=== PATIENT | male | born 1940 | race Caucasian/White ===

== ENCOUNTER 2016-12-11 10:45 | Outpatient (CLI) | payer MEDICARE, MEDICAID | END 2016-12-11 10:46 | disposition home or self-care (01) | DX: E11.9 Type 2 diabetes mellitus without complications (principal); E03.9 Hypothyroidism, unspecified ==

== ENCOUNTER 2017-03-19 08:07 | Outpatient (CLI) | payer MEDICARE, MEDICAID | END 2017-03-19 08:08 | disposition home or self-care (01) | DX: R94.5 Abnormal results of liver function studies (principal); E78.5 Hyperlipidemia, unspecified; N18.3 Chronic kidney disease, stage 3 (moderate); E03.9 Hypothyroidism, unspecified; E11.9 Type 2 diabetes mellitus without complications ==

== ENCOUNTER 2017-09-14 13:56 | Outpatient (CLI) | payer MEDICARE, MEDICAID ==
[2017-09-14 14:57] LABS: ALBUMIN/GLOBULIN RATIO 1.8 (1.0-2.2); BUN - BLOOD UREA NITROGEN 26 mg/dL (6-20); CARBON DIOXIDE - CO2 22 mmol/L (21-32); CHLORIDE 103 mmol/L (101-111); CHOL/HDL RATIO 4.4 (<5.0); CHOLESTEROL 122 mg/dL; CREATININE 1.4 mg/dL (0.6-1.2); GFR - MDRD 49 (>89); GLUCOSE 144 mg/dL (70-100); HDL CHOLESTEROL 28 mg/dL; LDL/HDL RATIO 2.1 (<3.6); POTASSIUM 4.1 mmol/L (3.5-5.0); SODIUM 135 mmol/L (135-145); TOTAL PROTEIN 6.8 g/dL (6.7-8.2); TRIGLYCERIDES 177 mg/dL; VLDL CHOLESTEROL 35 mg/dL
[2017-09-14 15:00] LABS: HEMOGLOBIN A1C 0.49 g/dL
[2017-09-14 15:08] LABS: THYROID STIMULATING HORMONE 0.84 uIU/mL (0.34-5.60)
== END 2017-09-14 13:57 | disposition home or self-care (01) ==
LOC: LAB 13:56
PROVIDERS: ATTEND Physician Assistant Medical
DX: R94.5 Abnormal results of liver function studies (principal); E11.39 Type 2 diabetes mellitus with other diabetic ophthalmic complication; E78.5 Hyperlipidemia, unspecified; N18.3 Chronic kidney disease, stage 3 (moderate); E03.9 Hypothyroidism, unspecified
CPT/HCPCS: 36415; 80053; 80061; 83036; 84439; 84443

== ENCOUNTER 2018-03-08 08:23 | Outpatient (CLI) | payer MEDICARE, MEDICAID ==
[2018-03-08 13:08] LABS: ALBUMIN 4.5 g/dL (3.2-5.5); ALBUMIN/GLOBULIN RATIO 1.6 (1.0-2.2); BILIRUBIN,TOTAL 1.6 mg/dL (0.2-1.0); CALCIUM 9.1 mg/dL (8.5-10.3); CREATININE 1.6 mg/dL (0.6-1.2); TOTAL PROTEIN 7.3 g/dL (6.7-8.2)
== END 2018-03-08 08:24 | disposition home or self-care (01) ==
LOC: LAB.WCP 08:23
PROVIDERS: ATTEND Family Medicine
DX: E11.22 Type 2 diabetes mellitus with diabetic chronic kidney disease (principal); N18.3 Chronic kidney disease, stage 3 (moderate); D46.9 Myelodysplastic syndrome, unspecified
CPT/HCPCS: 36415; 80053

== ENCOUNTER 2019-10-19 10:47 | Emergency (ER) | payer MEDICARE, MEDICAID ==
[2019-10-19 10:54] VITALS: BP 196/71
--- NOTE | 2019-10-19 12:31 | ED Physician Documentation ---
PD HPI HEENT - Stated complaint Stated Complaint: OBJECT STUCK IN THROAT - Chief complaint Chief Complaint: Heent - History obtained from History obtained from: Patient - History of Present Illness Timing - onset: Last night (finishing eating meal last night that had some pork in it. No fish. Noted feeling of something sharp to side of throat as he swallowed. No choking nor coughing. No vomiting. Continued with sore feeling left side of upper esophagus at level of cricoid cartilage into today. No sharp pain per se. Drank fluids, had some cream of wheat for breakfast this morning, without problems swallowing, just discomfort. He is concerned about residual FB.) Timing - duration: Days (1) Timing - details: Abrupt onset, Still present Location: Throat (left side) Worsens: Swalllowing Associated symptoms: No: Congestion, Unable to swallow, Swollen nodes, Facial swelling Similar symptoms before: Has not had sx before Recently seen: Not recently seen Review of Systems Constitutional: denies: Fever, Chills Nose: denies: Rhinorrhea / runny nose, Congestion, Sinus pressure / pain Throat: denies: Oral lesions / sores Cardiac: denies: Chest pain / pressure, Palpitations Respiratory: denies: Dyspnea, Cough GI: denies: Nausea, Vomiting PD PAST MEDICAL HISTORY - Past Medical History Cardiovascular: None Respiratory: None Neuro: None Endocrine/Autoimmune: Type 2 diabetes HEENT: None - Present Medications Home Medications: Ambulatory Orders Medication Instructions Recorded Confirmed Acetaminophen 1,000 mg PO QPM 08/13/15 09/05/19 Aspirin [Aspir 81] 81 mg PO DAILY 08/13/15 09/05/19 Levothyroxine [Synthroid] 150 mcg PO DAILY 08/13/15 09/05/19 Losartan Potassium 25 mg PO DAILY 08/13/15 09/05/19 Multivitamin [Multivitamins] 1 cap PO DAILY 08/13/15 09/05/19 Simvastatin 5 mg PO DAILY 08/13/15 09/05/19 Triamterene/Hydrochlorothiazid 1 cap PO DAILY 08/13/15 09/05/19 [Triamterene-Hctz 37.5-25 mg Cp] metFORMIN [Glucophage] 500 mg PO BID 08/13/15 09/05/19 Insulin Lispro [Humalog Kwikpen 15 units SQ BIDWM 07/20/17 09/05/19 U-100] Insulin NPH Human Isophane 20 - 25 units SQ BID 07/20/17 09/05/19 [Humulin N Kwikpen] Fluticasone [Flonase] 1 spray ART DAILY 03/07/19 09/05/19 Tamsulosin [Flomax] 0.2 mg PO DAILY 03/07/19 09/05/19 - Allergies Allergies/Adverse Reactions: Allergies Allergy/AdvReac Type Severity Reaction Status Date / Time No Known Drug Allergies Allergy Verified 10/19/19 10:54 PD ED PE NORMAL - Vitals Vital signs reviewed: Yes - General General: Alert and oriented X 3, No acute distress, Well developed/nourished - HEENT HEENT: Moist mucous membranes, Pharynx benign - Neck Neck: Supple, no meningeal sign, No adenopathy, Thyroid normal - Cardiac Cardiac: RRR, No murmur - Respiratory Respiratory: Clear bilaterally - Derm Derm: Normal color, Warm and dry, No rash Results - Vitals Vitals: Vital Signs - 24 hr 10/19/19 10:53 Temperature 36.5 C Heart Rate 88 Respiratory 18 Rate Blood Pressure 196/71 H O2 Saturation 99 Oxygen O2 Source Room air - Rads (name of study) soft tissue neck CT Radiology: Prelim report reviewed (no FB nor acute process seen. osteophytes seen C4-T1, which could create a globus sensation. ), See rad report PD MEDICAL DECISION MAKING - ED course Complexity details: reviewed results (no FB; osteophytes of neck but given the abrupt onset of the discomfort with eating, presume these are unrelated. ), considered differential (CT did not show any obvious bones or FB in the field of exam. I presume he has abrasion with the discomfort. To give another 1-2 days and see if improved. If not, then would need to consider fiberoptic eval. ), d/w patient Departure - Departure Disposition: 01 Home, Self Care Clinical Impression: Esophageal abrasion Qualifiers: Encounter type: initial encounter Qualified Code(s): S27.818A - Other injury of esophagus (thoracic part), initial encounter Condition: Stable Record reviewed to determine appropriate education?: Yes Follow-Up: Juan Sarmiento MD [Primary Care Provider] - [facility] [Provider Group] Comments: Your CT scan did not show any obvious foreign bodies. At this point I would presume an abrasion to the area and see if this gets better within a day or 2. If it persists beyond that then return to the ER or follow-up with ear nose and throat regarding potential scope evaluation to look at the area. Discharge Date/Time: 10/19/19 14:22
[2019-10-19] MEDS ORDERED: LIDOCAINE VISCOUS 2% 15 ML UDC MM STA (13:12)
--- NOTE | 2019-10-19 14:08 | CT Report ---
Reason: feeling of bone stuck neck area after eating Procedure Date: 10/19/2019 Accession Number: [id number] / [id number] Procedure: CT - SOFT TISSUE NECK WO CPT Code: Final Report FULL RESULT: EXAM: CT SOFT TISSUE NECK WITHOUT CONTRAST. EXAM DATE: 10/19/2019 01:37 PM. HISTORY: 79-year-old male. Feeling of bone stuck neck area after eating. COMPARISONS: None. TECHNIQUE: Routine soft tissue neck CT protocol without contrast. Reconstructions: Coronal and sagittal. IV contrast: None. In accordance with CT protocol optimization, one or more of the following dose reduction techniques were utilized for this exam: automated exposure control, adjustment of mA and/or KV based on patient size, or use of iterative reconstructive technique. FINDINGS: Visualized Intracranial Contents: Unremarkable. Orbits: Symmetric and unremarkable. Sinuses: Mild mucosal thickening bilateral maxillary sinuses. Remaining Visualized paranasal sinuses and mastoid air cells are clear. Oral cavity: The visualized oral cavity is unremarkable. The floor of the mouth is symmetric. Pharynx: Pharyngeal mucosa is unremarkable. The infratemporal fossa, parapharyngeal spaces, and retropharyngeal space are unremarkable. The base of the tongue is symmetric and unremarkable. The airway is patent. Larynx: Larynx and supraglottic airway are patent without mass lesion. Vocal cords are symmetric. The visualized trachea is unremarkable. Parotid and Submandibular Glands: Symmetric and unremarkable. Lymph Nodes: No enlarged lymph nodes are identified in the cervical, supraclavicular, and visualized superior mediastinal regions. Soft tissues: Soft tissues are unremarkable. No mass lesion. Vascular Structures: Unremarkable. Thyroid Gland: Normal. Lung: The visualized lung apices are clear. Bones: Bulky anterior osteophytosis extending from C4 to T1 level. No evidence of acute fracture or malalignment. There are moderate to severe multilevel degenerative changes. Other: None. IMPRESSION: 1. No definite radiopaque foreign body identified. 2. Bulky anterior osteophytosis extending from C4 to T1 level. This may create a globus sensation. RADIA
== END 2019-10-19 14:22 | disposition home or self-care (01) ==
LOC: ED 10:47
DX: S27.818A Other injury of esophagus (thoracic part), initial encounter (principal); X58.XXXA Exposure to other specified factors, initial encounter; Y93.89 Activity, other specified; M25.78 Osteophyte, vertebrae; E11.9 Type 2 diabetes mellitus without complications; Z79.4 Long term (current) use of insulin
CPT/HCPCS: 70490; 99282; 99284

== ENCOUNTER 2021-01-24 10:54 | Inpatient (IN) | payer MEDICARE, MEDICAID ==
[2021-01-24] MEDS ORDERED: SODIUM CHLORIDE 0.9% 1,000 ML IV STA (11:53)
--- NOTE | 2021-01-24 11:57 | ED Physician Documentation ---
History of Present Illness - Stated complaint Stated Complaint: BODY PX/WEAKNESS - Chief complaint Chief Complaint: General - Additonal information Additional information: 80-year-old male presents the emergency department with chief complaint of significant fatigue chills myalgias. He states "I feel like a man." He reports to me that the symptoms began almost 48 hours ago. He does endorse some sniffles and nasal congestion. This morning he began having some watery stools. However he also reports that he is having to go to the bathroom almost every hour and simply dribbling urine. There is a small amount of dysuria associated. Pt denies cough, CP, SOA. No n/v. 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 Review of Systems Constitutional: reports: Chills, Myalgias, Fatigue. denies: Fever Eyes: reports: Reviewed and negative Ears: reports: Reviewed and negative Throat: reports: Reviewed and negative Cardiac: denies: Chest pain / pressure, Palpitations, Pedal edema, Calf pain GI: reports: Diarrhea. denies: Abdominal Pain, Nausea, Vomiting : reports: Dysuria, Frequency Skin: denies: Rash, Lesions Musculoskeletal: denies: Neck pain, Back pain Neurologic: reports: Reviewed and negative Psychiatric: reports: Reviewed and negative PD PAST MEDICAL HISTORY - Past Medical History Past Medical History: Yes Cardiovascular: None Respiratory: None Neuro: None Endocrine/Autoimmune: Type 2 diabetes HEENT: None - Present Medications Home Medications: Ambulatory Orders Medication Instructions Recorded Confirmed Acetaminophen 1,000 mg PO QPM 08/13/15 01/24/21 Aspirin [Aspir 81] 81 mg PO DAILY 08/13/15 01/24/21 Losartan Potassium 25 mg PO DAILY 08/13/15 01/24/21 Multivitamin [Multivitamins] 1 cap PO DAILY 08/13/15 01/24/21 Simvastatin 5 mg PO DAILY 08/13/15 01/24/21 Triamterene/Hydrochlorothiazid 1 cap PO DAILY 08/13/15 01/24/21 [Triamterene-Hctz 37.5-25 mg Cp] metFORMIN [Glucophage] 500 mg PO BID 08/13/15 01/24/21 Insulin Lispro [Humalog Kwikpen 15 units SQ BIDWM 07/20/17 01/24/21 U-100] Insulin NPH Human Isophane 20 - 25 units SQ BID 07/20/17 01/24/21 [Humulin N Kwikpen] Fluticasone [Flonase] 1 spray ART DAILY 03/07/19 01/24/21 Tamsulosin [Flomax] 0.2 mg PO DAILY 03/07/19 01/24/21 Levothyroxine Sodium [Synthroid] 175 mcg PO DAILY 01/24/21 01/24/21 - Allergies Allergies/Adverse Reactions: Allergies Allergy/AdvReac Type Severity Reaction Status Date / Time No Known Drug Allergies Allergy Verified 01/24/21 11:07 - Social History Does the pt smoke?: No Smoking Status: Never smoker Does the pt have substance abuse?: No - Immunizations Immunizations are current?: Yes - POLST Patient has POLST: No PD ED PE EXPANDED - General General: Alert, No acute distress, Well developed/nourished - Neck Neck: Supple w/out meningeal sx. No: Adenopathy - Cardiac Cardiac: Regular Rate, Regular Rhythm, Radial strong equal, Pedal strong equal, Cap refill < 2 sec. No: Murmur Present - Respiratory Respiratory: Clear to ausultation hunter. No: Distress, Labored - Abdomen Abdomen: Normal Bowel sounds. No: Tender to palpation - Derm Derm: Normal color. No: Rash, Petecchiae, Purpura - Extremities Extremities: Normal. No: Deformity, Tenderness - Neuro Neuro: Alert and Oriented X 3, CNII-XII intact, Normal speech - GCS Eye Opening: Spontaneous Motor: Obeys Commands Verbal: Oriented Total: 15 Results - Vitals Vitals: Vital Signs - 24 hr 01/24/21 01/24/21 01/24/21 11:02 12:30 12:51 Temperature 36.9 C Heart Rate 105 H 90 Heart Rate [ 100 Sitting] Heart Rate [ 106 H Standing] Heart Rate [ 94 Supine] Respiratory 16 18 Rate Blood Pressure 128/57 L 149/67 H Blood Pressure 169/74 H [Sitting] Blood Pressure 133/80 H [Standing] Blood Pressure 149/67 H [Supine] O2 Saturation 97 100 01/24/21 13:02 Temperature 38.1 C H Heart Rate 98 Heart Rate [ Sitting] Heart Rate [ Standing] Heart Rate [ Supine] Respiratory 18 Rate Blood Pressure 142/58 H Blood Pressure [Sitting] Blood Pressure [Standing] Blood Pressure [Supine] O2 Saturation 100 Oxygen O2 Source Room air - EKG (time done) 1227 Rate: Rate (enter#) (93) Rhythm: NSR Hyrum: Normal Intervals: Normal OH. No: Prolonged QT QRS: Poor R wave progression Ischemia: Normal ST segments Compare to prior EKG: Old EKG unavailable Computer interpretation: Agree with computer - Labs Labs: Laboratory Tests 01/24/21 01/24/21 01/24/21 11:47 11:47 11:47 WBC 32.2 H RBC 2.47 L Hgb 8.8 L Hct 26.9 L MCV 108.9 H MCH 35.6 H MCHC 32.7 RDW 24.8 H Plt Count 356 MPV 10.2 Neut # (Auto) Not Reportable Lymph # (Auto) Not Reportable Upson # (Auto) Not Reportable Eos # (Auto) Not Reportable Baso # (Auto) Not Reportable Absolute Nucleated RBC Not Reportable Total Counted 100 Band Neuts % (Manual) 0 Abnorm Lymph % (Manual) 0 Nucleated RBC % Not Reportable Neutrophils # (Manual) 29.6 H Lymphocytes # (Manual) 1.0 L Monocytes # (Manual) 1.6 H Eosinophils # (Manual) 0.0 Basophils # (Manual) 0.0 Differential Comment MANUAL DIFFERENTIAL Platelet Estimate NORMAL (130-450,000) Platelet Morphology NORMAL APPEARANCE RBC Morph Micro Appear 3+ ANISOCYTOSIS Sodium 135 Potassium 4.2 Chloride 99 L Carbon Dioxide 21 Anion Gap 15.0 H BUN 37 H Creatinine 2.1 H Estimated GFR (MDRD) 31 L Glucose 320 H POC Whole Bld Glucose Lactic Acid Calcium 9.7 Total Bilirubin 2.8 H AST 19 ALT 22 Alkaline Phosphatase 51 Troponin I High Sens 29.0 H* Total Protein 7.3 Albumin 4.2 Globulin 3.1 Albumin/Globulin Ratio 1.4 Lipase 21 L Urine Color Urine Clarity Urine pH Ur Specific Tate Urine Protein Urine Glucose (UA) Urine Ketones Urine Occult Blood Urine Nitrite Urine Bilirubin Urine Urobilinogen Ur Leukocyte Esterase Urine RBC Urine WBC Ur Squamous Epith Cells Urine Bacteria Ur Microscopic Review Urine Culture Comments Nasal Adenovirus (PCR) Nasal B. parapertussis DNA (PCR) Nasal Coronavir 229E PCR Nasal Coronavir HKU1 PCR Nasal Coronavir NL63 PCR Nasal Coronavir OC43 PCR Nasal Enterovir/Rhinovir PCR Nasal Influenza B PCR Nasal Influenza A PCR Nasal Parainfluen 1 PCR Nasal Parainfluen 2 PCR Nasal Parainfluen 3 PCR Nasal Parainfluen 4 PCR Nasal RSV (PCR) Nasal B.pertussis DNA PCR Nasal C.pneumoniae (PCR) Art Human Metapneumo PCR Nasal M.pneumoniae (PCR) Nasal SARS-CoV-2 (PCR) 01/24/21 01/24/21 01/24/21 11:53 12:15 12:30 WBC RBC Hgb Hct MCV MCH MCHC RDW Plt Count MPV Neut # (Auto) Lymph # (Auto) Upson # (Auto) Eos # (Auto) Baso # (Auto) Absolute Nucleated RBC Total Counted Band Neuts % (Manual) Abnorm Lymph % (Manual) Nucleated RBC % Neutrophils # (Manual) Lymphocytes # (Manual) Monocytes # (Manual) Eosinophils # (Manual) Basophils # (Manual) Differential Comment Platelet Estimate Platelet Morphology RBC Morph Micro Appear Sodium Potassium Chloride Carbon Dioxide Anion Gap BUN Creatinine Estimated GFR (MDRD) Glucose POC Whole Bld Glucose 315 H Lactic Acid Calcium Total Bilirubin AST ALT Alkaline Phosphatase Troponin I High Sens Total Protein Albumin Globulin Albumin/Globulin Ratio Lipase Urine Color YELLOW Urine Clarity CLEAR Urine pH 6.0 Ur Specific Tate 1.025 Urine Protein 100 H Urine Glucose (UA) 100 H Urine Ketones NEGATIVE Urine Occult Blood TRACE-INTA Urine Nitrite POSITIVE H Urine Bilirubin NEGATIVE Urine Urobilinogen 0.2 (NORMAL) Ur Leukocyte Esterase TRACE H Urine RBC 6-10 H Urine WBC >25 H Ur Squamous Epith Cells FEW Squamous Urine Bacteria Moderate H Ur Microscopic Review INDICATED Urine Culture Comments INDICATED Nasal Adenovirus (PCR) NOT DETECTED Nasal B. parapertussis DNA (PCR) NOT DETECTED Nasal Coronavir 229E PCR NOT DETECTED Nasal Coronavir HKU1 PCR NOT DETECTED Nasal Coronavir NL63 PCR NOT DETECTED Nasal Coronavir OC43 PCR NOT DETECTED Nasal Enterovir/Rhinovir PCR NOT DETECTED Nasal Influenza B PCR NOT DETECTED Nasal Influenza A PCR NOT DETECTED Nasal Parainfluen 1 PCR NOT DETECTED Nasal Parainfluen 2 PCR NOT DETECTED Nasal Parainfluen 3 PCR NOT DETECTED Nasal Parainfluen 4 PCR NOT DETECTED Nasal RSV (PCR) NOT DETECTED Nasal B.pertussis DNA PCR NOT DETECTED Nasal C.pneumoniae (PCR) NOT DETECTED Art Human Metapneumo PCR NOT DETECTED Nasal M.pneumoniae (PCR) NOT DETECTED Nasal SARS-CoV-2 (PCR) NOT DETECTED 01/24/21 12:58 WBC RBC Hgb Hct MCV MCH MCHC RDW Plt Count MPV Neut # (Auto) Lymph # (Auto) Upson # (Auto) Eos # (Auto) Baso # (Auto) Absolute Nucleated RBC Total Counted Band Neuts % (Manual) Abnorm Lymph % (Manual) Nucleated RBC % Neutrophils # (Manual) Lymphocytes # (Manual) Monocytes # (Manual) Eosinophils # (Manual) Basophils # (Manual) Differential Comment Platelet Estimate Platelet Morphology RBC Morph Micro Appear Sodium Potassium Chloride Carbon Dioxide Anion Gap BUN Creatinine Estimated GFR (MDRD) Glucose POC Whole Bld Glucose Lactic Acid 3.5 H* Calcium Total Bilirubin AST ALT Alkaline Phosphatase Troponin I High Sens Total Protein Albumin Globulin Albumin/Globulin Ratio Lipase Urine Color Urine Clarity Urine pH Ur Specific Tate Urine Protein Urine Glucose (UA) Urine Ketones Urine Occult Blood Urine Nitrite Urine Bilirubin Urine Urobilinogen Ur Leukocyte Esterase Urine RBC Urine WBC Ur Squamous Epith Cells Urine Bacteria Ur Microscopic Review Urine Culture Comments Nasal Adenovirus (PCR) Nasal B. parapertussis DNA (PCR) Nasal Coronavir 229E PCR Nasal Coronavir HKU1 PCR Nasal Coronavir NL63 PCR Nasal Coronavir OC43 PCR Nasal Enterovir/Rhinovir PCR Nasal Influenza B PCR Nasal Influenza A PCR Nasal Parainfluen 1 PCR Nasal Parainfluen 2 PCR Nasal Parainfluen 3 PCR Nasal Parainfluen 4 PCR Nasal RSV (PCR) Nasal B.pertussis DNA PCR Nasal C.pneumoniae (PCR) Rat Human Metapneumo PCR Nasal M.pneumoniae (PCR) Nasal SARS-CoV-2 (PCR) - Rads (name of study) CXR Radiology: Final report received (Medial right infrahilar opacities compatible with atelectasis or consolidation.) CT abd Radiology: Final report received (Source of sepsis syndrome is not identified. No urinary tract abnormality is seen. No evidence of diverticulitis or appendicitis no inflammatory changes identified.) PD MEDICAL DECISION MAKING - ED course Complexity details: reviewed results, re-evaluated patient, considered differential, d/w patient ED course: 80-year-old male presents the emergency department with 2 days of significant fatigue body aches dysuria. On presentation he is normotensive and without fever or tachycardia. Screening labs reveal significant leukocytosis of 32,000. Urine is consistent with infection. Sepsis was identified at 1245. Initial lactate 3.5. 1 L of IV fluids was ordered on presentation but fluid resuscitation was deferred given normotension and lack of tachycardia. He does have mild worsening renal insufficiency with a creatinine of 2.1. Patient was given 1 g of ceftriaxone after 2 blood cultures were obtained. 1440: I have spoken with Dr. Brunson admitting hospitalist who agrees to bring patient in for further evaluation and treatment of his sepsis likely secondary to genitourinary infection. I have orderred a repeat lactic acid for 1430. - Sepsis Event Current Stage of Sepsis: Sepsis Possible source of Sepsis: Genitourinary Mental/Cognitive Status: Alert/Oriented X3 Capillary refill: Less than 2 seconds Peripheral Pulse Strength: 2+ Slightly Diminished Peripheral Pulse Location: Pedal Bedside ultrasound performed: No Sepsis Comment: sepsis identified at 1245 with noted urine infection and leukocytosis. Pending blood cultures and lactic acid. No hypotension, deferred fluid bolus. Departure - Departure Disposition: [facility] DC/Xfer Clinical Impression: Sepsis Qualifiers: Sepsis type: sepsis due to unspecified organism Sepsis acute organ dysfunction status: with acute organ dysfunction Severe sepsis acute organ dysfunction type: acute renal failure Acute renal failure type: unspecified Severe sepsis shock status: without septic shock Qualified Code(s): A41.9 - Sepsis, unspecified organism Urinary tract infection Qualifiers: Urinary tract infection type: acute cystitis Hematuria presence: without hematuria Qualified Code(s): N30.00 - Acute cystitis without hematuria Discharge Date/Time: 01/24/21 14:19
[2021-01-24 11:58] LABS: BASOPHILS % (AUTO) 0.5 %; EOSINOPHILS % (AUTO) 0.1 %; HCT - HEMATOCRIT 26.9 % (42.0-52.0); HGB - HEMOGLOBIN 8.8 g/dL (14.0-18.0); LYMPHOCYTES % (AUTO) 5.6 %; MEAN CORPUSCULAR HEMOGLOBIN 35.6 pg (27.0-31.0); MEAN CORPUSCULAR HGB CONC 32.7 g/dL (32.0-36.0); MEAN CORPUSCULAR VOLUME 108.9 fL (80.0-94.0); MEAN PLATELET VOLUME 10.2 fL (7.4-11.4); MONOCYTES % (AUTO) 8.5 %; PLT - PLATELET COUNT 356 10^3/uL (130-450); RED BLOOD COUNT 2.47 10^6/uL (4.70-6.10); RED CELL DISTRIBUTION WIDTH 24.8 % (12.0-15.0); WHITE BLOOD COUNT 32.2 x10^3/uL (4.8-10.8)
[2021-01-24 12:08] LABS: ABNORMAL LYMPHS % (MANUAL) 0 %; BAND NEUTROPHILS % (MANUAL) 0 %
[2021-01-24 12:09] LABS: ALBUMIN 4.2 g/dL (3.2-5.5); ALBUMIN/GLOBULIN RATIO 1.4 (1.0-2.2); BILIRUBIN,TOTAL 2.8 mg/dL (0.2-1.0); CALCIUM 9.7 mg/dL (8.5-10.3); CREATININE 2.1 mg/dL (0.6-1.2); POTASSIUM 4.2 mmol/L (3.5-5.0); TOTAL PROTEIN 7.3 g/dL (6.7-8.2)
[2021-01-24 12:27] LABS: BILIRUBIN,URINE NEGATIVE (NEGATIVE); CLARITY,URINE CLEAR (CLEAR); GLUCOSE, URINE (UA) 100 mg/dL (NEGATIVE); KETONES,URINE (UA) NEGATIVE (NEGATIVE); LEUKOCYTE ESTERASE, URINE TRACE (NEGATIVE); NITRITE,URINE POSITIVE (NEGATIVE); OCCULT BLOOD,URINE TRACE-INTA (NEGATIVE); PROTEIN,URINE 100 mg/dL (NEGATIVE); UROBILINOGEN,URINE 0.2 (NORMAL) E.U./dL (NORMAL)
--- NOTE | 2021-01-24 12:29 | XRAY Report ---
PROCEDURE: Chest 1 View X-Ray INDICATIONS: chest pain TECHNIQUE: One view of the chest was acquired. COMPARISON: None. FINDINGS: Surgical changes and devices: None. Lungs and pleura: There are medial opacities in the right lung base suggestive of atelectasis or con solidation. No pleural effusions or pneumothorax. Mediastinum: Mediastinal contours appear normal. Heart size is normal. Bones and chest wall: No suspicious bony lesions. Overlying soft tissues appear unremarkable. IMPRESSION: 1. Medial right infrahilar opacities compatible with atelectasis or consolidation. Reviewed by: Chato Crisostomo MD on 01/24/2021 11:28 AM [facility] Approved by: Chato Crisostomo MD on 01/24/2021 11:28 AM [facility] Station ID: [id number]
[2021-01-24 12:32] LABS: LYMPHOCYTES % (MANUAL) 3 %; MONOCYTES # (MANUAL) 1.6 10^3/uL (0.0-1.0); NEUTROPHILS # (MANUAL) 29.6 10^3/uL (1.5-6.6)
[2021-01-24 12:33] LABS: DIFFERENTIAL COMMENT MANUAL DIFFERENTIAL; PLATELET ESTIMATE, MANUAL NORMAL (130-450,000) (NORMAL); PLATELET MORPHOLOGY NORMAL APPEARANCE (NORMAL)
[2021-01-24 12:41] LABS: BACTERIA,URINE Moderate /HPF (None Seen); SQUAMOUS EPITHELIAL CELL,UR FEW Squamous (<= Few); WBC,URINE >25 /HPF (0-3)
[2021-01-24] MEDS ORDERED: cefTRIAXone 1 GM VIAL IVP STA (12:42)
--- NOTE | 2021-01-24 13:35 | CT Report ---
PROCEDURE: Abdomen/Pelvis WO INDICATIONS: sepsis, UTI TECHNIQUE: Noncontrast 5 mm thick sections acquired from the diaphragms to the symphysis. 5 mm coronal and sagi ttal reformats were then performed. For radiation dose reduction, the following was used: automated exposure control, adjustment of mA and/or kV according to patient size. COMPARISON: None. FINDINGS: Image quality: Reduced by absence of both oral and intravenous contrast. ABDOMEN: Lung bases: Lung bases are clear. Heart size is normal. Solid organs: Liver and spleen are normal in size. Gallbladder appears free of inflammation or calc ified gallstone. Pancreas is normal in contours. No adrenal nodules. Kidneys are normal in size, w ithout hydronephrosis or nephrolithiasis. Peritoneum and bowel: Unenhanced bowel loops demonstrate normal wall thickness and caliber. No free fluid or air. Nodes and vessels: No retroperitoneal or mesenteric adenopathy by size criteria. Aorta and inferior vena cava are normal in caliber. Miscellaneous: No ventral hernias. PELVIS: Genitourinary: Bladder wall thickness is normal. Miscellaneous: No inguinal hernias or adenopathy. No evidence of appendicitis or diverticulitis. Bones: No suspicious bony lesions. No vertebral body compression fractures. IMPRESSION: Source of sepsis syndrome is not identified. No urinary tract abnormality is seen. No evidence of div erticulitis or appendicitis, and no inflammatory change is identified. Reviewed by: Ky Rivera MD on 01/24/2021 1:34 PM PST Approved by: Ky Rivera MD on 01/24/2021 1:34 PM PST Station ID: [id number]
[2021-01-24 13:36] LABS: B. PARAPERTUSSIS- RESP PCR PAN NOT DETECTED; B. PERTUSSIS- RESP PCR PANEL NOT DETECTED; C. PNEUMONIAE- RESP PCR PANEL NOT DETECTED; CORONAVIRUS 229E-RESP PCR NOT DETECTED; CORONAVIRUS HKU1-RESP PCR NOT DETECTED; CORONAVIRUS NL63-RESP PCR NOT DETECTED; CORONAVIRUS OC43-RESP PCR NOT DETECTED; HUMAN METAPNEUMOVIRUS NOT DETECTED; INFLUENZA A- RESP PCR PANEL NOT DETECTED; INFLUENZA B - RESP PCR PANEL NOT DETECTED; M. PNEUMONIAE- RESP PCR PANEL NOT DETECTED; PARAINFLUENZA VIRUS 1 NOT DETECTED; PARAINFLUENZA VIRUS 2 NOT DETECTED; PARAINFLUENZA VIRUS 3 NOT DETECTED; PARAINFLUENZA VIRUS 4 NOT DETECTED; RHINOVIRUS/ENTEROVIRUS NOT DETECTED; RSV- RESP PCR PANEL NOT DETECTED; SARS-CoV-2 -RESP PCR PANEL NOT DETECTED
[2021-01-24] MEDS ORDERED: LACTATED RINGERS 2,449.41 ML IV STA (13:40)
[2021-01-24] MEDS ORDERED: ONDANSETRON ODT 4 MG TABLET TL PRN (13:44)
[2021-01-24] MEDS ORDERED: ONDANSETRON 4 MG/2 ML VIAL IVP PRN (13:44)
[2021-01-24] MEDS ORDERED: cefTRIAXone 1 GM in SODIUM CHLORIDE 0.9% MINIBAG 100 ML IV STA (15:04)
[2021-01-24] MEDS ORDERED: LIDOCAINE 2% URO-JET 5 ML SYRINGE UR ONE (15:53)
[2021-01-24] MEDS: ACETAMINOPHEN 325 MG TABLET PO PRN (16:11)
--- NOTE | 2021-01-24 16:19 | HISTORY & PHYSICAL EXAMINATION ---
Chief Complaint - Chief Complaint Chief Complaint: sepsis, UTI History of Present Illness - Admitted From Admitted From:: ED - History Obtained From Records Reviewed: [facility] History obtained from: Patient, Chart Exam Limitations: Pt hard of hearing - History of Present Illness HPI Comment/Other: 80 year old with medical hx including myelodysplastic syndrome, stage III chronic kidney disease and past UTI admitted with sepsis and UTI. Presented to the ED complaining of significant fatigue, chills, and myalgias. Reports he was in his normal state of health Thursday when he was given his Aranesp injection. He went home and had dinner and later that night started feeling fatigued and chilled. Denies fevers, SOB, cough. Reports chronic sinus congestion. Since Thursday night he has had increasing frequency and urgency to urinate with difficulty doing so as well as dysuria. Reports he has been attempting to urinate "every 5 minutes today and I can't go", minimal urine seen in urinal at bedside. Also reports hx BPH for which he was taking medication whose name he could not remember but believes he ran out of 4 years ago. Diarrhea reported to ED provider, though he tells me this afternoon this occurs once every month or so and spontaneously resolves. Denies back pain and did not have CVA tenderness on exam. Does have a prior history of previous UTIs in 2013 and 2014 for which the urine grew Enterobacter and Klebsiella. Labs in the ED significant for WBC 32, creatinine 2.1, BUN 37, anion gap 15 and lactic acid 3.5. Lactic acid later increased to 4 and troponin was 18. Glucose 260s-310s, last A1C 6.9% 10/2020. He has been hypertensive and febrile this afternoon and overall feeling unwell. Hand tremors noted. He was admitted for IV abx and treatment of sepsis and UTI. Also found to have an acute on chronic kidney disease with creatinine elevated to 2.1. Baseline creatinine appears to range 1.3-1.6 since 2017. History - Past Medical History Cardiovascular: reports: None, Hypertension Respiratory: reports: None Neuro: reports: Seizure disorder (appears with stress per patient) Endocrine/Autoimmune: reports: Type 2 diabetes, HyPOthyroidism GI: reports: Other (dysphagia Sep 2019) : reports: Benign prostate hypertrophy (reports he stopped taking meds for this 4 years ago; with urinary obstruction), Renal insuffiency (stage 3 CKD) HEENT: reports: Chronic sinusitis, Other (allergic rhinitis with nasal congestion; cataract) Psych: reports: None Musculoskeletal: reports: Osteoarthritis (knees), Chronic back pain (with sacroiliitis) Derm: reports: Eczema MRSA Hx?: No Other Past Medical History: fatty liver with elevated liver enzymes; m yelodysplastic syndrome with chronic anemia; hyperlipidemia - Family & Social History Family History Comment/Other: Has not had contact with family in many years, believes his parents were healthy but are . Unsure if his sister and brother are living. Son of epilepsy at age 21. Living arrangement: At home Living Situation: Alone Social History Notes: Lives alone. for many years, only son at age 21. Quit smoking at age 25 when son was born. Drinks one mixed alcoholic drink on Saturdays and Sundays, mixed with coffee. Denies illicit drug use. - Substance History Use: Uses substance without health or social issues: NONE Abuse: Recurrent use of substance despite neg consequences: NONE Dependence: Experiences withdrawal or developed tolerances: NONE - POLST Patient has POLST: No Meds/Allgy - Home Medications Home Medications: Ambulatory Orders Medication Instructions Recorded Confirmed Acetaminophen 1,000 mg PO QPM 08/13/15 01/24/21 Aspirin [Aspir 81] 81 mg PO DAILY 08/13/15 01/24/21 Losartan Potassium 25 mg PO DAILY 08/13/15 01/24/21 Multivitamin [Multivitamins] 1 cap PO DAILY 08/13/15 01/24/21 Simvastatin 5 mg PO DAILY 08/13/15 01/24/21 Triamterene/Hydrochlorothiazid 1 cap PO DAILY 08/13/15 01/24/21 [Triamterene-Hctz 37.5-25 mg Cp] metFORMIN [Glucophage] 500 mg PO BID 08/13/15 01/24/21 Insulin Lispro [Humalog Kwikpen 15 units SQ BIDWM 07/20/17 01/24/21 U-100] Insulin NPH Human Isophane 20 - 25 units SQ BID 07/20/17 01/24/21 [Humulin N Kwikpen] Fluticasone [Flonase] 1 spray ART DAILY 03/07/19 01/24/21 Tamsulosin [Flomax] 0.2 mg PO DAILY 03/07/19 01/24/21 Levothyroxine Sodium [Synthroid] 175 mcg PO DAILY 01/24/21 01/24/21 - Allergies Allergies/Adverse Reactions: Allergies Allergy/AdvReac Type Severity Reaction Status Date / Time No Known Drug Allergies Allergy Verified 01/24/21 11:07 Review of Systems - Constitutional Constitutional: reports: Fatigue, Chills, Weakness. denies: Fever - Eyes Eyes: reports: Other (last vision test done 5 years ago per his report). denies: Pain, Blurred vision, Spots in vision - Ears, Nose & Throat Ears, Nose & Throat: reports: Hearing loss, Hearing aids, Nasal congestion (chronic). denies: Sore throat - Cardiovascular Cariovascular: denies: Palpitations, Chest pain, Edema, Lightheadedness, Syncope, Exertional dyspnea - Respiratory Respiratory: denies: Cough, SOB at rest, SOB with exertion - Gastrointestinal Gastrointestinal: reports: Diarrhea. denies: Abdominal pain, Abdominal distention, Nausea, Vomiting - Genitourinary Genitourinary: reports: Dysuria, Frequency, Urgency, Nocturia - Musculoskeletal Musculoskeletal: reports: Other (hand tremors, worse with stress). denies: Back pain, Muscle aches, Muscle weakness - Integumentary Integumentary: denies: Rash - Neurological Neurological: denies: General weakness, Headache, Dizziness, Numbness, Seizures (none recent, occurs with stress) - Psychiatric Psychiatric: denies: Depression, Anxiety - Endocrine Endocrine: denies: Polyuria, Polydypsia, Polyphagia - Hematologic/Lymphatic Hematologic/Lymphatic: reports: Anemia (due to MDS) - All Other Systems All Other Systems: reports: Reviewed and negative Prior Level of Functionality: Independent at home with ADLs and iADLs. Performs all housework and drives to appointments, etc. Exam - Vital Signs Reviewed Vital Signs: Yes Vital Signs: Vital Signs x48h Temp Pulse Pulse Pulse Pulse Pulse Resp 01/24/21 16:00 39.7 C H 96 24 01/24/21 15:30 37.3 C 96 24 01/24/21 15:00 37.2 C 97 20 01/24/21 14:30 37.2 C 93 20 01/24/21 14:26 37.8 C 90 20 01/24/21 13:02 38.1 C H 98 18 01/24/21 12:51 100 106 H 94 01/24/21 12:30 90 18 01/24/21 11:02 36.9 C 105 H 16 BP BP BP BP BP Pulse Ox 01/24/21 16:00 181/52 H 95 01/24/21 15:30 177/58 H 97 01/24/21 15:00 179/58 H 98 01/24/21 14:30 173/52 H 100 01/24/21 14:26 153/71 H 99 01/24/21 13:02 142/58 H 100 01/24/21 12:51 169/74 H 133/80 H 149/67 H 01/24/21 12:30 149/67 H 100 01/24/21 11:02 128/57 L 97 - Physical Exam General Appearance: positive: Alert, Mild distress Eyes Bilateral: positive: Normal inspection, PERRL ENT: positive: ENT inspection nml, No signs of dehydration Neck: positive: Nml inspection, Thyroid nml Respiratory: positive: Chest non-tender, No respiratory distress, Breath sounds nml Cardiovascular: positive: Regular rate & rhythm, No murmur, No gallop Peripheral Pulses: positive: 2+ Abdomen: positive: Non-tender, No organomegaly, Nml bowel sounds, No distention Back: positive: Nml inspection. negative: CVA tenderness (R), CVA tenderness (L) Skin: positive: Pallor Extremities: positive: Non-tender, Full ROM, Nml appearance Neurologic/Psychiatric: positive: Oriented x3 Comments/Other: gabriella clear urine draining from heredia catheter Sepsis Event Note (H) - Evaluation Current Stage of Sepsis: Sepsis Possible source of Sepsis: positive: Genitourinary Sepsis Associated Organ Dysfunction: acute on chronic kidney injury - Sepsis Criteria Sepsis Criteria: Recorded Temperature greater than 38.3C or Less than 36C, Recorded Heart Rate greater than 90 bpm, WBC count greater than 12,000 or less than 4000, Metabolic: lactate > 2 mmol/L Conclusion/Plan - Problem List (1) Sepsis Conclusion/Plan: Pt admitted with WBC 32.2. WBC last drawn 01/21 and was 9. Troponin 29 and lactate has been 3.5-->4-->2.7. Glucose trending 260s-310s though with recent A1c<7 this is likely indicative of infection rather than poor blood sugar control. His anion gap was 15. Tmax was 39.7, has come to 39.1 with tylenol. A one time dose of Ibuprofen was also ordered. Heart rate has been regular and in the 90s. He has been hypertensive 170s-180s systolic. His respiratory rate is in the 20s, max 24, with saturation ranging 100-94%, trending down. He was admitted with sepsis and started on 2g Ceftriaxone per sepsis protocol. 1. IV Abx 2. Repeat lactate and troponin 3. VS Q4 4. Tylenol Q6H PRN fever 5. Ibuprofen x1 6. IVF Qualifiers: Sepsis type: sepsis due to unspecified organism Sepsis acute organ dysfunction status: with acute organ dysfunction Severe sepsis acute organ dysfunction type: acute renal failure Acute renal failure type: unspecified Severe sepsis shock status: without septic shock Qualified Code(s): A41.9 - Sepsis, unspecified organism; R65.20 - Severe sepsis without septic shock; N17.9 - Acute kidney failure, unspecified (2) Urinary tract infection Conclusion/Plan: Reports 3 days of dysuria, frequency, difficulty urinating. Tmax 39.7, hypertensive. WBC 32, increased from [address] scan normal, no bladder obstruction noted. Heredia placed, draining clear yellow/gabriella urine initially, now with blood tinged output. Urine sample sent for culture, currently on Ceftriaxone. 1. IV abx 2. Urine cx 3. IVF Qualifiers: Urinary tract infection type: acute cystitis Hematuria presence: without hematuria Qualified Code(s): N30.00 - Acute cystitis without hematuria (3) Diabetes mellitus type 2, controlled, with complications Conclusion/Plan: A1C in October 2020 6.9%. Takes metformin and insulin at home, appears to be well controlled. BGs have been elevated today, likely related to infection. Metformin will be held for now given high lactate and LIS, insulin restarted. Has not had a Podiatry or Opthalmology appointment in 5 years, reports this is due to "the state not paying for it". Denies blurry vision but does have a prior diagnosis of cataracts. Also has stage III kidney disease. No foot wounds noted on exam, I was not able to test for neuropathy as he had difficulty hearing me through this. 1. SSI 2. Hold Metformin for now 3. Follow up Opthalmology after discharge Qualifiers: Diabetes mellitus correction insulin use: with correction use Qualified Code(s): E11.8 - Type 2 diabetes mellitus with unspecified complications; Z79.4 - MCFP (current) use of insulin (4) Hypertension Conclusion/Plan: Takes Losartan at home, did not take medications this morning. SBPs 170-180s this afternoon. 1. Resume home Losartan. Qualifiers: Hypertension type: essential hypertension Qualified Code(s): I10 - Essential (primary) hypertension (5) Acute kidney injury superimposed on chronic kidney disease Conclusion/Plan: Baseline creatinine appears to range 1.3-1.6 looking back at records through 2017. Admitted with creatinine 2.1 and BUN 37. Known to have chronic kidney disease stage III. Given IVF (LR) and will recheck creatinine in the morning. Urine is clear yellow/gabriella. 1. IVF 2. Monitor I/O (heredia in place) 3. Daily CMP (6) Chronic kidney disease, stage 3 Conclusion/Plan: Baseline creatinine appears to range 1.3-1.6 looking back at records through 2016. Admitted with creatinine 2.1 and BUN 37. Known to have chronic kidney disease stage III. Given IVF (LR) and will recheck creatinine in the morning. Urine is clear yellow/gabriella. 1. Daily CMP 2. Monitor I/O Qualifiers: Chronic kidney disease stage 3 subtype: unspecified whether 3a or 3b Qualified Code(s): N18.30 - Chronic kidney disease, stage 3 unspecified (7) Benign prostate hyperplasia Conclusion/Plan: Reports he was diagnosed in 2014 and "ran out of meds 4 years ago", however Flomax is on his outpatient medication list. Reports difficulty urinating, incomplete emptying, dysuria, frequency and urgency. Attempted 4 times to urinate in the first 5 min of my interview with him without success, so a heredia catheter was placed. CT scan done, does not mention the prostate but does mention that all other organs are normal. Denied abdominal pain, did not have CVA tenderness on exam. Blood tinged urine in heredia 1 hour after placement, initially was gabriella/yellow and clear. 1. Rectal/Prostate exam 2. Heredia catheter 3. Resume Flomax Qualifiers: Lower urinary tract symptom presence: symptoms present Lower urinary tract symptom detail: urinary frequency Qualified Code(s): N40.1 - Benign prostatic hyperplasia with lower urinary tract symptoms; R35.0 - Frequency of micturition (8) Chronic sinusitis Conclusion/Plan: Has a history of chronic sinusitis, reporting some nasal congestion today. No drainage seen on exam, nares appear normal and pink on external exam. Uses Flonase at home. 1. 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 Last dose received 01/21. Hgb 8.8 today. 1. Monitor CBC (10) Myelodysplastic syndrome Conclusion/Plan: Diagnosed by 2014, followed by Ramona Ibrahim and Josh Lou outpatient. Follows up every 2-3 months, with monthly CBC (WBC normal at 9 on 01/21, no evidence of disease progression). Has been receiving treatment for his chronic anemia related to MDS. (11) Hyperlipidemia Conclusion/Plan: Prior diagnosis of HLD. Takes a statin and aspirin at home, will resume when appropriate. Qualifiers: Hyperlipidemia type: unspecified Qualified Code(s): E78.5 - Hyperlipidemia, unspecified (12) Seizure disorder Conclusion/Plan: Reports a history of epilepsy, last seizure unknown. Reports he only has sei zures "when I'm stressed". Does not take medications for this and has not seen a Neurologist recently. 1. Seizure precautions. (13) Hypothyroidism Conclusion/Plan: Prior diagnosis. Takes Levothyroxine at home. Will resume. 1. Levothyroxine daily. Qualifiers: Hypothyroidism type: unspecified Qualified Code(s): E03.9 - Hypothyroidism, unspecified - Lab Results Lab results reviewed: Yes Fish Bones: 01/24/21 11:47 01/24/21 11:47 - Diagnostic Imaging Results Diagnostic Imaging Results: positive: Prelim report reviewed Core Measures - Anticipated LOS I expect patient to be DC'd or transferred within 96 hours.: Yes - DVT/VTE - Prophylaxis VTE/DVT Device ordered at admit?: Yes
[2021-01-24] MEDS ORDERED: IBUPROFEN 800 MG TABLET PO ONE (17:20)
[2021-01-24 17:22] LABS: LACTIC ACID, VENOUS 2.7 mmol/L (0.5-2.2)
[2021-01-24] MEDS: LACTATED RINGERS 1,000 ML IV SCH ×2 (17:27→22:01)
[2021-01-24] MEDS: SODIUM CHLORIDE FLUSH 0.9% 10 ML SYRINGE IVP SCH ×2 (17:46→23:57)
[2021-01-24] MEDS ORDERED: LACTATED RINGERS 1,000 ML IV ONE (19:11)
[2021-01-24 20:53] LABS: LACTIC ACID, VENOUS 2.5 mmol/L (0.5-2.2)
[2021-01-24] MEDS: INSULIN NPH HUMAN 300 UNIT/3 ML VIAL SUBQ SCH (22:24)
[2021-01-24] MEDS: INSULIN ASPART 300 UNIT/3 ML PEN SUBQ SCH (22:25)
[2021-01-25 00:51] LABS: PSA FREE 4.29 ng/mL (0.16-2.81)
[2021-01-25 00:52] LABS: PSA TOTAL 11.88 ng/mL (0.000-2.000)
[2021-01-25] MEDS: ACETAMINOPHEN 325 MG TABLET PO PRN ×3 (04:27→16:41)
[2021-01-25] MEDS: LACTATED RINGERS 1,000 ML IV SCH ×3 (04:39→21:12)
[2021-01-25 04:49] LABS: BASOPHILS % (AUTO) 0.4 %; EOSINOPHILS % (AUTO) 0.5 %; MEAN CORPUSCULAR HEMOGLOBIN 35.2 pg (27.0-31.0); MEAN CORPUSCULAR HGB CONC 31.8 g/dL (32.0-36.0); MEAN CORPUSCULAR VOLUME 110.6 fL (80.0-94.0); MEAN PLATELET VOLUME 10.4 fL (7.4-11.4); NEUTROPHILS % (AUTO) 82.9 %; PLT - PLATELET COUNT 271 10^3/uL (130-450); RED BLOOD COUNT 1.99 10^6/uL (4.70-6.10); RED CELL DISTRIBUTION WIDTH 25.4 % (12.0-15.0); WHITE BLOOD COUNT 26.5 x10^3/uL (4.8-10.8)
[2021-01-25 05:13] LABS: ABNORMAL LYMPHS % (MANUAL) 0 %
[2021-01-25 05:15] LABS: BAND NEUTROPHILS % (MANUAL) 4 %; LYMPHOCYTES # (MANUAL) 1.3 10^3/uL (1.5-3.5); LYMPHOCYTES % (MANUAL) 5 %; MONOCYTES # (MANUAL) 2.4 10^3/uL (0.0-1.0); NEUTROPHILS # (MANUAL) 22.8 10^3/uL (1.5-6.6)
[2021-01-25 05:17] LABS: DIFFERENTIAL COMMENT MANUAL DIFFERENTIAL; PLATELET ESTIMATE, MANUAL NORMAL (130-450,000) (NORMAL); PLATELET MORPHOLOGY NORMAL APPEARANCE (NORMAL); WBC MORPHOLOGY (MULTIPLE) NORMAL APPEARANCE (NORMAL)
[2021-01-25] MEDS: LEVOTHYROXINE 75 MCG TABLET PO SCH (06:33)
[2021-01-25] MEDS: LEVOTHYROXINE 100 MCG TABLET PO SCH (06:33)
[2021-01-25] MEDS ORDERED: ATORVASTATIN 40 MG TABLET PO ONE (07:28)
[2021-01-25] MEDS: METOPROLOL SUCCINATE 25 MG TABLET PO SCH (08:11)
[2021-01-25] MEDS: ASPIRIN 325 MG TABLET PO SCH (08:11)
[2021-01-25] MEDS: TAMSULOSIN 0.4 MG CAPSULE PO SCH (08:11)
[2021-01-25] MEDS: LOSARTAN 50 MG TABLET PO SCH (08:12)
[2021-01-25 08:13] LABS: CALCIUM 8.8 mg/dL (8.5-10.3); CREATININE 1.6 mg/dL (0.6-1.2); POTASSIUM 4.1 mmol/L (3.5-5.0)
[2021-01-25] MEDS: SODIUM CHLORIDE FLUSH 0.9% 10 ML SYRINGE IVP SCH ×3 (08:13→23:59)
--- NOTE | 2021-01-25 08:15 | PROVIDER PROGRESS NOTE ---
Subjective - Prog Note Date Prog Note Date: 01/25/21 - Subjective Pt reports feeling: Improved Subjective: Hypotensive overnight. WBC improving to 26, lactate trending down to 1.7. Troponins have increased to 141.5, denies chest pain or SOB. Pt feels he slept okay overnight. Complaining of a dull abdominal pain, no tenderness with palpation. Rated 5/10, constant though some relief with pain medication. He is not sure if anything makes it worse but denies it is radiating anywhere. [place] draining clear yellow urine. Objective - Vital Signs/Intake & Output Reviewed Vital Signs: Yes Vital Signs: Vital Signs x48h Temp Pulse Resp BP Pulse Ox 01/25/21 07:30 36.7 C 77 20 122/48 L 95 01/25/21 07:00 36.9 C 77 16 131/50 H 93 01/25/21 06:30 36.9 C 81 18 126/48 L 96 01/25/21 06:00 36.9 C 80 18 119/48 L 95 01/25/21 05:30 36.6 C 80 22 120/47 L 94 01/25/21 05:00 36.6 C 79 18 120/50 L 95 01/25/21 04:30 36.6 C 80 18 125/59 L 98 01/25/21 04:00 84 18 112/47 L 99 01/25/21 03:30 37.3 C 81 20 115/47 L 95 01/25/21 03:00 36.8 C 80 18 101/54 L 97 01/25/21 02:30 37.5 C 76 18 107/47 L 99 01/25/21 02:00 37.2 C 74 18 106/45 L 96 01/25/21 01:30 36.8 C 69 18 95/48 L 98 01/25/21 01:00 37 C 67 16 93/38 L 96 01/25/21 00:30 69 18 97/43 L 98 Intake & Output: Intake & Output 01/22/21 01/23/21 01/24/21 01/25/21 23:59 23:59 23:59 23:59 Intake Total 5768.687 859.723 Output Total 825 425 Balance 4943.687 434.723 - Objective General Appearance: positive: No acute distress, Alert Eyes Bilateral: positive: Normal inspection, PERRL ENT: positive: ENT inspection nml, No signs of dehydration Neck: positive: Nml inspection Respiratory: positive: Chest non-tender, No respiratory distress, Breath sounds nml Cardiovascular: positive: Regular rate & rhythm, No murmur, No gallop Abdomen: positive: No organomegaly, Nml bowel sounds, Tenderness (non-tender to palpation but reporting dull pain, 5/10, across the abdomen. Pain medications help to make it better, not sure what makes it worse. Non-radiating, constant.) Back: positive: Nml inspection Skin: positive: Diaphoresis, Pallor Extremities: positive: Non-tender, Full ROM, Nml appearance Neurologic/Psychiatric: positive: Oriented x3 Comments/Other: heredia with clear yellow urine - Lab Results Fish Bones: 01/25/21 04:38 01/25/21 07:40 Other Labs: Lab Results x24hrs 01/25/21 01/25/21 01/25/21 Range/Units 07:46 04:38 04:38 WBC 26.5 H (4.8-10.8) x10^3/uL RBC 1.99 L (4.70-6.10) 10^6/uL Hgb 7.0 L* (14.0-18.0) g/dL Hct 22.0 L (42.0-52.0) % MCV 110.6 H (80.0-94.0) fL MCH 35.2 H (27.0-31.0) pg MCHC 31.8 L (32.0-36.0) g/dL RDW 25.4 H (12.0-15.0) % Plt Count 271 (130-450) 10^3/uL MPV 10.4 (7.4-11.4) fL Neut # (Auto) Not Reportable Lymph # (Auto) Not Reportable [place] # (Auto) Not Reportable Eos # (Auto) Not Reportable Baso # (Auto) Not Reportable Absolute Nucleated RBC Not Reportable Total Counted 100 Band Neuts % (Manual) 4 (0 - 10) % Abnorm Lymph % (Manual) 0 % Nucleated RBC % Not Reportable Neutrophils # (Manual) 22.8 H (1.5-6.6) 10^3/uL Lymphocytes # (Manual) 1.3 L (1.5-3.5) 10^3/uL Monocytes # (Manual) 2.4 H (0.0-1.0) 10^3/uL Eosinophils # (Manual) 0.0 (0-0.7) 10^3/uL Basophils # (Manual) 0.0 (0-0.1) 10^3/uL Differential Comment MANUAL DIFFERENTIAL WBC Morphology NORMAL APPEARANCE (NORMAL) Platelet Estimate NORMAL (130-450,000) (NORMAL) Platelet Morphology NORMAL APPEARANCE (NORMAL) RBC Morph Micro Appear 1+ HYPOCHROMASIA (NORMAL) Sodium (135-145) mmol/L Potassium (3.5-5.0) mmol/L Chloride (101-111) mmol/L Carbon Dioxide (21-32) mmol/L Anion Gap (6-13) BUN (6-20) mg/dL Creatinine (0.6-1.2) mg/dL Estimated GFR (MDRD) (>89) Glucose (70-100) mg/dL POC Whole Bld Glucose 204 H (70 - 100) mg/dL Lactic Acid 1.6 (0.5-2.2) mmol/L Calcium (8.5-10.3) mg/dL Total Bilirubin (0.2-1.0) mg/dL AST (10-42) IU/L ALT (10-60) IU/L Alkaline Phosphatase (42-121) IU/L Troponin I High Sens (2.3-19.7) ng/L Total Protein (6.7-8.2) g/dL Albumin (3.2-5.5) g/dL Globulin (2.1-4.2) g/dL Albumin/Globulin Ratio (1.0-2.2) Lipase (22-51) U/L Prostate Specific Ag (0.000-2.000) ng/mL Free PSA (0.16-2.81) ng/mL % Free PSA Calc (25-100) % Urine Color Urine Clarity (CLEAR) Urine pH (5.0-7.5) PH Ur Specific [place] (1.002-1.030) Urine Protein (NEGATIVE) mg/dL Urine Glucose (UA) (NEGATIVE) mg/dL Urine Ketones (NEGATIVE) mg/dL Urine Occult Blood (NEGATIVE) Urine Nitrite (NEGATIVE) Urine Bilirubin (NEGATIVE) Urine Urobilinogen (NORMAL) E.U./dL Ur Leukocyte Esterase (NEGATIVE) Urine RBC (0-5) /HPF Urine WBC (0-3) /HPF Ur Squamous Epith Cells (<= Few) Urine Bacteria (None Seen) /HPF Ur Microscopic Review Urine Culture Comments Nasal Adenovirus (PCR) Nasal B. parapertussis DNA (PCR) Nasal Coronavir 229E PCR Nasal Coronavir HKU1 PCR Nasal Coronavir NL63 PCR Nasal Coronavir OC43 PCR Nasal Enterovir/Rhinovir PCR Nasal Influenza B PCR Nasal Influenza A PCR Nasal Parainfluen 1 PCR Nasal Parainfluen 2 PCR Nasal Parainfluen 3 PCR Nasal Parainfluen 4 PCR Nasal RSV (PCR) Nasal B.pertussis DNA PCR Nasal C.pneumoniae (PCR) Joey Human Metapneumo PCR Nasal M.pneumoniae (PCR) Nasal SARS-CoV-2 (PCR) 01/24/21 01/24/21 01/24/21 Range/Units 23:10 23:01 20:39 WBC (4.8-10.8) x10^3/uL RBC (4.70-6.10) 10^6/uL Hgb (14.0-18.0) g/dL Hct (42.0-52.0) % MCV (80.0-94.0) fL MCH (27.0-31.0) pg MCHC (32.0-36.0) g/dL RDW (12.0-15.0) % Plt Count (130-450) 10^3/uL MPV (7.4-11.4) fL Neut # (Auto) Lymph # (Auto) [place] # (Auto) Eos # (Auto) Baso # (Auto) Absolute Nucleated RBC Total Counted Band Neuts % (Manual) (0 - 10) % Abnorm Lymph % (Manual) % Nucleated RBC % Neutrophils # (Manual) (1.5-6.6) 10^3/uL Lymphocytes # (Manual) (1.5-3.5) 10^3/uL Monocytes # (Manual) (0.0-1.0) 10^3/uL Eosinophils # (Manual) (0-0.7) 10^3/uL Basophils # (Manual) (0-0.1) 10^3/uL Differential Comment WBC Morphology (NORMAL) Platelet Estimate (NORMAL) Platelet Morphology (NORMAL) RBC Morph Micro Appear (NORMAL) Sodium (135-145) mmol/L Potassium (3.5-5.0) mmol/L Chloride (101-111) mmol/L Carbon Dioxide (21-32) mmol/L Anion Gap (6-13) BUN (6-20) mg/dL Creatinine (0.6-1.2) mg/dL Estimated GFR (MDRD) (>89) Glucose (70-100) mg/dL POC Whole Bld Glucose 232 H (70 - 100) mg/dL Lactic Acid 1.8 (0.5-2.2) mmol/L Calcium (8.5-10.3) mg/dL Total Bilirubin (0.2-1.0) mg/dL AST (10-42) IU/L ALT (10-60) IU/L Alkaline Phosphatase (42-121) IU/L Troponin I High Sens 141.5 H* (2.3-19.7) ng/L Total Protein (6.7-8.2) g/dL Albumin (3.2-5.5) g/dL Globulin (2.1-4.2) g/dL Albumin/Globulin Ratio (1.0-2.2) Lipase (22-51) U/L Prostate Specific Ag (0.000-2.000) ng/mL Free PSA (0.16-2.81) ng/mL % Free PSA Calc (25-100) % Urine Color Urine Clarity (CLEAR) Urine pH (5.0-7.5) PH Ur Specific [place] (1.002-1.030) Urine Protein (NEGATIVE) mg/dL Urine Glucose (UA) (NEGATIVE) mg/dL Urine Ketones (NEGATIVE) mg/dL Urine Occult Blood (NEGATIVE) Urine Nitrite (NEGATIVE) Urine Bilirubin (NEGATIVE) Urine Urobilinogen (NORMAL) E.U./dL Ur Leukocyte Esterase (NEGATIVE) Urine RBC (0-5) /HPF Urine WBC (0-3) /HPF Ur Squamous Epith Cells (<= Few) Urine Bacteria (None Seen) /HPF Ur Microscopic Review Urine Culture Comments Nasal Adenovirus (PCR) Nasal B. parapertussis DNA (PCR) Nasal Coronavir 229E PCR Nasal Coronavir HKU1 PCR Nasal Coronavir NL63 PCR Nasal Coronavir OC43 PCR Nasal Enterovir/Rhinovir PCR Nasal Influenza B PCR Nasal Influenza A PCR Nasal Parainfluen 1 PCR Nasal Parainfluen 2 PCR Nasal Parainfluen 3 PCR Nasal Parainfluen 4 PCR Nasal RSV (PCR) Nasal B.pertussis DNA PCR Nasal C.pneumoniae (PCR) Joey Human Metapneumo PCR Nasal M.pneumoniae (PCR) Nasal SARS-CoV-2 (PCR) 01/24/21 01/24/21 01/24/21 Range/Units 20:21 17:02 17:02 WBC (4.8-10.8) x10^3/uL RBC (4.70-6.10) 10^6/uL Hgb (14.0-18.0) g/dL Hct (42.0-52.0) % MCV (80.0-94.0) fL MCH (27.0-31.0) pg MCHC (32.0-36.0) g/dL RDW (12.0-15.0) % Plt Count (130-450) 10^3/uL MPV (7.4-11.4) fL Neut # (Auto) Lymph # (Auto) [place] # (Auto) Eos # (Auto) Baso # (Auto) Absolute Nucleated RBC Total Counted Band Neuts % (Manual) (0 - 10) % Abnorm Lymph % (Manual) % Nucleated RBC % Neutrophils # (Manual) (1.5-6.6) 10^3/uL Lymphocytes # (Manual) (1.5-3.5) 10^3/uL Monocytes # (Manual) (0.0-1.0) 10^3/uL Eosinophils # (Manual) (0-0.7) 10^3/uL Basophils # (Manual) (0-0.1) 10^3/uL Differential Comment WBC Morphology (NORMAL) Platelet Estimate (NORMAL) Platelet Morphology (NORMAL) RBC Morph Micro Appear (NORMAL) Sodium (135-145) mmol/L Potassium (3.5-5.0) mmol/L Chloride (101-111) mmol/L Carbon Dioxide (21-32) mmol/L Anion Gap (6-13) BUN (6-20) mg/dL Creatinine (0.6-1.2) mg/dL Estimated GFR (MDRD) (>89) Glucose (70-100) mg/dL POC Whole Bld Glucose (70 - 100) mg/dL Lactic Acid 2.5 H 2.7 H (0.5-2.2) mmol/L Calcium (8.5-10.3) mg/dL Total Bilirubin (0.2-1.0) mg/dL AST (10-42) IU/L ALT (10-60) IU/L Alkaline Phosphatase (42-121) IU/L Troponin I High Sens 74.1 H* (2.3-19.7) ng/L Total Protein (6.7-8.2) g/dL Albumin (3.2-5.5) g/dL Globulin (2.1-4.2) g/dL Albumin/Globulin Ratio (1.0-2.2) Lipase (22-51) U/L Prostate Specific Ag (0.000-2.000) ng/mL Free PSA (0.16-2.81) ng/mL % Free PSA Calc (25-100) % Urine Color Urine Clarity (CLEAR) Urine pH (5.0-7.5) PH Ur Specific [place] (1.002-1.030) Urine Protein (NEGATIVE) mg/dL Urine Glucose (UA) (NEGATIVE) mg/dL Urine Ketones (NEGATIVE) mg/dL Urine Occult Blood (NEGATIVE) Urine Nitrite (NEGATIVE) Urine Bilirubin (NEGATIVE) Urine Urobilinogen (NORMAL) E.U./dL Ur Leukocyte Esterase (NEGATIVE) Urine RBC (0-5) /HPF Urine WBC (0-3) /HPF Ur Squamous Epith Cells (<= Few) Urine Bacteria (None Seen) /HPF Ur Microscopic Review Urine Culture Comments Nasal Adenovirus (PCR) Nasal B. parapertussis DNA (PCR) Nasal Coronavir 229E PCR Nasal Coronavir HKU1 PCR Nasal Coronavir NL63 PCR Nasal Coronavir OC43 PCR Nasal Enterovir/Rhinovir PCR Nasal Influenza B PCR Nasal Influenza A PCR Nasal Parainfluen 1 PCR Nasal Parainfluen 2 PCR Nasal Parainfluen 3 PCR Nasal Parainfluen 4 PCR Nasal RSV (PCR) Nasal B.pertussis DNA PCR Nasal C.pneumoniae (PCR) Joey Human Metapneumo PCR Nasal M.pneumoniae (PCR) Nasal SARS-CoV-2 (PCR) 01/24/21 01/24/21 01/24/21 Range/Units 16:31 15:09 14:33 WBC (4.8-10.8) x10^3/uL RBC (4.70-6.10) 10^6/uL Hgb (14.0-18.0) g/dL Hct (42.0-52.0) % MCV (80.0-94.0) fL MCH (27.0-31.0) pg MCHC (32.0-36.0) g/dL RDW (12.0-15.0) % Plt Count (130-450) 10^3/uL MPV (7.4-11.4) fL Neut # (Auto) Lymph # (Auto) [place] # (Auto) Eos # (Auto) Baso # (Auto) Absolute Nucleated RBC Total Counted Band Neuts % (Manual) (0 - 10) % Abnorm Lymph % (Manual) % Nucleated RBC % Neutrophils # (Manual) (1.5-6.6) 10^3/uL Lymphocytes # (Manual) (1.5-3.5) 10^3/uL Monocytes # (Manual) (0.0-1.0) 10^3/uL Eosinophils # (Manual) (0-0.7) 10^3/uL Basophils # (Manual) (0-0.1) 10^3/uL Differential Comment WBC Morphology (NORMAL) Platelet Estimate (NORMAL) Platelet Morphology (NORMAL) RBC Morph Micro Appear (NORMAL) Sodium (135-145) mmol/L Potassium (3.5-5.0) mmol/L Chloride (101-111) mmol/L Carbon Dioxide (21-32) mmol/L Anion Gap (6-13) BUN (6-20) mg/dL Creatinine (0.6-1.2) mg/dL Estimated GFR (MDRD) (>89) Glucose (70-100) mg/dL POC Whole Bld Glucose 267 H 266 H (70 - 100) mg/dL Lactic Acid 4.0 H* (0.5-2.2) mmol/L Calcium (8.5-10.3) mg/dL Total Bilirubin (0.2-1.0) mg/dL AST (10-42) IU/L ALT (10-60) IU/L Alkaline Phosphatase (42-121) IU/L Troponin I High Sens (2.3-19.7) ng/L Total Protein (6.7-8.2) g/dL Albumin (3.2-5.5) g/dL Globulin (2.1-4.2) g/dL Albumin/Globulin Ratio (1.0-2.2) Lipase (22-51) U/L Prostate Specific Ag (0.000-2.000) ng/mL Free PSA (0.16-2.81) ng/mL % Free PSA Calc (25-100) % Urine Color Urine Clarity (CLEAR) Urine pH (5.0-7.5) PH Ur Specific [place] (1.002-1.030) Urine Protein (NEGATIVE) mg/dL Urine Glucose (UA) (NEGATIVE) mg/dL Urine Ketones (NEGATIVE) mg/dL Urine Occult Blood (NEGATIVE) Urine Nitrite (NEGATIVE) Urine Bilirubin (NEGATIVE) Urine Urobilinogen (NORMAL) E.U./dL Ur Leukocyte Esterase (NEGATIVE) Urine RBC (0-5) /HPF Urine WBC (0-3) /HPF Ur Squamous Epith Cells (<= Few) Urine Bacteria (None Seen) /HPF Ur Microscopic Review Urine Culture Comments Nasal Adenovirus (PCR) Nasal B. parapertussis DNA (PCR) Nasal Coronavir 229E PCR Nasal Coronavir HKU1 PCR Nasal Coronavir NL63 PCR Nasal Coronavir OC43 PCR Nasal Enterovir/Rhinovir PCR Nasal Influenza B PCR Nasal Influenza A PCR Nasal Parainfluen 1 PCR Nasal Parainfluen 2 PCR Nasal Parainfluen 3 PCR Nasal Parainfluen 4 PCR Nasal RSV (PCR) Nasal B.pertussis DNA PCR Nasal C.pneumoniae (PCR) Joey Human Metapneumo PCR Nasal M.pneumoniae (PCR) Nasal SARS-CoV-2 (PCR) 01/24/21 01/24/21 01/24/21 Range/Units 12:58 12:30 12:15 WBC (4.8-10.8) x10^3/uL RBC (4.70-6.10) 10^6/uL Hgb (14.0-18.0) g/dL Hct (42.0-52.0) % MCV (80.0-94.0) fL MCH (27.0-31.0) pg MCHC (32.0-36.0) g/dL RDW (12.0-15.0) % Plt Count (130-450) 10^3/uL MPV (7.4-11.4) fL Neut # (Auto) Lymph # (Auto) [place] # (Auto) Eos # (Auto) Baso # (Auto) Absolute Nucleated RBC Total Counted Band Neuts % (Manual) (0 - 10) % Abnorm Lymph % (Manual) % Nucleated RBC % Neutrophils # (Manual) (1.5-6.6) 10^3/uL Lymphocytes # (Manual) (1.5-3.5) 10^3/uL Monocytes # (Manual) (0.0-1.0) 10^3/uL Eosinophils # (Manual) (0-0.7) 10^3/uL Basophils # (Manual) (0-0.1) 10^3/uL Differential Comment WBC Morphology (NORMAL) Platelet Estimate (NORMAL) Platelet Morphology (NORMAL) RBC Morph Micro Appear (NORMAL) Sodium (135-145) mmol/L Potassium (3.5-5.0) mmol/L Chloride (101-111) mmol/L Carbon Dioxide (21-32) mmol/L Anion Gap (6-13) BUN (6-20) mg/dL Creatinine (0.6-1.2) mg/dL Estimated GFR (MDRD) (>89) Glucose (70-100) mg/dL POC Whole Bld Glucose (70 - 100) mg/dL Lactic Acid 3.5 H* (0.5-2.2) mmol/L Calcium (8.5-10.3) mg/dL Total Bilirubin (0.2-1.0) mg/dL AST (10-42) IU/L ALT (10-60) IU/L Alkaline Phosphatase (42-121) IU/L Troponin I High Sens (2.3-19.7) ng/L Total Protein (6.7-8.2) g/dL Albumin (3.2-5.5) g/dL Globulin (2.1-4.2) g/dL Albumin/Globulin Ratio (1.0-2.2) Lipase (22-51) U/L Prostate Specific Ag (0.000-2.000) ng/mL Free PSA (0.16-2.81) ng/mL % Free PSA Calc (25-100) % Urine Color YELLOW Urine Clarity CLEAR (CLEAR) Urine pH 6.0 (5.0-7.5) PH Ur Specific [place] 1.025 (1.002-1.030) Urine Protein 100 H (NEGATIVE) mg/dL Urine Glucose (UA) 100 H (NEGATIVE) mg/dL Urine Ketones NEGATIVE (NEGATIVE) mg/dL Urine Occult Blood TRACE-INTA (NEGATIVE) Urine Nitrite POSITIVE H (NEGATIVE) Urine Bilirubin NEGATIVE (NEGATIVE) Urine Urobilinogen 0.2 (NORMAL) (NORMAL) E.U./dL Ur Leukocyte Esterase TRACE H (NEGATIVE) Urine RBC 6-10 H (0-5) /HPF Urine WBC >25 H (0-3) /HPF Ur Squamous Epith Cells FEW Squamous (<= Few) Urine Bacteria Moderate H (None Seen) /HPF Ur Microscopic Review INDICATED Urine Culture Comments INDICATED Nasal Adenovirus (PCR) NOT DETECTED Nasal B. parapertussis DNA (PCR) NOT DETECTED Nasal Coronavir 229E PCR NOT DETECTED Nasal Coronavir HKU1 PCR NOT DETECTED Nasal Coronavir NL63 PCR NOT DETECTED Nasal Coronavir OC43 PCR NOT DETECTED Nasal Enterovir/Rhinovir PCR NOT DETECTED Nasal Influenza B PCR NOT DETECTED Nasal Influenza A PCR NOT DETECTED Nasal Parainfluen 1 PCR NOT DETECTED Nasal Parainfluen 2 PCR NOT DETECTED Nasal Parainfluen 3 PCR NOT DETECTED Nasal Parainfluen 4 PCR NOT DETECTED Nasal RSV (PCR) NOT DETECTED Nasal B.pertussis DNA PCR NOT DETECTED Nasal C.pneumoniae (PCR) NOT DETECTED Joey Human Metapneumo PCR NOT DETECTED Nasal M.pneumoniae (PCR) NOT DETECTED Nasal SARS-CoV-2 (PCR) NOT DETECTED 01/24/21 01/24/21 01/24/21 Range/Units 11:53 11:47 11:47 WBC (4.8-10.8) x10^3/uL RBC (4.70-6.10) 10^6/uL Hgb (14.0-18.0) g/dL Hct (42.0-52.0) % MCV (80.0-94.0) fL MCH (27.0-31.0) pg MCHC (32.0-36.0) g/dL RDW (12.0-15.0) % Plt Count (130-450) 10^3/uL MPV (7.4-11.4) fL Neut # (Auto) Lymph # (Auto) [place] # (Auto) Eos # (Auto) Baso # (Auto) Absolute Nucleated RBC Total Counted Band Neuts % (Manual) (0 - 10) % Abnorm Lymph % (Manual) % Nucleated RBC % Neutrophils # (Manual) (1.5-6.6) 10^3/uL Lymphocytes # (Manual) (1.5-3.5) 10^3/uL Monocytes # (Manual) (0.0-1.0) 10^3/uL Eosinophils # (Manual) (0-0.7) 10^3/uL Basophils # (Manual) (0-0.1) 10^3/uL Differential Comment WBC Morphology (NORMAL) Platelet Estimate (NORMAL) Platelet Morphology (NORMAL) RBC Morph Micro Appear (NORMAL) Sodium (135-145) mmol/L Potassium (3.5-5.0) mmol/L Chloride (101-111) mmol/L Carbon Dioxide (21-32) mmol/L Anion Gap (6-13) BUN (6-20) mg/dL Creatinine (0.6-1.2) mg/dL Estimated GFR (MDRD) (>89) Glucose (70-100) mg/dL POC Whole Bld Glucose 315 H (70 - 100) mg/dL Lactic Acid (0.5-2.2) mmol/L Calcium (8.5-10.3) mg/dL Total Bilirubin (0.2-1.0) mg/dL AST (10-42) IU/L ALT (10-60) IU/L Alkaline Phosphatase (42-121) IU/L Troponin I High Sens 29.0 H* (2.3-19.7) ng/L Total Protein (6.7-8.2) g/dL Albumin (3.2-5.5) g/dL Globulin (2.1-4.2) g/dL Albumin/Globulin Ratio (1.0-2.2) Lipase (22-51) U/L Prostate Specific Ag 11.880 H (0.000-2.000) ng/mL Free PSA 4.290 H (0.16-2.81) ng/mL % Free PSA Calc 36 (25-100) % Urine Color Urine Clarity (CLEAR) Urine pH (5.0-7.5) PH Ur Specific [place] (1.002-1.030) Urine Protein (NEGATIVE) mg/dL Urine Glucose (UA) (NEGATIVE) mg/dL Urine Ketones (NEGATIVE) mg/dL Urine Occult Blood (NEGATIVE) Urine Nitrite (NEGATIVE) Urine Bilirubin (NEGATIVE) Urine Urobilinogen (NORMAL) E.U./dL Ur Leukocyte Esterase (NEGATIVE) Urine RBC (0-5) /HPF Urine WBC (0-3) /HPF Ur Squamous Epith Cells (<= Few) Urine Bacteria (None Seen) /HPF Ur Microscopic Review Urine Culture Comments Nasal Adenovirus (PCR) Nasal B. parapertussis DNA (PCR) Nasal Coronavir 229E PCR Nasal Coronavir HKU1 PCR Nasal Coronavir NL63 PCR Nasal Coronavir OC43 PCR Nasal Enterovir/Rhinovir PCR Nasal Influenza B PCR Nasal Influenza A PCR Nasal Parainfluen 1 PCR Nasal Parainfluen 2 PCR Nasal Parainfluen 3 PCR Nasal Parainfluen 4 PCR Nasal RSV (PCR) Nasal B.pertussis DNA PCR Nasal C.pneumoniae (PCR) Joey Human Metapneumo PCR Nasal M.pneumoniae (PCR) Nasal SARS-CoV-2 (PCR) 01/24/21 01/24/21 Range/Units 11:47 11:47 WBC 32.2 H (4.8-10.8) x10^3/uL RBC 2.47 L (4.70-6.10) 10^6/uL Hgb 8.8 L (14.0-18.0) g/dL Hct 26.9 L (42.0-52.0) % MCV 108.9 H (80.0-94.0) fL MCH 35.6 H (27.0-31.0) pg MCHC 32.7 (32.0-36.0) g/dL RDW 24.8 H (12.0-15.0) % Plt Count 356 (130-450) 10^3/uL MPV 10.2 (7.4-11.4) fL Neut # (Auto) Not Reportable Lymph # (Auto) Not Reportable [place] # (Auto) Not Reportable Eos # (Auto) Not Reportable Baso # (Auto) Not Reportable Absolute Nucleated RBC Not Reportable Total Counted 100 Band Neuts % (Manual) 0 (0 - 10) % Abnorm Lymph % (Manual) 0 % Nucleated RBC % Not Reportable Neutrophils # (Manual) 29.6 H (1.5-6.6) 10^3/uL Lymphocytes # (Manual) 1.0 L (1.5-3.5) 10^3/uL Monocytes # (Manual) 1.6 H (0.0-1.0) 10^3/uL Eosinophils # (Manual) 0.0 (0-0.7) 10^3/uL Basophils # (Manual) 0.0 (0-0.1) 10^3/uL Differential Comment MANUAL DIFFERENTIAL WBC Morphology (NORMAL) Platelet Estimate NORMAL (130-450,000) (NORMAL) Platelet Morphology NORMAL APPEARANCE (NORMAL) RBC Morph Micro Appear 3+ ANISOCYTOSIS (NORMAL) Sodium 135 (135-145) mmol/L Potassium 4.2 (3.5-5.0) mmol/L Chloride 99 L (101-111) mmol/L Carbon Dioxide 21 (21-32) mmol/L Anion Gap 15.0 H (6-13) BUN 37 H (6-20) mg/dL Creatinine 2.1 H (0.6-1.2) mg/dL Estimated GFR (MDRD) 31 L (>89) Glucose 320 H (70-100) mg/dL POC Whole Bld Glucose (70 - 100) mg/dL Lactic Acid (0.5-2.2) mmol/L Calcium 9.7 (8.5-10.3) mg/dL Total Bilirubin 2.8 H (0.2-1.0) mg/dL AST 19 (10-42) IU/L ALT 22 (10-60) IU/L Alkaline Phosphatase 51 (42-121) IU/L Troponin I High Sens (2.3-19.7) ng/L Total Protein 7.3 (6.7-8.2) g/dL Albumin 4.2 (3.2-5.5) g/dL Globulin 3.1 (2.1-4.2) g/dL Albumin/Globulin Ratio 1.4 (1.0-2.2) Lipase 21 L (22-51) U/L Prostate Specific Ag (0.000-2.000) ng/mL Free PSA (0.16-2.81) ng/mL % Free PSA Calc (25-100) % Urine Color Urine Clarity (CLEAR) Urine pH (5.0-7.5) PH Ur Specific [place] (1.002-1.030) Urine Protein (NEGATIVE) mg/dL Urine Glucose (UA) (NEGATIVE) mg/dL Urine Ketones (NEGATIVE) mg/dL Urine Occult Blood (NEGATIVE) Urine Nitrite (NEGATIVE) Urine Bilirubin (NEGATIVE) Urine Urobilinogen (NORMAL) E.U./dL Ur Leukocyte Esterase (NEGATIVE) Urine RBC (0-5) /HPF Urine WBC (0-3) /HPF Ur Squamous Epith Cells (<= Few) Urine Bacteria (None Seen) /HPF Ur Microscopic Review Urine Culture Comments Nasal Adenovirus (PCR) Nasal B. parapertussis DNA (PCR) Nasal Coronavir 229E PCR Nasal Coronavir HKU1 PCR Nasal Coronavir NL63 PCR Nasal Coronavir OC43 PCR Nasal Enterovir/Rhinovir PCR Nasal Influenza B PCR Nasal Influenza A PCR Nasal Parainfluen 1 PCR Nasal Parainfluen 2 PCR Nasal Parainfluen 3 PCR Nasal Parainfluen 4 PCR Nasal RSV (PCR) Nasal B.pertussis DNA PCR Nasal C.pneumoniae (PCR) Joey Human Metapneumo PCR Nasal M.pneumoniae (PCR) Nasal SARS-CoV-2 (PCR) - Diagnostic Imaging Diagnostic Imaging Results: positive: Final report reviewed ABX Reporting Has patient been on IV antibiotics over the past 48 hours?: Yes Sepsis Event Note (H) - Evaluation Current Stage of Sepsis: Resolved (Tachycardic, tachypnic, hypertensive last evening, all have resolved this morning.) Possible source of Sepsis: positive: Genitourinary - Sepsis Criteria Sepsis Criteria: Recorded Temperature greater than 38.3C or Less than 36C, Recorded Heart Rate greater than 90 bpm, Recorded Respiratory Rate greater than 20, WBC count greater than 12,000 or less than 4000, SBP less than 90 mmHg, Metabolic: lactate > 2 mmol/L Assessment/Plan - Problem List (1) Urinary tract infection Impression: Improved. WBC trending down, 26.5 from 32. Urine cx with Pseudomonas, IV antibiotics transitioned to cipro. Denies dysuria today, has had relief with insertion of the heredia catheter. Urine now clear and yellow. Denies pain. 1. IV abx 2. IVF Qualifiers: Urinary tract infection type: acute cystitis Hematuria presence: without hematuria Qualified Code(s): N30.00 - Acute cystitis without hematuria (2) Sepsis Impression: Resolved. Pt admitted with WBC 32.2, trending down to 26.5. Lactate has resolved, now 1.6. He was hypertensive initially and then hypotensive last night, also had a short period of tachycardia and tachypnea. Tmax last night of 39.7, has remained afebrile since. He is normotensive with normal HR this morning, afebrile. Remains on room air. He does have elevated troponins that continued to elevate overnight, likely related to sepsis rather than NSTEMI but will perform EKG and ECHO today to assess. 1. IV Abx 2. troponin 3. VS Q4 4. Tylenol Q6H PRN fever 5. IVF 6. EKG 7. ECHO Qualifiers: Sepsis type: sepsis due to unspecified organism Sepsis acute organ dysfunction status: with acute organ dysfunction Severe sepsis acute organ dysfunction type: acute renal failure Acute renal failure type: unspecified Severe sepsis shock status: without septic shock Qualified Code(s): A41.9 - Sepsis, unspecified organism; R65.20 - Severe sepsis without septic shock; N17.9 - Acute kidney failure, unspecified (3) Elevated troponin level Impression: Troponins have been steadily increasing since admission, 29-->74.1-->141.5-- >115.1. Denies chest pain or shortness of breath. Does have some abdominal pain. Today his BP is normal, HR is normal, though last evening he had hypotension and tachycardia. Troponin elevation likely related to his sepsis picture, however will obtain an EKG and ECHO today. 1. Trend troponin Q8H x3 2. EKG 3. Echocardiogram (4) Diabetes mellitus type 2, controlled, with complications Impression: A1C in October 2020 6.9%. Takes metformin and insulin at home, appears to be well controlled. BGs remain elevated 230-310s, likely related to infection. Metformin will be held for now given high lactate and LIS, insulin restarted. Has not had a Podiatry or Opthalmology appointment in 5 years, reports this is due to "the state not paying for it". Denies blurry vision but does have a prior diagnosis of cataracts. Also has stage III kidney disease. No foot wounds noted on exam, I was not able to test for neuropathy as he had difficulty hearing me through this. 1. SSI 2. Hold Metformin for now 3. 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 Baseline creatinine appears to range 1.3-1.6 looking back at records through 2017. Admitted with creatinine 2.1, decreased to 1.6 today. Known to have chronic kidney disease stage III. Urine is clear yellow, appropriate o utput. 1. IVF 2. Monitor I/O (heredia in place) 3. Daily CMP (6) Chronic kidney disease, stage 3 Impression: Baseline creatinine appears to range 1.3-1.6 looking back at records through 2017. Admitted with creatinine 2.1 and BUN 37. Known to have chronic kidney disease stage III. Urine is clear yellow. 1. Daily CMP 2. Monitor I/O Qualifiers: Chronic kidney disease stage 3 subtype: unspecified whether 3a or 3b Qualified Code(s): N18.30 - Chronic kidney disease, stage 3 unspecified (7) Benign prostate hyperplasia Impression: Improved. Reports he was diagnosed in 2014 and "ran out of meds 4 years ago", however Flomax is on his outpatient medication list. Reports difficulty urinating, incomplete emptying, dysuria, frequency and urgency prior to admis maria teresa. Heredia catheter was inserted and he reports only intermittent dysuria, remaining symptoms have resolved. CT scan done on admission, does not mention the prostate but does mention that all other organs are normal. Did not have CVA tenderness, however this morning he is complaining of generalized constant dull abdominal pain. Has had appropriate urine output. 1. Rectal/Prostate exam 2. Heredia catheter 3. Continue Flomax Qualifiers: Lower urinary tract symptom presence: symptoms present Lower urinary tract symptom detail: urinary frequency Qualified Code(s): N40.1 - Benign prostatic hyperplasia with lower urinary tract symptoms; R35.0 - Frequency of micturition (8) Chronic sinusitis Impression: Stable. Has a history of chronic sinusitis, reporting some nasal congestion today. No drainage seen on exam, nares appear normal and pink on external exam. Uses Flonase at home. 1. 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 Last dose received 01/21. Hgb down to 7 today, will plan to transfuse 1 unit leukocyte reduced PRBCs today. 1. Transfuse 1 unit leukocyte reduced PRBCs 2. Monitor CBC (10) Myelodysplastic syndrome Impression: Stable. Diagnosed by bx 2014, followed by Ramona Ibrahim and Josh alarcon tpatient. Follows up every 2-3 months, with monthly CBC (WBC normal at 9 on 01/21, no evidence of disease progression). Has been receiving treatment for his chronic anemia related to MDS. (11) Hypertension Impression: Resolved. Takes Losartan at home, SBPs 170-180s yesterday afternoon. Losartan was resumed. He did have an episode of hypotension last evening, likely related to sepsis and resolved with a fluid bolus. Systolics have been 120s-130s this m jose, diastolics 40s-50s. 1. Continue home Losartan. Qualifiers: Hypertension type: essential hypertension Qualified Code(s): I10 - Essential (primary) hypertension (12) Hyperlipidemia Impression: Stable. Prior diagnosis of HLD. Takes a statin and aspirin at home, will resume when appropriate. Qualifiers: Hyperlipidemia type: unspecified Qualified Code(s): E78.5 - Hyperlipidemia, unspecified (13) Seizure disorder Impression: Stable. Reports a history of epilepsy, last seizure unknown. Reports he only has seizures "when I'm stressed". Does not take medications for this and has not seen a Neurologist recently. No seizures this admission. 1. Seizure precautions. (14) Hypothyroidism Impression: Stable. Prior diagnosis. Takes Levothyroxine at home. Will resume. 1. Continue Levothyroxine daily. Qualifiers: Hypothyroidism type: unspecified Qualified Code(s): E03.9 - Hypothyroidism, unspecified
[2021-01-25] MEDS: INSULIN ASPART 300 UNIT/3 ML PEN SUBQ SCH ×4 (08:19→21:01)
[2021-01-25] MEDS: ENOXAPARIN 80 MG/0.8 ML SYRINGE SUBQ SCH ×2 (08:20→20:56)
[2021-01-25] MEDS: INSULIN NPH HUMAN 300 UNIT/3 ML VIAL SUBQ SCH ×2 (08:20→21:03)
[2021-01-25] MEDS ORDERED: cefTRIAXone 2 GM in SODIUM CHLORIDE 0.9% MINIBAG 100 ML IV SCH (09:00)
[2021-01-25 10:52] LABS: ESTIMATED AVERAGE GLUCOSE 123 mg/dL (70-100); HEMOGLOBIN A1c% 5.9 % (4.27-6.07)
[2021-01-25] MEDS: CIPROFLOXACIN 400 MG/200 ML 400 MG/200 ML BAG IV SCH ×2 (12:34→23:59)
[2021-01-25] MEDS: oxyCODONE 5 MG TABLET PO PRN (18:55)
[2021-01-25] MEDS: FLUTICASONE NASAL SPRAY NAS SCH (20:55)
[2021-01-25] MEDS: traZODone 50 MG TABLET PO SCH (21:43)
[2021-01-26 05:27] LABS: BASOPHILS # (AUTO) 0.1 10^3/uL (0.0-0.1); BASOPHILS % (AUTO) 0.5 %; EOSINOPHILS # (AUTO) 0.1 10^3/uL (0.0-0.7); EOSINOPHILS % (AUTO) 0.3 %; HCT - HEMATOCRIT 25.5 % (42.0-52.0); HGB - HEMOGLOBIN 8.2 g/dL (14.0-18.0); LYMPHOCYTES % (AUTO) 8.7 %; MEAN CORPUSCULAR HEMOGLOBIN 34.5 pg (27.0-31.0); MEAN CORPUSCULAR HGB CONC 32.2 g/dL (32.0-36.0); MEAN CORPUSCULAR VOLUME 107.1 fL (80.0-94.0); MEAN PLATELET VOLUME 10.9 fL (7.4-11.4); MONOCYTES # (AUTO) 1.9 10^3/uL (0.0-1.0); MONOCYTES % (AUTO) 8.1 %; NEUTROPHILS # (AUTO) 18.9 10^3/uL (1.5-6.6); NEUTROPHILS % (AUTO) 80.8 %; PLT - PLATELET COUNT 308 10^3/uL (130-450); RED BLOOD COUNT 2.38 10^6/uL (4.70-6.10); RED CELL DISTRIBUTION WIDTH 25.2 % (12.0-15.0); WHITE BLOOD COUNT 23.4 x10^3/uL (4.8-10.8)
[2021-01-26 05:33] LABS: CALCIUM 8.4 mg/dL (8.5-10.3); CREATININE 1.5 mg/dL (0.6-1.2); POTASSIUM 3.9 mmol/L (3.5-5.0)
[2021-01-26 05:51] LABS: PLATELET ESTIMATE, MANUAL NORMAL (130-450,000) (NORMAL); PLATELET MORPHOLOGY NORMAL APPEARANCE (NORMAL); WBC MORPHOLOGY (MULTIPLE) NORMAL APPEARANCE (NORMAL)
[2021-01-26] MEDS: LEVOTHYROXINE 100 MCG TABLET PO SCH (06:38)
[2021-01-26] MEDS: LEVOTHYROXINE 75 MCG TABLET PO SCH (06:38)
[2021-01-26] MEDS ORDERED: INSULIN ASPART 300 UNIT/3 ML PEN SUBQ SCH (08:00)
--- NOTE | 2021-01-26 08:21 | PROVIDER PROGRESS NOTE ---
Subjective - Prog Note Date Prog Note Date: 01/26/21 - Subjective Pt reports feeling: Improved Subjective: Pt reports that he slept well overnight and is feeling "much better than yesterday". Denies pain,n/v. Heredia draining appropriately, denies bladder spasms or pain. Feels weak but would like to go home soon to help his friend with grocery shopping and errands. Objective - Vital Signs/Intake & Output Reviewed Vital Signs: Yes Vital Signs: Vital Signs x48h Temp Pulse Resp BP BP Pulse Ox 01/26/21 07:28 36.7 C 100 20 158/60 H 97 01/26/21 05:26 36.7 C 102 H 18 166/66 H 94 Intake & Output: Intake & Output 01/23/21 01/24/21 01/25/21 01/26/21 23:59 23:59 23:59 23:59 Intake Total 5768.687 5145.146 400 Output Total 825 2475 825 Balance 4943.687 2670.146 -425 - Objective General Appearance: positive: No acute distress, Alert Eyes Bilateral: positive: Normal inspection, PERRL ENT: positive: ENT inspection nml, No signs of dehydration Neck: positive: Nml inspection Respiratory: positive: Chest non-tender, No respiratory distress, Breath sounds nml Cardiovascular: positive: Regular rate & rhythm, No murmur, Tachycardia Peripheral Pulses: 2+ Radial (R), 2+ Radial (L), 2+ Popliteal (R), 2+ Popliteal (L) Abdomen: positive: Non-tender, No organomegaly, Nml bowel sounds, No distention Back: positive: Nml inspection Skin: positive: Pallor Extremities: positive: Non-tender, Full ROM, Nml appearance Neurologic/Psychiatric: positive: Oriented x3 - Lab Results Fish Bones: 01/26/21 04:57 01/26/21 04:57 Other Labs: Lab Results x24hrs 01/26/21 01/26/21 01/26/21 Range/Units 08:08 04:57 04:57 WBC 23.4 H (4.8-10.8) x10^3/uL RBC 2.38 L (4.70-6.10) 10^6/uL Hgb 8.2 L (14.0-18.0) g/dL Hct 25.5 L (42.0-52.0) % MCV 107.1 H (80.0-94.0) fL MCH 34.5 H (27.0-31.0) pg MCHC 32.2 (32.0-36.0) g/dL RDW 25.2 H (12.0-15.0) % Plt Count 308 (130-450) 10^3/uL MPV 10.9 (7.4-11.4) fL Neut # (Auto) 18.9 H (1.5-6.6) 10^3/uL Lymph # (Auto) 2.0 (1.5-3.5) 10^3/uL [place]ding # (Auto) 1.9 H (0.0-1.0) 10^3/uL Eos # (Auto) 0.1 (0.0-0.7) 10^3/uL Baso # (Auto) 0.1 (0.0-0.1) 10^3/uL Absolute Nucleated RBC 0.00 x10^3/uL Nucleated RBC % 0.0 /100WBC WBC Morphology NORMAL APPEARANCE (NORMAL) Platelet Estimate NORMAL (130-450,000) (NORMAL) Platelet Morphology NORMAL APPEARANCE (NORMAL) RBC Morph Micro Appear 2+ ANISOCYTOSIS (NORMAL) Sodium 137 (135-145) mmol/L Potassium 3.9 (3.5-5.0) mmol/L Chloride 103 (101-111) mmol/L Carbon Dioxide 22 (21-32) mmol/L Anion Gap 12.0 (6-13) BUN 22 H (6-20) mg/dL Creatinine 1.5 H (0.6-1.2) mg/dL Estimated GFR (MDRD) 45 L (>89) Glucose 315 H (70-100) mg/dL POC Whole Bld Glucose 330 H (70 - 100) mg/dL Estimat Average Glucose (70-100) mg/dL Hemoglobin A1c % (4.27-6.07) % Calcium 8.4 L (8.5-10.3) mg/dL Troponin I High Sens (2.3-19.7) ng/L Blood Type Blood Type Recheck Antibody Screen Crossmatch IS Only 01/25/21 01/25/21 01/25/21 Range/Units 20:31 16:36 11:14 WBC (4.8-10.8) x10^3/uL RBC (4.70-6.10) 10^6/uL Hgb (14.0-18.0) g/dL Hct (42.0-52.0) % MCV (80.0-94.0) fL MCH (27.0-31.0) pg MCHC (32.0-36.0) g/dL RDW (12.0-15.0) % Plt Count (130-450) 10^3/uL MPV (7.4-11.4) fL Neut # (Auto) (1.5-6.6) 10^3/uL Lymph # (Auto) (1.5-3.5) 10^3/uL [place] # (Auto) (0.0-1.0) 10^3/uL Eos # (Auto) (0.0-0.7) 10^3/uL Baso # (Auto) (0.0-0.1) 10^3/uL Absolute Nucleated RBC x10^3/uL Nucleated RBC % /100WBC WBC Morphology (NORMAL) Platelet Estimate (NORMAL) Platelet Morphology (NORMAL) RBC Morph Micro Appear (NORMAL) Sodium (135-145) mmol/L Potassium (3.5-5.0) mmol/L Chloride (101-111) mmol/L Carbon Dioxide (21-32) mmol/L Anion Gap (6-13) BUN (6-20) mg/dL Creatinine (0.6-1.2) mg/dL Estimated GFR (MDRD) (>89) Glucose (70-100) mg/dL POC Whole Bld Glucose 286 H 270 H 280 H (70 - 100) mg/dL Estimat Average Glucose (70-100) mg/dL Hemoglobin A1c % (4.27-6.07) % Calcium (8.5-10.3) mg/dL Troponin I High Sens (2.3-19.7) ng/L Blood Type Blood Type Recheck Antibody Screen Crossmatch IS Only 01/25/21 01/25/21 01/25/21 Range/Units 07:40 07:40 04:38 WBC (4.8-10.8) x10^3/uL RBC (4.70-6.10) 10^6/uL Hgb (14.0-18.0) g/dL Hct (42.0-52.0) % MCV (80.0-94.0) fL MCH (27.0-31.0) pg MCHC (32.0-36.0) g/dL RDW (12.0-15.0) % Plt Count (130-450) 10^3/uL MPV (7.4-11.4) fL Neut # (Auto) (1.5-6.6) 10^3/uL Lymph # (Auto) (1.5-3.5) 10^3/uL [place] # (Auto) (0.0-1.0) 10^3/uL Eos # (Auto) (0.0-0.7) 10^3/uL Baso # (Auto) (0.0-0.1) 10^3/uL Absolute Nucleated RBC x10^3/uL Nucleated RBC % /100WBC WBC Morphology (NORMAL) Platelet Estimate (NORMAL) Platelet Morphology (NORMAL) RBC Morph Micro Appear (NORMAL) Sodium (135-145) mmol/L Potassium (3.5-5.0) mmol/L Chloride (101-111) mmol/L Carbon Dioxide (21-32) mmol/L Anion Gap (6-13) BUN (6-20) mg/dL Creatinine (0.6-1.2) mg/dL Estimated GFR (MDRD) (>89) Glucose (70-100) mg/dL POC Whole Bld Glucose (70 - 100) mg/dL Estimat Average Glucose 123 H (70-100) mg/dL Hemoglobin A1c % 5.9 (4.27-6.07) % Calcium (8.5-10.3) mg/dL Troponin I High Sens 115.1 H* (2.3-19.7) ng/L Blood Type A POSITIVE Blood Type Recheck Antibody Screen NEGATIVE Crossmatch IS Only See Detail 01/25/21 Range/Units 03:05 WBC (4.8-10.8) x10^3/uL RBC (4.70-6.10) 10^6/uL Hgb (14.0-18.0) g/dL Hct (42.0-52.0) % MCV (80.0-94.0) fL MCH (27.0-31.0) pg MCHC (32.0-36.0) g/dL RDW (12.0-15.0) % Plt Count (130-450) 10^3/uL MPV (7.4-11.4) fL Neut # (Auto) (1.5-6.6) 10^3/uL Lymph # (Auto) (1.5-3.5) 10^3/uL [place] # (Auto) (0.0-1.0) 10^3/uL Eos # (Auto) (0.0-0.7) 10^3/uL Baso # (Auto) (0.0-0.1) 10^3/uL Absolute Nucleated RBC x10^3/uL Nucleated RBC % /100WBC WBC Morphology (NORMAL) Platelet Estimate (NORMAL) Platelet Morphology (NORMAL) RBC Morph Micro Appear (NORMAL) Sodium (135-145) mmol/L Potassium (3.5-5.0) mmol/L Chloride (101-111) mmol/L Carbon Dioxide (21-32) mmol/L Anion Gap (6-13) BUN (6-20) mg/dL Creatinine (0.6-1.2) mg/dL Estimated GFR (MDRD) (>89) Glucose (70-100) mg/dL POC Whole Bld Glucose (70 - 100) mg/dL Estimat Average Glucose (70-100) mg/dL Hemoglobin A1c % (4.27-6.07) % Calcium (8.5-10.3) mg/dL Troponin I High Sens (2.3-19.7) ng/L Blood Type Blood Type Recheck A POSITIVE Antibody Screen Crossmatch IS Only ABX Reporting Has patient been on IV antibiotics over the past 48 hours?: Yes Sepsis Event Note (H) - Evaluation Current Stage of Sepsis: Resolved (Tachycardic, tachypnic, hypertensive last evening, all have resolved this morning.) Possible source of Sepsis: positive: Genitourinary - Sepsis Criteria Sepsis Criteria: Recorded Temperature greater than 38.3C or Less than 36C, Recorded Heart Rate greater than 90 bpm, Recorded Respiratory Rate greater than 20, WBC count greater than 12,000 or less than 4000, SBP less than 90 mmHg, Metabolic: lactate > 2 mmol/L Assessment/Plan - Problem List (1) Urinary tract infection Impression: Improved. WBC trending down, 32-->26.5-->23.4. Urine and blood cxs with Pseudomonas, IV antibiotics transitioned to cipro. Afebrile and tachycardic, hypertensive. Tolerating it well, no n/v. Denies dysuria today, has had relief with insertion of the heredia catheter. Urine clear and yellow. Denies pain. 1. IV abx 2. IVF Qualifiers: Urinary tract infection type: acute cystitis Hematuria presence: without hematuria Qualified Code(s): N30.00 - Acute cystitis without hematuria (2) Bacteremia due to Pseudomonas Impression: 11/24 blood cultures on 01/24 are showing pseudomonas. The antibiotics were transitioned yesterday to ensure coverage of pseudomonas and he is feeling improved today. His WBC is 23.4, down from 32.2 on admission. He continues to have tachycardia and hypertension but has been afebrile. 1. Daily blood cultures until negative 2. Continue IV abx (3) Diabetes mellitus type 2, controlled, with complications Impression: A1C in October 2020 6.9%. Takes metformin and insulin at home, appears to be well controlled. BGs remain elevated 230-310s, likely related to infection. Metformin will be held for now given high lactate and LIS, insulin restarted. Has not had a Podiatry or Opthalmology appointment in 5 years, reports this is due to "the state not paying for it". Denies blurry vision but does have a prior diagnosis of cataracts. Also has stage III kidney disease. No foot wounds noted on exam. 1. SSI 2. Hold Metformin for now 3. 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 Baseline creatinine appears to range 1.3-1.6 looking back at records through 2017. Admitted with creatinine 2.1, 1.5 today. Known to have chronic kidney disease stage III. Urine is clear yellow, appropriate output. 1. IVF 2. Monitor I/O (heredia in place) 3. Daily CMP (5) Chronic kidney disease, stage 3 Impression: Stable. Baseline creatinine appears to range 1.3-1.6 looking back at records through 2017. Admitted with creatinine 2.1 and BUN 37. Known to have chronic kidney disease stage III. Urine is clear yellow. 1. Daily CMP 2. Monitor I/O Qualifiers: Chronic kidney disease stage 3 subtype: unspecified whether 3a or 3b Qualified Code(s): N18.30 - Chronic kidney disease, stage 3 unspecified (6) Elevated troponin level Impression: Impression: Stable. Troponins have started to decrease, 29-->74.1-->141.5-->115.1. Denies chest pain or shortness of breath. Remains hypertensive and tachycardic. Echo done yesterday, no abnormalities. (7) Hypertension Impression: Had episodes of hypotension overnight HD 1, has trended back to hypertension with SBPs 150s-170s. Takes Losartan at home, resumed on HD 1. Also started on Metoprolol. 1. Continue home Losartan. 2. Continue metoprolol. Qualifiers: Hypertension type: essential hypertension Qualified Code(s): I10 - Essential (primary) hypertension (8) Benign prostate hyperplasia Impression: Improved. No bladder or kidney obstruction seen on CT during admission, prostate not mentioned. Heredia catheter placed on admission and Flomax restarted. Heredia draining clear yellow urine. 1. Heredia catheter 2. 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 Last dose received 01/21. Transfused 1unit leukocyte reduced pRBCs yesterday for hgb 7. Hgb 8.2 today. 1. Monitor CBC 2. 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 Diagnosed by bx 2014, followed by Ramona Ibrahim and Josh Lou outpatient. Follows up every 2-3 months, with monthly CBC (WBC normal at 9 on 01/21, no evidence of disease progression). Has been receiving treatment for his chronic anemia related to MDS. (11) Hyperlipidemia Impression: Stable. Prior diagnosis of HLD. Takes a statin and aspirin at home, aspirin has been resumed. Will resume statin when appropriate. 1. Continue aspirin Qualifiers: Hyperlipidemia type: unspecified Qualified Code(s): E78.5 - Hyperlipidemia, unspecified (12) Hypothyroidism Impression: Stable. Prior diagnosis. Takes Levothyroxine at home. 1. Continue Levothyroxine daily. Qualifiers: Hypothyroidism type: unspecified Qualified Code(s): E03.9 - Hypothyroidism, unspecified (13) Seizure disorder Impression: Stable. Reports a history of epilepsy, last seizure unknown. Reports he only has seizures "when I'm stressed". Does not take medications for this and has not seen a Neurologist recently. No seizures this admission. 1. Seizure precautions. (14) Chronic sinusitis Impression: Stable. Has a history of chronic sinusitis, reporting some nasal congestion today. No drainage seen on exam, nares appear normal and pink on external exam. Uses Flonase at home, restarted yesterday. 1. Continue Flonase. Qualifiers: Sinusitis location: unspecified location Qualified Code(s): J32.9 - Chronic sinusitis, unspecified (15) Sepsis Impression: Resolved. Pt admitted with WBC 32.2, trending down to 23.4. Lactate has resolved, now 1.6. Blood and urine cxs growing Pseudomonas, abx have been tailored to the bacteria. Qualifiers: Sepsis type: sepsis due to unspecified organism Sepsis acute organ dysfunction status: with acute organ dysfunction Severe sepsis acute organ dysfunction type: acute renal failure Acute renal failure type: unspecified Severe sepsis shock status: without septic shock Qualified Code(s): A41.9 - Sepsis, unspecified organism; R65.20 - Severe sepsis without septic shock; N17.9 - Acute kidney failure, unspecified
[2021-01-26] MEDS: ASPIRIN 325 MG TABLET PO SCH (08:24)
[2021-01-26] MEDS: TAMSULOSIN 0.4 MG CAPSULE PO SCH (08:24)
[2021-01-26] MEDS: METOPROLOL SUCCINATE 25 MG TABLET PO SCH (08:24)
[2021-01-26] MEDS: ENOXAPARIN 80 MG/0.8 ML SYRINGE SUBQ SCH ×2 (08:25→20:35)
[2021-01-26] MEDS: FLUTICASONE NASAL SPRAY NAS SCH (08:25)
[2021-01-26] MEDS: LOSARTAN 50 MG TABLET PO SCH (08:25)
[2021-01-26] MEDS: SODIUM CHLORIDE FLUSH 0.9% 10 ML SYRINGE IVP SCH ×3 (08:25→23:49)
[2021-01-26] MEDS ORDERED: INSULIN NPH HUMAN 300 UNIT/3 ML VIAL SUBQ SCH (09:00)
[2021-01-26] MEDS: CIPROFLOXACIN 400 MG/200 ML 400 MG/200 ML BAG IV SCH ×2 (11:47→23:49)
[2021-01-26] MEDS: INSULIN ASPART 300 UNIT/3 ML PEN SUBQ SCH ×3 (11:47→20:35)
[2021-01-26] MEDS: SODIUM CHLORIDE FLUSH 0.9% 10 ML SYRINGE IVP PRN (11:53)
[2021-01-26] MEDS ORDERED: SODIUM CHLORIDE 0.9% 500 ML IV ONE (13:48)
[2021-01-26] MEDS: traZODone 50 MG TABLET PO SCH (20:36)
[2021-01-26] MEDS: INSULIN NPH HUMAN 300 UNIT/3 ML VIAL SUBQ SCH (20:36)
[2021-01-27 05:12] LABS: BASOPHILS # (AUTO) 0.2 10^3/uL (0.0-0.1); BASOPHILS % (AUTO) 0.7 %; EOSINOPHILS # (AUTO) 0.5 10^3/uL (0.0-0.7); EOSINOPHILS % (AUTO) 2.2 %; HCT - HEMATOCRIT 26.1 % (42.0-52.0); HGB - HEMOGLOBIN 8.4 g/dL (14.0-18.0); LYMPHOCYTES # (AUTO) 2.9 10^3/uL (1.5-3.5); LYMPHOCYTES % (AUTO) 12.4 %; MEAN CORPUSCULAR HEMOGLOBIN 34.6 pg (27.0-31.0); MEAN CORPUSCULAR HGB CONC 32.2 g/dL (32.0-36.0); MEAN CORPUSCULAR VOLUME 107.4 fL (80.0-94.0); MEAN PLATELET VOLUME 10.6 fL (7.4-11.4); MONOCYTES # (AUTO) 1.8 10^3/uL (0.0-1.0); MONOCYTES % (AUTO) 7.7 %; NEUTROPHILS # (AUTO) 17.5 10^3/uL (1.5-6.6); NEUTROPHILS % (AUTO) 74.1 %; NRBC ABSOLUTE COUNT (AUTO) 0.06 x10^3/uL; NUCLEATED RED BLOOD CELLS AUTO 0.3 /100WBC; PLT - PLATELET COUNT 398 10^3/uL (130-450); RED BLOOD COUNT 2.43 10^6/uL (4.70-6.10); RED CELL DISTRIBUTION WIDTH 24.3 % (12.0-15.0); WHITE BLOOD COUNT 23.7 x10^3/uL (4.8-10.8)
[2021-01-27 05:21] LABS: CREATININE 1.5 mg/dL (0.6-1.2); POTASSIUM 3.6 mmol/L (3.5-5.0)
[2021-01-27 05:40] LABS: PLATELET ESTIMATE, MANUAL NORMAL (130-450,000) (NORMAL); PLATELET MORPHOLOGY NORMAL APPEARANCE (NORMAL); WBC MORPHOLOGY (MULTIPLE) NORMAL APPEARANCE (NORMAL)
[2021-01-27] MEDS: LEVOTHYROXINE 100 MCG TABLET PO SCH (05:56)
[2021-01-27] MEDS: LEVOTHYROXINE 75 MCG TABLET PO SCH (05:56)
[2021-01-27] MEDS: polyethylene glycoL 3350 17 GM PACKET PO SCH (07:18)
[2021-01-27] MEDS: METOPROLOL SUCCINATE 25 MG TABLET PO SCH (07:39)
[2021-01-27] MEDS: LOSARTAN 50 MG TABLET PO SCH (07:40)
[2021-01-27] MEDS: TAMSULOSIN 0.4 MG CAPSULE PO SCH (07:40)
[2021-01-27] MEDS: ENOXAPARIN 80 MG/0.8 ML SYRINGE SUBQ SCH (07:40)
[2021-01-27] MEDS: ASPIRIN 325 MG TABLET PO SCH (07:40)
[2021-01-27] MEDS: FLUTICASONE NASAL SPRAY NAS SCH (07:41)
[2021-01-27] MEDS: INSULIN NPH HUMAN 300 UNIT/3 ML VIAL SUBQ SCH ×2 (07:42→21:16)
[2021-01-27] MEDS: SODIUM CHLORIDE FLUSH 0.9% 10 ML SYRINGE IVP SCH ×2 (07:46→17:02)
[2021-01-27] MEDS: INSULIN ASPART 300 UNIT/3 ML PEN SUBQ SCH ×4 (07:46→21:15)
--- NOTE | 2021-01-27 11:24 | PROVIDER PROGRESS NOTE ---
Subjective - Prog Note Date Prog Note Date: 01/27/21 - Subjective Pt reports feeling: No change Subjective: Feels weak today, concerned he's not getting stronger. Denies fevers, chills, n/v. Denies pain. New hematuria noticeable in his heredia drain bag. Objective - Vital Signs/Intake & Output Reviewed Vital Signs: Yes Vital Signs: Vital Signs x48h Temp Pulse Pulse Resp BP Pulse Ox 01/27/21 07:29 36.7 C 96 18 157/67 H 93 01/27/21 04:18 37 C 99 19 92 Intake & Output: Intake & Output 01/24/21 01/25/21 01/26/21 01/27/21 23:59 23:59 23:59 23:59 Intake Total 5768.687 5145.146 2740 1120 Output Total 825 2475 3225 575 Balance 4943.687 2670.146 -485 545 - Objective General Appearance: positive: No acute distress, Alert Eyes Bilateral: positive: Normal inspection, PERRL ENT: positive: ENT inspection nml, No signs of dehydration Neck: positive: Nml inspection Respiratory: positive: Chest non-tender, No respiratory distress, Breath sounds nml Cardiovascular: positive: Regular rate & rhythm, No murmur, Tachycardia Peripheral Pulses: 2+ Radial (R), 2+ Radial (L) Abdomen: positive: Non-tender, No organomegaly, Nml bowel sounds, No distention Skin: positive: Pallor Extremities: positive: Non-tender, Full ROM, Nml appearance, No pedal edema Neurologic/Psychiatric: positive: Oriented x3 - Lab Results Fish Bones: 01/27/21 04:52 01/27/21 04:52 Other Labs: Lab Results x24hrs 01/27/21 01/27/21 01/27/21 Range/Units 11:09 07:21 04:52 WBC (4.8-10.8) x10^3/uL RBC (4.70-6.10) 10^6/uL Hgb (14.0-18.0) g/dL Hct (42.0-52.0) % MCV (80.0-94.0) fL MCH (27.0-31.0) pg MCHC (32.0-36.0) g/dL RDW (12.0-15.0) % Plt Count (130-450) 10^3/uL MPV (7.4-11.4) fL Neut # (Auto) (1.5-6.6) 10^3/uL Lymph # (Auto) (1.5-3.5) 10^3/uL Green # (Auto) (0.0-1.0) 10^3/uL Eos # (Auto) (0.0-0.7) 10^3/uL Baso # (Auto) (0.0-0.1) 10^3/uL Absolute Nucleated RBC x10^3/uL Nucleated RBC % /100WBC WBC Morphology (NORMAL) Platelet Estimate (NORMAL) Platelet Morphology (NORMAL) RBC Morph Micro Appear (NORMAL) Sodium 142 (135-145) mmol/L Potassium 3.6 (3.5-5.0) mmol/L Chloride 109 (101-111) mmol/L Carbon Dioxide 21 (21-32) mmol/L Anion Gap 12.0 (6-13) BUN 19 (6-20) mg/dL Creatinine 1.5 H (0.6-1.2) mg/dL Estimated GFR (MDRD) 45 L (>89) Glucose 242 H (70-100) mg/dL POC Whole Bld Glucose 390 H 241 H (70 - 100) mg/dL Calcium 9.0 (8.5-10.3) mg/dL 01/27/21 01/26/21 01/26/21 Range/Units 04:52 22:22 20:30 WBC 23.7 H (4.8-10.8) x10^3/uL RBC 2.43 L (4.70-6.10) 10^6/uL Hgb 8.4 L (14.0-18.0) g/dL Hct 26.1 L (42.0-52.0) % MCV 107.4 H (80.0-94.0) fL MCH 34.6 H (27.0-31.0) pg MCHC 32.2 (32.0-36.0) g/dL RDW 24.3 H (12.0-15.0) % Plt Count 398 (130-450) 10^3/uL MPV 10.6 (7.4-11.4) fL Neut # (Auto) 17.5 H (1.5-6.6) 10^3/uL Lymph # (Auto) 2.9 (1.5-3.5) 10^3/uL Green # (Auto) 1.8 H (0.0-1.0) 10^3/uL Eos # (Auto) 0.5 (0.0-0.7) 10^3/uL Baso # (Auto) 0.2 H (0.0-0.1) 10^3/uL Absolute Nucleated RBC 0.06 x10^3/uL Nucleated RBC % 0.3 /100WBC WBC Morphology NORMAL APPEARANCE (NORMAL) Platelet Estimate NORMAL (130-450,000) (NORMAL) Platelet Morphology NORMAL APPEARANCE (NORMAL) RBC Morph Micro Appear 2+ ANISOCYTOSIS (NORMAL) Sodium (135-145) mmol/L Potassium (3.5-5.0) mmol/L Chloride (101-111) mmol/L Carbon Dioxide (21-32) mmol/L Anion Gap (6-13) BUN (6-20) mg/dL Creatinine (0.6-1.2) mg/dL Estimated GFR (MDRD) (>89) Glucose (70-100) mg/dL POC Whole Bld Glucose 330 H 400 H (70 - 100) mg/dL Calcium (8.5-10.3) mg/dL 01/26/21 Range/Units 16:35 WBC (4.8-10.8) x10^3/uL RBC (4.70-6.10) 10^6/uL Hgb (14.0-18.0) g/dL Hct (42.0-52.0) % MCV (80.0-94.0) fL MCH (27.0-31.0) pg MCHC (32.0-36.0) g/dL RDW (12.0-15.0) % Plt Count (130-450) 10^3/uL MPV (7.4-11.4) fL Neut # (Auto) (1.5-6.6) 10^3/uL Lymph # (Auto) (1.5-3.5) 10^3/uL Green # (Auto) (0.0-1.0) 10^3/uL Eos # (Auto) (0.0-0.7) 10^3/uL Baso # (Auto) (0.0-0.1) 10^3/uL Absolute Nucleated RBC x10^3/uL Nucleated RBC % /100WBC WBC Morphology (NORMAL) Platelet Estimate (NORMAL) Platelet Morphology (NORMAL) RBC Morph Micro Appear (NORMAL) Sodium (135-145) mmol/L Potassium (3.5-5.0) mmol/L Chloride (101-111) mmol/L Carbon Dioxide (21-32) mmol/L Anion Gap (6-13) BUN (6-20) mg/dL Creatinine (0.6-1.2) mg/dL Estimated GFR (MDRD) (>89) Glucose (70-100) mg/dL POC Whole Bld Glucose 299 H (70 - 100) mg/dL Calcium (8.5-10.3) mg/dL ABX Reporting Has patient been on IV antibiotics over the past 48 hours?: Yes Sepsis Event Note (H) - Evaluation Current Stage of Sepsis: Resolved (Tachycardic, tachypnic, hypertensive last evening, all have resolved this morning.) Possible source of Sepsis: positive: Genitourinary - Sepsis Criteria Sepsis Criteria: Recorded Temperature greater than 38.3C or Less than 36C, Recorded Heart Rate greater than 90 bpm, Recorded Respiratory Rate greater than 20, WBC count greater than 12,000 or less than 4000, SBP less than 90 mmHg, Metabolic: lactate > 2 mmol/L Assessment/Plan - Problem List (1) Urinary tract infection Impression: Stable. WBC initially trending down, 32-->26.5-->23.4, 23.7 today. Urine and blood cxs with Pseudomonas, IV antibiotics transitioned to cipro. Afebrile and tachycardic, hypertensive. Tolerating it well, no n/v. Denies dysuria today, has had relief with insertion of the heredia catheter. Urine clear and with new hematuria. Denies pain. 1. IV abx 2. IVF Qualifiers: Urinary tract infection type: acute cystitis Hematuria presence: without hematuria Qualified Code(s): N30.00 - Acute cystitis without hematuria (2) Bacteremia due to Pseudomonas Impression: 11/24 blood cultures on 01/24 are showing pseudomonas. The antibiotics were transitioned to ensure coverage of pseudomonas. His WBC is 23.7, down from 32.2 on admission but slightly up from 23.4 yesterday. He continues to have tachycardia and hypertension but has been afebrile. 1. Daily blood cultures until negative 2. Continue IV abx (3) Diabetes mellitus type 2, controlled, with complications Impression: A1C in October 2020 6.9%. Takes metformin and insulin at home. Transitioned to high dose insulin sliding scale yesterday and Lantus was increased, however he continues to have elevated BGs to 390 at lunch. He is on NPH at home. A one time dose of 15units Novalog was given. Metformin will be held for now given high lactate and LIS on admission insulin. Has not had a Podiatry or Opthalmology appointment in 5 years, reports this is due to "the state not paying for it". Denies blurry vision but does have a prior diagnosis of cataracts. Also has stage III kidney disease. No foot wounds noted on exam. 1. SSI 2. Hold Metformin for now 3. Follow up Opthalmology after discharge Qualifiers: Diabetes mellitus shelter insulin use: with remote computer terminal operator use Qualified Code(s): E11.8 - Type 2 diabetes mellitus with unspecified complications; Z79.4 - penitentiary (current) use of insulin (4) Acute kidney injury superimposed on chronic kidney disease Impression: Improved. Baseline creatinine appears to range 1.3-1.6 looking back at records through 2017. Admitted with creatinine 2.1, 1.5 today. Known to have chronic kidney disease stage III. Urine is clear with hematuria, no clots; appropriate output. 1. IVF 2. Monitor I/O (heredia in place) 3. Daily CMP (5) Chronic kidney disease, stage 3 Impression: Stable. Baseline creatinine appears to range 1.3-1.6 looking back at records through 2017. Admitted with creatinine 2.1 and BUN 37. Known to have chronic kidney disease stage III. Urine is clear with hematuria today, no clots. 1. Daily CMP 2. Monitor I/O Qualifiers: Chronic kidney disease stage 3 subtype: unspecified whether 3a or 3b Qualified Code(s): N18.30 - Chronic kidney disease, stage 3 unspecified (6) Elevated troponin level Impression: Stable. Troponins have started to decrease, 29-->74.1-->141.5-->115.1. Denies chest pain or shortness of breath. Remains hypertensive and tachycardic. Echo done 01/25, no abnormalities. (7) Hypertension Impression: Had episodes of hypotension overnight HD 1, has trended back to hypertension with SBPs 150s-170s. Takes Losartan at home, resumed on HD 1. Also started on Metoprolol. 1. Continue home Losartan. 2. Continue metoprolol. Qualifiers: Hypertension type: essential hypertension Qualified Code(s): I10 - Essential (primary) hypertension (8) Benign prostate hyperplasia Impression: Stable. No bladder or kidney obstruction seen on CT during admission, prostate not mentioned. Heredia catheter placed on admission and Flomax restarted. Heredia draining clear urine with hematuria, no clots. Denies abdominal pain. 1. Heredia catheter 2. Continue Flomax 3. 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 Last dose received 01/21. Transfused 1unit leukocyte reduced pRBCs 01/25 for hgb 7. Hgb 8.4 today. 1. Monitor CBC 2. 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 Diagnosed by bx 2014, followed by Ramona Ibrahim and Josh Lou outpat ient. Follows up every 2-3 months, with monthly CBC (WBC normal at 9 on 01/21, no evidence of disease progression). Has been receiving treatment for his chronic anemia related to MDS. (11) Hyperlipidemia Impression: Stable. Prior diagnosis of HLD. Takes a statin and aspirin at home, aspirin has been resumed. Will resume statin when appropriate. Qualifiers: Hyperlipidemia type: unspecified Qualified Code(s): E78.5 - Hyperlipidemia, unspecified (12) Hypothyroidism Impression: Stable. Prior diagnosis. Takes Levothyroxine at home. 1. Continue Levothyroxine daily. Qualifiers: Hypothyroidism type: unspecified Qualified Code(s): E03.9 - Hypothyroidism, unspecified (13) Seizure disorder Impression: Stable. Reports a history of epilepsy, last seizure unknown. Reports he only has seizures "when I'm stressed". Does not take medications for this and has not seen a Neurologist recently. No seizures this admission. 1. Seizure precautions. (14) Chronic sinusitis Impression: Stable. Has a history of chronic sinusitis, reporting some nasal congestion today. No drainage seen on exam, nares appear normal and pink on external exam. Uses Flonase at home, restarted yesterday. 1. Continue Flonase. Qualifiers: Sinusitis location: unspecified location Qualified Code(s): J32.9 - Chronic sinusitis, unspecified (15) Sepsis Impression: Resolved. Pt admitted with WBC 32.2, trending down to 23.4 and now 23.7. Lactate has resolved, now 1.6. Blood and urine cxs growing Pseudomonas, abx have been tailored to the bacteria. Qualifiers: Sepsis type: sepsis due to unspecified organism Sepsis acute organ dysfunction status: with acute organ dysfunction Severe sepsis acute organ dysfunction type: acute renal failure Acute renal failure type: unspecified Severe sepsis shock status: without septic shock Qualified Code(s): A41.9 - Sepsis, unspecified organism; R65.20 - Severe sepsis without septic shock; N17.9 - Acute kidney failure, unspecified
[2021-01-27] MEDS ORDERED: INSULIN ASPART 300 UNIT/3 ML PEN SUBQ ONE ×2 (12:08→17:08)
[2021-01-27] MEDS: CIPROFLOXACIN 400 MG/200 ML 400 MG/200 ML BAG IV SCH (12:16)
[2021-01-27] MEDS: SODIUM CHLORIDE FLUSH 0.9% 10 ML SYRINGE IVP PRN (12:18)
[2021-01-27] MEDS: guaiFENesin/DEXTROMETHORPHAN 10 ML UDC PO PRN ×2 (14:52→21:13)
[2021-01-27] MEDS: traZODone 50 MG TABLET PO SCH (21:13)
[2021-01-28] MEDS: CIPROFLOXACIN 400 MG/200 ML 400 MG/200 ML BAG IV SCH (01:06)
[2021-01-28] MEDS: SODIUM CHLORIDE FLUSH 0.9% 10 ML SYRINGE IVP SCH ×2 (01:17→08:02)
[2021-01-28] MEDS: SODIUM CHLORIDE FLUSH 0.9% 10 ML SYRINGE IVP PRN (01:17)
[2021-01-28] MEDS: ACETAMINOPHEN 325 MG TABLET PO PRN ×2 (01:23→05:45)
[2021-01-28] MEDS: oxyCODONE 5 MG TABLET PO PRN ×2 (01:31→05:44)
[2021-01-28 05:25] LABS: CREATININE 1.4 mg/dL (0.6-1.2); POTASSIUM 3.7 mmol/L (3.5-5.0)
[2021-01-28] MEDS: LEVOTHYROXINE 100 MCG TABLET PO SCH (06:40)
[2021-01-28] MEDS: LEVOTHYROXINE 75 MCG TABLET PO SCH (06:40)
[2021-01-28] MEDS: INSULIN ASPART 300 UNIT/3 ML PEN SUBQ SCH (08:00)
[2021-01-28] MEDS: INSULIN NPH HUMAN 300 UNIT/3 ML VIAL SUBQ SCH (08:00)
[2021-01-28] MEDS: METOPROLOL SUCCINATE 25 MG TABLET PO SCH (08:01)
[2021-01-28] MEDS: FLUTICASONE NASAL SPRAY NAS SCH (08:01)
[2021-01-28] MEDS: LOSARTAN 50 MG TABLET PO SCH (08:01)
[2021-01-28] MEDS: polyethylene glycoL 3350 17 GM PACKET PO SCH (08:02)
[2021-01-28] MEDS: ASPIRIN 325 MG TABLET PO SCH (08:02)
[2021-01-28] MEDS: TAMSULOSIN 0.4 MG CAPSULE PO SCH (08:02)
[2021-01-28 08:06] LABS: BASOPHILS % (AUTO) 0.9 %; EOSINOPHILS % (AUTO) 3.7 %; HCT - HEMATOCRIT 23.9 % (42.0-52.0); HGB - HEMOGLOBIN 7.8 g/dL (14.0-18.0); LYMPHOCYTES % (AUTO) 13.5 %; MEAN CORPUSCULAR HEMOGLOBIN 35.3 pg (27.0-31.0); MEAN CORPUSCULAR HGB CONC 32.6 g/dL (32.0-36.0); MEAN CORPUSCULAR VOLUME 108.1 fL (80.0-94.0); MEAN PLATELET VOLUME 10.7 fL (7.4-11.4); MONOCYTES % (AUTO) 8.8 %; NEUTROPHILS % (AUTO) 67.2 %; PLT - PLATELET COUNT 368 10^3/uL (130-450); RED BLOOD COUNT 2.21 10^6/uL (4.70-6.10); RED CELL DISTRIBUTION WIDTH 23.9 % (12.0-15.0); WHITE BLOOD COUNT 16.9 x10^3/uL (4.8-10.8)
[2021-01-28 08:08] LABS: ABNORMAL LYMPHS % (MANUAL) 0 %
[2021-01-28 08:28] LABS: BAND NEUTROPHILS % (MANUAL) 6 %; EOSINOPHILS # (MANUAL) 0.8 10^3/uL (0-0.7); LYMPHOCYTES % (MANUAL) 12 %; METAMYELOCYTES % (MANUAL) 1 %; MONOCYTES # (MANUAL) 2.4 10^3/uL (0.0-1.0); MYELOCYTES % (MANUAL) 3 %
[2021-01-28 08:29] LABS: DIFFERENTIAL COMMENT MANUAL DIFFERENTIAL; PLATELET ESTIMATE, MANUAL NORMAL (130-450,000) (NORMAL); PLATELET MORPHOLOGY NORMAL APPEARANCE (NORMAL); WBC MORPHOLOGY (MULTIPLE) 1+ TOXIC GRANULATION (NORMAL)
[2021-01-28 08:58] VITALS: BP 157/71
--- NOTE | 2021-01-28 09:10 | Discharge Plan ---
Discharge Plan Problem Reviewed?: Yes Disposition: Home, Self Care Condition: Good Prescriptions: Ciprofloxacin [Cipro] 500 mg PO Q12H #56 tablet Diet: Regular Activity Restrictions: Activity as Tolerated Shower Restrictions: No Driving Restrictions: No Instruction Topics: Transfusion Blood When Need Health Concerns: You came to the hospital because you were so weak with fever, constant urgency to go pee, and it hurts to pee. You were shaky, tremulous, and so weak you were almost falling down. After evaluating you with blood test, and culturing your blood in an incubator, as well as doing a CAT scan of your organs, we found you to have a severe urinary tract infection. The bacteria that was growing in your urine and in your bloodstream was Pseudomonas. It is a very harmful bacteria and causes severe shock if not treated early so you did the right thing by coming in. We gave you antibiotics to kill the bacteria. However, in a gentleman, your treatment is complicated by the fact that you have a prostate. Sometimes the bacteria likes to hide in the prostate much longer than we would like. So that means you need to take antibiotics longer than the usual treatment for urinary tract infection. A woman, who does not have a prostate, would be done with treatment in 7 days. You will need treatment for 14 days minimum and sometimes up to 21 days. While you are here, your white cell count was very elevated. It is a reflection of how severe your infection was in your body. You usually have a white cell count of 9000. When you came to the hospital you were 32,000. Today, at discharge you are close to 17,000. So you are much better but not completely out of the nana. Plan of Treatment: 1. Make sure you finish your antibiotic therapy. I am prescribing ciprofloxacin 250 mg tablet. You will take 2 tablets, twice a day until they are completed and the bottle is empty. 2. While you were here you had inability to urinate because your bladder was blocked by your prostate. We had to put in a Shepard catheter. Please see your primary care provider and have the Shepard catheter removed in the next 10 to 14 days. You may need to be referred to a urologist if you continue to have prostate problems. 3. Your diabetes became very uncontrolled because of the illness. Your sugars were in the 300-400 range. Please make sure that you have a glucose that is below 150 on a regular basis. That will help you treat your infection. High glucose will make bacteria grow better. See 1 a glucose on the low side to help the antibiotic kill the bacteria. Care Goals: To have the Shepard catheter removed. To control your glucose. And to complete therapy for the severe urinary tract infection that caused severe infection called sepsis. Assessment: Patient understands care goals and will follow through. No Smoking: If you smoke, Please STOP! Call for help. Follow-up with: Francisco Bernard MD [Primary Care Provider] -
--- NOTE | 2021-01-28 09:56 | DISCHARGE SUMMARY ---
Discharge Summary Admit Date: 01/24/21 Discharge Date: 01/28/21 Discharging Provider: Elba Brunson Primary Care Provider: Juan Sarmiento Code Status: Attempt Resuscitation Condition at Discharge: Good Discharge Disposition: 01 Home, Self Care - DIAGNOSES Discharge Diagnoses with Status of Each Condition: (1) Urinary tract infection Impression: Improving. WBC initially trending down, 32> 26.5> 23.4> 23.7> 16.9. Urine and blood cxs with Pseudomonas, IV antibiotics transitioned to cipro. Afebrile and tachycardic, hypertensive. Tolerating it well, no n/v. Denies dysuria, has had relief with insertion of the heredia catheter. Urine clear and with periodic hematuria. Denies pain. He will discharge home with the heredia catheter and fo llow up with Urology. 1. Transition to oral Cipro, total 2 week dose Qualifiers: Urinary tract infection type: acute cystitis Hematuria presence: without hematuria Qualified Code(s): N30.00 - Acute cystitis without hematuria (2) Bacteremia due to Pseudomonas Impression: Improved. 11/24 blood cultures on 01/24 grew pseudomonas. The antibiotics were transitioned to ensure coverage of pseudomonas. 01/26 blood cxs negative. His WBC has trended down appropriately and his tachycardia has resolved. He remains afebrile. 1. Continue Cipro, total 2 week dose (3) Diabetes mellitus type 2, controlled, with complications Impression: Stable. A1C in October 2020 6.9%. Takes metformin and insulin at home. Metformin was held through admission due to lactic acidosis and he required transition to high dose insulin sliding scale due to hyperglycemia. He also required multiple extra doses of insulin. He is on NPH at home. Blood sugars this morning improved to [id number]. Has not had a Podiatry or Opthalmology appointment in 5 years, reports this is due to "the state not paying for it". Denies blurry vision but does have a prior diagnosis of cataracts. Also has stage III kidney disease. No foot wounds noted on exam. 1.Resume home diabetic medications 2. Follow up PCP 3. 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 Baseline creatinine appears to range 1.3-1.6 looking back at records through 2017. Admitted with creatinine 2.1, 1.4 today. Known to have chronic kidney disease stage III. Urine is clear with occasional hematuria, no clots; appropriate output. He will be discharging with a heredia catheter given difficulty urinating and UTI, follow up with Urology. (5) Chronic kidney disease, stage 3 Impression: Stable. Baseline creatinine appears to range 1.3-1.6 looking back at records through 2017. Admitted with creatinine 2.1 and BUN 37. Known to have chronic kidney disease stage III. Urine is clear with occasional hematuria, no clots. He will be discharging with a heredia catheter, follow up with urology. Qualifiers: Chronic kidney disease stage 3 subtype: unspecified whether 3a or 3b Qualified Code(s): N18.30 - Chronic kidney disease, stage 3 unspecified (6) Elevated troponin level Impression: Stable. Troponins initially trended up on admission but as his infection im proved they trended down, 29-->74.1-->141.5-->115.1. Denies chest pain or shortness of breath. Remains hypertensive but no longer tachycardic. Echo done 01/25, no abnormalities. (7) Hypertension Impression: Stable. Had episodes of hypotension overnight HD 1, has trended back to hypertension with SBPs 140s-160s. Takes Losartan at home, resumed on HD 1. Also started on Metoprolol. 1. Continue home Losartan. 2. Continue metoprolol. 3. Follow up PCP Qualifiers: Hypertension type: essential hypertension Qualified Code(s): I10 - Essential (primary) hypertension (8) Benign prostate hyperplasia Impression: Stable. No bladder or kidney obstruction seen on CT during admission, prostate not mentioned. Heredia catheter placed on admission and Flomax restarted. Heredia draining clear urine with occasional hematuria, no clots. Denies abdominal pain. He will go home with the heredia catheter, follow up with Urology. 1. Heredia catheter 2. Continue Flomax 3. Heredia teaching from nursing 4. 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 Last dose received 01/21. Transfused 1unit leukocyte reduced pRBCs 01/25 for hgb 7. Hgb 7.8 today. 1. Follow up PCP and Oncologist (10) Myelodysplastic syndrome Impression: Stable. Diagnosed by 2014, followed by Ramona Ibrahim and Josh Lou outpatient. Follows up every 2-3 months, with monthly CBC (WBC normal at 9 on 01/21, no evidence of disease progression). Has been receiving treatment for his chronic anemia related to MDS. (11) Hyperlipidemia Impression: Stable. Prior diagnosis of HLD. Takes a statin and aspirin at home. Qualifiers: Hyperlipidemia type: unspecified Qualified Code(s): E78.5 - Hyperlipidemia, unspecified (12) Hypothyroidism Impression: Stable. Prior diagnosis. Takes Levothyroxine at home. 1. Continue Levothyroxine daily. Qualifiers: Hypothyroidism type: unspecified Qualified Code(s): E03.9 - Hypothyroidism, unspecified (13) Seizure disorder Impression: Stable. Reports a history of epilepsy, last seizure unknown. Reports he only has seizures "when I'm stressed". Does not take medications for this and has not seen a Neurologist recently. No seizures this admission. (14) Chronic sinusitis Impression: Stable. Has a history of chronic sinusitis, reporting some nasal congestion today. No drainage seen on exam, nares appear normal and pink on external exam. Uses Flonase at home. Qualifiers: Sinusitis location: unspecified location Qualified Code(s): J32.9 - Chronic sinusitis, unspecified (15) Sepsis Impression: Resolved. Pt admitted with WBC 32.2, trending down to 16.9 today. Lactate has resolved, now 1.6. Blood and urine cxs growing Pseudomonas, abx have been tailored to the bacteria. Qualifiers: Sepsis type: sepsis due to unspecified organism Sepsis acute organ dysfunction status: with acute organ dysfunction Severe sepsis acute organ dysfunction type: acute renal failure Acute renal failure type: unspecified Severe sepsis shock status: without septic shock Qualified Code(s): A41.9 - Sepsis, unspecified organism; R65.20 - Severe sepsis without septic shock; N17.9 - Acute kidney failure, unspecified - HPI History of Present Illness: 80 year old with medical hx including myelodysplastic syndrome, stage III chronic kidney disease and past UTI admitted with sepsis and UTI. Presented to the ED complaining of significant fatigue, chills, and myalgias. Reports he was in his normal state of health Thursday when he was given his Aranesp injection. He went home and had dinner and later that night started feeling fatigued and chilled. Denies fevers, SOB, cough. Reports chronic sinus congestion. Since Thursday night he has had increasing frequency and urgency to urinate with difficulty doing so as well as dysuria. Reports he has been attempting to urinate "every 5 minutes today and I can't go", minimal urine seen in urinal at bedside. Also reports hx BPH for which he was taking medication whose name he could not remember but believes he ran out of 4 years ago. Diarrhea reported to ED provider, though he tells me this afternoon this occurs once every month or so and spontaneously resolves. Denies back pain and did not have CVA tenderness on exam. Does have a prior history of previous UTIs in 2013 and 2014 for which the urine grew Enterobacter and Klebsiella. Labs in the ED significant for WBC 32, creatinine 2.1, BUN 37, anion gap 15 and lactic acid 3.5. Lactic acid later increased to 4 and troponin was 18. Glucose 260s-310s, last A1C 6.9% 10/2020. He has been hypertensive and febrile this afternoon and overall feeling unwell. Hand tremors noted. He was admitted for IV abx and treatment of sepsis and UTI. Also found to have an acute on chronic kidney disease with creatinine elevated to 2.1. Baseline creatinine appears to range 1.3-1.6 since 2017. - CONSULTS | PROCEDURES Consultations: Social work - HOSPITAL COURSE Hospital Course: Pt admitted on feeling very ill with fatigue, chills and myalgias. He was found to have an elevated WBC at 32, creatinine 2.1, anion gap 15 and lactic acid 3.5. He had significant dysuria and difficulty urinating. A heredia catheter was placed and has remained in place through admission, revealing periods of clear yellow urine and periods of clear hematuria. No clots. Urine and blood cxs obtained grew Pseudomonas and antibiotics were tailored appropriately. Repeat blood cx were negative. His WBC has slowly decreased and is 16.9 on day of discharge. He will be discharged with a total 2 week course of Cipro for complicated UTI. He has not had fevers or chills recently and denies pain. Pt has been hypertensive despite resuming home BP meds. He has also had hyperglycemia to the mid- 300s difficult to control with high dose sliding scale. His metformin has been held due to his admission lactic acidosis and will be resumed for home use. He will be discharged to home with a heredia catheter with instructions from nursing on how to care for it. Flomax was initiated on , and while it is on his home medication list it is unclear if he was taking at home as prescribed. He should follow up with his PCP and Urology for removal. - ALLERGIES Allergies/Adverse Reactions: Allergies Allergy/AdvReac Type Severity Reaction Status Date / Time No Known Drug Allergies Allergy Verified 01/24/21 11:07 - MEDICATIONS Home Medications: Ambulatory Orders Medication Instructions Recorded Confirmed Acetaminophen 1,000 mg PO QPM 08/13/15 01/24/21 Aspirin [Aspir 81] 81 mg PO DAILY 08/13/15 01/24/21 Losartan Potassium 25 mg PO DAILY 08/13/15 01/24/21 Multivitamin [Multivitamins] 1 cap PO DAILY 08/13/15 01/24/21 Simvastatin 5 mg PO DAILY 08/13/15 01/24/21 Triamterene/Hydrochlorothiazid 1 cap PO DAILY 08/13/15 01/24/21 [Triamterene-Hctz 37.5-25 mg Cp] metFORMIN [Glucophage] 500 mg PO BID 08/13/15 01/24/21 Insulin Lispro [Humalog Kwikpen 15 units SQ BIDWM 07/20/17 01/24/21 U-100] Insulin NPH Human Isophane 20 - 25 units SQ BID 07/20/17 01/24/21 [Humulin N Kwikpen] Fluticasone [Flonase] 1 spray ART DAILY 03/07/19 01/24/21 Tamsulosin [Flomax] 0.2 mg PO DAILY 03/07/19 01/24/21 Levothyroxine Sodium [Synthroid] 175 mcg PO DAILY 01/24/21 01/24/21 Ciprofloxacin [Cipro] 500 mg PO Q12H #56 tablet 01/28/21 - PHYSICAL EXAM AT DISCHARGE General Appearance: positive: No acute distress, Alert Eyes Bilateral: positive: Normal inspection, PERRL ENT: positive: ENT inspection nml, No signs of dehydration Neck: positive: Nml inspection Respiratory: positive: Chest non-tender, No respiratory distress, Breath sounds nml Cardiovascular: positive: Regular rate & rhythm, No murmur, No gallop Peripheral Pulses: positive: 2+ Abdomen: positive: Non-tender, No organomegaly, Nml bowel sounds, No distention Back: positive: Nml inspection Skin: positive: Pallor Extremities: positive: Non-tender, Full ROM, Nml appearance Neurologic/Psychiatric: positive: Oriented x3 - LABS Result Diagrams: 01/28/21 04:50 01/28/21 04:50 - DIAGNOSTIC IMAGING Diagnostic Imaging Results: Final report reviewed Diagnostic Imaging Results Comments: CXR Impression: 1.Medial right infrahilar opacities compatible with atelectasis or consolidation. CT Abd/pelvis Impression: Source of sepsis syndrome is not identified. No urinary tract abnormality is seen. No evidence of diverticulitis or appendicitis, and no inflammatory change is identified. Echocardiogram final report pending, PCP to review - SEPSIS Current Stage of Sepsis: Resolved (Tachycardic, tachypnic, hypertensive last evening, all have resolved this morning.) Possible source of Sepsis: Genitourinary Sepsis Criteria: Recorded Temperature greater than 38.3C or Less than 36C, Recorded Heart Rate greater than 90 bpm, Recorded Respiratory Rate greater than 20, WBC count greater than 12,000 or less than 4000, SBP less than 90 mmHg, Metabolic: lactate > 2 mmol/L - FOLLOW UP Follow Up: PCP, Oncologist and Urologist - TIME SPENT Time Spent in Discharge (Minutes): 35
== END 2021-01-28 11:45 | disposition home or self-care (01) | DRG 872 ==
LOC: ED 10:54 → MS2 13:44
PROVIDERS: ADMIT Specialist; ATTEND Specialist
DX: A41.9 Sepsis, unspecified organism (principal); A41.52 Sepsis due to Pseudomonas; N30.00 Acute cystitis without hematuria; N17.9 Acute kidney failure, unspecified; D46.9 Myelodysplastic syndrome, unspecified; N18.30 Chronic kidney disease, stage 3 unspecified; Z20.822 Contact with and (suspected) exposure to COVID-19; R65.20 Severe sepsis without septic shock; I12.9 Hypertensive chronic kidney disease with stage 1 through stage 4 chronic kidney disease, or unspecified chronic kidney disease; E11.22 Type 2 diabetes mellitus with diabetic chronic kidney disease; E11.65 Type 2 diabetes mellitus with hyperglycemia; D63.0 Anemia in neoplastic disease; N40.1 Benign prostatic hyperplasia with lower urinary tract symptoms; R33.9 Retention of urine, unspecified; R35.0 Frequency of micturition; E78.5 Hyperlipidemia, unspecified; E03.9 Hypothyroidism, unspecified; J32.9 Chronic sinusitis, unspecified; G89.29 Other chronic pain; M46.1 Sacroiliitis, not elsewhere classified; M17.0 Bilateral primary osteoarthritis of knee; R77.8 Other specified abnormalities of plasma proteins; Z91.19 Patient's noncompliance with other medical treatment and regimen; Z79.4 Long term (current) use of insulin; Z79.82 Long term (current) use of aspirin; Z79.899 Other long term (current) drug therapy; Z87.891 Personal history of nicotine dependence
CPT/HCPCS: 36415; 71045; 74176; 80048; 80053; 81001; 83036; 83605; 83690; 84153; 84154; 84484; 85025; 86850; 86900; 86901; 86920; 87040; 87086; 87150; 87181; 87631; 93005; 93306; 96361; 96374; 97161; 99283; 99285; A9270; J1650; J1815; J7120; P9016; 0202U; 81003

== ENCOUNTER 2021-02-05 08:00 | Outpatient (CLI) | payer MEDICARE, MEDICAID ==
[2021-02-05 18:21] LABS: BASOPHILS # (AUTO) 0.2 10^3/uL (0.0-0.1); BASOPHILS % (AUTO) 1.3 %; EOSINOPHILS # (AUTO) 0.3 10^3/uL (0.0-0.7); EOSINOPHILS % (AUTO) 1.7 %; HCT - HEMATOCRIT 33.7 % (42.0-52.0); HGB - HEMOGLOBIN 10.5 g/dL (14.0-18.0); LYMPHOCYTES # (AUTO) 2.7 10^3/uL (1.5-3.5); LYMPHOCYTES % (AUTO) 17.4 %; MEAN CORPUSCULAR HGB CONC 31.2 g/dL (32.0-36.0); MEAN CORPUSCULAR VOLUME 109.1 fL (80.0-94.0); MEAN PLATELET VOLUME 10.5 fL (7.4-11.4); MONOCYTES # (AUTO) 1.6 10^3/uL (0.0-1.0); MONOCYTES % (AUTO) 10.1 %; NEUTROPHILS # (AUTO) 10.6 10^3/uL (1.5-6.6); NEUTROPHILS % (AUTO) 68.2 %; NRBC ABSOLUTE COUNT (AUTO) 0.03 x10^3/uL; NUCLEATED RED BLOOD CELLS AUTO 0.2 /100WBC; PLT - PLATELET COUNT 472 10^3/uL (130-450); RED BLOOD COUNT 3.09 10^6/uL (4.70-6.10); RED CELL DISTRIBUTION WIDTH 23.3 % (12.0-15.0); WHITE BLOOD COUNT 15.6 x10^3/uL (4.8-10.8)
[2021-02-05 18:24] LABS: SLIDE REVIEW? Indicated
[2021-02-05 18:34] LABS: CREATININE 1.7 mg/dL (0.6-1.2); POTASSIUM 4.6 mmol/L (3.5-5.0)
[2021-02-05 18:44] LABS: PLATELET ESTIMATE, MANUAL INCREASED (>450,000) (NORMAL); PLATELET MORPHOLOGY NORMAL APPEARANCE (NORMAL); RBC MORPHOLOGY (MULTIPLE) 1+ ANISOCYTOSIS (NORMAL); WBC MORPHOLOGY (MULTIPLE) NORMAL APPEARANCE (NORMAL)
== END 2021-02-05 23:59 | disposition home or self-care (01) ==
LOC: LAB.WCP 08:00
PROVIDERS: ATTEND Family Medicine
DX: N18.30 Chronic kidney disease, stage 3 unspecified (principal); A41.9 Sepsis, unspecified organism; D46.9 Myelodysplastic syndrome, unspecified
CPT/HCPCS: 36415; 80048; 85025

== ENCOUNTER 2021-02-20 08:00 | Outpatient (CLI) | payer MEDICARE, MEDICAID | END 2021-02-20 23:59 | disposition home or self-care (01) | LOC: LAB.N 08:00 | PROVIDERS: ATTEND Family Medicine | DX: R53.1 Weakness (principal) | CPT/HCPCS: 87077; 87086; 87181 ==

== ENCOUNTER 2021-02-21 19:28 | Outpatient (CLI) | payer MEDICARE, MEDICAID ==
--- OUTSIDE RECORDS SUMMARY | 2021-02-27 01:30 | EXTERNAL MEDICAL SUMMARY RPT | Continuity of Care Document ---
:1940 Demographics Phone Unavailable Preferred Language Unknown Marital Status Unknown Yazidi Affiliation Unknown Race Unknown Ethnic Group Unknown Author Organization [facility] Address [address] [place] [address] Phone Social History date description facility [phone]
== END 2021-02-21 19:29 | disposition critical access hospital (66) ==
LOC: EMS 19:28
PROVIDERS: ATTEND Emergency Medicine
DX: R30.0 Dysuria (principal); R50.9 Fever, unspecified
CPT/HCPCS: A0425; A0429

== ENCOUNTER 2021-02-21 19:47 | Inpatient (IN) | payer MEDICARE, MEDICAID ==
[2021-02-21 20:21] LABS: GLUCOSE, URINE (UA) NEGATIVE (NEGATIVE); KETONES,URINE (UA) 15 mg/dL (NEGATIVE); LEUKOCYTE ESTERASE, URINE MODERATE (NEGATIVE); NITRITE,URINE NEGATIVE (NEGATIVE); OCCULT BLOOD,URINE MODERATE (NEGATIVE); PH,URINE 5.5 PH (5.0-7.5); PROTEIN,URINE 100 mg/dL (NEGATIVE); UROBILINOGEN,URINE 0.2 (NORMAL) E.U./dL (NORMAL)
[2021-02-21 20:24] LABS: CLARITY,URINE SL. CLOUDY (CLEAR)
[2021-02-21 20:25] LABS: BILIRUBIN,URINE NEGATIVE (NEGATIVE); ICTOTEST,URINE NEGATIVE
[2021-02-21 20:27] LABS: BACTERIA,URINE Few /HPF (None Seen); SQUAMOUS EPITHELIAL CELL,UR FEW Squamous (<= Few); WBC,URINE >25 /HPF (0-3)
[2021-02-21 20:34] LABS: BASOPHILS # (AUTO) 0.1 10^3/uL (0.0-0.1); BASOPHILS % (AUTO) 0.3 %; EOSINOPHILS # (AUTO) 0.2 10^3/uL (0.0-0.7); EOSINOPHILS % (AUTO) 1.3 %; HCT - HEMATOCRIT 22.3 % (42.0-52.0); HGB - HEMOGLOBIN 7.3 g/dL (14.0-18.0); LYMPHOCYTES # (AUTO) 1.2 10^3/uL (1.5-3.5); LYMPHOCYTES % (AUTO) 7.7 %; MEAN CORPUSCULAR HEMOGLOBIN 34.3 pg (27.0-31.0); MEAN CORPUSCULAR HGB CONC 32.7 g/dL (32.0-36.0); MEAN CORPUSCULAR VOLUME 104.7 fL (80.0-94.0); MEAN PLATELET VOLUME 10.1 fL (7.4-11.4); MONOCYTES # (AUTO) 1.2 10^3/uL (0.0-1.0); MONOCYTES % (AUTO) 7.4 %; NEUTROPHILS # (AUTO) 13.1 10^3/uL (1.5-6.6); NEUTROPHILS % (AUTO) 82.7 %; PLT - PLATELET COUNT 248 10^3/uL (130-450); RED BLOOD COUNT 2.13 10^6/uL (4.70-6.10); RED CELL DISTRIBUTION WIDTH 23.7 % (12.0-15.0); WHITE BLOOD COUNT 15.9 x10^3/uL (4.8-10.8)
[2021-02-21 20:45] LABS: ALBUMIN 3.8 g/dL (3.2-5.5); ALBUMIN/GLOBULIN RATIO 1.2 (1.0-2.2); BILIRUBIN,TOTAL 2.2 mg/dL (0.2-1.0); CALCIUM 8.8 mg/dL (8.5-10.3); CREATININE 1.8 mg/dL (0.6-1.2); POTASSIUM 3.7 mmol/L (3.5-5.0)
[2021-02-21 20:52] LABS: SLIDE REVIEW? Indicated
[2021-02-21 20:53] LABS: INR 1.5 (0.8-1.2); PT - PROTHROMBIN TIME 16.6 secs (9.9-12.6)
[2021-02-21 21:00] LABS: PARTIAL THROMBOPLASTIN TIME 24.8 secs (24.9-33.3)
[2021-02-21] MEDS ORDERED: cefTRIAXone 1 GM VIAL IVP STA (21:03)
[2021-02-21 21:12] LABS: PLATELET ESTIMATE, MANUAL NORMAL (130-450,000) (NORMAL); PLATELET MORPHOLOGY NORMAL APPEARANCE (NORMAL)
[2021-02-21] MEDS ORDERED: SODIUM CHLORIDE 0.9% 1,000 ML IV STA ×2 (21:25)
--- NOTE | 2021-02-21 21:35 | ED Physician Documentation ---
History of Present Illness - Stated complaint Stated Complaint: MALE / FEVER - Chief complaint Chief Complaint: UTI - History obtained from History obtained from: Patient, EMS - History of Present Illness Timing: Today Pain level max: 4 Pain level now: 3 - Additonal information Additional information: Patient is an 80-year-old male who presents to the emergency department with fevers for the past 2 to 3 days. He states temperature 103-105 at home. He complains of dysuria similar to prior episode of urosepsis. He has been on antibiotics for the past 3 days, does not know which ones. He states he does not seem to be improving, [facility] Patient has no abdominal or back pain. No vomiting. Review of Systems Ten Systems: 10 systems reviewed and negative Constitutional: denies: Fever, Chills Nose: denies: Rhinorrhea / runny nose, Congestion GI: denies: Vomiting, Diarrhea Skin: denies: Rash Musculoskeletal: denies: Neck pain, Back pain Neurologic: denies: Headache PD PAST MEDICAL HISTORY - Past Medical History Past Medical History: Yes Cardiovascular: Hypertension Respiratory: None Neuro: Seizure disorder Endocrine/Autoimmune: Type 2 diabetes, HyPOthyroidism GI: Other : Benign prostate hypertrophy, Renal insuffiency HEENT: Chronic sinusitis, Other Psych: None Musculoskeletal: Osteoarthritis, Chronic back pain Derm: Eczema - Past Surgical History Past Surgical History: No - Present Medications Home Medications: Ambulatory Orders Medication Instructions Recorded Confirmed Acetaminophen 1,000 mg PO QPM 08/13/15 02/18/21 Aspirin [Aspir 81] 81 mg PO DAILY 08/13/15 02/18/21 Losartan Potassium 25 mg PO DAILY 08/13/15 02/18/21 Multivitamin [Multivitamins] 1 cap PO DAILY 08/13/15 02/18/21 Simvastatin 5 mg PO DAILY 08/13/15 02/18/21 Triamterene/Hydrochlorothiazid 1 cap PO DAILY 08/13/15 02/18/21 [Triamterene-Hctz 37.5-25 mg Cp] metFORMIN [Glucophage] 500 mg PO BID 08/13/15 02/18/21 Insulin Lispro [Humalog Kwikpen 15 units SQ BIDWM 07/20/17 02/18/21 U-100] Insulin NPH Human Isophane 20 - 25 units SQ BID 07/20/17 02/18/21 [Humulin N Kwikpen] Fluticasone [Flonase] 1 spray ART DAILY 03/07/19 02/18/21 Tamsulosin [Flomax] 0.2 mg PO DAILY 03/07/19 02/18/21 Levothyroxine Sodium [Synthroid] 175 mcg PO DAILY 01/24/21 02/18/21 Ciprofloxacin [Cipro] 500 mg PO Q12H #56 tablet 01/28/21 02/18/21 - Allergies Allergies/Adverse Reactions: Allergies Allergy/AdvReac Type Severity Reaction Status Date / Time glyburide Allergy Unknown Verified 02/18/21 14:29 lisinopril Allergy Unknown Verified 02/18/21 14: tramadol Allergy Unknown Verified 02/18/21 14:29 - Social History Does the pt smoke?: No Smoking Status: Never smoker Does the pt drink ETOH?: No Does the pt have substance abuse?: No - Immunizations Immunizations are current?: Yes - POLST Patient has POLST: No PD ED PE NORMAL - Vitals Vital signs reviewed: Yes - General General: Alert and oriented X 3, No acute distress, Well developed/nourished - HEENT HEENT: PERRL, Moist mucous membranes - Neck Neck: Supple, no meningeal sign - Cardiac Cardiac: RRR, Strong equal pulses - Respiratory Respiratory: No respiratory distress, Clear bilaterally - Abdomen Abdomen: Soft, Non tender, Non distended - Back Back: No CVA TTP - Derm Derm: Warm and dry - Extremities Extremities: No edema - Neuro Neuro: Alert and oriented X 3 - Psych Psych: Normal mood, Normal affect Results - Vitals Vitals: Vital Signs - 24 hr 02/21/21 02/21/21 02/21/21 19:50 19:56 21:17 Temperature 35.6 C L 35.6 C L Heart Rate 101 H 101 H 89 Respiratory 17 17 18 Rate Blood Pressure 135/52 H 135/82 H 127/59 L O2 Saturation 97 95 Oxygen O2 Source Room air - Labs Labs: Laboratory Tests 02/21/21 02/21/21 02/21/21 20:15 20:25 20:25 WBC 15.9 H RBC 2.13 L Hgb 7.3 L Hct 22.3 L MCV 104.7 H MCH 34.3 H MCHC 32.7 RDW 23.7 H Plt Count 248 MPV 10.1 Neut # (Auto) 13.1 H Lymph # (Auto) 1.2 L Starr # (Auto) 1.2 H Eos # (Auto) 0.2 Baso # (Auto) 0.1 Absolute Nucleated RBC 0.00 Nucleated RBC % 0.0 Manual Slide Review Indicated Platelet Estimate NORMAL (130-450,000) Platelet Morphology NORMAL APPEARANCE RBC Morph Micro Appear 2+ ANISOCYTOSIS PT 16.6 H INR 1.5 H APTT 24.8 L Sodium Potassium Chloride Carbon Dioxide Anion Gap BUN Creatinine Estimated GFR (MDRD) Glucose Lactic Acid Calcium Total Bilirubin AST ALT Alkaline Phosphatase Total Protein Albumin Globulin Albumin/Globulin Ratio Lipase Urine Color YELLOW Urine Clarity SL. CLOUDY Urine pH 5.5 Ur Specific [place] >=1.030 H Urine Protein 100 H Urine Glucose (UA) NEGATIVE Urine Ketones 15 H Urine Occult Blood MODERATE H Urine Nitrite NEGATIVE Urine Bilirubin NEGATIVE Urine Urobilinogen 0.2 (NORMAL) Ur Leukocyte Esterase MODERATE H Urine RBC 11-25 H Urine WBC >25 H Ur Squamous Epith Cells FEW Squamous Urine Bacteria Few Ur Microscopic Review INDICATED Urine Culture Comments INDICATED 02/21/21 02/21/21 20:25 20:25 WBC RBC Hgb Hct MCV MCH MCHC RDW Plt Count MPV Neut # (Auto) Lymph # (Auto) Starr # (Auto) Eos # (Auto) Baso # (Auto) Absolute Nucleated RBC Nucleated RBC % Manual Slide Review Platelet Estimate Platelet Morphology RBC Morph Micro Appear PT INR APTT Sodium 134 L Potassium 3.7 Chloride 100 L Carbon Dioxide 21 Anion Gap 13.0 BUN 31 H Creatinine 1.8 H Estimated GFR (MDRD) 36 L Glucose 225 H Lactic Acid 1.6 Calcium 8.8 Total Bilirubin 2.2 H AST 25 ALT 26 Alkaline Phosphatase 57 Total Protein 7.0 Albumin 3.8 Globulin 3.2 Albumin/Globulin Ratio 1.2 Lipase 21 L Urine Color Urine Clarity Urine pH Ur Specific [place] Urine Protein Urine Glucose (UA) Urine Ketones Urine Occult Blood Urine Nitrite Urine Bilirubin Urine Urobilinogen Ur Leukocyte Esterase Urine RBC Urine WBC Ur Squamous Epith Cells Urine Bacteria Ur Microscopic Review Urine Culture Comments PD MEDICAL DECISION MAKING - ED course Complexity details: reviewed results, re-evaluated patient, considered differential, d/w patient ED course: Patient with SIRS criteria and likely early urosepsis. CT abdomen pelvis was performed to evaluate for any possible obstructing ureteral stones, none are visible. Patient was given meropenem. We will admit for further care. Given IV fluids. Discussed the case with Dr. Walton, hospitalist who accepts This document was made in part using voice recognition software. While efforts are made to proofread this document, sound alike and grammatical errors may occur. Departure - Departure Disposition: 66 [facility] DC/Xfer Clinical Impression: SIRS (systemic inflammatory response syndrome) UTI (urinary tract infection) Qualifiers: Urinary tract infection type: acute pyelonephritis Qualified Code(s): N10 - Acute pyelonephritis Anemia Qualifiers: Anemia type: unspecified type Qualified Code(s): D64.9 - Anemia, unspecified Condition: Stable
[2021-02-21] MEDS ORDERED: MEROPENEM 1 GM in SODIUM CHLORIDE 0.9% MINIBAG 100 ML IV STA (21:59)
[2021-02-21 22:36] LABS: B. PARAPERTUSSIS- RESP PCR PAN NOT DETECTED; B. PERTUSSIS- RESP PCR PANEL NOT DETECTED; C. PNEUMONIAE- RESP PCR PANEL NOT DETECTED; CORONAVIRUS 229E-RESP PCR NOT DETECTED; CORONAVIRUS HKU1-RESP PCR NOT DETECTED; CORONAVIRUS NL63-RESP PCR NOT DETECTED; CORONAVIRUS OC43-RESP PCR NOT DETECTED; HUMAN METAPNEUMOVIRUS NOT DETECTED; INFLUENZA A- RESP PCR PANEL NOT DETECTED; INFLUENZA B - RESP PCR PANEL NOT DETECTED; M. PNEUMONIAE- RESP PCR PANEL NOT DETECTED; PARAINFLUENZA VIRUS 1 NOT DETECTED; PARAINFLUENZA VIRUS 2 NOT DETECTED; PARAINFLUENZA VIRUS 3 NOT DETECTED; PARAINFLUENZA VIRUS 4 NOT DETECTED; RHINOVIRUS/ENTEROVIRUS NOT DETECTED; RSV- RESP PCR PANEL NOT DETECTED; SARS-CoV-2 -RESP PCR PANEL NOT DETECTED
[2021-02-21] MEDS ORDERED: ONDANSETRON ODT 4 MG TABLET TL PRN (22:42)
[2021-02-21] MEDS ORDERED: SODIUM CHLORIDE FLUSH 0.9% 10 ML SYRINGE IVP PRN (22:42)
--- NOTE | 2021-02-21 22:54 | HISTORY & PHYSICAL EXAMINATION ---
Chief Complaint - Chief Complaint Chief Complaint: Burning with urination History of Present Illness - Admitted From Admitted From:: Home - History Obtained From Records Reviewed: Yes History obtained from: Patient, ER Physician, EMR - History of Present Illness HPI Comment/Other: This is a very pleasant 80-year-old male with a past medical history significant for insulin-dependent diabetes mellitus, chronic kidney disease, BPH, hypertension, MDS, chronic anemia who presents today complaining of dysuria. He tells me he was hospitalized earlier last month for urinary tract infection. Reviewing his records reveal that he was admitted for sepsis due to Pseudomonas UTI with bacteremia. He was discharged on ciprofloxacin and he states he did t kelton this as prescribed. He states a few days ago he developed dysuria and saw her primary care provider and was told he had a urinary tract infection. He was prescribed ciprofloxacin. He states despite taking antibiotics for 3 days, he still has symptoms and he had a fever of either 103 or 105 F today. He did take Tylenol for this. He was concerned that he might become as sick as he was last month and so he came to the emergency department. He reports mild shortness of breath but no chest pain. An occasional nonproductive cough. No nausea, vomiting, abdominal pain. He denies difficulty urinating. He reports being compliant with Flomax for BPH. Denies any flank pain, hematuria. He states he feels much better compared to when he came last month. In the emergency department, he was initially found to be hypothermic with a temperature of 35.6 C. He was tachycardic with a heart rate in the 100s. Blood pressure is 135/52. He was not tachypneic and saturating well on room ai r. His labs were significant for a white count of 15.9 with a left shift and hemoglobin of 7.3. His INR was 1.5. His creatinine is elevated at 1.8 and his baseline is 1.5. Analysis revealed moderate leukocyte esterase, 11-25 RBCs and greater than 25 WBCs as well as few bacteria. He underwent a CT of the abdomen pelvis which showed no obvious obstruction or source of infection. Given his ongoing symptoms and concern for sepsis, medicine was consulted for admission. I did discuss goals of care with the patient and he would like to be a DNR. History - Past Medical History Cardiovascular: reports: Hypertension Respiratory: reports: None Neuro: reports: Seizure disorder Endocrine/Autoimmune: reports: Type 2 diabetes, HyPOthyroidism : reports: Benign prostate hypertrophy, Renal insuffiency HEENT: reports: Chronic sinusitis, Chronic hearing loss Psych: reports: None Musculoskeletal: reports: Osteoarthritis, Chronic back pain Derm: reports: Eczema MRSA Hx?: No Other Past Medical History: MDS - Family & Social History Family History Comment/Other: He states his mother from tuberculosis when he was 7 years old. He believes his father was healthy. He does not recall any other family history. Living arrangement: At home Living Situation: Alone Social History Notes: He lives at home alone. 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 He smoked briefly but quit over 50 years ago. He rarely drinks alcohol. - Substance History Use: Uses substance without health or social issues: NONE - POLST Patient has POLST: No Meds/Allgy - Home Medications Home Medications: Ambulatory Orders Medication Instructions Recorded Confirmed Acetaminophen 1,000 mg PO QPM 08/13/15 02/18/21 Aspirin [Aspir 81] 81 mg PO DAILY 08/13/15 02/18/21 Losartan Potassium 25 mg PO DAILY 08/13/15 02/18/21 Multivitamin [Multivitamins] 1 cap PO DAILY 08/13/15 02/18/21 Simvastatin 5 mg PO DAILY 08/13/15 02/18/21 Triamterene/Hydrochlorothiazid 1 cap PO DAILY 08/13/15 02/18/21 [Triamterene-Hctz 37.5-25 mg Cp] metFORMIN [Glucophage] 500 mg PO BID 08/13/15 02/18/21 Insulin Lispro [Humalog Kwikpen 15 units SQ BIDWM 07/20/17 02/18/21 U-100] Insulin NPH Human Isophane 20 - 25 units SQ BID 07/20/17 02/18/21 [Humulin N Kwikpen] Fluticasone [Flonase] 1 spray ART DAILY 03/07/19 02/18/21 Tamsulosin [Flomax] 0.2 mg PO DAILY 03/07/19 02/18/21 Levothyroxine Sodium [Synthroid] 175 mcg PO DAILY 01/24/21 02/18/21 Ciprofloxacin [Cipro] 500 mg PO Q12H #56 tablet 01/28/21 02/18/21 - Allergies Allergies/Adverse Reactions: Allergies Allergy/AdvReac Type Severity Reaction Status Date / Time glyburide Allergy Unknown Verified 02/18/21 14:29 lisinopril Allergy Unknown Verified 02/18/21 14:29 tramadol Allergy Unknown Verified 02/18/21 14:29 Review of Systems - Constitutional Constitutional: reports: Fever, Chills. denies: Fatigue - Ears, Nose & Throat Ears, Nose & Throat: denies: Nasal discharge, Nasal congestion - Cardiovascular Cariovascular: denies: Chest pain, Exertional dyspnea - Respiratory Respiratory: reports: Cough, SOB at rest, SOB with exertion. denies: Sputum production - Gastrointestinal Gastrointestinal: denies: Abdominal pain, Constipation, Diarrhea, Change in bowel habits, Black stools, Bloody stools, Nausea, Vomiting - Genitourinary Genitourinary: reports: Dysuria, Urgency. denies: Frequency, Hematuria, Flank pain - Musculoskeletal Musculoskeletal: reports: Back pain. denies: Joint pain - Integumentary Integumentary: denies: Rash - Neurological Neurological: denies: General weakness, Focal weakness, Headache, Dizziness, Numbness - Hematologic/Lymphatic Hematologic/Lymphatic: reports: Anemia. denies: Bleeding tendencies - All Other Systems All Other Systems: reports: Reviewed and negative Prior Level of Functionality: He is independent with his ADL's. Exam - Vital Signs Reviewed Vital Signs: Yes Vital Signs: Vital Signs x48h Temp Pulse Resp BP Pulse Ox 02/21/21 22:48 36.8 C 87 16 140/68 H 98 02/21/21 21:17 89 18 127/59 L 95 02/21/21 19:56 35.6 C L 101 H 17 135/82 H 97 02/21/21 19:50 35.6 C L 101 H 17 135/52 H - Physical Exam General Appearance: positive: No acute distress, Alert Eyes Bilateral: positive: Normal inspection, Conjunctivae nml ENT: positive: ENT inspection nml Neck: positive: Nml inspection Respiratory: positive: No respiratory distress. negative: Wheezes, Rales Cardiovascular: positive: Regular rate & rhythm, Tachycardia. negative: Bradycardia, Systolic murmur Abdomen: positive: Non-tender, No distention. negative: Tenderness, Guarding, Rebound Skin: positive: Warm, Dry Extremities: positive: Full ROM, Pedal edema (Trace edema in bilateral lower extremities.) Neurologic/Psychiatric: positive: Oriented x3, Motor nml. negative: Disoriented to person, Disoriented to place, Disoriented to time Sepsis Event Note (H) - Evaluation Current Stage of Sepsis: Sepsis Possible source of Sepsis: positive: Genitourinary - Sepsis Criteria Sepsis Criteria: Suspected or Documented, Recorded Temperature greater than 38.3C or Less than 36C, Recorded Heart Rate greater than 90 bpm, WBC count greater than 12,000 or less than 4000 Conclusion/Plan - Problem List (1) Sepsis Conclusion/Plan: This appears to be secondary to a urinary tract infection given his symptoms and abnormal urinalysis. He presented hypothermic here with tachycardia and leukocytosis although he does report a fever at home. Lactic acid is normal. Given his history of Pseudomonas urinary tract infection we will place him on meropenem IV. Follow-up blood cultures. Daily CBC. Qualifiers: Sepsis type: sepsis due to unspecified organism Sepsis acute organ dysfunction status: with acute organ dysfunction Severe sepsis acute organ dysfunction type: acute renal failure Acute renal failure type: unspecified Severe sepsis shock status: without septic shock Qualified Code(s): A41.9 - Sepsis, unspecified organism; R65.20 - Severe sepsis without septic shock; N17.9 - Acute kidney failure, unspecified (2) Urinary tract infection Conclusion/Plan: This appears to be the cause of his sepsis. He has dysuria and urgency along with an abnormal urinalysis. He was admitted last month for Pseudomonas urinary tract infection with bacteremia. He has failed outpatient antibiotics with ci profloxacin and so we will place him on meropenem IV. Imaging without evidence of obstruction. Follow-up urine culture. Qualifiers: Urinary tract infection type: acute cystitis (3) Acute kidney injury superimposed on chronic kidney disease Conclusion/Plan: He has mild acute kidney injury which I suspect is prerenal. His creatinine is 1.8 and baseline is 1.5. He has CKD likely due to his underlying diabetes. We will hydrate him with IV fluids and hold his losartan for the time being. We will look to resume this in the morning. 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 He follows with Dr. Lou at the [facility] [place]. His hemoglobin is currently 7.3. He did require transfusion during his prior hospitalization. We will recheck in the morning and transfuse for goal hemoglobin greater than 7. There is no evidence of bleeding at this time. (5) Myelodysplastic syndrome Conclusion/Plan: He has associated anemia due to mild dysplastic syndrome. Plan for anemia as mentioned above. He will continue to follow-up with hematology/oncology once discharged. (6) Diabetes mellitus type 2, controlled, with complications Conclusion/Plan: His last A1c was 6%. His blood glucose is currently elevated at greater than 200. We will resume his home insulin regimen and place him on a carb controlled diet. Qualifiers: Diabetes mellitus exterminator termite insulin use: with exterminator termite use Qualified Code(s): E11.8 - Type 2 diabetes mellitus with unspecified complications; Z79.4 - shelter (current) use of insulin (7) Hypertension Conclusion/Plan: He is currently normotensive with systolic in the 120s. We will hold his triamterene/hydrochlorothiazide as we will hydrate him with IV fluids. We will hold losartan for the time being given his mild acute kidney injury. We will resume his home antihypertensives when appropriate. Qualifiers: Hypertension type: essential hypertension Qualified Code(s): I10 - Essential (primary) hypertension (8) Hypothyroidism Conclusion/Plan: We will continue his Synthroid. Qualifiers: Hypothyroidism type: unspecified Qualified Code(s): E03.9 - Hypothyroidism, unspecified (9) Benign prostate hyperplasia Conclusion/Plan: This is likely contributing to his frequent urinary tract infections. Post void residual was 330 mL. We will increase his Flomax to 0.4 mg and will consider twice daily dosing. Qualifiers: Lower urinary tract symptom presence: symptoms present Lower urinary tract symptom detail: urinary frequency Qualified Code(s): N40.1 - Benign prostatic hyperplasia with lower urinary tract symptoms; R35.0 - Frequency of micturition - Lab Results Lab results reviewed: Yes Fish Bones: 02/21/21 20:25 02/21/21 20:25 - Diagnostic Imaging Results Diagnostic Imaging Results: positive: Prelim report reviewed Core Measures - Anticipated LOS I expect patient to be DC'd or transferred within 96 hours.: Yes - Issues Hospital Issues and Management Plan: 80-year-old male with history of UTI presents with dysuria and urgency found to have another urinary tract infection. Concern for sepsis. Will admit for IV meropenem given history of Pseudomonas - DVT/VTE - Prophylaxis VTE/DVT Device ordered at admit?: Yes VTE/DVT Prophylaxis med ordered at admit?: Yes
[2021-02-22] MEDS: LACTATED RINGERS 1,000 ML IV SCH ×2 (00:02→10:33)
[2021-02-22] MEDS: TAMSULOSIN 0.4 MG CAPSULE PO SCH ×2 (00:02→21:29)
[2021-02-22] MEDS: SODIUM CHLORIDE FLUSH 0.9% 10 ML SYRINGE IVP SCH ×3 (00:02→17:06)
[2021-02-22] MEDS: ACETAMINOPHEN 325 MG TABLET PO PRN ×2 (01:58→23:46)
[2021-02-22 06:04] LABS: BASOPHILS % (AUTO) 0.3 %; EOSINOPHILS # (AUTO) 0.4 10^3/uL (0.0-0.7); EOSINOPHILS % (AUTO) 3.3 %; HCT - HEMATOCRIT 21.3 % (42.0-52.0); LYMPHOCYTES # (AUTO) 1.7 10^3/uL (1.5-3.5); LYMPHOCYTES % (AUTO) 15.6 %; MEAN CORPUSCULAR HEMOGLOBIN 33.7 pg (27.0-31.0); MEAN CORPUSCULAR HGB CONC 31.9 g/dL (32.0-36.0); MEAN CORPUSCULAR VOLUME 105.4 fL (80.0-94.0); MEAN PLATELET VOLUME 9.6 fL (7.4-11.4); MONOCYTES % (AUTO) 9.4 %; NEUTROPHILS # (AUTO) 7.5 10^3/uL (1.5-6.6); NEUTROPHILS % (AUTO) 70.8 %; PLT - PLATELET COUNT 242 10^3/uL (130-450); RED BLOOD COUNT 2.02 10^6/uL (4.70-6.10); RED CELL DISTRIBUTION WIDTH 23.9 % (12.0-15.0); WHITE BLOOD COUNT 10.6 x10^3/uL (4.8-10.8)
[2021-02-22 06:07] LABS: HGB - HEMOGLOBIN 6.8 g/dL (14.0-18.0); SLIDE REVIEW? Indicated
[2021-02-22 06:12] LABS: CALCIUM 8.3 mg/dL (8.5-10.3); CREATININE 1.4 mg/dL (0.6-1.2); MAGNESIUM 1.7 mg/dL (1.7-2.8); POTASSIUM 3.7 mmol/L (3.5-5.0)
[2021-02-22] MEDS: LEVOTHYROXINE 125 MCG TABLET PO SCH (06:19)
[2021-02-22 06:22] LABS: PLATELET ESTIMATE, MANUAL NORMAL (130-450,000) (NORMAL); PLATELET MORPHOLOGY NORMAL APPEARANCE (NORMAL); WBC MORPHOLOGY (MULTIPLE) NORMAL APPEARANCE (NORMAL)
--- NOTE | 2021-02-22 08:15 | CT Report ---
PROCEDURE: Abdomen/Pelvis WO INDICATIONS: fever, UTI TECHNIQUE: Noncontrast 5 mm thick sections acquired from the diaphragms to the symphysis. 5 mm coronal and sagi ttal reformats were then performed. For radiation dose reduction, the following was used: automated exposure control, adjustment of mA and/or kV according to patient size. COMPARISON: None. FINDINGS: Image quality: Excellent. ABDOMEN: ABDOMEN: Lung bases: Normal Liver: Normal Spleen is enlarged. There is nonspecific capsular calcification. Gallbladder: Unremarkable Bile ducts: Normal Pancreas: Normal Adrenals: Normal Kidneys: Normal Bowel loops: Normal Colonic diverticulosis incidentally noted without evidence of acute inflammation. No free fluid or air. [id number] stool. Abdominal nodes: Normal Aorta: Normal IVC: Normal No ventral hernias. There are subcutaneous inflammatory changes presumably related to injections. PELVIS: Bladder: There is subtle hyperdensity measuring 2-3 mm seen at the dependent posterior left bladder o n image 78/4 which is technically nonspecific, although probably volume averaging artifact. Presumed partially visualized right testicle Pelvic nodes: Normal Groin: Normal Bones: No vertebral body compression fracture. No suspicious bone lesion. Scoliosis and diffuse spond ylitic changes. IMPRESSION: No hydronephrosis. No definite urolithiasis. Elsewhere, no acute abnormality Mild splenomegaly. Incidental colonic diverticulosis Findings are concordant with the preliminary study interpretation provided at the time of the study. Reviewed by: Koffi Santiago MD on 02/22/2021 8:14 AM PDT Approved by: Koffi Santiago MD on 02/22/2021 8:14 AM PDT Station ID: [id number]
--- NOTE | 2021-02-22 09:27 | XRAY Report ---
PROCEDURE: Chest 1 View X-Ray INDICATIONS: Dyspnea. Cough. TECHNIQUE: One view of the chest was acquired. COMPARISON: None FINDINGS: Surgical changes and devices: None. Lungs and pleura: No pleural effusions or pneumothorax. Lungs are clear. Mediastinum: Mediastinal contours appear normal. Heart size is normal. Bones and chest wall: No suspicious bony lesions. Overlying soft tissues appear unremarkable. IMPRESSION: No acute cardiopulmonary abnormality. Reviewed by: Rudolph Mendoza on 02/22/2021 9:26 AM PDT Approved by: Rudolph Mendoza on 02/22/2021 9:26 AM PDT Station ID: [id number]
[2021-02-22] MEDS: HEPARIN 5,000 UNIT/ML VIAL SUBQ SCH ×2 (10:26→21:31)
[2021-02-22] MEDS: INSULIN NPH HUMAN 300 UNIT/3 ML VIAL SUBQ SCH ×2 (10:26→21:29)
[2021-02-22] MEDS: INSULIN ASPART 300 UNIT/3 ML PEN SUBQ SCH ×4 (10:28→21:30)
[2021-02-22] MEDS: LOSARTAN 50 MG TABLET PO SCH (10:30)
[2021-02-22] MEDS: MEROPENEM 1 GM in SODIUM CHLORIDE 0.9% MINIBAG 100 ML IV SCH ×2 (10:33→21:29)
[2021-02-22] MEDS: polyethylene glycoL 3350 17 GM PACKET PO SCH (10:33)
--- NOTE | 2021-02-22 13:32 | PROVIDER PROGRESS NOTE ---
Subjective - Prog Note Date Prog Note Date: 02/22/21 Prog Note Time: 18:40 - Subjective Subjective: He feels much better. Not nearly as confused and is tired as he felt before. His main complaint and fretfulness is around the dysuria, and the condom cath eter that is pinching off the skin of his penile head. He denies chest pain, myalgias, abdominal pain. Current Medications - Current Medications Current Medications: Active Medications Acetaminophen (Acetaminophen 325 Mg Tablet) 650 mg PO Q4HR PRN PRN Reason: Pain 1 to 4 Last Admin: 02/22/21 01:58 Dose: 650 mg Documented by: Heparin Sodium (Porcine) (Heparin 5,000 Unit/Ml Vial) 5,000 unit SUBQ BID [facility] Last Admin: 02/22/21 10:26 Dose: 5,000 unit Documented by: Lactated Ringer's (Lr) 1,000 mls @ 100 mls/hr IV .Q10H [facility] Last Admin: 02/22/21 10:33 Dose: 100 mls/hr Documented by: Meropenem 1 gm/ Sodium (Chloride) 100 mls @ 200 mls/hr IV Q12H [facility] Last Infusion: 02/22/21 11:04 Dose: Infused Documented by: Insulin Aspart (Insulin Aspart 300 Unit/3 Ml Pen) 1 - 5 unit SUBQ 0800,120 0,1700,2100 [facility]; Protocol Last Admin: 02/22/21 17:02 Dose: 2 unit Documented by: Insulin Human NPH (Insulin Nph Human 300 Unit/3 Ml Vial) 20 unit SUBQ BID [facility] Last Admin: 02/22/21 10:26 Dose: 20 unit Documented by: Levothyroxine Sodium (Levothyroxine 125 Mcg Tablet) 175 mcg PO QDAC [facility] Last Admin: 02/22/21 06:19 Dose: 175 mcg Documented by: Losartan Potassium (Losartan 50 Mg Tablet) 25 mg PO DAILY [facility] Last Admin: 02/22/21 10:30 Dose: 25 mg Documented by: Ondansetron HCl (Ondansetron Odt 4 Mg Tablet) 4 mg TL Q6HR PRN PRN Reason: Nausea / Vomiting Phenazopyridine HCl (Phenazopyridine 100 Mg Tablet) 100 mg PO TID [facility] Last Admin: 02/22/21 17:01 Dose: 100 mg Documented by: Polyethylene Glycol (Polyethylene Glycol 3350 17 Gm Packet) 17 gm PO DAILY [facility] Last Admin: 02/22/21 10:33 Dose: 17 gm Documented by: Sodium Chloride (Sodium Chloride Flush 0.9% 10 Ml Syringe) 10 ml IVP PRN PRN PRN Reason: NEEDED PER PROVIDER ORDERS Sodium Chloride (Sodium Chloride Flush 0.9% 10 Ml Syringe) 10 ml IVP 0100,0900,1700 [facility] Last Admin: 02/22/21 17:06 Dose: 10 ml Documented by: Tamsulosin HCl (Tamsulosin 0.4 Mg Capsule) 0.4 mg PO HS [facility] Last Admin: 02/22/21 00:02 Dose: 0.4 mg Documented by: Aspirin [Aspir 81] 81 mg PO DAILY 08/13/15 Multivitamin [Multivitamins] 1 cap PO DAILY 08/13/15 Simvastatin 5 mg PO DAILY 08/13/15 Triamterene/Hydrochlorothiazid [Triamterene-Hctz 37.5-25 mg Cp] 1 cap PO DAILY 08/13/15 metFORMIN [Glucophage] 500 mg PO BID 08/13/15 Insulin Lispro [Humalog Kwikpen U-100] 20 - 25 units SQ TIDWM 07/20/17 Insulin NPH Human Isophane [Humulin N Kwikpen] 20 units SQ TID 07/20/17 Fluticasone [Flonase] 1 spray ART DAILY PRN 03/07/19 Tamsulosin [Flomax] 0.2 mg PO DAILY 03/07/19 Levothyroxine Sodium [Synthroid] 175 mcg PO DAILY 01/24/21 Objective - Vital Signs/Intake & Output Reviewed Vital Signs: Yes Vital Signs: Vital Signs x48h Temp Pulse Resp BP Pulse Ox 02/22/21 09:00 36.6 C 91 17 143/62 H 96 02/22/21 04:53 36.4 C L 81 18 129/56 L 98 Intake & Output: Intake & Output 02/19/21 02/20/21 02/21/21 02/22/21 23:59 23:59 23:59 23:59 Intake Total 3119.5 2443.167 Output Total 900 Balance 3119.5 1543.167 - Objective General Appearance: positive: No acute distress, Alert, Other (, 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 Lucid.) Eyes Bilateral: positive: PERRL, EOMI ENT: positive: Pharynx nml Neck: positive: No JVD. negative: Stiff neck Respiratory: positive: No respiratory distress. negative: Wheezes, Rales, Rhonchi Cardiovascular: positive: Regular rate & rhythm, No murmur. negative: Gallop/S4, Friction rub Abdomen: positive: Non-tender, No organomegaly, Nml bowel sounds, No distention, Other (Condom catheter has slipped down the penile shaft says that the condom is wrapping around the tip of his penis like a rubber band. We have removed the catheter.) Skin: positive: Warm, Dry Extremities: positive: Full ROM, No pedal edema Neurologic/Psychiatric: positive: Oriented x3, Motor nml, Sensation nml. negative: CN's nml (2-12) (Moderately to severely deaf and wearing hearing aids) - Lab Results Fish Bones: 02/22/21 05:52 02/22/21 05:52 Other Labs: Lab Results x24hrs 02/22/21 02/22/21 02/22/21 Range/Units 07:36 05:52 05:52 WBC 10.6 (4.8-10.8) x10^3/uL RBC 2.02 L (4.70-6.10) 10^6/uL Hgb 6.8 L* (14.0-18.0) g/dL Hct 21.3 L (42.0-52.0) % MCV 105.4 H (80.0-94.0) fL MCH 33.7 H (27.0-31.0) pg MCHC 31.9 L (32.0-36.0) g/dL RDW 23.9 H (12.0-15.0) % Plt Count 242 (130-450) 10^3/uL MPV 9.6 (7.4-11.4) fL Neut # (Auto) 7.5 H (1.5-6.6) 10^3/uL Lymph # (Auto) 1.7 (1.5-3.5) 10^3/uL [place] # (Auto) 1.0 (0.0-1.0) 10^3/uL Eos # (Auto) 0.4 (0.0-0.7) 10^3/uL Baso # (Auto) 0.0 (0.0-0.1) 10^3/uL Absolute Nucleated RBC 0.00 x10^3/uL Nucleated RBC % 0.0 /100WBC Manual Slide Review Indicated WBC Morphology NORMAL APPEARANCE (NORMAL) Platelet Estimate NORMAL (130-450,000) (NORMAL) Platelet Morphology NORMAL APPEARANCE (NORMAL) RBC Morph Micro Appear 2+ HYPOCHROMASIA (NORMAL) PT (9.9-12.6) secs INR (0.8-1.2) APTT (24.9-33.3) secs Sodium 137 (135-145) mmol/L Potassium 3.7 (3.5-5.0) mmol/L Chloride 105 (101-111) mmol/L Carbon Dioxide 22 (21-32) mmol/L Anion Gap 10.0 (6-13) BUN 24 H (6-20) mg/dL Creatinine 1.4 H (0.6-1.2) mg/dL Estimated GFR (MDRD) 49 L (>89) Glucose 178 H (70-100) mg/dL Lactic Acid (0.5-2.2) mmol/L Calcium 8.3 L (8.5-10.3) mg/dL Magnesium 1.7 (1.7-2.8) mg/dL Total Bilirubin (0.2-1.0) mg/dL AST (10-42) IU/L ALT (10-60) IU/L Alkaline Phosphatase (42-121) IU/L Total Protein (6.7-8.2) g/dL Albumin (3.2-5.5) g/dL Globulin (2.1-4.2) g/dL Albumin/Globulin Ratio (1.0-2.2) Lipase (22-51) U/L Urine Color Urine Clarity (CLEAR) Urine pH (5.0-7.5) PH Ur Specific [place] (1.002-1.030) Urine Protein (NEGATIVE) mg/dL Urine Glucose (UA) (NEGATIVE) mg/dL Urine Ketones (NEGATIVE) mg/dL Urine Occult Blood (NEGATIVE) Urine Nitrite (NEGATIVE) Urine Bilirubin (NEGATIVE) Urine Urobilinogen (NORMAL) E.U./dL Ur Leukocyte Esterase (NEGATIVE) Urine RBC (0-5) /HPF Urine WBC (0-3) /HPF Ur Squamous Epith Cells (<= Few) Urine Bacteria (None Seen) /HPF Ur Microscopic Review Urine Culture Comments Nasal Adenovirus (PCR) Nasal B. parapertussis DNA (PCR) Nasal Coronavir 229E PCR Nasal Coronavir HKU1 PCR Nasal Coronavir NL63 PCR Nasal Coronavir OC43 PCR Nasal Enterovir/Rhinovir PCR Nasal Influenza B PCR Nasal Influenza A PCR Nasal Parainfluen 1 PCR Nasal Parainfluen 2 PCR Nasal Parainfluen 3 PCR Nasal Parainfluen 4 PCR Nasal RSV (PCR) Nasal B.pertussis DNA PCR Nasal C.pneumoniae (PCR) Art Human Metapneumo PCR Nasal M.pneumoniae (PCR) Nasal SARS-CoV-2 (PCR) Blood Type A POSITIVE Antibody Screen NEGATIVE Crossmatch IS Only See Detail 02/21/21 02/21/21 02/21/21 Range/Units 21:34 20:25 20:25 WBC (4.8-10.8) x10^3/uL RBC (4.70-6.10) 10^6/uL Hgb (14.0-18.0) g/dL Hct (42.0-52.0) % MCV (80.0-94.0) fL MCH (27.0-31.0) pg MCHC (32.0-36.0) g/dL RDW (12.0-15.0) % Plt Count (130-450) 10^3/uL MPV (7.4-11.4) fL Neut # (Auto) (1.5-6.6) 10^3/uL Lymph # (Auto) (1.5-3.5) 10^3/uL [place] # (Auto) (0.0-1.0) 10^3/uL Eos # (Auto) (0.0-0.7) 10^3/uL Baso # (Auto) (0.0-0.1) 10^3/uL Absolute Nucleated RBC x10^3/uL Nucleated RBC % /100WBC Manual Slide Review WBC Morphology (NORMAL) Platelet Estimate (NORMAL) Platelet Morphology (NORMAL) RBC Morph Micro Appear (NORMAL) PT (9.9-12.6) secs INR (0.8-1.2) APTT (24.9-33.3) secs Sodium 134 L (135-145) mmol/L Potassium 3.7 (3.5-5.0) mmol/L Chloride 100 L (101-111) mmol/L Carbon Dioxide 21 (21-32) mmol/L Anion Gap 13.0 (6-13) BUN 31 H (6-20) mg/dL Creatinine 1.8 H (0.6-1.2) mg/dL Estimated GFR (MDRD) 36 L (>89) Glucose 225 H (70-100) mg/dL Lactic Acid 1.6 (0.5-2.2) mmol/L Calcium 8.8 (8.5-10.3) mg/dL Magnesium (1.7-2.8) mg/dL Total Bilirubin 2.2 H (0.2-1.0) mg/dL AST 25 (10-42) IU/L ALT 26 (10-60) IU/L Alkaline Phosphatase 57 (42-121) IU/L Total Protein 7.0 (6.7-8.2) g/dL Albumin 3.8 (3.2-5.5) g/dL Globulin 3.2 (2.1-4.2) g/dL Albumin/Globulin Ratio 1.2 (1.0-2.2) Lipase 21 L (22-51) U/L Urine Color Urine Clarity (CLEAR) Urine pH (5.0-7.5) PH Ur Specific [place] (1.002-1.030) Urine Protein (NEGATIVE) mg/dL Urine Glucose (UA) (NEGATIVE) mg/dL Urine Ketones (NEGATIVE) mg/dL Urine Occult Blood (NEGATIVE) Urine Nitrite (NEGATIVE) Urine Bilirubin (NEGATIVE) Urine Urobilinogen (NORMAL) E.U./dL Ur Leukocyte Esterase (NEGATIVE) Urine RBC (0-5) /HPF Urine WBC (0-3) /HPF Ur Squamous Epith Cells (<= Few) Urine Bacteria (None Seen) /HPF Ur Microscopic Review Urine Culture Comments Nasal Adenovirus (PCR) NOT DETECTED Nasal B. parapertussis DNA (PCR) NOT DETECTED Nasal Coronavir 229E PCR NOT DETECTED Nasal Coronavir HKU1 PCR NOT DETECTED Nasal Coronavir NL63 PCR NOT DETECTED Nasal Coronavir OC43 PCR NOT DETECTED Nasal Enterovir/Rhinovir PCR NOT DETECTED Nasal Influenza B PCR NOT DETECTED Nasal Influenza A PCR NOT DETECTED Nasal Parainfluen 1 PCR NOT DETECTED Nasal Parainfluen 2 PCR NOT DETECTED Nasal Parainfluen 3 PCR NOT DETECTED Nasal Parainfluen 4 PCR NOT DETECTED Nasal RSV (PCR) NOT DETECTED Nasal B.pertussis DNA PCR NOT DETECTED Nasal C.pneumoniae (PCR) NOT DETECTED Art Human Metapneumo PCR NOT DETECTED Nasal M.pneumoniae (PCR) NOT DETECTED Nasal SARS-CoV-2 (PCR) NOT DETECTED Blood Type Antibody Screen Crossmatch IS Only 02/21/21 02/21/21 02/21/21 Range/Units 20:25 20:25 20:15 WBC 15.9 H (4.8-10.8) x10^3/uL RBC 2.13 L (4.70-6.10) 10^6/uL Hgb 7.3 L (14.0-18.0) g/dL Hct 22.3 L (42.0-52.0) % MCV 104.7 H (80.0-94.0) fL MCH 34.3 H (27.0-31.0) pg MCHC 32.7 (32.0-36.0) g/dL RDW 23.7 H (12.0-15.0) % Plt Count 248 (130-450) 10^3/uL MPV 10.1 (7.4-11.4) fL Neut # (Auto) 13.1 H (1.5-6.6) 10^3/uL Lymph # (Auto) 1.2 L (1.5-3.5) 10^3/uL [place] # (Auto) 1.2 H (0.0-1.0) 10^3/uL Eos # (Auto) 0.2 (0.0-0.7) 10^3/uL Baso # (Auto) 0.1 (0.0-0.1) 10^3/uL Absolute Nucleated RBC 0.00 x10^3/uL Nucleated RBC % 0.0 /100WBC Manual Slide Review Indicated WBC Morphology (NORMAL) Platelet Estimate NORMAL (130-450,000) (NORMAL) Platelet Morphology NORMAL APPEARANCE (NORMAL) RBC Morph Micro Appear 2+ ANISOCYTOSIS (NORMAL) PT 16.6 H (9.9-12.6) secs INR 1.5 H (0.8-1.2) APTT 24.8 L (24.9-33.3) secs Sodium (135-145) mmol/L Potassium (3.5-5.0) mmol/L Chloride (101-111) mmol/L Carbon Dioxide (21-32) mmol/L Anion Gap (6-13) BUN (6-20) mg/dL Creatinine (0.6-1.2) mg/dL Estimated GFR (MDRD) (>89) Glucose (70-100) mg/dL Lactic Acid (0.5-2.2) mmol/L Calcium (8.5-10.3) mg/dL Magnesium (1.7-2.8) mg/dL Total Bilirubin (0.2-1.0) mg/dL AST (10-42) IU/L ALT (10-60) IU/L Alkaline Phosphatase (42-121) IU/L Total Protein (6.7-8.2) g/dL Albumin (3.2-5.5) g/dL Globulin (2.1-4.2) g/dL Albumin/Globulin Ratio (1.0-2.2) Lipase (22-51) U/L Urine Color YELLOW Urine Clarity SL. CLOUDY (CLEAR) Urine pH 5.5 (5.0-7.5) PH Ur Specific [place] >=1.030 H (1.002-1.030) Urine Protein 100 H (NEGATIVE) mg/dL Urine Glucose (UA) NEGATIVE (NEGATIVE) mg/dL Urine Ketones 15 H (NEGATIVE) mg/dL Urine Occult Blood MODERATE H (NEGATIVE) Urine Nitrite NEGATIVE (NEGATIVE) Urine Bilirubin NEGATIVE (NEGATIVE) Urine Urobilinogen 0.2 (NORMAL) (NORMAL) E.U./dL Ur Leukocyte Esterase MODERATE H (NEGATIVE) Urine RBC 11-25 H (0-5) /HPF Urine WBC >25 H (0-3) /HPF Ur Squamous Epith Cells FEW Squamous (<= Few) Urine Bacteria Few (None Seen) /HPF Ur Microscopic Review INDICATED Urine Culture Comments INDICATED Nasal Adenovirus (PCR) Nasal B. parapertussis DNA (PCR) Nasal Coronavir 229E PCR Nasal Coronavir HKU1 PCR Nasal Coronavir NL63 PCR Nasal Coronavir OC43 PCR Nasal Enterovir/Rhinovir PCR Nasal Influenza B PCR Nasal Influenza A PCR Nasal Parainfluen 1 PCR Nasal Parainfluen 2 PCR Nasal Parainfluen 3 PCR Nasal Parainfluen 4 PCR Nasal RSV (PCR) Nasal B.pertussis DNA PCR Nasal C.pneumoniae (PCR) Art Human Metapneumo PCR Nasal M.pneumoniae (PCR) Nasal SARS-CoV-2 (PCR) Blood Type Antibody Screen Crossmatch IS Only ABX Reporting Has patient been on IV antibiotics over the past 48 hours?: Yes Sepsis Event Note (H) - Evaluation Current Stage of Sepsis: Resolved Possible source of Sepsis: positive: Genitourinary - Sepsis Criteria Sepsis Criteria: Suspected or Documented, Recorded Temperature greater than 38 .3C or Less than 36C, Recorded Heart Rate greater than 90 bpm, WBC count greater than 12,000 or less than 4000 Assessment/Plan - Problem List (1) Sepsis Impression: On admission, appeared to be secondary to a urinary tract infection given his symptoms and abnormal urinalysis. He presented hypothermic here with tachy cardia and leukocytosis although he does report a fever at home. Lactic acid is normal. Given his history of Pseudomonas urinary tract infection we will place him on meropenem IV. Follow-up blood cultures. Daily CBC. Today is day #2 of stay and #2 of meropenem. He is feeling much better. Sepsis resolved. Still weak and has dysuria. Qualifiers: Sepsis type: sepsis due to unspecified organism Sepsis acute organ dysfunction status: with acute organ dysfunction Severe sepsis acute organ dysfunction type: acute renal failure Acute renal failure type: unspecified Severe sepsis shock status: without septic shock Qualified Code(s): A41.9 - Sepsis, unspecified organism; R65.20 - Severe sepsis without septic shock; N17.9 - Acute kidney failure, unspecified (2) Urinary tract infection Conclusion/Plan: This appears to be the cause of his sepsis. He has dysuria and urgency along with an abnormal urinalysis. He was admitted last month for Pseudomonas urinary tract infection with bacteremia. He has failed outpatient antibiotics with ciprofloxacin and so we will place him on meropenem IV. Imaging without evidence of obstruction. Follow-up urine culture. Today urine culture is still in progress. He doesn't like the condom catheter and I am stopping it today. Qualifiers: Urinary tract infection type: acute cystitis (3) Acute kidney injury superimposed on chronic kidney disease Conclusion/Plan: He has mild acute kidney injury which I suspect is prerenal. His creatinine is 1.8 and baseline is 1.5. He has CKD likely due to his underlying diabetes. We hydrated him with IV fluids and held his losartan. Creat 1.8>>1.4 today. Plan: continue IVF for now. Stop when creat nml. Resume losartan. 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 He follows with Dr. Lou at the [facility]. His hemoglobin is currently 7.3. He did require transfusion during his prior hospitalization. We rechecked this morning and we are transfusing since our goal hemoglobin is greater than 7. This morning he was 6.8 before transfusion. There is no evidence of bleeding at this time. (5) Myelodysplastic syndrome Conclusion/Plan: He has associated anemia due to mild dysplastic syndrome. Plan for anemia as mentioned above. He will continue to follow-up with hematology/oncology once discharged. (6) Diabetes mellitus type 2, controlled, with complications Conclusion/Plan: His last A1c was 6%. His blood glucose is currently elevated at greater than 200. We will resume his home insulin regimen and place him on a carb controlled diet. Glucose today has been 171 and 276. Qualifiers: Diabetes mellitus fci insulin use: with salvage determiner use Qualified Code(s): E11.8 - Type 2 diabetes mellitus with unspecified complications; Z79.4 - alf (current) use of insulin (7) Hypertension Conclusion/Plan: He is currently normotensive with systolic in the 120s. We will hold his triamterene/hydrochlorothiazide as we will hydrate him with IV fluids. We held his losartan on admission due to his mild acute kidney injury. We will resume his home antihypertensives most likely tomorrow. Qualifiers: Hypertension type: essential hypertension Qualified Code(s): I10 - Essential (primary) hypertension (8) Hypothyroidism Conclusion/Plan: We will continue his Synthroid. Qualifiers: Hypothyroidism type: unspecified Qualified Code(s): E03.9 - Hypothyroidism, unspecified (9) Benign prostate hyperplasia Conclusion/Plan: This is likely contributing to his frequent urinary tract infections. Post void residual was 330 mL. We will increase his Flomax to 0.4 mg and will consider twice daily dosing. He doesn't like the condom catheter. When he was dc'd from us last time he had an indwelling heredia. Will get records from Urology. Qualifiers: Lower urinary tract symptom presence: symptoms present Lower urinary tract symptom detail: urinary frequency Qualified Code(s): N40.1 - Benign prostatic hyperplasia with lower urinary tract symptoms; R35.0 - Frequency of micturition
--- NOTE | 2021-02-22 14:17 | PHARMACY PROGRESS NOTE ---
- Best Possible Medication History Admit Date and Time: 02/21/21 2407 Processed by: Pharmacy Medication History completed: Yes Patient Interview: Completed Secondary Source(s): Physician records, Pharmacy records, Insurance records (PATIENT INTERVIEWED BY PHARMACY. PATIENT ABLE TO CONFIRM HOME MEDICATIONS) As the person ultimately responsible for medication therapy, providers are able to order a medication from an existing home medication list in [facility] via the "Reconcile Routine" prior to Confirmation of that medication by lab support service tech. Such practice is discouraged except when the physician, in their clinical judgment, deems that a medical need exists for a medication without regard to previous use.
[2021-02-22] MEDS: PHENAZOPYRIDINE 100 MG TABLET PO SCH ×2 (17:01→21:29)
[2021-02-23] MEDS: SODIUM CHLORIDE FLUSH 0.9% 10 ML SYRINGE IVP SCH ×4 (00:32→23:53)
[2021-02-23] MEDS: LACTATED RINGERS 1,000 ML IV SCH ×2 (03:56→14:05)
[2021-02-23 06:08] LABS: BASOPHILS # (AUTO) 0.1 10^3/uL (0.0-0.1); BASOPHILS % (AUTO) 0.7 %; EOSINOPHILS # (AUTO) 0.5 10^3/uL (0.0-0.7); EOSINOPHILS % (AUTO) 5.4 %; HCT - HEMATOCRIT 23.8 % (42.0-52.0); HGB - HEMOGLOBIN 7.8 g/dL (14.0-18.0); LYMPHOCYTES # (AUTO) 1.6 10^3/uL (1.5-3.5); LYMPHOCYTES % (AUTO) 18.8 %; MEAN CORPUSCULAR HEMOGLOBIN 33.5 pg (27.0-31.0); MEAN CORPUSCULAR HGB CONC 32.8 g/dL (32.0-36.0); MEAN CORPUSCULAR VOLUME 102.1 fL (80.0-94.0); MEAN PLATELET VOLUME 10.1 fL (7.4-11.4); MONOCYTES % (AUTO) 11.7 %; NEUTROPHILS # (AUTO) 5.4 10^3/uL (1.5-6.6); NEUTROPHILS % (AUTO) 62.8 %; PLT - PLATELET COUNT 311 10^3/uL (130-450); RED BLOOD COUNT 2.33 10^6/uL (4.70-6.10); RED CELL DISTRIBUTION WIDTH 23.9 % (12.0-15.0); WHITE BLOOD COUNT 8.6 x10^3/uL (4.8-10.8)
[2021-02-23] MEDS: LEVOTHYROXINE 125 MCG TABLET PO SCH (06:12)
[2021-02-23] MEDS: PHENAZOPYRIDINE 100 MG TABLET PO SCH ×3 (06:13→21:37)
[2021-02-23 06:14] LABS: CALCIUM 8.2 mg/dL (8.5-10.3); CREATININE 1.3 mg/dL (0.6-1.2); MAGNESIUM 1.7 mg/dL (1.7-2.8); POTASSIUM 3.6 mmol/L (3.5-5.0)
[2021-02-23 06:30] LABS: PLATELET ESTIMATE, MANUAL NORMAL (130-450,000) (NORMAL); PLATELET MORPHOLOGY NORMAL APPEARANCE (NORMAL); WBC MORPHOLOGY (MULTIPLE) NORMAL APPEARANCE (NORMAL)
[2021-02-23] MEDS: LOSARTAN 50 MG TABLET PO SCH (08:19)
[2021-02-23] MEDS: HEPARIN 5,000 UNIT/ML VIAL SUBQ SCH ×2 (08:20→21:33)
[2021-02-23] MEDS: INSULIN NPH HUMAN 300 UNIT/3 ML VIAL SUBQ SCH ×2 (08:20→21:33)
[2021-02-23] MEDS: polyethylene glycoL 3350 17 GM PACKET PO SCH (08:20)
[2021-02-23] MEDS: INSULIN ASPART 300 UNIT/3 ML PEN SUBQ SCH ×4 (08:21→21:31)
[2021-02-23] MEDS: MEROPENEM 1 GM in SODIUM CHLORIDE 0.9% MINIBAG 100 ML IV SCH (08:31)
--- NOTE | 2021-02-23 16:08 | PROVIDER PROGRESS NOTE ---
Subjective - Prog Note Date Prog Note Date: 02/23/21 Prog Note Time: 16:04 - Subjective Pt reports feeling: Improved Objective - Vital Signs/Intake & Output Reviewed Vital Signs: Yes Vital Signs: Vital Signs x48h Temp Pulse Resp BP Pulse Ox 02/23/21 13:59 36.6 C 77 19 145/70 H 98 Intake & Output: Intake & Output 02/20/21 02/21/21 02/22/21 02/23/21 23:59 23:59 23:59 23:59 Intake Total 3119.5 5051.167 2095 Output Total 3150 1900 Balance 3119.5 1901.167 195 - Objective General Appearance: positive: No acute distress, Alert Eyes Bilateral: positive: PERRL, EOMI ENT: positive: No signs of dehydration Neck: positive: No JVD. negative: Stiff neck Respiratory: positive: Chest non-tender. negative: Wheezes, Rales, Rhonchi Cardiovascular: positive: Regular rate & rhythm. negative: Gallop/S4, Friction rub Abdomen: positive: Non-tender, No organomegaly, Nml bowel sounds, No distention Skin: positive: Warm, Dry, Pallor Extremities: positive: Full ROM, No pedal edema Neurologic/Psychiatric: positive: Oriented x3, Motor nml, Sensation nml. negative: CN's nml (2-12) (Deaf and he wears hearing aids) - Lab Results Fish Bones: 02/23/21 05:10 02/23/21 05:10 Other Labs: Lab Results x24hrs 02/23/21 02/23/21 02/22/21 Range/Units 05:10 05:10 07:36 WBC 8.6 (4.8-10.8) x10^3/uL RBC 2.33 L (4.70-6.10) 10^6/uL Hgb 7.8 L (14.0-18.0) g/dL Hct 23.8 L (42.0-52.0) % MCV 102.1 H (80.0-94.0) fL MCH 33.5 H (27.0-31.0) pg MCHC 32.8 (32.0-36.0) g/dL RDW 23.9 H (12.0-15.0) % Plt Count 311 (130-450) 10^3/uL MPV 10.1 (7.4-11.4) fL Neut # (Auto) 5.4 (1.5-6.6) 10^3/uL Lymph # (Auto) 1.6 (1.5-3.5) 10^3/uL [place] # (Auto) 1.0 (0.0-1.0) 10^3/uL Eos # (Auto) 0.5 (0.0-0.7) 10^3/uL Baso # (Auto) 0.1 (0.0-0.1) 10^3/uL Absolute Nucleated RBC 0.00 x10^3/uL Nucleated RBC % 0.0 /100WBC WBC Morphology NORMAL APPEARANCE (NORMAL) Platelet Estimate NORMAL (130-450,000) (NORMAL) Platelet Morphology NORMAL APPEARANCE (NORMAL) RBC Morph Micro Appear 2+ ANISOCYTOSIS (NORMAL) Sodium 138 (135-145) mmol/L Potassium 3.6 (3.5-5.0) mmol/L Chloride 106 (101-111) mmol/L Carbon Dioxide 24 (21-32) mmol/L Anion Gap 8.0 (6-13) BUN 15 (6-20) mg/dL Creatinine 1.3 H (0.6-1.2) mg/dL Estimated GFR (MDRD) 53 L (>89) Glucose 139 H (70-100) mg/dL Calcium 8.2 L (8.5-10.3) mg/dL Magnesium 1.7 (1.7-2.8) mg/dL Blood Type A POSITIVE Antibody Screen NEGATIVE Crossmatch IS Only See Detail ABX Reporting Has patient been on IV antibiotics over the past 48 hours?: Yes Sepsis Event Note (H) - Evaluation Current Stage of Sepsis: Resolved Possible source of Sepsis: positive: Genitourinary - Sepsis Criteria Sepsis Criteria: Suspected or Documented, Recorded Temperature greater than 38.3C or Less than 36C, Recorded Heart Rate greater than 90 bpm, WBC count greater than 12,000 or less than 4000 Assessment/Plan - Problem List (1) Urinary tract infection Impression: On admission, appeared to be septic secondary to a urinary tract infection given his symptoms and abnormal urinalysis. He presented hypothermic here with tachycardia and leukocytosis although he does report a fever at home. Lactic acid was normal. Given his history of Pseudomonas urinary tract infection we will place him on meropenem IV. Follow-up blood cultures. Daily CBC. He continued to have dysuria and urgency and was a 7/10 yesterday and a 3/10 today. He was admitted last month for Pseudomonas urinary tract infection with bacteremia. Sent home retreated again for UTI. Cultures from pre-admit show pseudomonas again. Cultures for this admit show polymicrobial growth. So not helpful . He had failed outpatient antibiotics with ciprofloxacin and so we will place him on meropenem IV. Imaging without evidence of obstruction. Condom catheter was stopped February 22. Plan: Switch to p.o. antibiotics today If no fevers, symptoms stable, can be discharged home tomorrow Qualifiers: Urinary tract infection type: acute cystitis (3) Acute kidney injury superimposed on chronic kidney disease Conclusion/Plan: He has mild acute kidney injury which I suspect is prerenal. He has CKD likely due to his underlying diabetes. We hydrated him with IV fluids and held his losartan. We resumed losartan 02/22 Creat 1.8>>1.4>>1.3 today. 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 [place] [facility] [place] did present with a hemoglobin of 7.3. On February 22 his hemoglobin was 6.8 and as such transfused 1 unit. Today hemoglobin 7.8 with 1 unit transfusion. Plan: Continue new to transfuse as needed The fact that he needed transfusion with his last admission and needs transfusion again shows increasing need to maintain them above 7 g of hemoglobin. Could be a bad prognostic sign for his disease (5) Myelodysplastic syndrome Conclusion/Plan: He has associated anemia due to mild dysplastic syndrome. Plan for anemia as mentioned above. He will continue to follow-up with hematology/oncology once discharged. (6) Diabetes mellitus type 2, controlled, with complications Conclusion/Plan: His last A1c was 6%. His blood glucose is currently elevated at greater than 200. We will resume his home insulin regimen and place him on a carb controlled diet. Glucose today has been 161 and 203. Later in the day and higher in the afternoon. Considering his overall prognosis, age, I am not aiming for strict control. Qualifiers: Diabetes mellitus tank terminal gauger insulin use: with senior care use Qualified Code(s): E11.8 - Type 2 diabetes mellitus with unspecified complications; Z79.4 - half-way (current) use of insulin (7) Hypertension Conclusion/Plan: He is currently normotensive with systolic in the 120s. We held his triamterene/hydrochlorothiazide and we hydrated him with IV fluids. We held his losartan on admission due to his mild acute kidney injury. Losartan resumed yesterday. Today blood pressure 145 and 159 systolic. He is not on his diuretic yet. I will not resume that till discharge if at all. Qualifiers: Hypertension type: essential hypertension Qualified Code(s): I10 - Essential (primary) hypertension (8) Hypothyroidism Conclusion/Plan: We will continue his Synthroid. Qualifiers: Hypothyroidism type: unspecified Qualified Code(s): E03.9 - Hypothyroidism, unspecified (9) Benign prostate hyperplasia Conclusion/Plan: This is likely contributing to his frequent urinary tract infections. Post void residual was 330 mL. We will increase his Flomax to 0.4 mg and will consider twice daily dosing. He doesn't like the condom catheter. When he was dc'd from us last time he had an indwelling heredia. I thought to get records from urology. When I discussed the case with the patient he tells me that he has not seen the urologist yet. His first visit is not until March. As such I will continue him on Flomax. Add finasteride. Qualifiers: Lower urinary tract symptom presence: symptoms present Lower urinary tract symptom detail: urinary frequency Qualified Code(s): N40.1 - Benign prostatic hyperplasia with lower urinary tract symptoms; R35.0 - Frequency of micturition
[2021-02-23] MEDS ORDERED: levoFLOXacin 250 MG TABLET PO SCH (17:00)
[2021-02-23] MEDS: TAMSULOSIN 0.4 MG CAPSULE PO SCH (21:34)
[2021-02-24] MEDS: ACETAMINOPHEN 325 MG TABLET PO PRN (05:03)
[2021-02-24] MEDS: LEVOTHYROXINE 125 MCG TABLET PO SCH (06:22)
[2021-02-24] MEDS: PHENAZOPYRIDINE 100 MG TABLET PO SCH (06:22)
[2021-02-24 06:53] LABS: BASOPHILS # (AUTO) 0.1 10^3/uL (0.0-0.1); BASOPHILS % (AUTO) 0.8 %; EOSINOPHILS # (AUTO) 0.4 10^3/uL (0.0-0.7); EOSINOPHILS % (AUTO) 4.1 %; HCT - HEMATOCRIT 24.7 % (42.0-52.0); HGB - HEMOGLOBIN 7.9 g/dL (14.0-18.0); LYMPHOCYTES # (AUTO) 2.2 10^3/uL (1.5-3.5); LYMPHOCYTES % (AUTO) 21.5 %; MEAN CORPUSCULAR HEMOGLOBIN 32.8 pg (27.0-31.0); MEAN CORPUSCULAR VOLUME 102.5 fL (80.0-94.0); MEAN PLATELET VOLUME 9.5 fL (7.4-11.4); MONOCYTES # (AUTO) 1.3 10^3/uL (0.0-1.0); NEUTROPHILS # (AUTO) 6.2 10^3/uL (1.5-6.6); NEUTROPHILS % (AUTO) 59.8 %; NRBC ABSOLUTE COUNT (AUTO) 0.04 x10^3/uL; NUCLEATED RED BLOOD CELLS AUTO 0.4 /100WBC; PLT - PLATELET COUNT 333 10^3/uL (130-450); RED BLOOD COUNT 2.41 10^6/uL (4.70-6.10); RED CELL DISTRIBUTION WIDTH 23.4 % (12.0-15.0); WHITE BLOOD COUNT 10.4 x10^3/uL (4.8-10.8)
[2021-02-24 06:56] LABS: SLIDE REVIEW? Indicated
[2021-02-24 07:00] LABS: CALCIUM 8.6 mg/dL (8.5-10.3); CREATININE 1.4 mg/dL (0.6-1.2); MAGNESIUM 1.8 mg/dL (1.7-2.8); POTASSIUM 3.8 mmol/L (3.5-5.0)
[2021-02-24 07:49] VITALS: BP 140/63
[2021-02-24] MEDS ORDERED: INSULIN ASPART 300 UNIT/3 ML PEN SUBQ SCH (08:00)
[2021-02-24 08:29] LABS: PLATELET ESTIMATE, MANUAL NORMAL (130-450,000) (NORMAL); WBC MORPHOLOGY (MULTIPLE) NORMAL APPEARANCE (NORMAL)
[2021-02-24 08:31] LABS: PLATELET MORPHOLOGY NORMAL APP (NORMAL)
[2021-02-24] MEDS: HEPARIN 5,000 UNIT/ML VIAL SUBQ SCH (08:32)
[2021-02-24] MEDS: LOSARTAN 50 MG TABLET PO SCH (08:33)
[2021-02-24] MEDS: INSULIN NPH HUMAN 300 UNIT/3 ML VIAL SUBQ SCH (08:37)
[2021-02-24] MEDS: polyethylene glycoL 3350 17 GM PACKET PO SCH (08:38)
[2021-02-24] MEDS: SODIUM CHLORIDE FLUSH 0.9% 10 ML SYRINGE IVP SCH (08:41)
--- NOTE | 2021-02-24 08:57 | Discharge Plan ---
Discharge Plan Problem Reviewed?: Yes Disposition: Home, Self Care Condition: Stable Prescriptions: levoFLOXacin [Levaquin] 500 mg PO Q24H #14 tablet Finasteride [Proscar] 5 mg PO DAILY #30 tablet Phenazopyridine [Pyridium] 100 mg PO TID #9 tablet Diet: Regular Activity Restrictions: No Restrictions Shower Restrictions: No Driving Restrictions: No Health Concerns: You came to the hospital for painful urination and you kept on feeling like you had to urinate all the time. You already have a history of a large prostate causing you to retain urine and frequent urinary tract infections. With one of your admissions here you were admitted last month due to severe infection from this and needed a Shepard at discharge. You are due to see the urologist in the next month. In the meantime you were started on a bladder spasm pill called Flomax by your primary care provider. In spite of this, you continue to have symptoms when you left the hospital. The Shepard was taken out. You had been on Cipro with your doctor. When we evaluated you in the emergency room we found you to have another urinary tract infection. It had caused you to retain urine and put you in acute kidney failure. We started you on IV fluids, managed her urine output with Flomax and we added Proscar which shrinks your prostate. Your urine is growing out Pseudo monas. We are putting you on Levaquin for this since this antibiotic covers Pseudomonas. You are now ready to go home and your kidney function has come back down to baseline, your white cell count is normal, and you are urinating without needing a Shepard catheter. Plan of Treatment: 1. Complete treatment for the Pseudomonas infection with Levaquin for the next 14 days 2. Antibiotics can increase diarrhea. You already have diarrhea because you take Metformin. Try and take Lomotil as needed for the diarrhea and also take a [id number] probiotic to help with bowel health. The probiotic is once a day. 3. Follow-up with the urology appointment you have in early March. That will hopefully help settle the issue about how many urinary tract infections you get. 4. Please see your primary care provider, Dr. Bernard, in the next 1 to 2 weeks. 5. I have sent you home with a few more days of Pyridium. This is the drug that will turn your urine orange but it also helps not have that irritated feeling inside your urethra. Care Goals: To complete treatment for your urinary tract infection and to shrink down your prostate so you do not have recurrent urinary tract infections. Assessment: Patient understands care goals and promises to follow through. No Smoking: If you smoke, Please STOP! Call for help. Follow-up with: Farncisco Bernard MD [Primary Care Provider] -
[2021-02-24] MEDS ORDERED: FINASTERIDE 5 MG TABLET PO SCH (09:00)
--- NOTE | 2021-02-24 15:59 | DISCHARGE SUMMARY ---
"Discharge Summary Admit Date: 02/21/21 Discharge Date: 02/24/21 Discharging Provider: Elba Brunson MD Primary Care Provider: Francisco Bernard MD Code Status: Do Not Attempt Resuscitation Condition at Discharge: Stable Discharge Disposition: 01 Home, Self Care - DIAGNOSES Discharge Diagnoses with Status of Each Condition: 1. Sepsis from UTI 2. Pseudomonas UTI 3. Acute on chronic kidney disease 4. 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 Myelodysplastic syndrome 6. Type 2 diabetes mellitus, controlled, with complications, with long-term use of insulin. 7. Benign prostatic hypertrophy with lower urinary tract symptoms of obstruction/urinary retention 8. Hypothyroidism 9. Hypertension - HPI History of Present Illness: This is a very pleasant 80-year-old male with a past medical history significant for insulin-dependent diabetes mellitus, chronic kidney disease, BPH, hy pertension, MDS, chronic anemia who presents today complaining of dysuria. He tells me he was hospitalized earlier last month for urinary tract infection. Reviewing his records reveal that he was admitted for sepsis due to Pseudomonas UTI with bacteremia. He was discharged on ciprofloxacin and he states he did take this as prescribed. He states a few days ago he developed dysuria and saw her primary care provider and was told he had a urinary tract infection. He was prescribed ciprofloxacin. He states despite taking antibiotics for 3 days, he still has symptoms and he had a fever of either 103 or 105 F today. He did take Tylenol for this. He was concerned that he might become as sick as he was last month and so he came to the emergency department. He reports mild shortness of breath but no chest pain. An occasional nonproductive cough. No nausea, vomiting, abdominal pain. He denies difficulty urinating. He reports being compliant with Flomax for BPH. Denies any flank pain, hematuria. He states he feels much better compared to when he came last month. In the emergency department, he was initially found to be hypothermic with a temperature of 35.6 C. He was tachycardic with a heart rate in the 100s. Blood pressure is 135/52. He was not tachypneic and saturating well on room air. His labs were significant for a white count of 15.9 with a left shift and hemoglobin of 7.3. His INR was 1.5. His creatinine is elevated at 1.8 and his baseline is 1.5. Analysis revealed moderate leukocyte esterase, 11-25 RBCs and greater than 25 WBCs as well as few bacteria. He underwent a CT of the abdomen pelvis which showed no obvious obstruction or source of infection. Given his ongoing symptoms and concern for sepsis, medicine was consulted for admission. I did discuss goals of care with the patient and he would like to be a DNR. - Past Medical History Cardiovascular: reports: Hypertension Respiratory: reports: None Neuro: reports: Seizure disorder Endocrine/Autoimmune: reports: Type 2 diabetes, HyPOthyroidism : reports: Benign prostate hypertrophy, Renal insuffiency HEENT: reports: Chronic sinusitis, Chronic hearing loss Psych: reports: None Musculoskeletal: reports: Osteoarthritis, Chronic back pain Derm: reports: Eczema MRSA Hx?: No Other Past Medical History: MDS - CONSULTS | PROCEDURES Procedures: Abdomen pelvis CT has a subtle hyperdensity in the bladder seen at the dependent posterior left bladder. Nonspecific. No hydronephrosis. No urolithiasis. Incidental colonic diverticulosis. Mild splenomegaly. Blood cultures negative Urine cultures with less than 10,000 colony-forming units of polymicrobial growth. February 20 urine culture is Pseudomonas. - HOSPITAL COURSE Hospital Course: He met criteria for sepsis and was placed on empiric antibiotic therapy. His white cell count came to normal, BUN and creatinine went back down to baseline for him. He felt much better and less weak and tired. His main complaint was that of urgency and frequency. He rated the discomfort sometimes a 7 out of a 10. Pyridium seem to help with that. A condom catheter only serve to annoy him further and assess that was removed. He states that he did have a Shepard in place when he was discharged from the hospital last time, that was removed in the outpatient setting when it was time. He is due to see a urologist first of first appointment in the next few weeks. I started him on Proscar in addition to his Flomax. I transition him from IV antibiotics to Levaquin on the basis of the P seudomonas before admission. He tolerated that well. He did require 1 unit of packed cells for a hemoglobin that dropped below 7. At discharge his hemoglobin is 7.9. Creatinine is 1.4 and BUN is 11. During his stay diabetes was controlled with his usual home insulin regimen. He is discharged in stable condition. Alert, oriented, lucid. Walking down the hallway with no ataxia. Has both hearing aids in place for severe deafness. Temperature is 36.7, pulse is 74, blood pressure 140/63. Respirations 21 and is 96% on room air. Neck is supple with shotty adenopathy. Lungs are clear to auscultation and percussion and there is no increased respiratory effort with talking to me or walking down the hallway. PMI is normally placed with a regular rate and rhythm. The abdomen is soft, nontender. He initially had moderate suprapubic pain on admission and that is gone. His urgency and frequency has a lso resolved. Extremities are without edema. He is sent home to finish therapy for a UTI and I have him on prolonged Levaquin for 14 more days. I strongly encouraged him to follow-up with urology and continue the Proscar that is started as well as the Flomax he was already on. Pyridium will also be used in the next day or 2. Greater than 30 minutes was spent coordinating discharge. This document was made in part using voice recognition software. While efforts are made to proofread this document, sound alike and grammatical errors may occur. - ALLERGIES Allergies/Adverse Reactions: Allergies Allergy/AdvReac Type Severity Reaction Status Date / Time glyburide Allergy Unknown Verified 02/18/21 14:29 lisinopril Allergy Unknown Verified 02/18/21 14:29 tramadol Allergy Unknown Verified 02/18/21 14:29 - MEDICATIONS Home Medications: Ambulatory Orders Medication Instructions Recorded Confirmed Aspirin [Aspir 81] 81 mg PO DAILY 08/13/15 02/22/21 Multivitamin [Multivitamins] 1 cap PO DAILY 08/13/15 02/22/21 Simvastatin 5 mg PO DAILY 08/13/15 02/22/21 Triamterene/Hydrochlorothiazid 1 cap PO DAILY 08/13/15 02/22/21 [Triamterene-Hctz 37.5-25 mg Cp] metFORMIN [Glucophage] 500 mg PO BID 08/13/15 02/22/21 Insulin Lispro [Humalog Kwikpen 20 - 25 units SQ TIDWM 07/20/17 02/22/21 U-100] Insulin NPH Human Isophane 20 units SQ TID 07/20/17 02/22/21 [Humulin N Kwikpen] Fluticasone [Flonase] 1 spray ART DAILY PRN 03/07/19 02/22/21 Tamsulosin [Flomax] 0.2 mg PO DAILY 03/07/19 02/22/21 Levothyroxine Sodium [Synthroid] 175 mcg PO DAILY 01/24/21 02/22/21 Finasteride [Proscar] 5 mg PO DAILY #30 tablet 02/24/21 Phenazopyridine [Pyridium] 100 mg PO TID #9 tablet 02/24/21 levoFLOXacin [Levaquin] 500 mg PO Q24H #14 tablet 02/24/21 - LABS Result Diagrams: 02/24/21 06:18 02/24/21 06:18 - SEPSIS Current Stage of Sepsis: Resolved Possible source of Sepsis: Genitourinary Sepsis Criteria: Suspected or Documented, Recorded Temperature greater than 38.3C or Less than 36C, Recorded Heart Rate greater than 90 bpm, WBC count greater than 12,000 or less than 4000"
--- OUTSIDE RECORDS SUMMARY | 2021-02-27 01:21 | EXTERNAL MEDICAL SUMMARY RPT | Continuity of Care Document ---
:1940 Demographics Phone Unavailable Preferred Language Unknown Marital Status Unknown Mosque Affiliation Unknown Race Unknown Ethnic Group Unknown Author Organization [facility] Address [address] [place] [address] Phone Social History date description facility [phone]
== END 2021-02-24 11:10 | disposition home or self-care (01) | DRG 872 ==
LOC: EDUNIT# → SUPCPDRO 19:47 → ED 19:47 → MS3 22:42
PROVIDERS: ADMIT Internal Medicine; ATTEND Specialist
PROC: 30233N1 Transfusion of Nonautologous Red Blood Cells into Peripheral Vein, Percutaneous Approach (ICD-10-PCS; principal; 2021-02-21)
DX: N10 Acute pyelonephritis (principal); D64.9 Anemia, unspecified; I10 Essential (primary) hypertension; E11.9 Type 2 diabetes mellitus without complications; N40.0 Benign prostatic hyperplasia without lower urinary tract symptoms; N28.9 Disorder of kidney and ureter, unspecified; Z20.822 Contact with and (suspected) exposure to COVID-19; A41.52 Sepsis due to Pseudomonas; N30.00 Acute cystitis without hematuria; N17.9 Acute kidney failure, unspecified; N13.8 Other obstructive and reflux uropathy; J32.9 Chronic sinusitis, unspecified; R65.20 Severe sepsis without septic shock; I12.9 Hypertensive chronic kidney disease with stage 1 through stage 4 chronic kidney disease, or unspecified chronic kidney disease; E11.22 Type 2 diabetes mellitus with diabetic chronic kidney disease; N18.9 Chronic kidney disease, unspecified; D46.9 Myelodysplastic syndrome, unspecified; D63.0 Anemia in neoplastic disease; N40.1 Benign prostatic hyperplasia with lower urinary tract symptoms; R33.8 Other retention of urine; R39.15 Urgency of urination; R35.0 Frequency of micturition; E03.9 Hypothyroidism, unspecified; H91.90 Unspecified hearing loss, unspecified ear; G89.29 Other chronic pain; M54.9 Dorsalgia, unspecified; M19.90 Unspecified osteoarthritis, unspecified site; Z79.4 Long term (current) use of insulin; Z66 Do not resuscitate; Z79.82 Long term (current) use of aspirin; Z79.899 Other long term (current) drug therapy; Z87.891 Personal history of nicotine dependence
CPT/HCPCS: 36415; 51798; 71045; 74176; 80048; 80053; 81001; 83605; 83690; 83735; 85025; 85610; 85730; 86850; 86900; 86901; 86920; 87040; 87086; 87631; 96365; 96375; 99284; 99285; A9270; J1815; J2185; J7120; P9016; 0202U; 81003

== ENCOUNTER 2021-04-11 08:00 | Outpatient (CLI) | payer MEDICARE, MEDICAID ==
[2021-04-11 12:00] LABS: BASOPHILS # (AUTO) 0.1 10^3/uL (0.0-0.1); BASOPHILS % (AUTO) 1.1 %; EOSINOPHILS # (AUTO) 0.4 10^3/uL (0.0-0.7); EOSINOPHILS % (AUTO) 4.1 %; HCT - HEMATOCRIT 30.5 % (42.0-52.0); HGB - HEMOGLOBIN 9.5 g/dL (14.0-18.0); LYMPHOCYTES # (AUTO) 2.8 10^3/uL (1.5-3.5); MEAN CORPUSCULAR HGB CONC 31.1 g/dL (32.0-36.0); MEAN CORPUSCULAR VOLUME 105.9 fL (80.0-94.0); MONOCYTES # (AUTO) 0.8 10^3/uL (0.0-1.0); MONOCYTES % (AUTO) 9.2 %; NEUTROPHILS # (AUTO) 4.7 10^3/uL (1.5-6.6); NEUTROPHILS % (AUTO) 53.3 %; PLT - PLATELET COUNT 497 10^3/uL (130-450); RED BLOOD COUNT 2.88 10^6/uL (4.70-6.10); RED CELL DISTRIBUTION WIDTH 24.7 % (12.0-15.0); WHITE BLOOD COUNT 8.7 x10^3/uL (4.8-10.8)
[2021-04-11 12:22] LABS: SLIDE REVIEW? Indicated
[2021-04-11 12:24] LABS: PLATELET ESTIMATE, MANUAL INCREASED (>450,000) (NORMAL); PLATELET MORPHOLOGY NORMAL APPEARANCE (NORMAL)
[2021-04-11 12:25] LABS: RBC MORPHOLOGY (MULTIPLE) 3+ ANISOCYTOSIS (NORMAL)
[2021-04-11 12:34] LABS: THYROID STIMULATING HORMONE 11.96 uIU/mL (0.34-5.60)
[2021-04-11 12:35] LABS: ESTIMATED AVERAGE GLUCOSE 126 mg/dL (70-100)
[2021-04-11 12:36] LABS: CREATININE,URINE 140.2 mg/dL; MICROALBUM/CREATININE RATIO,UR 156.9 ug/mg (<30.0)
[2021-04-11 12:37] LABS: ALBUMIN 4.8 g/dL (3.2-5.5); ALBUMIN/GLOBULIN RATIO 1.7 (1.0-2.2); ALKALINE PHOSPHATASE 40 IU/L (42-121); ALT ALANINE AMINOTRANSFERASE 25 IU/L (10-60); AST ASPARTATE AMINOTRANSFERASE 21 IU/L (10-42); BILIRUBIN,TOTAL 1.8 mg/dL (0.2-1.0); BUN - BLOOD UREA NITROGEN 39 mg/dL (6-20); CALCIUM 9.4 mg/dL (8.5-10.3); CARBON DIOXIDE - CO2 24 mmol/L (21-32); CHLORIDE 105 mmol/L (101-111); CHOL/HDL RATIO 3.2 (<5.0); CHOLESTEROL 133 mg/dL; CREATININE 1.9 mg/dL (0.6-1.2); GFR - MDRD 34 (>89); GLUCOSE 174 mg/dL (70-100); HDL CHOLESTEROL 41 mg/dL; LDL CHOLESTEROL,CALCULATED 68 mg/dL; LDL/HDL RATIO 1.7 (<3.6); POTASSIUM 4.3 mmol/L (3.5-5.0); SODIUM 137 mmol/L (135-145); TOTAL PROTEIN 7.6 g/dL (6.7-8.2); TRIGLYCERIDES 122 mg/dL; VLDL CHOLESTEROL 24 mg/dL
[2021-04-11 13:19] LABS: FREE T4 (FREE THYROXINE) 0.83 ng/dL (0.58-1.64)
== END 2021-04-11 23:59 | disposition home or self-care (01) ==
LOC: LAB.WCP 08:00
PROVIDERS: ATTEND Internal Medicine
DX: E11.39 Type 2 diabetes mellitus with other diabetic ophthalmic complication (principal); N40.1 Benign prostatic hyperplasia with lower urinary tract symptoms
CPT/HCPCS: 36415; 80053; 80061; 82043; 82570; 83036; 83721; 84153; 84439; 84443; 85025

== ENCOUNTER 2021-04-13 | Outpatient (CLI) | payer MEDICARE, MEDICAID | END 2021-04-13 13:36 | disposition EMS.NT ==

== ENCOUNTER 2021-04-17 15:19 | Outpatient (CLI) | payer MEDICARE, MEDICAID ==
--- NOTE | 2021-04-17 16:45 | XRAY Report ---
PROCEDURE: Knee 3 View LT INDICATIONS: CONTUSION OF L KNEE TECHNIQUE: 3 views of the left knee(s) were acquired. COMPARISON: None. FINDINGS: No acute fracture identified. There is mild osteoarthritis. Patella david noted. Anterior soft tissue swelling There is a trace joint effusion IMPRESSION: Mild knee joint degeneration Anterior soft tissue swelling. Trace joint effusion. Patella david. If the patient's pain or other symptoms persist, consider further evaluation with MRI. Reviewed by: Koffi Santiago MD on 04/17/2021 4:44 PM PDT Approved by: Koffi Santiago MD on 04/17/2021 4:44 PM PDT Station ID: [id number]
== END 2021-04-17 23:59 | disposition home or self-care (01) ==
LOC: DI.N 15:19
PROVIDERS: ATTEND Physician Assistant Medical
DX: M17.12 Unilateral primary osteoarthritis, left knee (principal); R93.6 Abnormal findings on diagnostic imaging of limbs; R93.89 Abnormal findings on diagnostic imaging of other specified body structures; M25.462 Effusion, left knee

== ENCOUNTER 2021-08-28 08:09 | Outpatient (CLI) | payer MEDICARE, MEDICAID ==
[2021-08-28 11:48] LABS: BASOPHILS # (AUTO) 0.1 10^3/uL (0.0-0.1); EOSINOPHILS # (AUTO) 0.4 10^3/uL (0.0-0.7); EOSINOPHILS % (AUTO) 3.7 %; HCT - HEMATOCRIT 29.4 % (42.0-52.0); HGB - HEMOGLOBIN 9.4 g/dL (14.0-18.0); LYMPHOCYTES # (AUTO) 2.6 10^3/uL (1.5-3.5); LYMPHOCYTES % (AUTO) 23.4 %; MEAN CORPUSCULAR HEMOGLOBIN 33.6 pg (27.0-31.0); MEAN PLATELET VOLUME 9.5 fL (7.4-11.4); MONOCYTES # (AUTO) 1.3 10^3/uL (0.0-1.0); MONOCYTES % (AUTO) 11.8 %; NEUTROPHILS # (AUTO) 6.5 10^3/uL (1.5-6.6); NEUTROPHILS % (AUTO) 59.3 %; NRBC ABSOLUTE COUNT (AUTO) 0.02 x10^3/uL; NUCLEATED RED BLOOD CELLS AUTO 0.2 /100WBC; PLT - PLATELET COUNT 525 10^3/uL (130-450); RED CELL DISTRIBUTION WIDTH 23.5 % (12.0-15.0)
[2021-08-28 11:59] LABS: CALCIUM 9.4 mg/dL (8.5-10.3); CREATININE 1.8 mg/dL (0.6-1.2); POTASSIUM 4.4 mmol/L (3.5-5.0)
[2021-08-28 12:19] LABS: THYROID STIMULATING HORMONE 0.35 uIU/mL (0.34-5.60)
[2021-08-28 12:21] LABS: FREE T4 (FREE THYROXINE) 1.68 ng/dL (0.58-1.64)
[2021-08-28 12:24] LABS: ESTIMATED AVERAGE GLUCOSE 154 mg/dL (70-100)
[2021-08-28 12:33] LABS: CREATININE,URINE 141.6 mg/dL; MICROALBUM/CREATININE RATIO,UR 336.2 ug/mg (<30.0); MICROALBUMIN,URINE 47.6 mg/dL (0-300.0)
== END 2021-08-28 23:59 | disposition home or self-care (01) ==
LOC: LAB.WCP 08:09
PROVIDERS: ATTEND Internal Medicine
DX: E03.9 Hypothyroidism, unspecified (principal); E11.22 Type 2 diabetes mellitus with diabetic chronic kidney disease; N18.31 Chronic kidney disease, stage 3a
CPT/HCPCS: 36415; 80048; 82043; 82570; 83036; 84439; 84443; 85025

== ENCOUNTER 2021-12-25 13:44 | Outpatient (CLI) | payer MEDICARE, MEDICAID | END 2021-12-25 23:59 | disposition home or self-care (01) | LOC: LAB.N 13:44 | PROVIDERS: ATTEND Family Medicine | DX: R09.81 Nasal congestion (principal); Z20.822 Contact with and (suspected) exposure to COVID-19 ==

== ENCOUNTER 2022-02-19 09:52 | Outpatient (CLI) | payer MEDICARE, MEDICAID ==
[2022-02-19 12:34] LABS: THYROID STIMULATING HORMONE 0.24 uIU/mL (0.34-5.60)
[2022-02-19 12:36] LABS: CREATININE,URINE 106.3 mg/dL; MICROALBUM/CREATININE RATIO,UR 277.5 ug/mg (<30.0); MICROALBUMIN,URINE 29.5 mg/dL (0-300.0)
[2022-02-19 12:37] LABS: CHOL/HDL RATIO 2.9 (<5.0); CHOLESTEROL 106 mg/dL; HDL CHOLESTEROL 36 mg/dL; LDL CHOLESTEROL,CALCULATED 61 mg/dL; LDL/HDL RATIO 1.7 (<3.6); TRIGLYCERIDES 46 mg/dL; VLDL CHOLESTEROL 9 mg/dL
[2022-02-19 12:52] LABS: ESTIMATED AVERAGE GLUCOSE 146 mg/dL (70-100); HEMOGLOBIN A1c% 6.7 % (4.27-6.07)
[2022-02-19 13:12] LABS: FREE T4 (FREE THYROXINE) 1.68 ng/dL (0.58-1.64)
== END 2022-02-19 09:53 | disposition home or self-care (01) ==
LOC: LAB.N 09:52
PROVIDERS: ATTEND Internal Medicine
DX: E78.5 Hyperlipidemia, unspecified (principal); E11.22 Type 2 diabetes mellitus with diabetic chronic kidney disease; E03.9 Hypothyroidism, unspecified
CPT/HCPCS: 36415; 80061; 82043; 82570; 83036; 83721; 84439; 84443

== ENCOUNTER 2023-01-07 08:43 | Outpatient (CLI) | payer MEDICARE, MEDICAID ==
[2023-01-07 12:23] LABS: BASOPHILS # (AUTO) 0.1 10^3/uL (0.0-0.1); BASOPHILS % (AUTO) 0.8 %; EOSINOPHILS # (AUTO) 0.3 10^3/uL (0.0-0.7); EOSINOPHILS % (AUTO) 2.7 %; HCT - HEMATOCRIT 32.8 % (42.0-52.0); HGB - HEMOGLOBIN 10.3 g/dL (14.0-18.0); LYMPHOCYTES # (AUTO) 2.3 10^3/uL (1.5-3.5); LYMPHOCYTES % (AUTO) 19.1 %; MEAN CORPUSCULAR HEMOGLOBIN 33.7 pg (27.0-31.0); MEAN CORPUSCULAR HGB CONC 31.4 g/dL (32.0-36.0); MEAN CORPUSCULAR VOLUME 107.2 fL (80.0-94.0); MEAN PLATELET VOLUME 10.6 fL (7.4-11.4); MONOCYTES # (AUTO) 1.3 10^3/uL (0.0-1.0); MONOCYTES % (AUTO) 10.9 %; NEUTROPHILS # (AUTO) 7.9 10^3/uL (1.5-6.6); NEUTROPHILS % (AUTO) 65.8 %; PLT - PLATELET COUNT 407 10^3/uL (130-450); RED BLOOD COUNT 3.06 10^6/uL (4.70-6.10)
[2023-01-07 12:30] LABS: SLIDE REVIEW? Indicated
[2023-01-07 12:37] LABS: ALBUMIN 3.6 g/dL (3.2-5.5); ALBUMIN/GLOBULIN RATIO 1.3 (1.0-2.2); ALKALINE PHOSPHATASE 54 IU/L (42-121); ALT ALANINE AMINOTRANSFERASE 28 IU/L (10-60); AST ASPARTATE AMINOTRANSFERASE 21 IU/L (10-42); BUN - BLOOD UREA NITROGEN 22 mg/dL (6-20); CALCIUM 8.9 mg/dL (8.5-10.3); CARBON DIOXIDE - CO2 27 mmol/L (21-32); CHLORIDE 105 mmol/L (101-111); CHOL/HDL RATIO 3.9 (<5.0); CHOLESTEROL 171 mg/dL; CREATININE 1.8 mg/dL (0.6-1.2); GFR - MDRD 36 (>89); GLUCOSE 248 mg/dL (70-100); HDL CHOLESTEROL 44 mg/dL; LDL CHOLESTEROL,CALCULATED 106 mg/dL; LDL/HDL RATIO 2.4 (<3.6); SODIUM 139 mmol/L (135-145); TOTAL PROTEIN 6.4 g/dL (6.7-8.2); TRIGLYCERIDES 107 mg/dL; VLDL CHOLESTEROL 21 mg/dL
[2023-01-07 12:45] LABS: ESTIMATED AVERAGE GLUCOSE 157 mg/dL (70-100); HEMOGLOBIN A1c% 7.1 % (4.27-6.07)
[2023-01-07 12:47] LABS: THYROID STIMULATING HORMONE 17.38 uIU/mL (0.34-5.60)
[2023-01-07 12:49] LABS: FREE T3 2.6 pg/mL (2.5-3.9); FREE T4 (FREE THYROXINE) 0.93 ng/dL (0.58-1.64)
[2023-01-07 13:03] LABS: PLATELET ESTIMATE, MANUAL NORMAL (130-450,000) (NORMAL); PLATELET MORPHOLOGY NORMAL APPEARANCE (NORMAL)
[2023-01-07 13:29] LABS: CREATININE,URINE 114.4 mg/dL; MICROALBUM/CREATININE RATIO,UR 2286.7 ug/mg (<30.0); MICROALBUMIN,URINE 261.6 mg/dL (0-300.0)
== END 2023-01-07 08:44 | disposition home or self-care (01) ==
LOC: LAB.N 08:43
PROVIDERS: ATTEND Internal Medicine
DX: E78.5 Hyperlipidemia, unspecified (principal); E03.9 Hypothyroidism, unspecified; E11.29 Type 2 diabetes mellitus with other diabetic kidney complication
CPT/HCPCS: 36415; 80053; 80061; 82043; 82570; 83036; 83721; 84439; 84443; 84481; 85025

== ENCOUNTER 2023-02-23 12:55 | Outpatient (CLI) | payer MEDICARE, MEDICAID ==
[2023-02-23 13:25] LABS: BILIRUBIN,URINE NEGATIVE (NEGATIVE); GLUCOSE, URINE (UA) 250 mg/dL (NEGATIVE); KETONES,URINE (UA) NEGATIVE (NEGATIVE); LEUKOCYTE ESTERASE, URINE NEGATIVE (NEGATIVE); NITRITE,URINE NEGATIVE (NEGATIVE); OCCULT BLOOD,URINE NEGATIVE (NEGATIVE); PROTEIN,URINE >=300 mg/dL (NEGATIVE); UROBILINOGEN,URINE 0.2 (NORMAL) E.U./dL (NORMAL)
[2023-02-23 13:29] LABS: CLARITY,URINE CLEAR (CLEAR)
[2023-02-23 13:34] LABS: BACTERIA,URINE Rare /HPF (None Seen); RBC,URINE 0-5 /HPF (0-5); SQUAMOUS EPITHELIAL CELL,UR RARE Squamous (<= Few); WBC,URINE 0-3 /HPF (0-3)
[2023-02-23 14:10] LABS: CREATININE,URINE 81.8 mg/dL; MICROALBUM/CREATININE RATIO,UR 2248.2 ug/mg (<30.0); MICROALBUMIN,URINE 183.9 mg/dL (0-300.0)
== END 2023-02-23 12:56 | disposition home or self-care (01) ==
LOC: LAB 12:55
PROVIDERS: ATTEND Internal Medicine
DX: R80.9 Proteinuria, unspecified (principal)
CPT/HCPCS: 81001; 82043; 82570; 84156; 87086

== ENCOUNTER 2023-05-02 11:50 | Outpatient (CLI) | payer MEDICARE, MEDICAID | END 2023-05-02 11:51 | disposition critical access hospital (66) | LOC: EMS 11:50 | DX: R29.6 Repeated falls (principal); R53.1 Weakness; R26.2 Difficulty in walking, not elsewhere classified; Z79.01 Long term (current) use of anticoagulants | CPT/HCPCS: A0425; A0429 ==

== ENCOUNTER 2023-05-02 12:13 | Emergency (ER) | payer MEDICARE, MEDICAID ==
[2023-05-02] MEDS ORDERED: oxyCODONE 5 MG TABLET PO STA (12:35)
--- NOTE | 2023-05-02 12:36 | ED Physician Documentation ---
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 He states he has had several episodes of falling recently. He states he feels like he pulled a tendon on his right hip a few days ago and then his left hip a few days before that. He states he did not fall today. He is unsure if he takes a blood thinner or not. He does not feel that he struck his head on any of the falls. He does not have any significant back pain, though does state his low back does hurt mildly. No numbness or tingling. No loss of bowel or bladder control. No fevers. No chills. No nausea or vomiting. He states he has a walker but does not use it as the walker is too big for his apartment. He house crutches instead. He took Tylenol for pain without relief. Review of Systems Constitutional: denies: Fever, Chills Respiratory: denies: Cough GI: denies: Nausea, Vomiting, Diarrhea Skin: denies: Rash Musculoskeletal: denies: Neck pain, Back pain Neurologic: denies: Focal weakness, Numbness, Headache PD PAST MEDICAL HISTORY - Past Medical History Cardiovascular: Hypertension Respiratory: None Neuro: Seizure disorder Endocrine/Autoimmune: Type 2 diabetes, HyPOthyroidism GI: Other : Benign prostate hypertrophy, Renal insuffiency HEENT: Chronic sinusitis, Chronic hearing loss Psych: None Musculoskeletal: Osteoarthritis, Chronic back pain Derm: Eczema - Past Surgical History Past Surgical History: No - Present Medications Home Medications: Ambulatory Orders Medication Instructions Recorded Confirmed Aspirin [Aspir 81] 81 mg PO DAILY 08/13/15 02/23/23 Multivitamin [Multivitamins] 1 cap PO DAILY 08/13/15 02/23/23 Simvastatin 5 mg PO DAILY 08/13/15 02/23/23 Triamterene/Hydrochlorothiazid 1 cap PO DAILY 08/13/15 02/23/23 [Triamterene-Hctz 37.5-25 mg Cp] metFORMIN [Glucophage] 500 mg PO BID 08/13/15 02/23/23 Insulin Lispro [Humalog Kwikpen 20 - 25 units SQ TIDWM 07/20/17 02/23/23 U-100] Insulin NPH Human Isophane 20 units SQ TID 07/20/17 02/23/23 [Humulin N Kwikpen] Fluticasone [Flonase] 1 spray ART DAILY PRN 03/07/19 02/23/23 Tamsulosin [Flomax] 2 cap PO DAILY 03/07/19 02/23/23 Levothyroxine Sodium [Synthroid] 150 mcg PO DAILY 01/24/21 02/23/23 Finasteride [Proscar] 5 mg PO DAILY #30 tablet 02/24/21 02/23/23 Phenazopyridine [Pyridium] 100 mg PO TID #9 tablet 02/24/21 02/23/23 levoFLOXacin [Levaquin] 500 mg PO Q24H #14 tablet 02/24/21 02/23/23 Losartan [Cozaar] 100 mg PO DAILY 05/02/22 02/23/23 amLODIPine [Norvasc] 10 mg PO DAILY 05/02/22 02/23/23 oxyCODONE [Roxicodone] 2.5 - 5 mg PO Q6H PRN #10 tablet 05/02/23 MDD 6 - Allergies Allergies/Adverse Reactions: Allergies Allergy/AdvReac Type Severity Reaction Status Date / Time glyburide Allergy Unknown Verified 10/10/22 14:41 lisinopril Allergy Unknown Verified 10/10/22 14:41 tramadol Allergy Unknown Verified 10/10/22 14:41 - Social History Does the pt smoke?: No Smoking Status: Former smoker Does the pt drink ETOH?: No Does the pt have substance abuse?: No - Immunizations Immunizations are current?: Yes - POLST Patient has POLST: No PD ED PE NORMAL - Vitals Vital signs reviewed: Yes - General General: Alert and oriented X 3, No acute distress - HEENT HEENT: Atraumatic, PERRL, Moist mucous membranes - Neck Neck: Supple, no meningeal sign, No bony TTP - Cardiac Cardiac: RRR, Strong equal pulses - Respiratory Respiratory: No respiratory distress, Clear bilaterally - Back Back: No spinal TTP (No tenderness to palpation or percussion. No step-off or deformity.) - Derm Derm: Warm and dry - Extremities Extremities: Other (There is pain with flexion and external rotation of the bilateral hips. No pain to palpation over the bilateral hips. No bruising or deformity. No swelling in the legs. 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 Normal great toe extension bilaterally. no saddle anesthesia) Eye Opening: Spontaneous Motor: Obeys Commands Verbal: Oriented GCS Score: 15 Results - Vitals Vitals: Vital Signs - 24 hr 05/02/23 05/02/23 12:28 15:36 Temperature 36.7 C Heart Rate 66 66 Respiratory 18 16 Rate Blood Pressure 170/78 H 176/85 H O2 Saturation 97 99 Oxygen O2 Source Room air - Labs Labs: Laboratory Tests 05/02/23 05/02/23 05/02/23 12:39 12:39 13:24 WBC 11.3 H RBC 2.66 L Hgb 9.0 L Hct 28.2 L MCV 106.0 H MCH 33.8 H MCHC 31.9 L RDW 21.7 H Plt Count 362 MPV 9.4 Neut # (Auto) 8.6 H Lymph # (Auto) 1.4 L [place] # (Auto) 0.9 Eos # (Auto) 0.3 Baso # (Auto) 0.1 Absolute Nucleated RBC 0.00 Nucleated RBC % 0.0 Manual Slide Review Indicated WBC Morphology NORMAL APPEARANCE Platelet Estimate NORMAL (130-450,000) Platelet Morphology NORMAL APPEARANCE RBC Morph Micro Appear 1+ SCHISTOCYTES Sodium 140 Potassium 4.3 Chloride 111 Carbon Dioxide 23 Anion Gap 6.0 BUN 31 H Creatinine 2.1 H Estimated GFR (MDRD) 30 L Glucose 215 H Calcium 8.7 Total Bilirubin 1.1 H AST 20 ALT 23 Alkaline Phosphatase 50 Total Protein 6.8 Albumin 3.9 Globulin 2.9 Albumin/Globulin Ratio 1.3 Urine Color YELLOW Urine Clarity CLEAR Urine pH 5.5 Ur Specific Union 1.025 Urine Protein >=300 H Urine Glucose (UA) 100 H Urine Ketones NEGATIVE Urine Occult Blood TRACE-INTA Urine Nitrite NEGATIVE Urine Bilirubin NEGATIVE Urine Urobilinogen 0.2 (NORMAL) Ur Leukocyte Esterase NEGATIVE Urine RBC 0-5 Urine WBC 0-3 Ur Squamous Epith Cells RARE Squamous Urine Bacteria None Seen Urine Casts 3-5 Hyaline Casts Ur Microscopic Review INDICATED Urine Culture Comments NOT INDICATED - Rads (name of study) Bilateral hip x-ray Relevant Findings:: Final report received, See rad report L-spine x-ray Relevant Findings:: Final report received, See rad report Head CT Relevant Findings:: Final report received, See rad report PD Medical Decision Making - ED course Complexity details: reviewed results, re-evaluated patient, considered differential, d/w patient ED course: 82-year-old male with what appears to be a low back strain and bilateral hip strain. Feels better after pain medication here. He is ambulating both with and without a walker without any difficulty in the emergency department. He got up on his own out of bed and walked down the hallway and back to his bed. There are no acute laboratory abnormalities. Anemia is chronic. Renal failure is chronic. Head CT, lumbar spine x-ray, bilateral hip x-rays are negative. Patient has a walker at home but he is not using this, recommended that he use this. A list of caregivers and local resources were given to the patient. He does not want to go to a fdc today. There is no criteria for acute hospital admission. Patient counseled regarding signs and symptoms for which I believe and urgent re-evaluation would be necessary. Patient with good understanding of and agreement to plan and is comfortable going home at this time This document was made in part using voice recognition software. While efforts are made to proofread this document, sound alike and grammatical errors may occur. Departure - Departure Disposition: 01 Home, Self Care Clinical Impression: Back strain Qualifiers: Encounter type: initial encounter Qualified Code(s): S39.012A - Strain of m uscle, fascia and tendon of lower back, initial encounter Hip strain Qualifiers: Encounter type: initial encounter Laterality: unspecified laterality Qualified Code(s): S76.019A - Strain of muscle, fascia and tendon of unspecified hip, initial encounter Condition: Good Instructions: ED Strain Muscle Ext Follow-Up: your,doctor in 1 week [Other] Prescriptions: oxyCODONE [Roxicodone] 2.5 - 5 mg PO Q6H PRN #10 tablet MDD 6 PRN Reason: pain Comments: Your prescription was sent to [facility] in [place]. You were given a list of caregivers today if you feel that you need help at home. You are able to ambulate in the emergency department both with and without a walker. There are no fractures on your x-rays or CT scans. Please follow-up with your doctor for further care. I am prescribing a short course of narcotic pain medication for you. These are potentially dangerous and addictive medications that should be used carefully. These medications may constipate you. Take an kpqp-sfy-gmfgmgd stool softener (docusate) twice daily with plenty of water while taking these medications. If you go 24 hours without a bowel movement, take dnky-swc-bnrdjqw miralax, per package instructions. Do not drink or drive while taking these medications. If you received narcotic or sedating medications while in the emergency department, do not drive for 24 hours. Store this medication in a safe, secure place and out of reach of children. It is a violation of federal law to give or sell this medication to another person or to use in a manner other than prescribed. The ED will not refill narcotic prescriptions, including prescriptions lost or stolen. To dispose of unwanted medications: 1. [facility] at [address] in [facility] has a medication drop box. They accept prescription medications (in pill form) Thursday through Thursday 9:00 a.m. to 5:00 p.m. 2. The [facility] [place] [employer] accepts prescription medications (in pill form only) for disposal year round. Call for more information. 3. Contact the [facility] for the next [facility] sponsored prescription drug collection event. , [phone], or [phone]; Discharge Date/Time: 05/02/23 15:42
[2023-05-02 12:48] LABS: BASOPHILS # (AUTO) 0.1 10^3/uL (0.0-0.1); EOSINOPHILS # (AUTO) 0.3 10^3/uL (0.0-0.7); EOSINOPHILS % (AUTO) 2.7 %; HCT - HEMATOCRIT 28.2 % (42.0-52.0); LYMPHOCYTES # (AUTO) 1.4 10^3/uL (1.5-3.5); LYMPHOCYTES % (AUTO) 12.1 %; MEAN CORPUSCULAR HEMOGLOBIN 33.8 pg (27.0-31.0); MEAN CORPUSCULAR HGB CONC 31.9 g/dL (32.0-36.0); MEAN PLATELET VOLUME 9.4 fL (7.4-11.4); MONOCYTES # (AUTO) 0.9 10^3/uL (0.0-1.0); MONOCYTES % (AUTO) 7.5 %; NEUTROPHILS # (AUTO) 8.6 10^3/uL (1.5-6.6); NEUTROPHILS % (AUTO) 76.2 %; PLT - PLATELET COUNT 362 10^3/uL (130-450); RED BLOOD COUNT 2.66 10^6/uL (4.70-6.10); RED CELL DISTRIBUTION WIDTH 21.7 % (12.0-15.0); WHITE BLOOD COUNT 11.3 x10^3/uL (4.8-10.8)
[2023-05-02 12:58] LABS: ALBUMIN 3.9 g/dL (3.2-5.5); ALBUMIN/GLOBULIN RATIO 1.3 (1.0-2.2); BILIRUBIN,TOTAL 1.1 mg/dL (0.2-1.0); CALCIUM 8.7 mg/dL (8.5-10.3); CREATININE 2.1 mg/dL (0.6-1.2); POTASSIUM 4.3 mmol/L (3.5-5.0); SLIDE REVIEW? Indicated; TOTAL PROTEIN 6.8 g/dL (6.7-8.2)
[2023-05-02 13:18] LABS: PLATELET ESTIMATE, MANUAL NORMAL (130-450,000) (NORMAL); PLATELET MORPHOLOGY NORMAL APPEARANCE (NORMAL); WBC MORPHOLOGY (MULTIPLE) NORMAL APPEARANCE (NORMAL)
[2023-05-02 13:34] LABS: BILIRUBIN,URINE NEGATIVE (NEGATIVE); GLUCOSE, URINE (UA) 100 mg/dL (NEGATIVE); KETONES,URINE (UA) NEGATIVE (NEGATIVE); LEUKOCYTE ESTERASE, URINE NEGATIVE (NEGATIVE); NITRITE,URINE NEGATIVE (NEGATIVE); OCCULT BLOOD,URINE TRACE-INTA (NEGATIVE); PH,URINE 5.5 PH (5.0-7.5); PROTEIN,URINE >=300 mg/dL (NEGATIVE); UROBILINOGEN,URINE 0.2 (NORMAL) E.U./dL (NORMAL)
--- NOTE | 2023-05-02 13:34 | XRAY Report ---
PROCEDURE: Hips 2V BILAT INDICATIONS: fall, pain TECHNIQUE: 2 views of the hip were acquired. COMPARISON: None. FINDINGS: Bones: No fractures or dislocations. No suspicious bony lesions. Degenerative changes noted in th e lower lumbar spine Soft tissues: No suspicious soft tissue calcifications or masses. IMPRESSION: No acute bony abnormality. Reviewed by: Joce Lebron MD on 05/02/2023 12:32 PM AKERIS Approved by: Joce Lebron MD on 05/02/2023 12:32 PM AKDT Station ID: [id number]
--- NOTE | 2023-05-02 13:36 | XRAY Report ---
PROCEDURE: Lumbar Spine 2 View INDICATIONS: fall, pain TECHNIQUE: 2 views of the lumbar spine were acquired. COMPARISON: None. FINDINGS: Bones: 5 dmc-fgn-blrtcwg vertebrae are present. There is normal bony alignment. No vertebral body compression fractures. No suspicious bony lesions. Degenerative disc space narrowing and anterior o steophytes noted in the lower lumbar spine. Grade 1 degenerative anterior spinal listhesis L3-4 Soft tissues: Overlying bowel gas pattern is normal. No suspicious soft tissue calcifications. IMPRESSION: Degenerative changes without fracture or traumatic malalignment Reviewed by: Joce Lebron MD on 05/02/2023 12:35 PM MATTI Approved by: Joce Lebron MD on 05/02/2023 12:35 PM MATTI Station ID: [id number]
[2023-05-02 13:42] LABS: CLARITY,URINE CLEAR (CLEAR)
[2023-05-02 13:43] LABS: BACTERIA,URINE None Seen /HPF (None Seen); CASTS, URINE 3-5 Hyaline Casts /LPF; RBC,URINE 0-5 /HPF (0-5); SQUAMOUS EPITHELIAL CELL,UR RARE Squamous (<= Few); WBC,URINE 0-3 /HPF (0-3)
--- NOTE | 2023-05-02 14:25 | CT Report ---
PROCEDURE: CT brain without contrast INDICATIONS: multiple falls TECHNIQUE: Noncontrast 4.5 mm thick angled axial sections acquired from the foramen magnum to the vertex. For r adiation dose reduction, the following was used: automated exposure control, adjustment of mA and/or kV according to patient size. COMPARISON: None. FINDINGS: Image quality: Excellent. CSF spaces: Basal cisterns are patent. No extra-axial fluid collections. Ventricles are normal in size and shape. Brain: No midline shift. No intracranial masses or hemorrhage. Muhammad-white matter interface is norm al. Atrophy and multifocal white matter chronic ischemic change present. Skull and face: Calvarium and visualized facial bones are intact, without suspicious lesions. Sinuses: Visualized sinuses and mastoids are clear. IMPRESSION: Atrophy and ischemic change without intracranial hemorrhage or mass effect. Reviewed by: Joce Lebron MD on 05/02/2023 1:24 PM MATTI Approved by: Joce Lebron MD on 05/02/2023 1:24 PM AKERIS Station ID: [id number]
[2023-05-02 15:42] VITALS: BP 176/85
== END 2023-05-02 15:42 | disposition home or self-care (01) ==
LOC: ED 12:13
DX: S39.012A Strain of muscle, fascia and tendon of lower back, initial encounter (principal); S76.019A Strain of muscle, fascia and tendon of unspecified hip, initial encounter; W19.XXXA Unspecified fall, initial encounter; Z87.891 Personal history of nicotine dependence; Z91.81 History of falling
CPT/HCPCS: 36415; 70450; 72100; 73521; 80053; 81001; 85025; 99284; A9270; 81003; 87086

== ENCOUNTER 2023-05-23 01:25 | Outpatient (CLI) | payer MEDICARE, MEDICAID | END 2023-05-23 23:59 | disposition critical access hospital (66) | LOC: EMS 01:25 | DX: M25.552 Pain in left hip (principal); M79.605 Pain in left leg | CPT/HCPCS: A0425; A0429 ==

== ENCOUNTER 2023-05-23 01:48 | Emergency (ER) | payer MEDICARE, MEDICAID ==
--- NOTE | 2023-05-23 01:51 | ED Physician Documentation ---
History of Present Illness - Stated complaint Stated Complaint: L HIP PX - History obtained from History obtained from: Patient, EMS - Additonal information Additional information: BIBA. HPI from patient as well as EMS. Patient c/o left hip pain which has been worsening since yesterday afternoon shortly after undergoing physical therapy. Patient tells me he has had similar pain on a recurrent basis since an injury thirty years ago. He was evaluated approximately 2 weeks ago (May 02) in this emergency department for similar symptoms. At that time, he was complaining of bilateral hip pain and had no concerning nor diagnostic findings on work-up that included blood tests, bilateral hip x-rays, lower back/lumbar x-rays (degenerative changes noted), and CT head. Patient tells me the right hip pain has since resolved but the left hip pain persists. The left hip pain radiates down LLE. Denies numbness, denies weakness. He was prescribed oxycodone (10 tablets, filled 05/02) and subsequently filled rx for oxycodone 15 tablets (filled 05/08). Patient tells me he took acetaminophen tonight without improvement in his pain. Pain is exacerbated with movement. He denies recent fall, injury. Review of Systems Cardiac: denies: Chest pain / pressure Respiratory: denies: Dyspnea GI: denies: Abdominal Pain Musculoskeletal: reports: Extremity pain, Joint pain. denies: Back pain PD PAST MEDICAL HISTORY - Past Medical History Cardiovascular: Hypertension Respiratory: None Neuro: Seizure disorder Endocrine/Autoimmune: Type 2 diabetes, HyPOthyroidism GI: Other : Benign prostate hypertrophy, Renal insuffiency HEENT: Chronic sinusitis, Chronic hearing loss Psych: None Musculoskeletal: Osteoarthritis, Chronic back pain Derm: Eczema - Past Surgical History Past Surgical History: No - Present Medications Home Medications: Ambulatory Orders Medication Instructions Recorded Confirmed Aspirin [Aspir 81] 81 mg PO DAILY 08/13/15 05/08/23 Multivitamin [Multivitamins] 1 cap PO DAILY 08/13/15 05/08/23 Simvastatin 5 mg PO DAILY 08/13/15 05/08/23 Triamterene/Hydrochlorothiazid 1 cap PO DAILY 08/13/15 05/08/23 [Triamterene-Hctz 37.5-25 mg Cp] metFORMIN [Glucophage] 500 mg PO BID 08/13/15 05/08/23 Insulin Lispro [Humalog Kwikpen 20 - 25 units SQ TIDWM 07/20/17 05/08/23 U-100] Insulin NPH Human Isophane 20 units SQ TID 07/20/17 05/08/23 [Humulin N Kwikpen] Fluticasone [Flonase] 1 spray ART DAILY PRN 03/07/19 05/08/23 Tamsulosin [Flomax] 2 cap PO DAILY 03/07/19 05/08/23 Levothyroxine Sodium [Synthroid] 150 mcg PO DAILY 01/24/21 05/08/23 Finasteride [Proscar] 5 mg PO DAILY #30 tablet 02/24/21 05/08/23 Phenazopyridine [Pyridium] 100 mg PO TID #9 tablet 02/24/21 05/08/23 levoFLOXacin [Levaquin] 500 mg PO Q24H #14 tablet 02/24/21 05/08/23 Losartan [Cozaar] 100 mg PO DAILY 05/02/22 05/08/23 amLODIPine [Norvasc] 10 mg PO DAILY 05/02/22 05/08/23 oxyCODONE [Roxicodone] 2.5 - 5 mg PO Q6H PRN #10 tablet 05/02/23 05/08/23 MDD 6 oxyCODONE [Roxicodone] 0.5 - 1 tab PO Q8H PRN 15 Days #15 05/08/23 tablet predniSONE [Deltasone] 40 mg PO DAILY 5 Days #10 tablet 05/08/23 oxyCODONE [Roxicodone] 0.5 - 1 mg PO Q6H PRN #14 tablet 05/23/23 - Allergies Allergies/Adverse Reactions: Allergies Allergy/AdvReac Type Severity Reaction Status Date / Time glyburide Allergy Unknown Verified 05/23/23 01:59 lisinopril Allergy Unknown Verified 05/23/23 01:59 tramadol Allergy Unknown Verified 05/23/23 01:59 - Social History Does the pt smoke?: No Smoking Status: Former smoker Does the pt drink ETOH?: No Does the pt have substance abuse?: No - Immunizations Immunizations are current?: Yes - POLST Patient has POLST: No PD ED PE NORMAL - Vitals Vital signs reviewed: Yes - General General: Alert and oriented X 3, No acute distress, Well developed/nourished, Other (P[place]CU[place]AQUI) - HEENT HEENT: Atraumatic - Abdomen Abdomen: Soft, Non tender - Back Back: No spinal TTP - Extremities Extremities: No tenderness to palpate, No edema, Other (TUNDE bilateral hips; left hip flexion reproduces patient's chief complaint) - Neuro Neuro: Alert and oriented X 3, No motor deficit, No sensory deficit Results - Vitals Vitals: Vital Signs - 24 hr 05/23/23 05/23/23 05/23/23 01:51 03:59 05:00 Temperature 36.9 C Heart Rate 59 L 54 L 54 L Respiratory 20 16 16 Rate Blood Pressure 172/70 H 186/87 H 187/89 H O2 Saturation 100 94 98 05/23/23 05/23/23 07:00 07:38 Temperature 36.4 C L Heart Rate 57 L 56 L Respiratory 18 14 Rate Blood Pressure 189/77 H 187/78 H O2 Saturation 100 100 Oxygen O2 Source Room air PD Medical Decision Making - ED course Complexity details: reviewed old records, re-evaluated patient, considered differential, d/w patient ED course: On arrival by ambulance, patient was able to transfer from [facility] to ED stretcher without assistance. He does appear to be in moderate painful discomfort. He is given 5mg PO oxycodone and subsequently slept soundly for several hours. I reevaluated him a few hours into ED stay; he is asleep but awakens to verbal stimulus. He tells me "that's the best sleep I've had in three weeks". I explained to him that I would be submitting a prescription for the oxycodone to his pharmacy of choice but that further pain control for recurrent/chronic pain would best be handled by his primary care provider. He says he will not be able to procure a ride home until approximately 10 AM and thus held in ED overnight. I am prescribing a short course of short-acting opioid pain medication for this patient. 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 I have discussed that the opioids are for short term therapy only, and will not be refilled from the ED. Departure - Departure Disposition: 01 Home, Self Care Clinical Impression: Hip strain Qualifiers: Encounter type: initial encounter Laterality: left Qualified Code(s): S76.012A - Strain of muscle, fascia and tendon of left hip, initial encounter Condition: Good Instructions: ED Sprain Hip Prescriptions: oxyCODONE [Roxicodone] 0.5 - 1 mg PO Q6H PRN #14 tablet PRN Reason: Pain >8 Comments: A prescription for oxycodone (narcotic/opiate pain medication) has been electronically submitted to the [facility] in [place]. Contact your primary care provider when the office is next open to arrange for next available appointment for reevaluation of your ongoing pain. I am prescribing a short course of narcotic pain medication for you. These are potentially dangerous and addictive medications that should be used carefully. These medications may constipate you. Take an wiwu-kdu-pcemctu stool softener (docusate) twice daily with plenty of water while taking these medications. If you go 24 hours without a bowel movement, take gwod-nry-bbzracn miralax, per package instructions. Do not drink or drive while taking these medications. If you received narcotic or sedating medications while in the emergency department, do not drive for 24 hours. Store this medication in a safe, secure place and out of reach of children. It is a violation of federal law to give or sell this medication to another person or to use in a manner other than prescribed. The ED will not refill narcotic prescriptions, including prescriptions lost or stolen. To dispose of unwanted medications: 1. [facility] at [address] in [place] has a medication drop box. They accept prescription medications (in pill form) Thursday through Thursday 9:00 a.m. to 5:00 p.m. 2. The [facility] [employer] accepts prescription medications (in pill form only) for disposal year round. Call for more information. 3. Contact the [facility] for the next [facility] sponsored prescription drug collection event. , [id number], or [id number];
[2023-05-23] MEDS ORDERED: oxyCODONE 5 MG TABLET PO STA ×3 (02:18→12:16)
[2023-05-23] MEDS ORDERED: DEXAMETHASONE 10 MG/ML VIAL PO STA (07:12)
[2023-05-23] MEDS ORDERED: CHERRY SYRUP 10 ML UDC PO ONE (07:12)
[2023-05-23 13:31] VITALS: BP 155/97
== END 2023-05-23 13:30 | disposition home or self-care (01) ==
LOC: ED 01:48
DX: S76.012A Strain of muscle, fascia and tendon of left hip, initial encounter (principal); X58.XXXA Exposure to other specified factors, initial encounter; I10 Essential (primary) hypertension; E11.9 Type 2 diabetes mellitus without complications; E03.9 Hypothyroidism, unspecified; Z79.82 Long term (current) use of aspirin; Z79.899 Other long term (current) drug therapy; Z79.4 Long term (current) use of insulin; Z87.891 Personal history of nicotine dependence
CPT/HCPCS: 99283; A9270

== ENCOUNTER 2023-05-25 08:10 | Outpatient (CLI) | payer MEDICARE, MEDICAID ==
[2023-05-25 12:37] LABS: CREATININE 2.3 mg/dL (0.6-1.2); POTASSIUM 3.8 mmol/L (3.5-5.0)
[2023-05-25 12:48] LABS: ESTIMATED AVERAGE GLUCOSE 151 mg/dL (70-100); HEMOGLOBIN A1c% 6.9 % (4.27-6.07)
[2023-05-25 13:17] LABS: CREATININE,URINE 142.8 mg/dL; MICROALBUM/CREATININE RATIO,UR 3840.3 ug/mg (<30.0); MICROALBUMIN,URINE 548.4 mg/dL (0-300.0); PROTEIN/CREATININE RATIO,URINE 4.8 (<=0.2)
== END 2023-05-25 08:11 | disposition home or self-care (01) ==
LOC: LAB.N 08:10
PROVIDERS: ATTEND Internal Medicine
DX: E11.29 Type 2 diabetes mellitus with other diabetic kidney complication (principal); R80.9 Proteinuria, unspecified
CPT/HCPCS: 36415; 80048; 82043; 82570; 83036; 84156

== ENCOUNTER 2023-06-04 00:49 | Outpatient (CLI) | payer MEDICARE, MEDICAID | END 2023-06-04 00:50 | disposition critical access hospital (66) | LOC: EMS 00:49 | DX: M25.552 Pain in left hip (principal) | CPT/HCPCS: A0425; A0429 ==

== ENCOUNTER 2023-07-14 08:50 | Outpatient (CLI) | payer MEDICARE, MEDICAID | END 2023-07-14 23:59 | disposition critical access hospital (66) | LOC: EMS 08:50 | DX: E11.649 Type 2 diabetes mellitus with hypoglycemia without coma (principal); Z79.4 Long term (current) use of insulin | CPT/HCPCS: A0425; A0427 ==

== ENCOUNTER 2023-07-14 09:11 | Inpatient (IN) | payer MEDICARE, MEDICAID ==
[2023-07-14 10:18] LABS: VBG HCO3 25.7 mmol/L (23-28); VBG PH 7.337 (7.31-7.41); VBG PO2 22.9 mmHg (25-47); VBG TOTAL CO2 27.2 mmol/L (24-29)
[2023-07-14 10:19] LABS: VBG BASE EXCESS -0.4 mmol/L (-2 - +2); VBG OXYGEN SATURATION 39.4 % (60-80)
[2023-07-14 10:25] LABS: BASOPHILS # (AUTO) 0.1 10^3/uL (0.0-0.1); BASOPHILS % (AUTO) 0.7 %; EOSINOPHILS # (AUTO) 0.1 10^3/uL (0.0-0.7); EOSINOPHILS % (AUTO) 0.8 %; HCT - HEMATOCRIT 28.2 % (42.0-52.0); HGB - HEMOGLOBIN 8.9 g/dL (14.0-18.0); LYMPHOCYTES # (AUTO) 1.2 10^3/uL (1.5-3.5); LYMPHOCYTES % (AUTO) 11.8 %; MEAN CORPUSCULAR HEMOGLOBIN 34.9 pg (27.0-31.0); MEAN CORPUSCULAR HGB CONC 31.6 g/dL (32.0-36.0); MEAN CORPUSCULAR VOLUME 110.6 fL (80.0-94.0); MEAN PLATELET VOLUME 10.4 fL (7.4-11.4); MONOCYTES # (AUTO) 0.6 10^3/uL (0.0-1.0); MONOCYTES % (AUTO) 5.8 %; NEUTROPHILS # (AUTO) 7.9 10^3/uL (1.5-6.6); NEUTROPHILS % (AUTO) 80.3 %; PLT - PLATELET COUNT 313 10^3/uL (130-450); RED BLOOD COUNT 2.55 10^6/uL (4.70-6.10); RED CELL DISTRIBUTION WIDTH 21.2 % (12.0-15.0); WHITE BLOOD COUNT 9.8 x10^3/uL (4.8-10.8)
[2023-07-14 10:27] LABS: SLIDE REVIEW? Indicated
[2023-07-14 10:28] LABS: ALBUMIN 3.6 g/dL (3.2-5.5); ALBUMIN/GLOBULIN RATIO 1.7 (1.0-2.2); ALKALINE PHOSPHATASE 57 IU/L (42-121); ALT ALANINE AMINOTRANSFERASE 39 IU/L (10-60); AST ASPARTATE AMINOTRANSFERASE 32 IU/L (10-42); BILIRUBIN,TOTAL 0.7 mg/dL (0.2-1.0); BUN - BLOOD UREA NITROGEN 20 mg/dL (6-20); CALCIUM 9.6 mg/dL (8.5-10.3); CARBON DIOXIDE - CO2 28 mmol/L (21-32); CHLORIDE 105 mmol/L (101-111); CREATININE 2.2 mg/dL (0.6-1.3); GFR - MDRD 29 (>89); GLUCOSE 91 mg/dL (74-104); LIPASE 15 U/L (11-82); POTASSIUM 3.6 mmol/L (3.5-4.5); SODIUM 139 mmol/L (135-145); TOTAL PROTEIN 5.7 g/dL (6.4-8.9)
[2023-07-14] MEDS ORDERED: SODIUM CHLORIDE 0.9% 500 ML IV STA ×2 (10:33→14:35)
[2023-07-14 10:46] LABS: PLATELET ESTIMATE, MANUAL NORMAL (130-450,000) (NORMAL); PLATELET MORPHOLOGY NORMAL APPEARANCE (NORMAL)
[2023-07-14 11:02] LABS: KETONES, SERUM (ACETEST) NEGATIVE (NEGATIVE)
[2023-07-14 12:22] LABS: BILIRUBIN,URINE NEGATIVE (NEGATIVE); CLARITY,URINE CLEAR (CLEAR); GLUCOSE, URINE (UA) 100 mg/dL (NEGATIVE); KETONES,URINE (UA) NEGATIVE (NEGATIVE); LEUKOCYTE ESTERASE, URINE NEGATIVE (NEGATIVE); NITRITE,URINE NEGATIVE (NEGATIVE); OCCULT BLOOD,URINE NEGATIVE (NEGATIVE); PH,URINE 5.5 PH (5.0-7.5); PROTEIN,URINE 100 mg/dL (NEGATIVE); UROBILINOGEN,URINE 0.2 (NORMAL) E.U./dL (NORMAL)
[2023-07-14 12:30] LABS: BACTERIA,URINE None Seen /HPF (None Seen); RBC,URINE None Seen /HPF (0-5); SQUAMOUS EPITHELIAL CELL,UR NONE SEEN (<= Few); WBC,URINE 0-3 /HPF (0-3)
--- NOTE | 2023-07-14 13:22 | ED Physician Documentation ---
History of Present Illness - Stated complaint Stated Complaint: ALOC/DIABETIC ISSUE - Chief complaint Chief Complaint: General - History obtained from History obtained from: Patient, EMS - Additonal information Additional information: HARRIETT, called 911 because his sugar was above 500 in the morning, he gave himself 25 units of humalog and 25 inits of humalin, did not eat anything and felt like his sugar was low. On arrival for EMS BG was 54, they gave him 250 of D10 with the BG going up to 175. On arrival to ER BG 144. For EMS patient was hypotensive as well with SBP in 80s. received 500 mls of NS. Patient is drowsy, but easily arrousable, follows commands with equal strength in extremities bilaterally, has slurred speech. Review of Systems Constitutional: denies: Fever Cardiac: denies: Chest pain / pressure Respiratory: denies: Dyspnea GI: denies: Abdominal Pain Musculoskeletal: reports: Back pain Neurologic: denies: Headache PD PAST MEDICAL HISTORY - Past Medical History Cardiovascular: Hypertension Respiratory: None Neuro: Seizure disorder Endocrine/Autoimmune: Type 2 diabetes, HyPOthyroidism GI: Other : Benign prostate hypertrophy, Renal insuffiency HEENT: Chronic sinusitis, Chronic hearing loss Psych: None Musculoskeletal: Osteoarthritis, Chronic back pain Derm: Eczema - Past Surgical History Past Surgical History: No - Present Medications Home Medications: Ambulatory Orders Medication Instructions Recorded Confirmed Aspirin [Aspir 81] 81 mg PO DAILY 08/13/15 07/06/23 Multivitamin [Multivitamins] 1 cap PO DAILY 08/13/15 07/06/23 Simvastatin 5 mg PO DAILY 08/13/15 07/06/23 Triamterene/Hydrochlorothiazid 1 cap PO DAILY 08/13/15 07/06/23 [Triamterene-Hctz 37.5-25 mg Cp] metFORMIN [Glucophage] 500 mg PO BID 08/13/15 07/06/23 Insulin Lispro [Humalog Kwikpen 20 - 25 units SQ TIDWM 07/20/17 07/06/23 U-100] Insulin NPH Human Isophane 20 units SQ TID 07/20/17 07/06/23 [Humulin N Kwikpen] Fluticasone [Flonase] 1 spray ART DAILY PRN 03/07/19 07/06/23 Tamsulosin [Flomax] 2 cap PO DAILY 03/07/19 07/06/23 Levothyroxine Sodium [Synthroid] 150 mcg PO DAILY 01/24/21 07/06/23 Finasteride [Proscar] 5 mg PO DAILY #30 tablet 02/24/21 07/06/23 Phenazopyridine [Pyridium] 100 mg PO TID #9 tablet 02/24/21 07/06/23 levoFLOXacin [Levaquin] 500 mg PO Q24H #14 tablet 02/24/21 07/06/23 Losartan [Cozaar] 100 mg PO DAILY 05/02/22 07/06/23 amLODIPine [Norvasc] 10 mg PO DAILY 05/02/22 07/06/23 oxyCODONE [Roxicodone] 2.5 - 5 mg PO Q6H PRN #10 tablet 05/02/23 07/06/23 MDD 6 oxyCODONE [Roxicodone] 0.5 - 1 tab PO Q8H PRN 15 Days #15 05/08/23 07/06/23 tablet predniSONE [Deltasone] 40 mg PO DAILY 5 Days #10 tablet 05/08/23 07/06/23 oxyCODONE [Roxicodone] 0.5 - 1 mg PO Q6H PRN #14 tablet 05/23/23 07/06/23 - Allergies Allergies/Adverse Reactions: Allergies Allergy/AdvReac Type Severity Reaction Status Date / Time glyburide Allergy Unknown Verified 07/14/23 09:32 lisinopril Allergy Unknown Verified 07/14/23 09:32 tramadol Allergy Unknown Verified 07/14/23 09:32 - Social History Does the pt smoke?: No Smoking Status: Former smoker Does the pt drink ETOH?: No Does the pt have substance abuse?: No - Immunizations Immunizations are current?: Yes - POLST Patient has POLST: No PD ED PE NORMAL - General General: Alert and oriented X 3, No acute distress, Well developed/nourished, Other (Hard of hearing, left ear is better) - HEENT HEENT: Atraumatic - Neck Neck: Supple, no meningeal sign - Cardiac Cardiac: Other (Tachycardic, regular rhythm) - Respiratory Respiratory: No respiratory distress, Clear bilaterally - Abdomen Abdomen: Soft, Non tender - Derm Derm: Warm and dry - Extremities Extremities: No calf tenderness / cord - Neuro Neuro: Alert and oriented X 3, No motor deficit, No sensory deficit, Normal speech Results - Vitals Vitals: Vital Signs - 24 hr 07/14/23 07/14/23 07/14/23 09:19 10:16 11:00 Temperature 36.2 C L 36.2 C L 35.4 C L Heart Rate 113 H 116 H 116 H Respiratory 11 L 17 22 Rate Blood Pressure 125/79 112/86 H 119/84 H O2 Saturation 100 100 100 07/14/23 07/14/23 07/14/23 12:19 14:21 14:25 Temperature 35.5 C L Heart Rate 119 H 118 H 119 H Respiratory 18 13 13 Rate Blood Pressure 113/81 H 117/88 H 99/74 O2 Saturation 100 100 99 07/14/23 07/14/23 07/14/23 14:30 14:41 15:00 Temperature Heart Rate 118 H 117 H 116 H Respiratory 14 13 15 Rate Blood Pressure 109/77 115/83 H 123/90 H O2 Saturation 99 99 99 07/14/23 15:30 Temperature Heart Rate 118 H Respiratory 16 Rate Blood Pressure 114/79 O2 Saturation 100 Oxygen O2 Source Room air - EKG (time done) 1048 EKG releavant findings:: EKG personally interpreted by author of this note. Relevant findings are: Rate 115, Unclear tachycardia, no STEMI Rate: Rate (enter#) (115) Rhythm: Other (Unclear tachycardia) Ischemia: No: ST elevation c/w ischemia 1400 EKG releavant findings:: EKG personally interpreted by author of this note. Relevant findings are: Rate 71, atrial flutter, no STEMI, no ST depressions Rate: Rate (enter#) (71) Rhythm: Atrial flutter Ischemia: No: ST elevation c/w ischemia - Labs Labs: Laboratory Tests 07/14/23 07/14/23 07/14/23 09:16 10:06 10:08 WBC 9.8 RBC 2.55 L Hgb 8.9 L Hct 28.2 L MCV 110.6 H MCH 34.9 H MCHC 31.6 L RDW 21.2 H Plt Count 313 MPV 10.4 Neut # (Auto) 7.9 H Lymph # (Auto) 1.2 L [place] # (Auto) 0.6 Eos # (Auto) 0.1 Baso # (Auto) 0.1 Absolute Nucleated RBC 0.00 Nucleated RBC % 0.0 Manual Slide Review Indicated Platelet Estimate NORMAL (130-450,000) Platelet Morphology NORMAL APPEARANCE RBC Morph Micro Appear 2+ MACROCYTOSIS VBG pH VBG pCO2 VBG pO2 VBG HCO3 VBG Total CO2 VBG O2 Saturation VBG Base Excess Sodium Potassium Chloride Carbon Dioxide Anion Gap BUN Creatinine Estimated GFR (MDRD) Glucose POC Whole Bld Glucose 144 H 112 H Calcium Total Bilirubin AST ALT Alkaline Phosphatase Total Protein Albumin Globulin Albumin/Globulin Ratio Lipase TSH Free T4 Direct Urine Color Urine Clarity Urine pH Ur Specific [place] Urine Protein Urine Glucose (UA) Urine Ketones Urine Occult Blood Urine Nitrite Urine Bilirubin Urine Urobilinogen Ur Leukocyte Esterase Urine RBC Urine WBC Ur Squamous Epith Cells Urine Bacteria Ur Microscopic Review Urine Culture Comments Serum Ketones 07/14/23 07/14/23 07/14/23 10:08 10:08 10:08 WBC RBC Hgb Hct MCV MCH MCHC RDW Plt Count MPV Neut # (Auto) Lymph # (Auto) [place] # (Auto) Eos # (Auto) Baso # (Auto) Absolute Nucleated RBC Nucleated RBC % Manual Slide Review Platelet Estimate Platelet Morphology RBC Morph Micro Appear VBG pH VBG pCO2 VBG pO2 VBG HCO3 VBG Total CO2 VBG O2 Saturation VBG Base Excess Sodium 139 Potassium 3.6 Chloride 105 Carbon Dioxide 28 Anion Gap 6.0 BUN 20 Creatinine 2.2 H Estimated GFR (MDRD) 29 L Glucose 91 POC Whole Bld Glucose Calcium 9.6 Total Bilirubin 0.7 AST 32 ALT 39 Alkaline Phosphatase 57 Total Protein 5.7 L Albumin 3.6 Globulin 2.1 Albumin/Globulin Ratio 1.7 Lipase 15 TSH 96.38 H Free T4 Direct < 0.25 L Urine Color Urine Clarity Urine pH Ur Specific [place] Urine Protein Urine Glucose (UA) Urine Ketones Urine Occult Blood Urine Nitrite Urine Bilirubin Urine Urobilinogen Ur Leukocyte Esterase Urine RBC Urine WBC Ur Squamous Epith Cells Urine Bacteria Ur Microscopic Review Urine Culture Comments Serum Ketones NEGATIVE 07/14/23 07/14/23 07/14/23 10:14 11:06 12:15 WBC RBC Hgb Hct MCV MCH MCHC RDW Plt Count MPV Neut # (Auto) Lymph # (Auto) [place] # (Auto) Eos # (Auto) Baso # (Auto) Absolute Nucleated RBC Nucleated RBC % Manual Slide Review Platelet Estimate Platelet Morphology RBC Morph Micro Appear VBG pH 7.337 VBG pCO2 49.0 VBG pO2 22.9 L VBG HCO3 25.7 VBG Total CO2 27.2 VBG O2 Saturation 39.4 L VBG Base Excess -0.4 Sodium Potassium Chloride Carbon Dioxide Anion Gap BUN Creatinine Estimated GFR (MDRD) Glucose POC Whole Bld Glucose 106 H Calcium Total Bilirubin AST ALT Alkaline Phosphatase Total Protein Albumin Globulin Albumin/Globulin Ratio Lipase TSH Free T4 Direct Urine Color YELLOW Urine Clarity CLEAR Urine pH 5.5 Ur Specific [place] 1.025 Urine Protein 100 H Urine Glucose (UA) 100 H Urine Ketones NEGATIVE Urine Occult Blood NEGATIVE Urine Nitrite NEGATIVE Urine Bilirubin NEGATIVE Urine Urobilinogen 0.2 (NORMAL) Ur Leukocyte Esterase NEGATIVE Urine RBC None Seen Urine WBC 0-3 Ur Squamous Epith Cells NONE SEEN Urine Bacteria None Seen Ur Microscopic Review INDICATED Urine Culture Comments NOT INDICATED Serum Ketones 07/14/23 12:52 WBC RBC Hgb Hct MCV MCH MCHC RDW Plt Count MPV Neut # (Auto) Lymph # (Auto) [place] # (Auto) Eos # (Auto) Baso # (Auto) Absolute Nucleated RBC Nucleated RBC % Manual Slide Review Platelet Estimate Platelet Morphology RBC Morph Micro Appear VBG pH VBG pCO2 VBG pO2 VBG HCO3 VBG Total CO2 VBG O2 Saturation VBG Base Excess Sodium Potassium Chloride Carbon Dioxide Anion Gap BUN Creatinine Estimated GFR (MDRD) Glucose POC Whole Bld Glucose 114 H Calcium Total Bilirubin AST ALT Alkaline Phosphatase Total Protein Albumin Globulin Albumin/Globulin Ratio Lipase TSH Free T4 Direct Urine Color Urine Clarity Urine pH Ur Specific [place] Urine Protein Urine Glucose (UA) Urine Ketones Urine Occult Blood Urine Nitrite Urine Bilirubin Urine Urobilinogen Ur Leukocyte Esterase Urine RBC Urine WBC Ur Squamous Epith Cells Urine Bacteria Ur Microscopic Review Urine Culture Comments Serum Ketones PD Medical Decision Making - ED course Complexity details: reviewed results, re-evaluated patient, d/w patient ED course: Patient is an 83-year-old male with a history of insulin-dependent diabetes presenting for evaluation of hypoglycemia after taking a large amount of insulin earlier today to try and correct a blood sugar of around 500. Patient was given IV dextrose with improvement in his symptoms. Initially he appeared slightly lethargic but this is continued to improve with p.o. intake. However he remained tachycardic which seems to be new for him. Recent oncology visit on July 06 he was also noted to be tachycardic on vitals. Initial EKG demonstrated a tachycardic but regular rhythm and it was unclear whether this was sinus tachycardia or an atrial arrhythmia so I gave a dose of adenosine to slow this down. On a repeat EKG the rhythm appears to be atrial flutter. After the adenosine his heart rate did improve for a brief duration but then increased back up into the 1 teens. Patient was given a dose of IV Cardizem without significant change. I also gave him a dose of oral Cardizem and repeated the IV dose. His heart rates have been in the 1 teens. He denies any chest pain or feeling short of air. He has recently not been taking his other oral medications as he is as he has been getting them mixed up including not taking his thyroid medications. On review of his labs his free T4 is very low. As patient has a new arrhythmia and is having difficulty with his medications at home I reviewed the case with admitting hospitalist who will admit for further management. Discussed his current heart rate in the 110s with Dr. Sexton. We have agreed to hold off on a Cardizem drip at this time as he is not having a rates higher than this. 1340 - Patient has remained tachycardic despite fluids. He states he has not taken his medications in over a month and a half. I do not see any beta- blockers or calcium channel blockers on his list That would lower his heart rate. He has not been taking his thyroid medications. His EKG is with an unclear rhythm. Patient states he feels better but his tachycardia appears to be new. Discussed options for further evaluation including dose of adenosine which he is agreeable to. Departure - Departure Disposition: 66 [facility] DC/Xfer Clinical Impression: Atrial flutter with rapid ventricular response, Hypoglycemia Hypothyroid Qualifiers: Hypothyroidism type: unspecified Qualified Code(s): E03.9 - Hypothyroidism, unspecified Condition: Fair
[2023-07-14] MEDS ORDERED: ADENOSINE 6 MG/2 ML VIAL IVP STA (13:35)
[2023-07-14] MEDS ORDERED: diltiaZEM INJ 5 MG/ML VIAL IVP STA ×2 (14:05→14:35)
[2023-07-14] MEDS ORDERED: diltiaZEM 30 MG TABLET PO STA (14:34)
[2023-07-14] MEDS ORDERED: ONDANSETRON ODT 4 MG TABLET TL PRN (15:56)
[2023-07-14] MEDS ORDERED: ONDANSETRON 4 MG/2 ML VIAL IVP PRN (15:56)
--- NOTE | 2023-07-14 15:57 | XRAY Report ---
PROCEDURE: Chest 1 View X-Ray INDICATIONS: weak TECHNIQUE: One view of the chest was acquired. COMPARISON: Chest x-ray 02/21/2021 FINDINGS: Surgical changes and devices: None. Lungs and pleura: No pleural effusions or pneumothorax. Lungs are clear. Mediastinum: Mediastinal contours appear normal. Heart size is mildly enlarged. Bones and chest wall: No suspicious bony lesions. Overlying soft tissues appear unremarkable. IMPRESSION: No acute cardiopulmonary process. Reviewed by: Sabine Thorne MD on 07/14/2023 3:56 PM PDT Approved by: Sabine Thorne MD on 07/14/2023 3:56 PM PDT Station ID: [id number]
--- NOTE | 2023-07-14 16:13 | HISTORY & PHYSICAL EXAMINATION ---
Chief Complaint - Chief Complaint Chief Complaint: Low blood sugar History of Present Illness - Admitted From Admitted From:: ER - History Obtained From Records Reviewed: [facility] History obtained from: Patient, ER Physician, EMR - History of Present Illness HPI Comment/Other: This is a 83-year-old male with a past medical history significant for insulin- dependent diabetes mellitus, chronic kidney disease, BPH, hypertension, MDS, chronic anemia, hypothyroidism who presents today due to concerns for a low blood sugar. He states that he has been having lower back pain for quite some time and yesterday he took a muscle relaxant and oxycodone. He was finally able to get some sleep and this morning when he woke up he checked his blood sugar and it was reportedly around 500. He told the ER physician That he took his Humulin N and his lispro. He was unable to tell me how much insulin he actually took but that about an hour later he felt like his blood sugar was crashing and that he had something to drink and immediately called EMS. Reportedly on EMS arrival, his blood glucose was in the 50s and he was given dextrose. The patient tells me that his blood glucose normally varies from the 50s to 150s. He has not been taking his other medications consistently as he states he got mixed up with them over the past few weeks and now does not know what to take and when to take it so he stopped taking all of them altogether. He still has been taking his insulin. He states he has been trying to get some help at home that he had an interview with a caregiver in 2 days as he needs assistance. He has been ambulating with a walker due to his lower back pain. He denies feeling confused. He knows he is at [facility] and knows that it is June and knows the year is 2022. He thought the day of the week was Thursday. He follows with Dr. Bernard and he is able to tell me that that is his primary care physician.The patient denies any cardiac history. Reports no chest pain, shortness of breath, palpitations. He states he currently feels fine. Denies any dizziness or lightheadedness. Reports no abdominal pain, nausea, vomiting, diarrhea. History - Past Medical History Cardiovascular: reports: Hypertension Respiratory: reports: None Neuro: reports: Seizure disorder Endocrine/Autoimmune: reports: Type 2 diabetes, HyPOthyroidism GI: reports: Other : reports: Benign prostate hypertrophy, Renal insuffiency HEENT: reports: Chronic sinusitis, Chronic hearing loss Psych: reports: None Musculoskeletal: reports: Osteoarthritis, Chronic back pain Derm: reports: Eczema MRSA Hx?: No Other Past Medical History: MDS - Family & Social History Family History Comment/Other: He states his mother from tuberculosis when he was 7 years old. He believes his father was healthy. He does not recall any other family history. Living Situation: Alone Social History Notes: He lives at home alone. 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 He smoked briefly but quit over 50 years ago. He rarely drinks alcohol. - Substance History Use: Uses substance without health or social issues: NONE - POLST Patient has POLST: No Meds/Allgy - Home Medications Home Medications: Ambulatory Orders Medication Instructions Recorded Confirmed Aspirin [Aspir 81] 81 mg PO DAILY 08/13/15 07/06/23 Multivitamin [Multivitamins] 1 cap PO DAILY 08/13/15 07/06/23 Simvastatin 5 mg PO DAILY 08/13/15 07/06/23 Triamterene/Hydrochlorothiazid 1 cap PO DAILY 08/13/15 07/06/23 [Triamterene-Hctz 37.5-25 mg Cp] metFORMIN [Glucophage] 500 mg PO BID 08/13/15 07/06/23 Insulin Lispro [Humalog Kwikpen 20 - 25 units SQ TIDWM 07/20/17 07/06/23 U-100] Insulin NPH Human Isophane 20 units SQ TID 07/20/17 07/06/23 [Humulin N Kwikpen] Fluticasone [Flonase] 1 spray ART DAILY PRN 03/07/19 07/06/23 Tamsulosin [Flomax] 2 cap PO DAILY 03/07/19 07/06/23 Levothyroxine Sodium [Synthroid] 150 mcg PO DAILY 01/24/21 07/06/23 Finasteride [Proscar] 5 mg PO DAILY #30 tablet 02/24/21 07/06/23 Phenazopyridine [Pyridium] 100 mg PO TID #9 tablet 02/24/21 07/06/23 levoFLOXacin [Levaquin] 500 mg PO Q24H #14 tablet 02/24/21 07/06/23 Losartan [Cozaar] 100 mg PO DAILY 05/02/22 07/06/23 amLODIPine [Norvasc] 10 mg PO DAILY 05/02/22 07/06/23 oxyCODONE [Roxicodone] 2.5 - 5 mg PO Q6H PRN #10 tablet 05/02/23 07/06/23 MDD 6 oxyCODONE [Roxicodone] 0.5 - 1 tab PO Q8H PRN 15 Days #15 05/08/23 07/06/23 tablet predniSONE [Deltasone] 40 mg PO DAILY 5 Days #10 tablet 05/08/23 07/06/23 oxyCODONE [Roxicodone] 0.5 - 1 mg PO Q6H PRN #14 tablet 05/23/23 07/06/23 - Allergies Allergies/Adverse Reactions: Allergies Allergy/AdvReac Type Severity Reaction Status Date / Time glyburide Allergy Unknown Verified 07/14/23 09:32 lisinopril Allergy Unknown Verified 07/14/23 09:32 tramadol Allergy Unknown Verified 07/14/23 09:32 Review of Systems - Constitutional Constitutional: reports: Poor appetite. denies: Fever, Chills, Weakness - Ears, Nose & Throat Ears, Nose & Throat: denies: Nasal discharge, Nasal congestion - Cardiovascular Cariovascular: denies: Irregular heart rate, Chest pain, Lightheadedness, Exertional dyspnea, Decr. exercise tolerance - Respiratory Respiratory: denies: Cough, SOB at rest, SOB with exertion - Gastrointestinal Gastrointestinal: denies: Abdominal pain, Diarrhea, Nausea, Vomiting - Genitourinary Genitourinary: denies: Dysuria, Frequency, Urgency - Musculoskeletal Musculoskeletal: reports: Back pain, Limited range of motion. denies: Muscle weakness - Integumentary Integumentary: denies: Rash - Neurological Neurological: denies: General weakness, Focal weakness - Hematologic/Lymphatic Hematologic/Lymphatic: denies: Petechiae, Bleeding tendencies - All Other Systems All Other Systems: reports: Reviewed and negative Prior Level of Functionality: Ambulates with a front wheel walker. Exam - Vital Signs Reviewed Vital Signs: Yes Vital Signs: Vital Signs x48h Temp Pulse Resp BP Pulse Ox 07/14/23 15:30 118 H 16 114/79 100 07/14/23 15:00 116 H 15 123/90 H 99 07/14/23 14:41 117 H 13 115/83 H 99 07/14/23 14:30 118 H 14 109/77 99 07/14/23 14:25 119 H 13 99/74 99 07/14/23 14:21 118 H 13 117/88 H 100 07/14/23 12:19 35.5 C L 119 H 18 113/81 H 100 07/14/23 11:00 35.4 C L 116 H 22 119/84 H 100 07/14/23 10:16 36.2 C L 116 H 17 112/86 H 100 07/14/23 09:19 36.2 C L 113 H 11 L 125/79 100 - Physical Exam General Appearance: positive: No acute distress, Alert Eyes Bilateral: positive: Normal inspection, Conjunctivae nml ENT: positive: ENT inspection nml Neck: positive: Nml inspection Respiratory: positive: No respiratory distress. negative: Wheezes, Rales Cardiovascular: positive: Regular rate & rhythm, Tachycardia. negative: Irregularly irregular, Systolic murmur Abdomen: positive: Non-tender, No distention. negative: Tenderness Skin: positive: Warm, Dry, Pallor Extremities: positive: Pedal edema (trace to +1 pitting edema bilaterally.) Neurologic/Psychiatric: positive: Motor nml, Other (No focal deficits.). negative: Disoriented to person, Disoriented to place, Disoriented to time Conclusion/Plan - Problem List (1) Atrial flutter with rapid ventricular response Conclusion/Plan: This appears to be a new diagnosis for the patient. Heart rate was initially in the 115's and he did improved to 70s after receiving the dose of diltiazem but heart rate began to increase again. He appears asymptomatic with this and denies any chest pain, dyspnea. Chest x-ray was personally reviewed and no evidence of pulmonary edema. He does have lower extremity edema but this is chronic for him and it does not appear that he has congestive heart failure due to the atrial flutter. EKG was reviewed and no evidence of ischemia. We will start him on metoprolol 50 mg twice daily and consider further doses of IV Lopressor if needed Monitor on telemetry Optimize electrolytes including potassium and magnesium Obtain echocardiogram He is currently on aspirin and will need to consider anticoagulation (2) Hypoglycemia Conclusion/Plan: He was hypoglycemic with blood glucose in the 50s upon EMS arrival. This is likely due to inappropriate use of his insulin as he took his Humulin and lispro. Blood glucose has improved to the 100s here. There is concern for medication compliance at home. We will hold his home Humulin at this time and place him just on sliding scale Check A1c We will resume home insulin dosing as needed but I am concerned he may be having multiple episodes of hypoglycemia at home Carb controlled diet (3) Hypothyroidism Conclusion/Plan: He admits not taking his medications at home and this is evident by his TSH being 96.38 and free T4 last 0.25. There does not appear to be clinical evidence of myxedema coma. He is not hypothermic and is not altered. His lower extremity edema is chronic. We will resume his home dose of Synthroid 150 mcg daily Monitor for signs of myxedema coma and consider IV Synthroid He will need repeat TSH in 4 to 6 weeks Qualifiers: Hypothyroidism type: unspecified Qualified Code(s): E03.9 - Hypothyroidism, unspecified (4) Anemia assoc with myelodysplastic syndrome treated with erythropoietin Conclusion/Plan: He has chronic anemia secondary to myelodysplastic syndrome is treated by hematology/oncology and receives Procrit. Hemoglobin today is 8.9 which is close to his baseline. We will continue to monitor with daily CBC (5) Benign prostate hyperplasia Conclusion/Plan: We will continue home Flomax and finasteride. Qualifiers: Lower urinary tract symptom presence: symptoms present Lower urinary tract symptom detail: urinary frequency Qualified Code(s): N40.1 - Benign prostatic hyperplasia with lower urinary tract symptoms; R35.0 - Frequency of micturition (6) Chronic kidney disease, stage 3 Conclusion/Plan: He has CKD stage III and his baseline creatinine is around 2.0. Today it is 2.2. His CKD is likely due to underlying diabetes mellitus. Monitor renal function and urine output. Qualifiers: Chronic kidney disease stage 3 subtype: unspecified whether 3a or 3b Qualified Code(s): N18.30 - Chronic kidney disease, stage 3 unspecified (7) Hypertension Conclusion/Plan: He is currently normotensive and he has not been taking any of his home medications. We will continue to hold his home losartan and triamterene/hydrochlorothiazide. We have started him on metoprolol given the atrial flutter. We will hold his home amlodipine given the lower extremity edema. We will resume his other antihypertensives as needed. Qualifiers: Hypertension type: essential hypertension Qualified Code(s): I10 - Essential (primary) hypertension (8) Myelodysplastic syndrome Conclusion/Plan: He is followed by hematology/oncology and will continue to do so on discharge. (9) Noncompliance w/medication treatment due to intermit use of medication Conclusion/Plan: He has been noncompliant with his medications except for insulin this is evident by the degree of his hypothyroidism. Patient has been looking into getting assistance at home and has interview with caregiver coming up. We will consult social work to help assist with care at home. Patient was counseled on the importance of medication compliance. He would likely benefit from home health RN and a pillbox. (10) Lumbosacral radiculopathy Conclusion/Plan: He has had imaging including x-rays and MRI which showed severe stenosis. We will continue with hydrocodone as needed for pain control and can consider Flexeril as needed. Continue outpatient follow-up with PCP and spine. - Lab Results Lab results reviewed: Yes Slava Bones: 07/14/23 10:08 07/14/23 10:08 - Diagnostic Imaging Results Diagnostic Imaging Results: positive: Final report reviewed - EKG Results EKG Interpreted Independently: Yes EKG Findings: Initial EKG is consistent with atrial flutter and rate of 115. Repeat EKG after diltiazem shows improvement in heart rate down to the 70s. No evidence of ischemia. Core Measures - Anticipated LOS I expect patient to be DC'd or transferred within 96 hours.: Yes - Issues Hospital Issues and Management Plan: 83-year-old male presenting with hypoglycemia found to have atrial flutter with RVR and he will be admitted for further management. - DVT/VTE - Prophylaxis VTE/DVT Prophylaxis med ordered at admit?: Yes
[2023-07-14] MEDS: SODIUM CHLORIDE FLUSH 0.9% 10 ML SYRINGE IVP SCH (17:00)
[2023-07-14] MEDS ORDERED: POTASSIUM CHLORIDE 20 MEQ TABLET PO STA (17:12)
[2023-07-14] MEDS ORDERED: METOPROLOL 5 MG/5 ML VIAL IVP STA (17:39)
[2023-07-14] MEDS: INSULIN LISPRO 300 UNIT/3 ML PEN SUBQ SCH ×2 (17:40→21:13)
[2023-07-14] MEDS: PRAVASTATIN 10 MG TABLET PO SCH (21:11)
[2023-07-14] MEDS: METOPROLOL TARTRATE 50 MG TABLET PO SCH (21:11)
[2023-07-14] MEDS: HEPARIN 5,000 UNIT/ML VIAL SUBQ SCH (21:12)
[2023-07-14 21:14] LABS: ESTIMATED AVERAGE GLUCOSE 258 mg/dL (70-100); HEMOGLOBIN A1c% 10.6 % (4.27-6.07)
[2023-07-14] MEDS: HYDROcod/ACETAM 5/325 MG TABLET PO PRN (23:41)
[2023-07-15] MEDS: SODIUM CHLORIDE FLUSH 0.9% 10 ML SYRINGE IVP SCH ×3 (01:24→16:52)
[2023-07-15 04:53] LABS: BASOPHILS # (AUTO) 0.1 10^3/uL (0.0-0.1); BASOPHILS % (AUTO) 0.8 %; EOSINOPHILS # (AUTO) 0.3 10^3/uL (0.0-0.7); EOSINOPHILS % (AUTO) 2.5 %; HCT - HEMATOCRIT 27.7 % (42.0-52.0); HGB - HEMOGLOBIN 8.9 g/dL (14.0-18.0); LYMPHOCYTES # (AUTO) 2.5 10^3/uL (1.5-3.5); LYMPHOCYTES % (AUTO) 23.6 %; MEAN CORPUSCULAR HEMOGLOBIN 35.6 pg (27.0-31.0); MEAN CORPUSCULAR HGB CONC 32.1 g/dL (32.0-36.0); MEAN CORPUSCULAR VOLUME 110.8 fL (80.0-94.0); MEAN PLATELET VOLUME 10.4 fL (7.4-11.4); MONOCYTES # (AUTO) 0.7 10^3/uL (0.0-1.0); MONOCYTES % (AUTO) 6.2 %; NEUTROPHILS # (AUTO) 6.9 10^3/uL (1.5-6.6); NEUTROPHILS % (AUTO) 66.3 %; PLT - PLATELET COUNT 334 10^3/uL (130-450); RED CELL DISTRIBUTION WIDTH 21.2 % (12.0-15.0); WHITE BLOOD COUNT 10.5 x10^3/uL (4.8-10.8)
[2023-07-15 05:12] LABS: PLATELET ESTIMATE, MANUAL NORMAL (130-450,000) (NORMAL)
[2023-07-15 05:17] LABS: CREATININE 2.1 mg/dL (0.6-1.3); POTASSIUM 4.3 mmol/L (3.5-4.5)
[2023-07-15] MEDS: LEVOTHYROXINE 75 MCG TABLET PO SCH (06:04)
[2023-07-15] MEDS: METOPROLOL TARTRATE 50 MG TABLET PO SCH ×2 (08:51→20:28)
[2023-07-15] MEDS: TAMSULOSIN 0.4 MG CAPSULE PO SCH (08:52)
[2023-07-15] MEDS: polyethylene glycoL 3350 17 GM PACKET PO SCH (08:52)
[2023-07-15] MEDS: ASPIRIN EC 81 MG TABLET PO SCH (08:52)
[2023-07-15] MEDS: FINASTERIDE 5 MG TABLET PO SCH (08:52)
[2023-07-15] MEDS: INSULIN LISPRO 300 UNIT/3 ML PEN SUBQ SCH ×4 (08:53→20:29)
[2023-07-15] MEDS: HEPARIN 5,000 UNIT/ML VIAL SUBQ SCH ×2 (08:55→20:30)
[2023-07-15] MEDS: DIGOXIN 500 MCG/2 ML AMP IVP SCH ×2 (09:53→16:51)
--- NOTE | 2023-07-15 12:29 | PHARMACY PROGRESS NOTE ---
- Best Possible Medication History Admit Date and Time: 07/14/23 1558 Processed by: Pharmacy Medication History completed: Yes Patient Interview: Completed Secondary Source(s): Insurance records (pt states he needs help organizing meds at home as there are many meds. States he has an interview for caregiver coming up who will help him with that.) As the person ultimately responsible for medication therapy, providers are able to order a medication from an existing home medication list in [facility] via the "Reconcile Routine" prior to Confirmation of that medication by technology support analyst. Such practice is discouraged except when the physician, in their clinical judgment, deems that a medical need exists for a medication without regard to previous use.
[2023-07-15] MEDS ORDERED: MAGNESIUM SULFATE 2 GRAM 2 GM/50 ML BAG IV ONE (13:58)
--- NOTE | 2023-07-15 19:16 | PROVIDER PROGRESS NOTE ---
Progress Note July 15, 2023 7:15 PM Nutrition services and pharmacy have verified that he is taking his NPH 3 times a day. He tells us that he is going to be interviewing people to help him stay at home. He realizes that he is overwhelmed and is going to need some help. Active Medications Acetaminophen (Acetaminophen 325 Mg Tablet) 650 mg PO Q4HR PRN PRN Reason: Pain 1 to 4, or Fever Hydrocodone Bitart/Acetaminophen (Hydrocod/Acetam 5/325 Mg Tablet) 1 tab PO Q4HR PRN PRN Reason: Pain 5 to 7 Last Admin: 07/14/23 23:41 Dose: 1 tab Aspirin (Aspirin Ec 81 Mg Tablet) 81 mg PO DAILY [facility] Last Admin: 07/15/23 08:52 Dose: 81 mg Digoxin (Digoxin 500 Mcg/2 Ml Amp) 250 mcg IVP Q8H [facility] Stop: 07/16/23 01:01 Last Admin: 07/15/23 16:51 Dose: 250 mcg Finasteride (Finasteride 5 Mg Tablet) 5 mg PO DAILY [facility] Last Admin: 07/15/23 08:52 Dose: 5 mg Heparin Sodium (Porcine) (Heparin 5,000 Unit/Ml Vial) 5,000 unit SUBQ BID [facility] Last Admin: 07/15/23 08:55 Dose: 5,000 unit Insulin Human Lispro (Insulin Lispro 300 Unit/3 Ml Pen) 1 - 5 unit SUBQ 0800,1200,1700,2100 [facility]; Protocol Last Admin: 07/15/23 16:51 Dose: 2 unit Levothyroxine Sodium (Levothyroxine 75 Mcg Tablet) 150 mcg PO QDAC [facility] Last Admin: 07/15/23 06:04 Dose: 150 mcg Metoprolol Tartrate (Metoprolol Tartrate 50 Mg Tablet) 50 mg PO BID [facility] Last Admin: 07/15/23 08:51 Dose: 50 mg Metoprolol Tartrate (Metoprolol 5 Mg/5 Ml Vial) 5 mg IVP Q6H PRN PRN Reason: Tachycardia Ondansetron HCl (Ondansetron Odt 4 Mg Tablet) 4 mg TL Q6HR PRN PRN Reason: Nausea / Vomiting Ondansetron HCl (Ondansetron 4 Mg/2 Ml Vial) 4 mg IVP Q6HR PRN PRN Reason: Nausea / Vomiting Polyethylene Glycol (Polyethylene Glycol 3350 17 Gm Packet) 17 gm PO DAILY [facility] Last Admin: 07/15/23 08:52 Dose: 17 gm Pravastatin Sodium (Pravastatin 10 Mg Tablet) 10 mg PO QPM [facility] Last Admin: 07/14/23 21:11 Dose: 10 mg Sodium Chloride (Sodium Chloride Flush 0.9% 10 Ml Syringe) 10 ml IVP PRN PRN PRN Reason: NEEDED PER PROVIDER ORDERS Sodium Chloride (Sodium Chloride Flush 0.9% 10 Ml Syringe) 10 ml IVP 0100,0900,1700 [facility] Last Admin: 07/15/23 16:52 Dose: 10 ml Tamsulosin HCl (Tamsulosin 0.4 Mg Capsule) 0.8 mg PO DAILY [facility] Last Admin: 07/15/23 08:52 Dose: 0.8 mg Home Meds: Aspirin [Aspir 81] 81 mg PO DAILY 08/13/15 Multivitamin [Multivitamins] 1 cap PO DAILY 08/13/15 Simvastatin 5 mg PO HS 08/13/15 metFORMIN [Glucophage] 500 mg PO BID 08/13/15 Insulin NPH Human Isophane [Humulin N Kwikpen] 20 units SQ TID 07/20/17 Tamsulosin [Flomax] 2 cap PO DAILY 03/07/19 Levothyroxine Sodium [Synthroid] 175 mcg PO DAILY 01/24/21 Losartan [Cozaar] 100 mg PO DAILY 05/02/22 amLODIPine [Norvasc] 5 mg PO DAILY 05/02/22 Blood-Glucose Meter [Accu-Chek Mckenzie Plus] 1 each MC QID 07/15/23 Insulin Regular Human [Humulin R] 20 unit SUBQ . SEE INSTRUCTIONS 07/15/23 Torsemide 10 mg PO DAILY 07/15/23 tiZANidine [Zanaflex] 2 - 4 mg PO Q8H PRN 07/15/23 Exam: Temp 36.4. Heart rate 110. He has been tachycardic and irregular all day. No higher than 115. Blood pressure 112/68. Respirations 18. 97% on room air. Fully awake and alert elderly gentleman with severe deafness. My voice is hoarse after a very prolonged loud conversation. His hearing aids are at home. Neck is supple Slight crackles at the bases but no increased respiratory effort with talking to me An irregular irregular tachycardic rhythm. Abdomen is soft, nontender Extremities have trace edema but full range of motion. Alert and oriented to person, place, situation but deafness is a barrier to communication without his hearing aids Lab sodium 135, BUN 19, creatinine 2.1. Baseline creatinine, at its lowest is 1.6 and that was in January. He was admitted at 2.3 and he is 2.1 today. Glucose today was 146 before breakfast, 199 before lunch, and with 209 before dinner A1c is 10.6% White cell count is normal at 10.5. Hemoglobin is 8.9. He has had chronic anemia as far back as our EMR goes. Hematocrit 27.7. Platelet count 334. Echocardiogram was done today because of the A-fib. He has mild concentric left ventricular hypertrophy with an ejection fraction that is less than 20% and he has global hypokinesis that is quite severe. Right ventricular function is also severely impaired. He has severe bilateral atrial enlargement. No aortic stenosis. Mild to moderate secondary mitral regurg. Mild tricuspid regurg. RVSP 30 mmHg. Aortic root is mildly dilated. A mass or thrombus cannot be excluded due to suboptimal image. Conclusion/Plan - Problem List (1) Atrial flutter with rapid ventricular response/Severe biventricular systolic CHF Conclusion/Plan: This appears to be a new diagnosis for the patient. Heart rate was initially in the 115's and he did improved to 70s after receiving the dose of diltiazem but heart rate began to increase again. He appears asymptomatic with this and denies any chest pain, dyspnea. Chest x-ray was personally reviewed and no evidence of pulmonary edema. He does have lower extremity edema but this is ch ronic for him and it does not appear that he has congestive heart failure due to the atrial flutter. EKG was reviewed and no evidence of ischemia.Echo shows that he has severe, severe bilateral ventricular congestive heart failure. He has been started on metoprolol 50 mg twice daily on 07/14 and consider further doses of IV Lopressor if needed. His rate is still a bit high today. So I will increase to 75 mg po bid. Continue to monitor on telemetry Optimize electrolytes including potassium and magnesium Add low-dose lisinopril next if his blood pressure tolerates. I will not add a diuretic for right now and may add that in the next day or 2 depending on his blood pressure and pulse. He is currently on aspirin and will need to consider anticoagulation His deafness is a barrier to discussion. But I need to sit down and discussed with him that he has a very poor prognosis. I also need to ask him if he wants us to refer him to cardiology. (2) Hypoglycemia Conclusion/Plan: He was hypoglycemic with blood glucose in the 50s upon EMS arrival. This is likely due to inappropriate use of his insulin as he took his Humulin and lispro. Blood glucose has improved to the 100s here. There is concern for medication compliance at home.A1c is elevated at 10%. He used to be 6% according to nutrition services when we discussed about care conference today. I will continue to hold his home Humulin at this time and place him just on sliding scale. I will also continue carb controlled diet. (3) Hypothyroidism Conclusion/Plan: He admits not taking his medications at home and this is evident by his TSH being 96.38 and free T4 last 0.25. There does not appear to be clinical evidence of myxedema coma. He is not hypothermic and is not altered. His lower extremity edema is chronic. 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 Hemoglobin today is close to his baseline. We will continue to monitor with daily CBC (5) Benign prostate hyperplasia Conclusion/Plan: We will continue home Flomax and finasteride. Qualifiers: Lower urinary tract symptom presence: symptoms present Lower urinary tract symptom detail: urinary frequency Qualified Code(s): N40.1 - Benign prostatic hyperplasia with lower urinary tract symptoms; R35.0 - Frequency of micturition (6) Chronic kidney disease, stage 3 Conclusion/Plan: He has CKD stage III and his baseline creatinine is around 2.0. Today it is 2.2. His CKD is likely due to underlying diabetes mellitus. And now with the echocardiogram, probable component of prerenal azotemia due to low cardiac output that is quite diminished. Monitor renal function and urine output. He is already been started on a beta-deb, and I will be Resuming his ARB inhibitor. I will monitor his kidney function closely. I will not add the diuretic to last. Qualifiers: Chronic kidney disease stage 3 subtype: unspecified whether 3a or 3b Qualified Code(s): N18.30 - Chronic kidney disease, stage 3 unspecified (7) Hypertension Conclusion/Plan: He is currently normotensive and he has not been taking any of his home medications. We will continue to hold his home losartan and triamterene/hyd rochlorothiazide. We have started him on metoprolol given the atrial flutter. We will hold his home amlodipine given the lower extremity edema. We will resume his other antihypertensives as needed. Qualifiers: Hypertension type: essential hypertension Qualified Code(s): I10 - Essential (primary) hypertension (8) Myelodysplastic syndrome Conclusion/Plan: He is followed by hematology/oncology and will continue to do so on discharge. (9) Noncompliance w/medication treatment due to intermit use of medication Conclusion/Plan: He has been noncompliant with his medications except for insulin this is evident by the degree of his hypothyroidism. Patient has been looking into getting assistance at home and has interview with caregiver coming up. Social work is aware and has evaluated him today. Especially in light of his low ejection fraction, he may be candidate for hospice depending on what he decides for the future.. Patient was counseled on the importance of medication compliance. He would likely benefit from home health RN and a pillbox. (10) Lumbosacral radiculopathy Conclusion/Plan: He has had imaging including x-rays and MRI which showed severe stenosis. We will continue with hydrocodone as needed for pain control and can consider Flexeril as needed. Continue outpatient follow-up with PCP and spine.
[2023-07-15] MEDS: PRAVASTATIN 10 MG TABLET PO SCH (20:29)
[2023-07-16] MEDS: DIGOXIN 500 MCG/2 ML AMP IVP SCH (00:46)
[2023-07-16] MEDS: SODIUM CHLORIDE FLUSH 0.9% 10 ML SYRINGE IVP SCH ×3 (00:47→18:44)
[2023-07-16 05:25] LABS: BASOPHILS # (AUTO) 0.1 10^3/uL (0.0-0.1); BASOPHILS % (AUTO) 1.2 %; EOSINOPHILS # (AUTO) 0.3 10^3/uL (0.0-0.7); EOSINOPHILS % (AUTO) 3.1 %; HCT - HEMATOCRIT 28.2 % (42.0-52.0); LYMPHOCYTES # (AUTO) 2.2 10^3/uL (1.5-3.5); LYMPHOCYTES % (AUTO) 25.2 %; MEAN CORPUSCULAR HEMOGLOBIN 35.7 pg (27.0-31.0); MEAN CORPUSCULAR HGB CONC 31.9 g/dL (32.0-36.0); MEAN CORPUSCULAR VOLUME 111.9 fL (80.0-94.0); MEAN PLATELET VOLUME 10.5 fL (7.4-11.4); MONOCYTES # (AUTO) 0.7 10^3/uL (0.0-1.0); MONOCYTES % (AUTO) 7.7 %; NEUTROPHILS # (AUTO) 5.5 10^3/uL (1.5-6.6); NEUTROPHILS % (AUTO) 62.5 %; PLT - PLATELET COUNT 301 10^3/uL (130-450); RED BLOOD COUNT 2.52 10^6/uL (4.70-6.10); RED CELL DISTRIBUTION WIDTH 21.3 % (12.0-15.0); WHITE BLOOD COUNT 8.9 x10^3/uL (4.8-10.8)
[2023-07-16 05:31] LABS: SLIDE REVIEW? Indicated
[2023-07-16 05:32] LABS: INR 1.2 (0.8-1.2); PT - PROTHROMBIN TIME 12.6 secs (9.9-12.6)
[2023-07-16 05:44] LABS: CALCIUM 8.7 mg/dL (8.5-10.3); CREATININE 2.3 mg/dL (0.6-1.3); POTASSIUM 4.4 mmol/L (3.5-4.5)
[2023-07-16 05:54] LABS: PLATELET ESTIMATE, MANUAL NORMAL (130-450,000) (NORMAL)
[2023-07-16] MEDS: LEVOTHYROXINE 75 MCG TABLET PO SCH (06:22)
[2023-07-16] MEDS: INSULIN LISPRO 300 UNIT/3 ML PEN SUBQ SCH ×5 (07:52→21:24)
[2023-07-16] MEDS: TAMSULOSIN 0.4 MG CAPSULE PO SCH (07:54)
[2023-07-16] MEDS: ASPIRIN EC 81 MG TABLET PO SCH (07:55)
[2023-07-16] MEDS: polyethylene glycoL 3350 17 GM PACKET PO SCH (07:56)
[2023-07-16] MEDS: METOPROLOL TARTRATE 50 MG TABLET PO SCH ×2 (07:56→20:45)
[2023-07-16] MEDS: FINASTERIDE 5 MG TABLET PO SCH (07:57)
[2023-07-16] MEDS: INSULIN GLARGINE-YFGN 300 UNIT/3 ML PEN SUBQ SCH (08:01)
[2023-07-16] MEDS: HEPARIN 5,000 UNIT/ML VIAL SUBQ SCH ×2 (08:07→20:44)
[2023-07-16] MEDS: ACETAMINOPHEN 325 MG TABLET PO PRN (11:54)
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
--- NOTE | 2023-07-16 17:46 | PROVIDER PROGRESS NOTE ---
Subjective - Prog Note Date Prog Note Date: 07/16/23 Prog Note Time: 17:43 - Subjective Subjective: He is fatigued. Short of breath. And overall feels a little bit better than when he first came in. He is reassured that his sugars no longer hypoglycemic. I shared with him our findings of the echocardiogram. He had an echo in January 2021 which was essentially normal. That was done for an NSTEMI. He then had an echo yesterday and he has severe global hypokinesis with an ejection fraction of 20 to 25%. Right ventricular size is normal with systolic function reduced. Mild to moderate secondary mitral regurg and mild tricuspid regurg with RVSP at rest 30 mmHg. Current Medications - Current Medications Current Medications: Active Medications Acetaminophen (Acetaminophen 325 Mg Tablet) 650 mg PO Q4HR PRN PRN Reason: Pain 1 to 4, or Fever Last Admin: 07/16/23 11:54 Dose: 650 mg Hydrocodone Bitart/Acetaminophen (Hydrocod/Acetam 5/325 Mg Tablet) 1 tab PO Q4HR PRN PRN Reason: Pain 5 to 7 Last Admin: 07/14/23 23:41 Dose: 1 tab Aspirin (Aspirin Ec 81 Mg Tablet) 81 mg PO DAILY [facility] Last Admin: 07/16/23 07:55 Dose: 81 mg Finasteride (Finasteride 5 Mg Tablet) 5 mg PO DAILY [facility] Last Admin: 07/16/23 07:57 Dose: 5 mg Heparin Sodium (Porcine) (Heparin 5,000 Unit/Ml Vial) 5,000 unit SUBQ BID [facility] Last Admin: 07/16/23 08:07 Dose: 5,000 unit Insulin Glargine-yfgn (Insulin Glargine-Yfgn 300 Unit/3 Ml Pen) 10 unit SUBQ DAILY [facility] Last Admin: 07/16/23 08:01 Dose: 10 unit Insulin Human Lispro (Insulin Lispro 300 Unit/3 Ml Pen) 1 - 5 unit SUBQ 0800,1200,1700,2100 [facility]; Protocol Last Admin: 07/16/23 17:01 Dose: Not Given Insulin Human Lispro (Insulin Lispro 300 Unit/3 Ml Pen) 1 - 9 unit SUBQ 0800,1200,1700,2100 [facility]; Protocol Last Admin: 07/16/23 17:00 Dose: 3 unit Levothyroxine Sodium (Levothyroxine 75 Mcg Tablet) 150 mcg PO QDAC [facility] Last Admin: 07/16/23 06:22 Dose: 150 mcg Metoprolol Tartrate (Metoprolol 5 Mg/5 Ml Vial) 5 mg IVP Q6H PRN PRN Reason: Tachycardia Metoprolol Tartrate (Metoprolol Tartrate 50 Mg Tablet) 75 mg PO BID [facility] Last Admin: 07/16/23 07:56 Dose: Not Given Ondansetron HCl (Ondansetron Odt 4 Mg Tablet) 4 mg TL Q6HR PRN PRN Reason: Nausea / Vomiting Ondansetron HCl (Ondansetron 4 Mg/2 Ml Vial) 4 mg IVP Q6HR PRN PRN Reason: Nausea / Vomiting Polyethylene Glycol (Polyethylene Glycol 3350 17 Gm Packet) 17 gm PO DAILY [facility] Last Admin: 07/16/23 07:56 Dose: 17 gm Pravastatin Sodium (Pravastatin 10 Mg Tablet) 10 mg PO QPM [facility] Last Admin: 07/15/23 20:29 Dose: 10 mg Sodium Chloride (Sodium Chloride Flush 0.9% 10 Ml Syringe) 10 ml IVP PRN PRN PRN Reason: NEEDED PER PROVIDER ORDERS Sodium Chloride (Sodium Chloride Flush 0.9% 10 Ml Syringe) 10 ml IVP 0100,0900, 1700 [facility] Last Admin: 07/16/23 08:02 Dose: 10 ml Tamsulosin HCl (Tamsulosin 0.4 Mg Capsule) 0.8 mg PO DAILY [facility] Last Admin: 07/16/23 07:54 Dose: 0.8 mg Aspirin [Aspir 81] 81 mg PO DAILY 08/13/15 Multivitamin [Multivitamins] 1 cap PO DAILY 08/13/15 Simvastatin 5 mg PO HS 08/13/15 metFORMIN [Glucophage] 500 mg PO BID 08/13/15 Insulin NPH Human Isophane [Humulin N Kwikpen] 20 units SQ TID 07/20/17 Tamsulosin [Flomax] 2 cap PO DAILY 03/07/19 Levothyroxine Sodium [Synthroid] 175 mcg PO DAILY 01/24/21 Losartan [Cozaar] 100 mg PO DAILY 05/02/22 amLODIPine [Norvasc] 5 mg PO DAILY 05/02/22 Blood-Glucose Meter [Accu-Chek Mckenzie Plus] 1 each QID 07/15/23 Insulin Regular Human [Humulin R] 20 unit SUBQ . SEE INSTRUCTIONS 07/15/23 Torsemide 10 mg PO DAILY 07/15/23 tiZANidine [Zanaflex] 2 - 4 mg PO Q8H PRN 07/15/23 Objective - Vital Signs/Intake & Output Reviewed Vital Signs: Yes Vital Signs: Vital Signs x48h Temp Pulse Resp BP Pulse Ox 07/16/23 16:14 36.1 C L 114 H 16 123/70 96 07/16/23 11:08 36.3 C L 60 18 126/74 97 Intake & Output: Intake & Output 07/13/23 07/14/23 07/15/23 07/16/23 23:59 23:59 23:59 23:59 Intake Total 1620 1290 600 Output Total 300 700 700 Balance 1320 590 -100 - Objective General Appearance: positive: Alert, Mild distress (Very fatigued. The effort of sitting up to speak to me makes him slightly tachypneic and he recovers within about a minute.), Other (Bearded, gravelly voice elderly gentleman who looks very fatigued) Eyes Bilateral: positive: PERRL, EOMI ENT: positive: No signs of dehydration Neck: positive: No JVD Respiratory: positive: Rales, Rhonchi. negative: Wheezes Cardiovascular: positive: Irregularly irregular, Systolic murmur Abdomen: positive: Non-tender, No organomegaly, Nml bowel sounds, No distention Skin: positive: Warm, Dry Extremities: positive: Full ROM, Pedal edema (Minimal around the ankles) Neurologic/Psychiatric: positive: Oriented x3, CN's nml (2-12) (Except for profound deafness), Motor nml (Except for severe generalized weakness, and easy, easy fatigability/shortness of breath with minimal exertion from supine to sitting, sitting to standing) - Lab Results Fish Bones: 07/16/23 05:04 07/16/23 05:04 Other Labs: Lab Results x24hrs 07/16/23 07/16/23 07/16/23 Range/Units 16:27 11:10 07:31 WBC (4.8-10.8) x10^3/uL RBC (4.70-6.10) 10^6/uL Hgb (14.0-18.0) g/dL Hct (42.0-52.0) % MCV (80.0-94.0) fL MCH (27.0-31.0) pg MCHC (32.0-36.0) g/dL RDW (12.0-15.0) % Plt Count (130-450) 10^3/uL MPV (7.4-11.4) fL Neut # (Auto) (1.5-6.6) 10^3/uL Lymph # (Auto) (1.5-3.5) 10^3/uL [place] # (Auto) (0.0-1.0) 10^3/uL Eos # (Auto) (0.0-0.7) 10^3/uL Baso # (Auto) (0.0-0.1) 10^3/uL Absolute Nucleated RBC x10^3/uL Nucleated RBC % /100WBC Manual Slide Review Platelet Estimate (NORMAL) RBC Morph Micro Appear (NORMAL) PT (9.9-12.6) secs INR (0.8-1.2) Sodium (135-145) mmol/L Potassium (3.5-4.5) mmol/L Chloride (101-111) mmol/L Carbon Dioxide (21-32) mmol/L Anion Gap (6-13) BUN (6-20) mg/dL Creatinine (0.6-1.3) mg/dL Estimated GFR (MDRD) (>89) Glucose (74-104) mg/dL POC Whole Bld Glucose 193 H 224 H 174 H (70 - 100) mg/dL Calcium (8.5-10.3) mg/dL 07/16/23 07/16/23 07/16/23 Range/Units 05:04 05:04 05:04 WBC 8.9 (4.8-10.8) x10^3/uL RBC 2.52 L (4.70-6.10) 10^6/uL Hgb 9.0 L (14.0-18.0) g/dL Hct 28.2 L (42.0-52.0) % MCV 111.9 H (80.0-94.0) fL MCH 35.7 H (27.0-31.0) pg MCHC 31.9 L (32.0-36.0) g/dL RDW 21.3 H (12.0-15.0) % Plt Count 301 (130-450) 10^3/uL MPV 10.5 (7.4-11.4) fL Neut # (Auto) 5.5 (1.5-6.6) 10^3/uL Lymph # (Auto) 2.2 (1.5-3.5) 10^3/uL [place] # (Auto) 0.7 (0.0-1.0) 10^3/uL Eos # (Auto) 0.3 (0.0-0.7) 10^3/uL Baso # (Auto) 0.1 (0.0-0.1) 10^3/uL Absolute Nucleated RBC 0.00 x10^3/uL Nucleated RBC % 0.0 /100WBC Manual Slide Review Indicated Platelet Estimate NORMAL (130-450,000) (NORMAL) RBC Morph Micro Appear 2+ MACROCYTOSIS (NORMAL) PT 12.6 (9.9-12.6) secs INR 1.2 (0.8-1.2) Sodium 136 (135-145) mmol/L Potassium 4.4 (3.5-4.5) mmol/L Chloride 105 (101-111) mmol/L Carbon Dioxide 24 (21-32) mmol/L Anion Gap 7.0 (6-13) BUN 20 (6-20) mg/dL Creatinine 2.3 H (0.6-1.3) mg/dL Estimated GFR (MDRD) 27 L (>89) Glucose 180 H (74-104) mg/dL POC Whole Bld Glucose (70 - 100) mg/dL Calcium 8.7 (8.5-10.3) mg/dL 07/15/23 Range/Units 20:16 WBC (4.8-10.8) x10^3/uL RBC (4.70-6.10) 10^6/uL Hgb (14.0-18.0) g/dL Hct (42.0-52.0) % MCV (80.0-94.0) fL MCH (27.0-31.0) pg MCHC (32.0-36.0) g/dL RDW (12.0-15.0) % Plt Count (130-450) 10^3/uL MPV (7.4-11.4) fL Neut # (Auto) (1.5-6.6) 10^3/uL Lymph # (Auto) (1.5-3.5) 10^3/uL [place] # (Auto) (0.0-1.0) 10^3/uL Eos # (Auto) (0.0-0.7) 10^3/uL Baso # (Auto) (0.0-0.1) 10^3/uL Absolute Nucleated RBC x10^3/uL Nucleated RBC % /100WBC Manual Slide Review Platelet Estimate (NORMAL) RBC Morph Micro Appear (NORMAL) PT (9.9-12.6) secs INR (0.8-1.2) Sodium (135-145) mmol/L Potassium (3.5-4.5) mmol/L Chloride (101-111) mmol/L Carbon Dioxide (21-32) mmol/L Anion Gap (6-13) BUN (6-20) mg/dL Creatinine (0.6-1.3) mg/dL Estimated GFR (MDRD) (>89) Glucose (74-104) mg/dL POC Whole Bld Glucose 230 H (70 - 100) mg/dL Calcium (8.5-10.3) mg/dL Assessment/Plan - Problem List (1) Severe systolic congestive heart failure Impression: This is a new diagnosis for him. It was not present in a 2020 echocardiogram where he was evaluated for an NSTEMI. He was not seen by cardiology after 2020. The patient states he did not see any point. He may have gone on to have ischemic cardiomyopathy. Because of his new onset atrial fibrillation, we ordered an echocardiogram. But both ventricles are involved. It is global hypokinesis. He may have cardiomyopathy from thyroid disease. In any case his ejection fraction is less than 20%. Marked rate of deterioration noted in the last few months for him. From a functional perspective. Prognosis is poor ov rj. So far all has been able to tolerate is rate reduction of his heart rate. I have not started diuretics nor have I started an DIDI inhibitor or ARB. Advance care planning conversation held. Patient wants to make sure he is DNR. He would like to be considered for transition to hospice. He would like to talk to them first to decide if it is appropriate for him. He is also going to meet with [facility] tomorrow and start the process of evaluating whether or not he can get caregivers. He would like to go home tomorrow morning. I have explained to him that he is not maximally managed yet but he states that he feels like he is close to the end and would rather go home than try and stay here. (2) Atrial flutter with rapid ventricular response Conclusion/Plan: This appears to be a new diagnosis for the patient. Heart rate was initially in the 115's and he did improved to 70s after receiving the dose of diltiazem but heart rate began to increase again. He appears asymptomatic with this and denies any chest pain, dyspnea. Chest x-ray was personally reviewed and no evidence of pulmonary edema. He does have lower extremity edema but this is c hronic for him and it does not appear that he has congestive heart failure due to the atrial flutter. EKG was reviewed and no evidence of ischemia. SoIn order to slow down his heart rate I did give him digoxin yesterday for only 3 doses. I have also increased him his metoprolol to 75 p.o. twice daily. His rate is responded and he is dropped below 100. I do not think he is a candidate for anticoagulation for because of his poor prognosis, risk for falls, and myelodysplastic syndrome. (3) Hypoglycemia resolved. Conclusion/Plan: The hypoglycemia is from multiple factors. He has not been eating regularly. He fired his Me[employer] Wheels people because he did not like the food. He was noncompliant with how he was checking his sugars and taking his insulin. Here, we have started feeding him. We are closely monitoring his sugars. His sugars are coming up because of his carb controlled diet. Plan: Start Lantus 10 units this morning. Continue sliding scale insulin. He is going to need some glucose control at home but I hesitate to trust this gentleman to do with best for himself because he needs so much help. I am going to recommend that he uses the NPH only in the morning. And avoid short acting insulin if he is not going to check his sugars. (3) Hypothyroidism Conclusion/Plan: He admits not taking his medications at home and this is evident by his TSH being 96.38 and free T4 last 0.25. There does not appear to be clinical evidence of myxedema coma. He is not hypothermic and is not altered. His lower extremity edema is chronic. His initial Synthroid was recorded at 150 mcg. But the patient takes 175 mcg at home. Pharmacy has reconciled his med list. Increase Synthroid to 175 mcg daily. Recheck in 4 to 6 weeks. Qualifiers: Hypothyroidism type: unspecified Qualified Code(s): E03.9 - Hypothyroidism, unspecified (4) Anemia assoc with myelodysplastic syndrome treated with erythropoietin Conclusion/Plan: He has chronic anemia secondary to myelodysplastic syndrome is treated by h ematology/oncology and receives Procrit. Hemoglobin today is 8.9 which is close to his baseline. We will continue to monitor with daily CBC (5) Benign prostate hyperplasia Conclusion/Plan: We will continue home Flomax and finasteride. Qualifiers: Lower urinary tract symptom presence: symptoms present Lower urinary tract symptom detail: urinary frequency Qualified Code(s): N40.1 - Benign prostatic hyperplasia with lower urinary tract symptoms; R35.0 - Frequency of micturition (6) Chronic kidney disease, stage 3 Conclusion/Plan: He has CKD stage III and his baseline creatinine is around 2.0. Today it is 2.3 after being 2.2 yesterday. His CKD is likely due to underlying diabetes mellitus, Prerenal azotemia from reduced ejection fraction, and poor p.o. intake. Monitor renal function and urine output. Although he needs to be started on an ARB and a diuretic. I do not think he is going to tolerate this from a blood pressure perspective and have been holding off. Qualifiers: Chronic kidney disease stage 3 subtype: unspecified whether 3a or 3b Qualified Code(s): N18.30 - Chronic kidney disease, stage 3 unspecified (7) Hypertension Conclusion/Plan: When he first came in his blood pressure was 98/66. The highest has been is 123/75. He has been on a beta-deb and so far his blood pressure is tolerated the rate lowering and systolic today has been in the 120s. At home he was on amlodipine, losartan, triamterene hydrochlorothiazide. Plan: Start low-dose losartan 25 mg and see how he tolerates it Try and add a diuretic in the next week or 2. Qualifiers: Hypertension type: essential hypertension Qualified Code(s): I10 - Essential (primary) hypertension (8) Myelodysplastic syndrome Conclusion/Plan: He is followed by hematology/oncology and will continue to do so on discharge. (9) Noncompliance w/medication treatment due to intermit use of medication Conclusion/Plan: He has been noncompliant with his medications except for insulin this is evident by the degree of his hypothyroidism. Patient has been looking into getting assistance at home and has interview with caregiver coming up. sheep farm worker is working with this gentleman. As we try and identify opportunities that would keep him stable at home. I have ordered hospice and they will evaluate him next week. [facility] will meet with him tomorrow. I am hoping that he will be able to get help at home. He is adamant he wants to get home. (10) Lumbosacral radiculopathy Conclusion/Plan: He has had imaging including x-rays and MRI which showed severe stenosis. We w ill continue with hydrocodone as needed for pain control and can consider Flexeril as needed. Continue outpatient follow-up with PCP and spine.
[2023-07-16] MEDS: LOSARTAN 50 MG TABLET PO SCH (18:43)
[2023-07-16] MEDS: HYDROcod/ACETAM 5/325 MG TABLET PO PRN (20:44)
[2023-07-16] MEDS: PRAVASTATIN 10 MG TABLET PO SCH (20:45)
[2023-07-17 05:30] LABS: BASOPHILS # (AUTO) 0.1 10^3/uL (0.0-0.1); BASOPHILS % (AUTO) 1.2 %; EOSINOPHILS # (AUTO) 0.2 10^3/uL (0.0-0.7); EOSINOPHILS % (AUTO) 2.8 %; HCT - HEMATOCRIT 28.8 % (42.0-52.0); HGB - HEMOGLOBIN 9.2 g/dL (14.0-18.0); LYMPHOCYTES # (AUTO) 2.2 10^3/uL (1.5-3.5); LYMPHOCYTES % (AUTO) 29.9 %; MEAN CORPUSCULAR HEMOGLOBIN 35.2 pg (27.0-31.0); MEAN CORPUSCULAR HGB CONC 31.9 g/dL (32.0-36.0); MEAN CORPUSCULAR VOLUME 110.3 fL (80.0-94.0); MEAN PLATELET VOLUME 10.7 fL (7.4-11.4); MONOCYTES # (AUTO) 0.6 10^3/uL (0.0-1.0); MONOCYTES % (AUTO) 7.6 %; NEUTROPHILS # (AUTO) 4.4 10^3/uL (1.5-6.6); NEUTROPHILS % (AUTO) 58.2 %; PLT - PLATELET COUNT 300 10^3/uL (130-450); RED BLOOD COUNT 2.61 10^6/uL (4.70-6.10); RED CELL DISTRIBUTION WIDTH 20.9 % (12.0-15.0); WHITE BLOOD COUNT 7.5 x10^3/uL (4.8-10.8)
[2023-07-17 05:37] LABS: SLIDE REVIEW? Indicated
[2023-07-17 05:41] LABS: CALCIUM 8.8 mg/dL (8.5-10.3); CREATININE 2.1 mg/dL (0.6-1.3); POTASSIUM 4.3 mmol/L (3.5-4.5)
[2023-07-17 05:57] LABS: PLATELET ESTIMATE, MANUAL NORMAL (130-450,000) (NORMAL)
[2023-07-17] MEDS: SODIUM CHLORIDE FLUSH 0.9% 10 ML SYRINGE IVP SCH ×3 (06:10→17:24)
[2023-07-17] MEDS: LEVOTHYROXINE 75 MCG TABLET PO SCH (06:10)
[2023-07-17] MEDS: LOSARTAN 50 MG TABLET PO SCH (07:58)
[2023-07-17] MEDS: ASPIRIN EC 81 MG TABLET PO SCH (07:59)
[2023-07-17] MEDS: TAMSULOSIN 0.4 MG CAPSULE PO SCH (08:00)
[2023-07-17] MEDS: METOPROLOL TARTRATE 50 MG TABLET PO SCH ×2 (08:00→20:24)
[2023-07-17] MEDS: polyethylene glycoL 3350 17 GM PACKET PO SCH (08:01)
[2023-07-17] MEDS: INSULIN LISPRO 300 UNIT/3 ML PEN SUBQ SCH ×4 (08:02→20:26)
[2023-07-17] MEDS: INSULIN GLARGINE-YFGN 300 UNIT/3 ML PEN SUBQ SCH (08:02)
[2023-07-17] MEDS: HEPARIN 5,000 UNIT/ML VIAL SUBQ SCH ×2 (08:06→20:25)
--- NOTE | 2023-07-17 15:23 | PROVIDER PROGRESS NOTE ---
Assessment/Plan - Problem List (1) Severe systolic congestive heart failure Assessment/Plan: This is a new diagnosis for him. It was not present in a 2020 echocardiogram where he was evaluated for an NSTEMI. He was not seen by cardiology after 2020. The patient states he did not see any point. He may have gone on to have ischemic cardiomyopathy. Because of his new onset atrial fibrillation, we ordere d an echocardiogram. But both ventricles are involved. It is global hypokinesis. He may have cardiomyopathy from thyroid disease. In any case his ejection fraction is less than 20%. Marked rate of deterioration noted in the last few months for him. From a functional perspective. Prognosis is poor overall. So far all has been able to tolerate is rate reduction of his heart rate. Started on and tolerating losartan 25 mg. Advance care planning conversation held. Patient wants to make sure he is DNR. He would like to be considered for transition to hospice. Plan is for hospice [facility]. Has met with [facility] for caregiver support, which is now expected to be set up within 7 days. (2) Atrial flutter with rapid ventricular response Assessment/Plan: This appears to be a new diagnosis for the patient. Heart rate was initially in the 115's and he did improved to 70s after receiving the dose of diltiazem but heart rate began to increase again. He appears asymptomatic with this and denies any chest pain, dyspnea. Chest x-ray was personally reviewed and no evidence of pulmonary edema. He does have lower extremity edema but this is chr onic for him and it does not appear that he has congestive heart failure due to the atrial flutter. EKG was reviewed and no evidence of ischemia. Will cont metoprolol to 75 p.o. twice daily. His rate is responded and he is dropped below 100. Is not a good candidate for anticoagulation because of his poor prognosis, risk for falls, and myelodysplastic syndrome. (3) Hypoglycemia Assessment/Plan: Resolved (4) Hypothyroidism Qualifiers: Hypothyroidism type: unspecified Qualified Code(s): E03.9 - Hypothyroidism, unspecified Assessment/Plan: He admits not taking his medications at home and this is evident by his TSH being 96.38 and free T4 last 0.25. Have increased Synthroid to 175 mcg daily from 150 mcg q/d. Recheck TSH in 4 to 6 weeks. (5) Chronic kidney disease, stage 3 Qualifiers: Chronic kidney disease stage 3 subtype: unspecified whether 3a or 3b Qualified Code(s): N18.30 - Chronic kidney disease, stage 3 unspecified Assessment/Plan: He has CKD stage III likely due to underlying diabetes mellitus, Prerenal azotemia from reduced ejection fraction, and poor p.o. intakeand his baseline creatinine is around 2.0. Today it is 2.1 after being 2.3 yesterday. Monitor renal function and urine output. (6) Hypertension Qualifiers: Hypertension type: essential hypertension Qualified Code(s): I10 - Essential (primary) hypertension Assessment/Plan: On admit, BP was 98/66. The highest has been is 123/75. He has been on a beta- deb and so far his blood pressure is tolerated the rate lowering and systolic today has been in the 120s. Have held home meds: amlodipine, losartan, triamterene hydrochlorothiazide. Plan: Start low-dose losartan 25 mg and see how he tolerates it Try and add a diuretic in the next week or 2. (7) Myelodysplastic syndrome Assessment/Plan: He is followed by hematology/oncology and will continue to do so on discharge. - Current Meds Current Meds: Current Medications Generic Name Dose Route Start Last Admin Trade Name Freq PRN Reason Stop Dose Admin Acetaminophen 650 mg 07/14/23 15:56 07/16/23 11:54 Acetaminophen 325 Mg Tablet PO 650 mg Q4HR PRN Administration Pain 1 to 4, or Fever Hydrocodone Bitart/Acetaminophen 1 tab 07/14/23 15:56 07/16/23 20:44 Hydrocod/Acetam 5/325 Mg Tablet PO 1 tab Q4HR PRN Administration Pain 5 to 7 Aspirin 81 mg 07/15/23 09:00 07/17/23 07:59 Aspirin Ec 81 Mg Tablet PO 81 mg DAILY SAMI Administration Heparin Sodium (Porcine) 5,000 unit 07/14/23 21:00 07/17/23 08:06 Heparin 5,000 Unit/Ml Vial SUBQ 5,000 unit BID SAMI Administration Insulin Glargine-yfgn 10 unit 07/16/23 09:00 07/17/23 08:02 Insulin Glargine-Yfgn 300 Unit/3 Ml Pen SUBQ 10 unit DAILY SAMI Administration Insulin Human Lispro 1 - 9 unit 07/16/23 17:00 07/17/23 11:40 Insulin Lispro 300 Unit/3 Ml Pen SUBQ 5 unit 0800,1200,1700,2100 SAMI Administration Protocol Levothyroxine Sodium 150 mcg 07/15/23 07:00 07/17/23 06:10 Levothyroxine 75 Mcg Tablet PO 150 mcg QDAC SAMI Administration Losartan Potassium 25 mg 07/16/23 17:56 07/17/23 07:58 Losartan 50 Mg Tablet PO 25 mg DAILY SAMI Administration Metoprolol Tartrate 75 mg 07/15/23 21:00 07/17/23 08:00 Metoprolol Tartrate 50 Mg Tablet PO Not Given BID SAMI Polyethylene Glycol 17 gm 07/15/23 09:00 07/17/23 08:01 Polyethylene Glycol 3350 17 Gm Packet PO 17 gm DAILY SAMI Administration Pravastatin Sodium 10 mg 07/14/23 21:00 07/16/23 20:45 Pravastatin 10 Mg Tablet PO 10 mg QPM SAMI Administration Sodium Chloride 10 ml 07/14/23 17:00 07/17/23 08:02 Sodium Chloride Flush 0.9% 10 Ml Syringe IVP 10 ml 0100,0900,1700 SAMI Administration Tamsulosin HCl 0.8 mg 07/15/23 09:00 07/17/23 08:00 Tamsulosin 0.4 Mg Capsule PO 0.8 mg DAILY SAMI Administration - Lab Result Fish Bone Diagrams: 07/17/23 04:45 07/17/23 04:45 - Additional Planning Condition/Complexity: Guarded Subjective - Subjective Patient Reports: Feeling Better Objective Vital Signs: Vital Signs - 24 hr 07/16/23 07/16/23 07/16/23 16:14 18:37 20:06 Temperature 36.1 C L 36.3 C L Heart Rate [ 114 H 92 Brachial] Respiratory 16 16 Rate Blood Pressure Blood Pressure 127/53 L [Left Brachial artery] Blood Pressure 123/70 119/57 L 122/87 H [Right Brachial artery] O2 Saturation 96 96 07/16/23 07/16/23 07/17/23 20:45 23:35 04:54 Temperature 36.4 C L 36.3 C L Heart Rate [ 56 L 56 L Brachial] Respiratory 18 18 Rate Blood Pressure 122/87 H Blood Pressure 90/50 L [Left Brachial artery] Blood Pressure 112/67 [Right Brachial artery] O2 Saturation 98 97 07/17/23 07/17/23 07/17/23 08:00 08:24 12:08 Temperature 36.3 C L 36.2 C L Heart Rate [ 86 117 H Brachial] Respiratory 16 18 Rate Blood Pressure 134/85 H Blood Pressure [Left Brachial artery] Blood Pressure 134/85 H 123/73 [Right Brachial artery] O2 Saturation 96 99 Oxygen O2 Source [With Activity] Room air O2 Source Room air I&O (Last 24 Hrs): Intake and Output Totals x24h 07/15/23 07/16/23 07/17/23 23:59 23:59 23:59 Intake Total 1290 1020 680 Output Total 576 372 4861 Balance 590 320 -595 General: Alert, Oriented x3 HEENT: EOMI Neuro: Alert Cardiovascular: Normal S1, Normal S2, Other (Irregularly Irregular) Respiratory: No respiratory distress, Rhonchi, Other (Upper airway crackles) Abdomen: Normal bowel sounds - Results Results: Laboratory Results WBC 7.5 x10^3/uL (4.8-10.8) 07/17/23 04:45 RBC 2.61 10^6/uL (4.70-6.10) L 07/17/23 04:45 Hgb 9.2 g/dL (14.0-18.0) L 07/17/23 04:45 Hct 28.8 % (42.0-52.0) L 07/17/23 04:45 MCV 110.3 fL (80.0-94.0) H 07/17/23 04:45 MCH 35.2 pg (27.0-31.0) H 07/17/23 04:45 MCHC 31.9 g/dL (32.0-36.0) L 07/17/23 04:45 RDW 20.9 % (12.0-15.0) H 07/17/23 04:45 Plt Count 300 10^3/uL (130-450) 07/17/23 04:45 MPV 10.7 fL (7.4-11.4) 07/17/23 04:45 Neut # (Auto) 4.4 10^3/uL (1.5-6.6) 07/17/23 04:45 Lymph # (Auto) 2.2 10^3/uL (1.5-3.5) 07/17/23 04:45 [place] # (Auto) 0.6 10^3/uL (0.0-1.0) 07/17/23 04:45 Eos # (Auto) 0.2 10^3/uL (0.0-0.7) 07/17/23 04:45 Baso # (Auto) 0.1 10^3/uL (0.0-0.1) 07/17/23 04:45 Absolute Nucleated RBC 0.00 x10^3/uL 07/17/23 04:45 Nucleated RBC % 0.0 /100WBC 07/17/23 04:45 Manual Slide Review Indicated 07/17/23 04:45 Platelet Estimate NORMAL (130-450,000) (NORMAL) 07/17/23 04:45 Platelet Morphology NORMAL APPEARANCE (NORMAL) 07/14/23 10:08 RBC Morph Micro Appear 1+ ANISOCYTOSIS (NORMAL) 2+ MACROCYTOSIS (NORMAL) 1+ OVALOCYTES (NORMAL) 07/17/23 04:45 RBC Morph Micro Appear 1+ ANISOCYTOSIS (NORMAL) 2+ MACROCYTOSIS (NORMAL) 1+ OVALOCYTES (NORMAL) 07/17/23 04:45 RBC Morph Micro Appear 1+ ANISOCYTOSIS (NORMAL) 2+ MACROCYTOSIS (NORMAL) 1+ OVALOCYTES (NORMAL) 07/17/23 04:45 PT 12.6 secs (9.9-12.6) 07/16/23 05:04 INR 1.2 (0.8-1.2) 07/16/23 05:04 VBG pH 7.337 (7.31-7.41) 07/14/23 10:14 VBG pCO2 49.0 mmHg (41-51) 07/14/23 10:14 VBG pO2 22.9 mmHg (25-47) L 07/14/23 10:14 VBG HCO3 25.7 mmol/L (23-28) 07/14/23 10:14 VBG Total CO2 27.2 mmol/L (24-29) 07/14/23 10:14 VBG O2 Saturation 39.4 % (60-80) L 07/14/23 10:14 VBG Base Excess -0.4 mmol/L (-2 - +2) 07/14/23 10:14 Sodium 136 mmol/L (135-145) 07/17/23 04:45 Potassium 4.3 mmol/L (3.5-4.5) 07/17/23 04:45 Chloride 106 mmol/L (101-111) 07/17/23 04:45 Carbon Dioxide 26 mmol/L (21-32) 07/17/23 04:45 Anion Gap 4.0 (6-13) L 07/17/23 04:45 BUN 21 mg/dL (6-20) H 07/17/23 04:45 Creatinine 2.1 mg/dL (0.6-1.3) H 07/17/23 04:45 Estimated GFR (MDRD) 30 (>89) L 07/17/23 04:45 Glucose 167 mg/dL (74-104) H 07/17/23 04:45 POC Whole Bld Glucose 254 mg/dL (70 - 100) H 07/17/23 11:36 Estimat Average Glucose 258 mg/dL (70-100) H 07/14/23 10:05 Hemoglobin A1c % 10.6 % (4.27-6.07) H 07/14/23 10:05 Calcium 8.8 mg/dL (8.5-10.3) 07/17/23 04:45 Magnesium 1.6 mg/dL (1.7-2.3) L 07/14/23 10:08 Total Bilirubin 0.7 mg/dL (0.2-1.0) 07/14/23 10:08 AST 32 IU/L (10-42) 07/14/23 10:08 ALT 39 IU/L (10-60) 07/14/23 10:08 Alkaline Phosphatase 57 IU/L (42-121) 07/14/23 10:08 Total Protein 5.7 g/dL (6.4-8.9) L 07/14/23 10:08 Albumin 3.6 g/dL (3.2-5.5) 07/14/23 10:08 Globulin 2.1 g/dL (2.1-4.2) 07/14/23 10:08 Albumin/Globulin Ratio 1.7 (1.0-2.2) 07/14/23 10:08 Lipase 15 U/L (11-82) 07/14/23 10:08 TSH 96.38 uIU/mL (0.34-5.60) H 07/14/23 10:08 Free T4 Direct < 0.25 ng/dL (0.58-1.64) L 07/14/23 10:08 Urine Color YELLOW 07/14/23 12:15 Urine Clarity CLEAR (CLEAR) 07/14/23 12:15 Urine pH 5.5 PH (5.0-7.5) 07/14/23 12:15 Ur Specific English 1.025 (1.002-1.030) 07/14/23 12:15 Urine Protein 100 mg/dL (NEGATIVE) H 07/14/23 12:15 Urine Glucose (UA) 100 mg/dL (NEGATIVE) H 07/14/23 12:15 Urine Ketones NEGATIVE mg/dL (NEGATIVE) 07/14/23 12:15 Urine Occult Blood NEGATIVE (NEGATIVE) 07/14/23 12:15 Urine Nitrite NEGATIVE (NEGATIVE) 07/14/23 12:15 Urine Bilirubin NEGATIVE (NEGATIVE) 07/14/23 12:15 Urine Urobilinogen 0.2 (NORMAL) E.U./dL (NORMAL) 07/14/23 12:15 Ur Leukocyte Esterase NEGATIVE (NEGATIVE) 07/14/23 12:15 Urine RBC None Seen /HPF (0-5) 07/14/23 12:15 Urine WBC 0-3 /HPF (0-3) 07/14/23 12:15 Ur Squamous Epith Cells NONE SEEN (<= Few) 07/14/23 12:15 Urine Bacteria None Seen /HPF (None Seen) 07/14/23 12:15 Ur Microscopic Review INDICATED 07/14/23 12:15 Urine Culture Comments NOT INDICATED 07/14/23 12:15 Serum Ketones NEGATIVE (NEGATIVE) 07/14/23 10:08 - Procedures Procedures: Procedures TRANSFUSE NONAUT RED BLOOD CELLS IN PERIPH VEIN, PERC (02/21/21) ABX Reporting Has patient been on IV antibiotics over the past 48 hours?: No Current Medications - Current Medications Current Medications: Current Medications Generic Name Dose Route Start Last Admin Trade Name Freq PRN Reason Stop Dose Admin Acetaminophen 650 mg 07/14/23 15:56 07/16/23 11:54 Acetaminophen 325 Mg Tablet PO 650 mg Q4HR PRN Administration Pain 1 to 4, or Fever Hydrocodone Bitart/Acetaminophen 1 tab 07/14/23 15:56 07/16/23 20:44 Hydrocod/Acetam 5/325 Mg Tablet PO 1 tab Q4HR PRN Administration Pain 5 to 7 Aspirin 81 mg 07/15/23 09:00 07/17/23 07:59 Aspirin Ec 81 Mg Tablet PO 81 mg DAILY SAMI Administration Heparin Sodium (Porcine) 5,000 unit 07/14/23 21:00 07/17/23 08:06 Heparin 5,000 Unit/Ml Vial SUBQ 5,000 unit BID SAMI Administration Insulin Human Lispro 1 - 9 unit 07/16/23 17:00 07/17/23 11:40 Insulin Lispro 300 Unit/3 Ml Pen SUBQ 5 unit 0800,1200,1700,2100 SAMI Administration Protocol Levothyroxine Sodium 150 mcg 07/15/23 07:00 07/17/23 06:10 Levothyroxine 75 Mcg Tablet PO 150 mcg QDAC SAMI Administration Losartan Potassium 25 mg 07/16/23 17:56 07/17/23 07:58 Losartan 50 Mg Tablet PO 25 mg DAILY SAMI Administration Metoprolol Tartrate 75 mg 07/15/23 21:00 07/17/23 08:00 Metoprolol Tartrate 50 Mg Tablet PO Not Given BID [facility] Polyethylene Glycol 17 gm 07/15/23 09:00 07/17/23 08:01 Polyethylene Glycol 3350 17 Gm Packet PO 17 gm DAILY SAMI Administration Pravastatin Sodium 10 mg 07/14/23 21:00 07/16/23 20:45 Pravastatin 10 Mg Tablet PO 10 mg QPM SAMI Administration Sodium Chloride 10 ml 07/14/23 17:00 07/17/23 08:02 Sodium Chloride Flush 0.9% 10 Ml Syringe IVP 10 ml 0100,0900,1700 SAMI Administration Tamsulosin HCl 0.8 mg 07/15/23 09:00 07/17/23 08:00 Tamsulosin 0.4 Mg Capsule PO 0.8 mg DAILY SAMI Administration
[2023-07-17] MEDS: ACETAMINOPHEN 325 MG TABLET PO PRN (20:24)
[2023-07-17] MEDS: PRAVASTATIN 10 MG TABLET PO SCH (20:25)
[2023-07-18] MEDS: HYDROcod/ACETAM 5/325 MG TABLET PO PRN ×2 (04:12→23:37)
[2023-07-18] MEDS: SODIUM CHLORIDE FLUSH 0.9% 10 ML SYRINGE IVP SCH ×4 (04:30→23:38)
[2023-07-18 05:17] LABS: BASOPHILS # (AUTO) 0.1 10^3/uL (0.0-0.1); MONOCYTES % (AUTO) 7.7 %
[2023-07-18 05:23] LABS: EOSINOPHILS # (AUTO) 0.2 10^3/uL (0.0-0.7); EOSINOPHILS % (AUTO) 2.7 %; HCT - HEMATOCRIT 27.8 % (42.0-52.0); HGB - HEMOGLOBIN 8.9 g/dL (14.0-18.0); LYMPHOCYTES # (AUTO) 2.2 10^3/uL (1.5-3.5); LYMPHOCYTES % (AUTO) 28.2 %; MEAN CORPUSCULAR HEMOGLOBIN 35.2 pg (27.0-31.0); MEAN CORPUSCULAR VOLUME 109.9 fL (80.0-94.0); MEAN PLATELET VOLUME 10.7 fL (7.4-11.4); MONOCYTES # (AUTO) 0.6 10^3/uL (0.0-1.0); NEUTROPHILS # (AUTO) 4.7 10^3/uL (1.5-6.6); PLT - PLATELET COUNT 252 10^3/uL (130-450); RED BLOOD COUNT 2.53 10^6/uL (4.70-6.10); RED CELL DISTRIBUTION WIDTH 20.9 % (12.0-15.0); SLIDE REVIEW? Indicated; WHITE BLOOD COUNT 7.9 x10^3/uL (4.8-10.8)
[2023-07-18 05:34] LABS: CALCIUM 8.8 mg/dL (8.5-10.3); POTASSIUM 4.4 mmol/L (3.5-4.5)
[2023-07-18 05:57] LABS: PLATELET ESTIMATE, MANUAL NORMAL (130-450,000) (NORMAL); PLATELET MORPHOLOGY NORMAL APPEARANCE (NORMAL)
[2023-07-18 05:58] LABS: WBC MORPHOLOGY (MULTIPLE) NORMAL APPEARANCE (NORMAL)
[2023-07-18] MEDS: LEVOTHYROXINE 75 MCG TABLET PO SCH (06:50)
[2023-07-18] MEDS: polyethylene glycoL 3350 17 GM PACKET PO SCH (07:58)
[2023-07-18] MEDS: LOSARTAN 50 MG TABLET PO SCH (07:59)
[2023-07-18] MEDS: ASPIRIN EC 81 MG TABLET PO SCH (07:59)
[2023-07-18] MEDS: METOPROLOL TARTRATE 50 MG TABLET PO SCH ×2 (08:00→20:32)
[2023-07-18] MEDS: TAMSULOSIN 0.4 MG CAPSULE PO SCH (08:01)
[2023-07-18] MEDS: INSULIN GLARGINE-YFGN 300 UNIT/3 ML PEN SUBQ SCH (08:05)
[2023-07-18] MEDS: INSULIN LISPRO 300 UNIT/3 ML PEN SUBQ SCH ×4 (08:05→20:32)
[2023-07-18] MEDS: HEPARIN 5,000 UNIT/ML VIAL SUBQ SCH ×2 (08:06→20:33)
--- NOTE | 2023-07-18 12:42 | PROVIDER PROGRESS NOTE ---
Assessment/Plan - Problem List (1) Severe systolic congestive heart failure Assessment/Plan: * New Dx (Not present in a 2020 echocardiogram where he was evaluated for an NSTEMI after which he had no cardiology f/u. The patient states he "did not see any point") * Now presenting with likely ischemic cardiomyopathy and he may also have cardiomyopathy from thyroid disease (Patient admits to medication noncom pliance and TSH was markedly elevated on admission) * Developed new onset atrial fibrillation, with echocardiogram showing global hypokinesis with ejection fraction is less than 20%. * He's had a marked rate of deterioration noted in the last few months for him from a functional perspective. Prognosis is poor overall. * Started on and tolerating losartan 25 mg. * Advance care planning conversation held. Patient wants to make sure he is DNR. Plan is for hospice admission ([facility] group home was kind enough to see patient in the evening of 07/17/2023 and has arranged for intake) * Given patient's inability to care for self at home with ADLs, he will likely be discharged to long-term facility on respite at which point he will then transition to hospice and return home which is the patient's priority. (2) Atrial flutter with rapid ventricular response Assessment/Plan: New diagnosis during this admission. Currently rate controlled Cont metoprolol 75 p.o. twice daily. (3) Hypoglycemia Assessment/Plan: Resolved (4) Hypothyroidism Qualifiers: Hypothyroidism type: unspecified Qualified Code(s): E03.9 - Hypothyroidism, unspecified Assessment/Plan: He admits not taking his medications at home and this is evident by his TSH being 96.38 and free T4 last 0.25. Have increased Synthroid to 175 mcg daily from 150 mcg q/d. (5) Chronic kidney disease, stage 3 Qualifiers: Chronic kidney disease stage 3 subtype: unspecified whether 3a or 3b Qualified Code(s): N18.30 - Chronic kidney disease, stage 3 unspecified Assessment/Plan: He has CKD stage III likely due to underlying diabetes mellitus, Prerenal azotemia from reduced ejection fraction, and poor p.o. intake and his baseline creatinine is around 2.0. Monitor renal function and urine output. (6) Hypertension Qualifiers: Hypertension type: essential hypertension Qualified Code(s): I10 - Essential (primary) hypertension Assessment/Plan: On admit, BP was 98/66. The highest has been is 123/75. He has been on a beta- deb and so far his blood pressure is tolerated the rate lowering and systolic today has been in the 120s. Have held home meds: amlodipine, losartan, triamterene hydrochlorothiazide. Plan: Cont losartan (7) Myelodysplastic syndrome Assessment/Plan: Followed by heme-onc, but now that patient is transitioning to hospice, it is unclear as to whether the patient will continue Procrit infusions (8) Left shoulder pain Qualifiers: Chronicity: acute Qualified Code(s): M25.512 - Pain in left shoulder Assessment/Plan: * Patient complains of left shoulder pain that started a couple of days ago and he thinks he slept in a awkward position * Requested x-rays, but on exam he has no bony tenderness and passive range of motion is relatively at baseline * Patient likely has rotator cuff tendinopathy, versus subacromial bursitis versus calcific tendinopathy * Discussed with PT to aid with increasing range of motion and decreasing pain - Current Meds Current Meds: Current Medications Generic Name Dose Route Start Last Admin Trade Name Freq PRN Reason Stop Dose Admin Acetaminophen 650 mg 07/14/23 15:56 07/17/23 20:24 Acetaminophen 325 Mg Tablet PO 650 mg Q4HR PRN Administration Pain 1 to 4, or Fever Hydrocodone Bitart/Acetaminophen 1 tab 07/14/23 15:56 07/18/23 04:12 Hydrocod/Acetam 5/325 Mg Tablet PO 1 tab Q4HR PRN Administration Pain 5 to 7 Aspirin 81 mg 07/15/23 09:00 07/18/23 07:59 Aspirin Ec 81 Mg Tablet PO 81 mg DAILY SAMI Administration Heparin Sodium (Porcine) 5,000 unit 07/14/23 21:00 07/18/23 08:06 Heparin 5,000 Unit/Ml Vial SUBQ 5,000 unit BID SAMI Administration Insulin Glargine-yfgn 12 unit 07/18/23 09:00 07/18/23 08:05 Insulin Glargine-Yfgn 300 Unit/3 Ml Pen SUBQ 12 unit DAILY SAMI Administration Insulin Human Lispro 1 - 9 unit 07/16/23 17:00 07/18/23 12:02 Insulin Lispro 300 Unit/3 Ml Pen SUBQ 5 unit 0800,1200,1700,2100 SAMI Administration Protocol Levothyroxine Sodium 150 mcg 07/15/23 07:00 07/18/23 06:50 Levothyroxine 75 Mcg Tablet PO 150 mcg QDAC SAMI Administration Losartan Potassium 25 mg 07/16/23 17:56 07/18/23 07:59 Losartan 50 Mg Tablet PO 25 mg DAILY SAMI Administration Metoprolol Tartrate 75 mg 07/15/23 21:00 07/18/23 08:00 Metoprolol Tartrate 50 Mg Tablet PO 75 mg BID SAMI Administration Polyethylene Glycol 17 gm 07/15/23 09:00 07/18/23 07:58 Polyethylene Glycol 3350 17 Gm Packet PO 17 gm DAILY SAMI Administration Pravastatin Sodium 10 mg 07/14/23 21:00 07/17/23 20:25 Pravastatin 10 Mg Tablet PO 10 mg QPM SAMI Administration Sodium Chloride 10 ml 07/14/23 17:00 07/18/23 08:02 Sodium Chloride Flush 0.9% 10 Ml Syringe IVP 10 ml 0100,0900,1700 SAMI Administration Tamsulosin HCl 0.8 mg 07/15/23 09:00 07/18/23 08:01 Tamsulosin 0.4 Mg Capsule PO 0.8 mg DAILY SAMI Administration - Lab Result Fish Bone Diagrams: 07/18/23 04:55 07/18/23 04:55 - Additional Planning Condition/Complexity: Stable My Orders: My Active Orders 07/18/23 09:00 Insulin Glargine-Yfgn [Semglee] 12 unit SUBQ DAILY Subjective - Subjective Patient Reports: Resting Comfortably, Other (Left shoulder pain) Objective Vital Signs: Vital Signs - 24 hr 07/17/23 07/17/23 07/18/23 15:32 20:03 01:12 Temperature 36.6 C 36.4 C L 36.6 C Heart Rate [ 56 L 114 H 57 L Brachial] Respiratory 16 16 18 Rate Blood Pressure Blood Pressure 105/48 L 114/65 118/60 [Left Brachial artery] Blood Pressure [Right Brachial artery] O2 Saturation 96 96 98 07/18/23 07/18/23 07/18/23 04:18 07:46 08:00 Temperature 36.2 C L 36.3 C L Heart Rate [ 55 L 86 Brachial] Respiratory 18 20 Rate Blood Pressure 118/66 Blood Pressure [Left Brachial artery] Blood Pressure 113/82 H 118/66 [Right Brachial artery] O2 Saturation 96 98 07/18/23 07/18/23 09:00 12:31 Temperature 36.4 C L 36.4 C L Heart Rate [ 58 L 72 Brachial] Respiratory 18 18 Rate Blood Pressure Blood Pressure 95/51 L 102/59 L [Left Brachial artery] Blood Pressure [Right Brachial artery] O2 Saturation 96 98 Oxygen O2 Source [With Activity] Room air O2 Source Room air I&O (Last 24 Hrs): Intake and Output Totals x24h 07/16/23 07/17/23 07/18/23 23:59 23:59 23:59 Intake Total 1020 1240 240 Output Total 700 1575 400 Balance 320 -335 -160 General: Alert, Oriented x3, Cooperative HEENT: Atraumatic, EOMI Neck: No JVD, No thyromegaly Neuro: Alert, CN 2-12 Grossly Intact Cardiovascular: Regular rate, Normal S1, Normal S2 Abdomen: Normal bowel sounds Extremities: Other (Left shoulder range of motion limited due to pain, lateral abduction limited to approximately 60 degrees active range of motion, 90 degrees passive range of motion No bony tenderness) - Results Results: Laboratory Results WBC 7.9 x10^3/uL (4.8-10.8) 07/18/23 04:55 RBC 2.53 10^6/uL (4.70-6.10) L 07/18/23 04:55 Hgb 8.9 g/dL (14.0-18.0) L 07/18/23 04:55 Hct 27.8 % (42.0-52.0) L 07/18/23 04:55 MCV 109.9 fL (80.0-94.0) H 07/18/23 04:55 MCH 35.2 pg (27.0-31.0) H 07/18/23 04:55 MCHC 32.0 g/dL (32.0-36.0) 07/18/23 04:55 RDW 20.9 % (12.0-15.0) H 07/18/23 04:55 Plt Count 252 10^3/uL (130-450) 07/18/23 04:55 MPV 10.7 fL (7.4-11.4) 07/18/23 04:55 Neut # (Auto) 4.7 10^3/uL (1.5-6.6) 07/18/23 04:55 Lymph # (Auto) 2.2 10^3/uL (1.5-3.5) 07/18/23 04:55 [place] # (Auto) 0.6 10^3/uL (0.0-1.0) 07/18/23 04:55 Eos # (Auto) 0.2 10^3/uL (0.0-0.7) 07/18/23 04:55 Baso # (Auto) 0.1 10^3/uL (0.0-0.1) 07/18/23 04:55 Absolute Nucleated RBC 0.00 x10^3/uL 07/18/23 04:55 Nucleated RBC % 0.0 /100WBC 07/18/23 04:55 Manual Slide Review Indicated 07/18/23 04:55 WBC Morphology NORMAL APPEARANCE (NORMAL) 07/18/23 04:55 Platelet Estimate NORMAL (130-450,000) (NORMAL) 07/18/23 04:55 Platelet Morphology NORMAL APPEARANCE (NORMAL) 07/18/23 04:55 RBC Morph Micro Appear 1+ MACROCYTOSIS (NORMAL) 2+ ANISOCYTOSIS (NORMAL) 1+ TEARDROP CELLS (NORMAL) 07/18/23 04:55 RBC Morph Micro Appear 1+ MACROCYTOSIS (NORMAL) 2+ ANISOCYTOSIS (NORMAL) 1+ TEARDROP CELLS (NORMAL) 07/18/23 04:55 RBC Morph Micro Appear 1+ MACROCYTOSIS (NORMAL) 2+ ANISOCYTOSIS (NORMAL) 1+ TEARDROP CELLS (NORMAL) 07/18/23 04:55 PT 12.6 secs (9.9-12.6) 07/16/23 05:04 INR 1.2 (0.8-1.2) 07/16/23 05:04 VBG pH 7.337 (7.31-7.41) 07/14/23 10:14 VBG pCO2 49.0 mmHg (41-51) 07/14/23 10:14 VBG pO2 22.9 mmHg (25-47) L 07/14/23 10:14 VBG HCO3 25.7 mmol/L (23-28) 07/14/23 10:14 VBG Total CO2 27.2 mmol/L (24-29) 07/14/23 10:14 VBG O2 Saturation 39.4 % (60-80) L 07/14/23 10:14 VBG Base Excess -0.4 mmol/L (-2 - +2) 07/14/23 10:14 Sodium 138 mmol/L (135-145) 07/18/23 04:55 Potassium 4.4 mmol/L (3.5-4.5) 07/18/23 04:55 Chloride 105 mmol/L (101-111) 07/18/23 04:55 Carbon Dioxide 26 mmol/L (21-32) 07/18/23 04:55 Anion Gap 7.0 (6-13) 07/18/23 04:55 BUN 24 mg/dL (6-20) H 07/18/23 04:55 Creatinine 2.0 mg/dL (0.6-1.3) H 07/18/23 04:55 Estimated GFR (MDRD) 32 (>89) L 07/18/23 04:55 Glucose 151 mg/dL (74-104) H 07/18/23 04:55 POC Whole Bld Glucose 233 mg/dL (70 - 100) H 07/18/23 11:25 Estimat Average Glucose 258 mg/dL (70-100) H 07/14/23 10:05 Hemoglobin A1c % 10.6 % (4.27-6.07) H 07/14/23 10:05 Calcium 8.8 mg/dL (8.5-10.3) 07/18/23 04:55 Magnesium 1.6 mg/dL (1.7-2.3) L 07/14/23 10:08 Total Bilirubin 0.7 mg/dL (0.2-1.0) 07/14/23 10:08 AST 32 IU/L (10-42) 07/14/23 10:08 ALT 39 IU/L (10-60) 07/14/23 10:08 Alkaline Phosphatase 57 IU/L (42-121) 07/14/23 10:08 Total Protein 5.7 g/dL (6.4-8.9) L 07/14/23 10:08 Albumin 3.6 g/dL (3.2-5.5) 07/14/23 10:08 Globulin 2.1 g/dL (2.1-4.2) 07/14/23 10:08 Albumin/Globulin Ratio 1.7 (1.0-2.2) 07/14/23 10:08 Lipase 15 U/L (11-82) 07/14/23 10:08 TSH 96.38 uIU/mL (0.34-5.60) H 07/14/23 10:08 Free T4 Direct < 0.25 ng/dL (0.58-1.64) L 07/14/23 10:08 Urine Color YELLOW 07/14/23 12:15 Urine Clarity CLEAR (CLEAR) 07/14/23 12:15 Urine pH 5.5 PH (5.0-7.5) 07/14/23 12:15 Ur Specific [place] 1.025 (1.002-1.030) 07/14/23 12:15 Urine Protein 100 mg/dL (NEGATIVE) H 07/14/23 12:15 Urine Glucose (UA) 100 mg/dL (NEGATIVE) H 07/14/23 12:15 Urine Ketones NEGATIVE mg/dL (NEGATIVE) 07/14/23 12:15 Urine Occult Blood NEGATIVE (NEGATIVE) 07/14/23 12:15 Urine Nitrite NEGATIVE (NEGATIVE) 07/14/23 12:15 Urine Bilirubin NEGATIVE (NEGATIVE) 07/14/23 12:15 Urine Urobilinogen 0.2 (NORMAL) E.U./dL (NORMAL) 07/14/23 12:15 Ur Leukocyte Esterase NEGATIVE (NEGATIVE) 07/14/23 12:15 Urine RBC None Seen /HPF (0-5) 07/14/23 12:15 Urine WBC 0-3 /HPF (0-3) 07/14/23 12:15 Ur Squamous Epith Cells NONE SEEN (<= Few) 07/14/23 12:15 Urine Bacteria None Seen /HPF (None Seen) 07/14/23 12:15 Ur Microscopic Review INDICATED 07/14/23 12:15 Urine Culture Comments NOT INDICATED 07/14/23 12:15 Serum Ketones NEGATIVE (NEGATIVE) 07/14/23 10:08 - Procedures Procedures: Procedures TRANSFUSE NONAUT RED BLOOD CELLS IN PERIPH VEIN, PERC (02/21/21) ABX Reporting Has patient been on IV antibiotics over the past 48 hours?: No Current Medications - Current Medications Current Medications: Current Medications Generic Name Dose Route Start Last Admin Trade Name Freq PRN Reason Stop Dose Admin Acetaminophen 650 mg 07/14/23 15:56 07/17/23 20:24 Acetaminophen 325 Mg Tablet PO 650 mg Q4HR PRN Administration Pain 1 to 4, or Fever Hydrocodone Bitart/Acetaminophen 1 tab 07/14/23 15:56 07/18/23 04:12 Hydrocod/Acetam 5/325 Mg Tablet PO 1 tab Q4HR PRN Administration Pain 5 to 7 Aspirin 81 mg 07/15/23 09:00 07/18/23 07:59 Aspirin Ec 81 Mg Tablet PO 81 mg DAILY SAMI Administration Heparin Sodium (Porcine) 5,000 unit 07/14/23 21:00 07/18/23 08:06 Heparin 5,000 Unit/Ml Vial SUBQ 5,000 unit BID SAMI Administration Insulin Glargine-yfgn 12 unit 07/18/23 09:00 07/18/23 08:05 Insulin Glargine-Yfgn 300 Unit/3 Ml Pen SUBQ 12 unit DAILY SAMI Administration Insulin Human Lispro 1 - 9 unit 07/16/23 17:00 07/18/23 12:02 Insulin Lispro 300 Unit/3 Ml Pen SUBQ 5 unit 0800,1200,1700,2100 SAMI Administration Protocol Levothyroxine Sodium 150 mcg 07/15/23 07:00 07/18/23 06:50 Levothyroxine 75 Mcg Tablet PO 150 mcg QDAC SAMI Administration Losartan Potassium 25 mg 07/16/23 17:56 07/18/23 07:59 Losartan 50 Mg Tablet PO 25 mg DAILY SAMI Administration Metoprolol Tartrate 75 mg 07/15/23 21:00 07/18/23 08:00 Metoprolol Tartrate 50 Mg Tablet PO 75 mg BID SAMI Administration Polyethylene Glycol 17 gm 07/15/23 09:00 07/18/23 07:58 Polyethylene Glycol 3350 17 Gm Packet PO 17 gm DAILY SAMI Administration Pravastatin Sodium 10 mg 07/14/23 21:00 07/17/23 20:25 Pravastatin 10 Mg Tablet PO 10 mg QPM SAMI Administration Sodium Chloride 10 ml 07/14/23 17:00 07/18/23 08:02 Sodium Chloride Flush 0.9% 10 Ml Syringe IVP 10 ml 0100,0900,1700 SAMI Administration Tamsulosin HCl 0.8 mg 07/15/23 09:00 07/18/23 08:01 Tamsulosin 0.4 Mg Capsule PO 0.8 mg DAILY SAMI Administration
[2023-07-18] MEDS: PRAVASTATIN 10 MG TABLET PO SCH (20:33)
[2023-07-19 04:54] LABS: BASOPHILS # (AUTO) 0.1 10^3/uL (0.0-0.1); BASOPHILS % (AUTO) 0.9 %; EOSINOPHILS # (AUTO) 0.2 10^3/uL (0.0-0.7); EOSINOPHILS % (AUTO) 2.5 %; HCT - HEMATOCRIT 29.2 % (42.0-52.0); HGB - HEMOGLOBIN 9.3 g/dL (14.0-18.0); LYMPHOCYTES # (AUTO) 2.8 10^3/uL (1.5-3.5); LYMPHOCYTES % (AUTO) 29.6 %; MEAN CORPUSCULAR HEMOGLOBIN 35.8 pg (27.0-31.0); MEAN CORPUSCULAR HGB CONC 31.8 g/dL (32.0-36.0); MEAN CORPUSCULAR VOLUME 112.3 fL (80.0-94.0); MONOCYTES # (AUTO) 0.7 10^3/uL (0.0-1.0); MONOCYTES % (AUTO) 7.1 %; NEUTROPHILS # (AUTO) 5.7 10^3/uL (1.5-6.6); NEUTROPHILS % (AUTO) 59.6 %; PLT - PLATELET COUNT 237 10^3/uL (130-450); RED CELL DISTRIBUTION WIDTH 20.9 % (12.0-15.0); WHITE BLOOD COUNT 9.5 x10^3/uL (4.8-10.8)
[2023-07-19 05:09] LABS: SLIDE REVIEW? Indicated
[2023-07-19 05:12] LABS: CALCIUM 8.7 mg/dL (8.5-10.3); CREATININE 2.2 mg/dL (0.6-1.3); POTASSIUM 4.4 mmol/L (3.5-4.5)
[2023-07-19 05:16] LABS: PLATELET ESTIMATE, MANUAL NORMAL (130-450,000) (NORMAL); PLATELET MORPHOLOGY NORMAL APPEARANCE (NORMAL); WBC MORPHOLOGY (MULTIPLE) NORMAL APPEARANCE (NORMAL)
[2023-07-19] MEDS: HYDROcod/ACETAM 5/325 MG TABLET PO PRN ×2 (05:42→23:11)
[2023-07-19] MEDS: LEVOTHYROXINE 75 MCG TABLET PO SCH (06:12)
[2023-07-19] MEDS: LOSARTAN 50 MG TABLET PO SCH (08:07)
[2023-07-19] MEDS: ASPIRIN EC 81 MG TABLET PO SCH (08:08)
[2023-07-19] MEDS: METOPROLOL TARTRATE 50 MG TABLET PO SCH ×2 (08:08→20:18)
[2023-07-19] MEDS: TAMSULOSIN 0.4 MG CAPSULE PO SCH (08:09)
[2023-07-19] MEDS: INSULIN GLARGINE-YFGN 300 UNIT/3 ML PEN SUBQ SCH (08:10)
[2023-07-19] MEDS: INSULIN LISPRO 300 UNIT/3 ML PEN SUBQ SCH ×5 (08:10→20:17)
[2023-07-19] MEDS: SODIUM CHLORIDE FLUSH 0.9% 10 ML SYRINGE IVP SCH ×3 (08:11→23:35)
[2023-07-19] MEDS: HEPARIN 5,000 UNIT/ML VIAL SUBQ SCH ×2 (08:13→20:17)
--- NOTE | 2023-07-19 11:31 | PROVIDER PROGRESS NOTE ---
Assessment/Plan - Problem List (1) Severe systolic congestive heart failure Assessment/Plan: * New Dx (Not present in a 2020 echocardiogram where he was evaluated for an NSTEMI after which he had no cardiology f/u. The patient states he "did not see any point") * Now presenting with likely ischemic cardiomyopathy and he may also have cardiomyopathy from thyroid disease (Patient admits to medication noncom pliance and TSH was markedly elevated on admission) * Developed new onset atrial fibrillation, with echocardiogram showing global hypokinesis with ejection fraction is less than 20%. * He's had a marked rate of deterioration noted in the last few months for him from a functional perspective. Prognosis is poor overall. * Started on losartan 25 mg, but BP soft today, and in light of the plans for the patient to discharge to hospice, to avoid any lightheadedness or other increased risk of falls will DC losartan. Have also decrease metoprolol from 75 mg twice daily to 50 mg twice daily. * Advance care planning conversation held. Patient wants to make sure he is DNR. Plan is for hospice admission (medical center director was kind enough to see patient in the evening of 07/17/2023 and has arranged for intake) * Given patient's inability to care for self at home with ADLs, he will likely be discharged to half-way facility on respite at which point he will then transition to hospice and return home which is the patient's priority. (2) Atrial flutter with rapid ventricular response Assessment/Plan: New diagnosis during this admission. Currently rate controlled Cont metoprolol 75 p.o. twice daily. (3) Hypothyroidism Qualifiers: Hypothyroidism type: unspecified Qualified Code(s): E03.9 - Hypothyroidism, unspecified Assessment/Plan: He admits not taking his medications at home and this is evident by his TSH being 96.38 and free T4 last 0.25. Have increased Synthroid to 175 mcg daily from 150 mcg q/d. (4) Chronic kidney disease, stage 3 Qualifiers: Chronic kidney disease stage 3 subtype: unspecified whether 3a or 3b Qualified Code(s): N18.30 - Chronic kidney disease, stage 3 unspecified Assessment/Plan: He has CKD stage III likely due to underlying diabetes mellitus, Prerenal azotemia from reduced ejection fraction, and poor p.o. intake and his baseline creatinine is around 2.0. Monitor renal function and urine output. (5) Hypertension Qualifiers: Hypertension type: essential hypertension Qualified Code(s): I10 - Essential (primary) hypertension Assessment/Plan: On admit, BP was 98/66. The highest has been is 123/75. Today BP soft, 83/52. Plan: Stop losartan. Decrease Metoprolol from 75 mg BID to 50 mg BID (6) Myelodysplastic syndrome Assessment/Plan: Followed by heme-onc, but now that patient is transitioning to hospice, it is unclear as to whether the patient will continue Procrit infusions (7) Left shoulder pain Qualifiers: Chronicity: acute Qualified Code(s): M25.512 - Pain in left shoulder Assessment/Plan: * Patient complains of left shoulder pain that started a couple of days ago and he thinks he slept in a awkward position * Requested x-rays, but on exam he has no bony tenderness and passive range of motion is relatively at baseline * Patient likely has rotator cuff tendinopathy, versus subacromial bursitis versus calcific tendinopathy * Discussed with PT to aid with increasing range of motion and decreasing pain - Current Meds Current Meds: Current Medications Generic Name Dose Route Start Last Admin Trade Name Freq PRN Reason Stop Dose Admin Acetaminophen 650 mg 07/14/23 15:56 07/17/23 20:24 Acetaminophen 325 Mg Tablet PO 650 mg Q4HR PRN Administration Pain 1 to 4, or Fever Hydrocodone Bitart/Acetaminophen 1 tab 07/14/23 15:56 07/19/23 05:42 Hydrocod/Acetam 5/325 Mg Tablet PO 1 tab Q4HR PRN Administration Pain 5 to 7 Aspirin 81 mg 07/15/23 09:00 07/19/23 08:08 Aspirin Ec 81 Mg Tablet PO 81 mg DAILY SAMI Administration Heparin Sodium (Porcine) 5,000 unit 07/14/23 21:00 07/19/23 08:13 Heparin 5,000 Unit/Ml Vial SUBQ 5,000 unit BID SAMI Administration Insulin Glargine-yfgn 12 unit 07/18/23 09:00 07/19/23 08:10 Insulin Glargine-Yfgn 300 Unit/3 Ml Pen SUBQ 12 unit DAILY SAMI Administration Insulin Human Lispro 2 - 10 unit 07/18/23 21:00 07/19/23 08:10 Insulin Lispro 300 Unit/3 Ml Pen SUBQ 2 unit 0800,1200,1700,2100 SAMI Administration Protocol Levothyroxine Sodium 150 mcg 07/15/23 07:00 07/19/23 06:12 Levothyroxine 75 Mcg Tablet PO 150 mcg QDAC SAMI Administration Losartan Potassium 25 mg 07/16/23 17:56 07/19/23 08:07 Losartan 50 Mg Tablet PO 25 mg DAILY SAMI Administration Metoprolol Tartrate 75 mg 07/15/23 21:00 07/19/23 08:08 Metoprolol Tartrate 50 Mg Tablet PO 75 mg BID SAMI Administration Polyethylene Glycol 17 gm 07/15/23 09:00 07/18/23 07:58 Polyethylene Glycol 3350 17 Gm Packet PO 17 gm DAILY SAMI Administration Pravastatin Sodium 10 mg 07/14/23 21:00 07/18/23 20:33 Pravastatin 10 Mg Tablet PO 10 mg QPM SAMI Administration Sodium Chloride 10 ml 07/14/23 17:00 07/19/23 08:11 Sodium Chloride Flush 0.9% 10 Ml Syringe IVP 10 ml 0100,0900,1700 SAMI Administration Tamsulosin HCl 0.8 mg 07/15/23 09:00 07/19/23 08:09 Tamsulosin 0.4 Mg Capsule PO 0.8 mg DAILY SAMI Administration - Lab Result Fish Bone Diagrams: 07/19/23 04:41 07/19/23 04:41 - Additional Planning Condition/Complexity: Stable My Orders: My Active Orders 07/18/23 21:00 Insulin Lispro [Humalog Kwikpen U-100] 2 - 10 unit SUBQ 0800,1200,1700,2100 Subjective - Subjective Patient Reports: Resting Comfortably Nursing Reports: No Complaints Objective Vital Signs: Vital Signs - 24 hr 07/18/23 07/18/23 07/18/23 12:31 16:22 20:28 Temperature 36.4 C L 36.6 C 36.6 C Heart Rate [ 72 114 H 112 H Brachial] Respiratory 18 16 18 Rate Blood Pressure Blood Pressure 102/59 L 128/75 [Left Brachial artery] Blood Pressure 117/63 [Right Brachial artery] O2 Saturation 98 95 98 07/18/23 07/19/23 07/19/23 20:32 00:05 04:53 Temperature 36.6 C 36.3 C L Heart Rate [ 98 114 H Brachial] Respiratory 18 18 Rate Blood Pressure 128/75 Blood Pressure [Left Brachial artery] Blood Pressure 114/71 125/86 H [Right Brachial artery] O2 Saturation 97 96 07/19/23 07/19/23 08:08 09:00 Temperature 36.3 C L Heart Rate [ 114 H Brachial] Respiratory 18 Rate Blood Pressure 123/86 H Blood Pressure [Left Brachial artery] Blood Pressure 123/86 H [Right Brachial artery] O2 Saturation 100 Oxygen O2 Source [With Activity] Room air O2 Source Room air I&O (Last 24 Hrs): Intake and Output Totals x24h 07/17/23 07/18/23 07/19/23 23:59 23:59 23:59 Intake Total 1240 1170 240 Output Total 1575 1200 550 Balance -335 -30 -310 General: Alert, Oriented x3 HEENT: Atraumatic, EOMI Neuro: CN 2-12 Grossly Intact Cardiovascular: Normal S1, Normal S2, No murmurs Respiratory: No respiratory distress, Breath sounds nml - Results Results: Laboratory Results WBC 9.5 x10^3/uL (4.8-10.8) 07/19/23 04:41 RBC 2.60 10^6/uL (4.70-6.10) L 07/19/23 04:41 Hgb 9.3 g/dL (14.0-18.0) L 07/19/23 04:41 Hct 29.2 % (42.0-52.0) L 07/19/23 04:41 MCV 112.3 fL (80.0-94.0) H 07/19/23 04:41 MCH 35.8 pg (27.0-31.0) H 07/19/23 04:41 MCHC 31.8 g/dL (32.0-36.0) L 07/19/23 04:41 RDW 20.9 % (12.0-15.0) H 07/19/23 04:41 Plt Count 237 10^3/uL (130-450) 07/19/23 04:41 MPV 11.0 fL (7.4-11.4) 07/19/23 04:41 Neut # (Auto) 5.7 10^3/uL (1.5-6.6) 07/19/23 04:41 Lymph # (Auto) 2.8 10^3/uL (1.5-3.5) 07/19/23 04:41 Johnson # (Auto) 0.7 10^3/uL (0.0-1.0) 07/19/23 04:41 Eos # (Auto) 0.2 10^3/uL (0.0-0.7) 07/19/23 04:41 Baso # (Auto) 0.1 10^3/uL (0.0-0.1) 07/19/23 04:41 Absolute Nucleated RBC 0.00 x10^3/uL 07/19/23 04:41 Nucleated RBC % 0.0 /100WBC 07/19/23 04:41 Manual Slide Review Indicated 07/19/23 04:41 WBC Morphology NORMAL APPEARANCE (NORMAL) 07/19/23 04:41 Platelet Estimate NORMAL (130-450,000) (NORMAL) 07/19/23 04:41 Platelet Morphology NORMAL APPEARANCE (NORMAL) 07/19/23 04:41 RBC Morph Micro Appear 2+ MACROCYTOSIS (NORMAL) 2+ ANISOCYTOSIS (NORMAL) 1+ STOMATOCYTES (NORMAL) 07/19/23 04:41 RBC Morph Micro Appear 2+ MACROCYTOSIS (NORMAL) 2+ ANISOCYTOSIS (NORMAL) 1+ STOMATOCYTES (NORMAL) 07/19/23 04:41 RBC Morph Micro Appear 2+ MACROCYTOSIS (NORMAL) 2+ ANISOCYTOSIS (NORMAL) 1+ STOMATOCYTES (NORMAL) 07/19/23 04:41 PT 12.6 secs (9.9-12.6) 07/16/23 05:04 INR 1.2 (0.8-1.2) 07/16/23 05:04 VBG pH 7.337 (7.31-7.41) 07/14/23 10:14 VBG pCO2 49.0 mmHg (41-51) 07/14/23 10:14 VBG pO2 22.9 mmHg (25-47) L 07/14/23 10:14 VBG HCO3 25.7 mmol/L (23-28) 07/14/23 10:14 VBG Total CO2 27.2 mmol/L (24-29) 07/14/23 10:14 VBG O2 Saturation 39.4 % (60-80) L 07/14/23 10:14 VBG Base Excess -0.4 mmol/L (-2 - +2) 07/14/23 10:14 Sodium 137 mmol/L (135-145) 07/19/23 04:41 Potassium 4.4 mmol/L (3.5-4.5) 07/19/23 04:41 Chloride 105 mmol/L (101-111) 07/19/23 04:41 Carbon Dioxide 27 mmol/L (21-32) 07/19/23 04:41 Anion Gap 5.0 (6-13) L 07/19/23 04:41 BUN 27 mg/dL (6-20) H 07/19/23 04:41 Creatinine 2.2 mg/dL (0.6-1.3) H 07/19/23 04:41 Estimated GFR (MDRD) 29 (>89) L 07/19/23 04:41 Glucose 135 mg/dL (74-104) H 07/19/23 04:41 POC Whole Bld Glucose 222 mg/dL (70 - 100) H 07/19/23 11:13 Estimat Average Glucose 258 mg/dL (70-100) H 07/14/23 10:05 Hemoglobin A1c % 10.6 % (4.27-6.07) H 07/14/23 10:05 Calcium 8.7 mg/dL (8.5-10.3) 07/19/23 04:41 Magnesium 1.6 mg/dL (1.7-2.3) L 07/14/23 10:08 Total Bilirubin 0.7 mg/dL (0.2-1.0) 07/14/23 10:08 AST 32 IU/L (10-42) 07/14/23 10:08 ALT 39 IU/L (10-60) 07/14/23 10:08 Alkaline Phosphatase 57 IU/L (42-121) 07/14/23 10:08 Total Protein 5.7 g/dL (6.4-8.9) L 07/14/23 10:08 Albumin 3.6 g/dL (3.2-5.5) 07/14/23 10:08 Globulin 2.1 g/dL (2.1-4.2) 07/14/23 10:08 Albumin/Globulin Ratio 1.7 (1.0-2.2) 07/14/23 10:08 Lipase 15 U/L (11-82) 07/14/23 10:08 TSH 96.38 uIU/mL (0.34-5.60) H 07/14/23 10:08 Free T4 Direct < 0.25 ng/dL (0.58-1.64) L 07/14/23 10:08 Urine Color YELLOW 07/14/23 12:15 Urine Clarity CLEAR (CLEAR) 07/14/23 12:15 Urine pH 5.5 PH (5.0-7.5) 07/14/23 12:15 Ur Specific Mobile 1.025 (1.002-1.030) 07/14/23 12:15 Urine Protein 100 mg/dL (NEGATIVE) H 07/14/23 12:15 Urine Glucose (UA) 100 mg/dL (NEGATIVE) H 07/14/23 12:15 Urine Ketones NEGATIVE mg/dL (NEGATIVE) 07/14/23 12:15 Urine Occult Blood NEGATIVE (NEGATIVE) 07/14/23 12:15 Urine Nitrite NEGATIVE (NEGATIVE) 07/14/23 12:15 Urine Bilirubin NEGATIVE (NEGATIVE) 07/14/23 12:15 Urine Urobilinogen 0.2 (NORMAL) E.U./dL (NORMAL) 07/14/23 12:15 Ur Leukocyte Esterase NEGATIVE (NEGATIVE) 07/14/23 12:15 Urine RBC None Seen /HPF (0-5) 07/14/23 12:15 Urine WBC 0-3 /HPF (0-3) 07/14/23 12:15 Ur Squamous Epith Cells NONE SEEN (<= Few) 07/14/23 12:15 Urine Bacteria None Seen /HPF (None Seen) 07/14/23 12:15 Ur Microscopic Review INDICATED 07/14/23 12:15 Urine Culture Comments NOT INDICATED 07/14/23 12:15 Serum Ketones NEGATIVE (NEGATIVE) 07/14/23 10:08 - Procedures Procedures: Procedures TRANSFUSE NONAUT RED BLOOD CELLS IN PERIPH VEIN, PERC (02/21/21) ABX Reporting Has patient been on IV antibiotics over the past 48 hours?: No Current Medications - Current Medications Current Medications: Current Medications Generic Name Dose Route Start Last Admin Trade Name Freq PRN Reason Stop Dose Admin Acetaminophen 650 mg 07/14/23 15:56 07/17/23 20:24 Acetaminophen 325 Mg Tablet PO 650 mg Q4HR PRN Administration Pain 1 to 4, or Fever Hydrocodone Bitart/Acetaminophen 1 tab 07/14/23 15:56 07/19/23 05:42 Hydrocod/Acetam 5/325 Mg Tablet PO 1 tab Q4HR PRN Administration Pain 5 to 7 Aspirin 81 mg 07/15/23 09:00 07/19/23 08:08 Aspirin Ec 81 Mg Tablet PO 81 mg DAILY SAMI Administration Heparin Sodium (Porcine) 5,000 unit 07/14/23 21:00 07/19/23 08:13 Heparin 5,000 Unit/Ml Vial SUBQ 5,000 unit BID SAMI Administration Insulin Glargine-yfgn 12 unit 07/18/23 09:00 07/19/23 08:10 Insulin Glargine-Yfgn 300 Unit/3 Ml Pen SUBQ 12 unit DAILY SAMI Administration Insulin Human Lispro 2 - 10 unit 07/18/23 21:00 07/19/23 08:10 Insulin Lispro 300 Unit/3 Ml Pen SUBQ 2 unit 0800,1200,1700,2100 SAMI Administration Protocol Levothyroxine Sodium 150 mcg 07/15/23 07:00 07/19/23 06:12 Levothyroxine 75 Mcg Tablet PO 150 mcg QDAC SAMI Administration Losartan Potassium 25 mg 07/16/23 17:56 07/19/23 08:07 Losartan 50 Mg Tablet PO 25 mg DAILY SAMI Administration Metoprolol Tartrate 75 mg 07/15/23 21:00 07/19/23 08:08 Metoprolol Tartrate 50 Mg Tablet PO 75 mg BID SAMI Administration Polyethylene Glycol 17 gm 07/15/23 09:00 07/18/23 07:58 Polyethylene Glycol 3350 17 Gm Packet PO 17 gm DAILY SAMI Administration Pravastatin Sodium 10 mg 07/14/23 21:00 07/18/23 20:33 Pravastatin 10 Mg Tablet PO 10 mg QPM SAMI Administration Sodium Chloride 10 ml 07/14/23 17:00 07/19/23 08:11 Sodium Chloride Flush 0.9% 10 Ml Syringe IVP 10 ml 0100,0900,1700 SAMI Administration Tamsulosin HCl 0.8 mg 07/15/23 09:00 07/19/23 08:09 Tamsulosin 0.4 Mg Capsule PO 0.8 mg DAILY SAMI Administration
[2023-07-19] MEDS ORDERED: SODIUM CHLORIDE 0.9% 500 ML IV ONE (11:35)
[2023-07-19] MEDS: polyethylene glycoL 3350 17 GM PACKET PO SCH (11:59)
[2023-07-19] MEDS: PRAVASTATIN 10 MG TABLET PO SCH (20:17)
[2023-07-20] MEDS: METOPROLOL 5 MG/5 ML VIAL IVP PRN ×3 (01:57→16:16)
[2023-07-20] MEDS: SODIUM CHLORIDE FLUSH 0.9% 10 ML SYRINGE IVP PRN (01:57)
[2023-07-20] MEDS: LEVOTHYROXINE 75 MCG TABLET PO SCH (06:59)
[2023-07-20] MEDS: polyethylene glycoL 3350 17 GM PACKET PO SCH (08:34)
[2023-07-20] MEDS: INSULIN GLARGINE-YFGN 300 UNIT/3 ML PEN SUBQ SCH (08:35)
[2023-07-20] MEDS: INSULIN LISPRO 300 UNIT/3 ML PEN SUBQ SCH ×4 (08:35→20:44)
[2023-07-20] MEDS: ASPIRIN EC 81 MG TABLET PO SCH (08:36)
[2023-07-20] MEDS: SODIUM CHLORIDE FLUSH 0.9% 10 ML SYRINGE IVP SCH ×3 (08:36→23:30)
[2023-07-20] MEDS: SENNA 8.6 MG TABLET PO SCH (08:36)
[2023-07-20] MEDS: HEPARIN 5,000 UNIT/ML VIAL SUBQ SCH ×2 (08:42→20:44)
[2023-07-20] MEDS: METOPROLOL TARTRATE 50 MG TABLET PO SCH ×2 (08:43→20:44)
[2023-07-20] MEDS: TAMSULOSIN 0.4 MG CAPSULE PO SCH (08:57)
[2023-07-20] MEDS: ACETAMINOPHEN 325 MG TABLET PO PRN (08:57)
--- NOTE | 2023-07-20 15:23 | PROVIDER PROGRESS NOTE ---
Assessment/Plan - Problem List (1) Severe systolic congestive heart failure Assessment/Plan: * New Dx (Not present in a 2020 echocardiogram where he was evaluated for an NSTEMI after which he had no cardiology f/u. The patient states he "did not see any point") * Now presenting with likely ischemic cardiomyopathy and he may also have cardiomyopathy from thyroid disease (Patient admits to medication noncom pliance and TSH was markedly elevated on admission) * Developed new onset atrial fibrillation, with echocardiogram showing global hypokinesis with ejection fraction is less than 20%. * He's had a marked rate of deterioration noted in the last few months for him from a functional perspective. Prognosis is poor overall. * Started on losartan 25 mg, but BP soft today, and in light of the plans for the patient to discharge to hospice, to avoid any lightheadedness or other increased risk of falls will DC losartan. Have also decrease metoprolol from 75 mg twice daily to 50 mg twice daily. * Advance care planning conversation held. Patient wants to make sure he is DNR. Plan is for hospice admission (chef french was kind enough to see patient in the evening of 07/17/2023 and has arranged for intake) * Given patient's inability to care for self at home with ADLs, he will likely be discharged to alf facility on respite at which point he will then transition to hospice and return home which is the patient's priority. (2) Atrial flutter with rapid ventricular response Assessment/Plan: * New diagnosis during this admission. * Currently rate controlled * Metoprolol decreased to 50 mg from 75 mg due to soft BP's (3) Hypothyroidism Qualifiers: Hypothyroidism type: unspecified Qualified Code(s): E03.9 - Hypothyroidism, unspecified Assessment/Plan: * He admits not taking his medications at home and this is evident by his TSH being 96.38 and free T4 last 0.25. * Have increased Synthroid to 175 mcg daily from 150 mcg q/d. (4) Chronic kidney disease, stage 3 Qualifiers: Chronic kidney disease stage 3 subtype: unspecified whether 3a or 3b Qualified Code(s): N18.30 - Chronic kidney disease, stage 3 unspecified Assessment/Plan: * He has CKD stage III likely due to underlying diabetes mellitus, Prerenal azotemia from reduced ejection fraction, and poor p.o. intake and his baseline creatinine is around 2.0. * Cr has been stable near 2 * Monitor renal function and urine output. (5) Hypertension Qualifiers: Hypertension type: essential hypertension Assessment/Plan: BP has been soft for several days, with some ARB started during admit due to CHF, w/ low EF, however BP has not been tolerating it well. Plan: Have stopped losartan. Decreased Metoprolol from 75 mg BID to 50 mg BID. Currently BP soft to normal (6) Myelodysplastic syndrome Assessment/Plan: Followed by heme-onc, but now that patient is transitioning to hospice, it is unclear as to whether the patient will continue Procrit infusions (7) Left shoulder pain Qualifiers: Chronicity: acute Qualified Code(s): M25.512 - Pain in left shoulder Assessment/Plan: * Patient complained of left shoulder pain that started during this admit. He thinks he slept in a awkward position * He requested x-rays, but on exam he has no bony tenderness and passive range of motion is relatively at baseline. Xr is not indicated * Patient likely has rotator cuff tendinopathy, versus subacromial bursitis versus calcific tendinopathy * Discussed with PT to aid with increasing range of motion and decreasing pain, appreciate help - Current Meds Current Meds: Current Medications Generic Name Dose Route Start Last Admin Trade Name Freq PRN Reason Stop Dose Admin Acetaminophen 650 mg 07/14/23 15:56 07/20/23 08:57 Acetaminophen 325 Mg Tablet PO 650 mg Q4HR PRN Administration Pain 1 to 4, or Fever Hydrocodone Bitart/Acetaminophen 1 tab 07/14/23 15:56 07/19/23 23:11 Hydrocod/Acetam 5/325 Mg Tablet PO 1 tab Q4HR PRN Administration Pain 5 to 7 Aspirin 81 mg 07/15/23 09:00 07/20/23 08:36 Aspirin Ec 81 Mg Tablet PO 81 mg DAILY SAMI Administration Heparin Sodium (Porcine) 5,000 unit 07/14/23 21:00 07/20/23 08:42 Heparin 5,000 Unit/Ml Vial SUBQ 5,000 unit BID SAMI Administration Insulin Glargine-yfgn 12 unit 07/18/23 09:00 07/20/23 08:35 Insulin Glargine-Yfgn 300 Unit/3 Ml Pen SUBQ 12 unit DAILY SAMI Administration Insulin Human Lispro 3 - 11 unit 07/19/23 17:00 07/20/23 12:11 Insulin Lispro 300 Unit/3 Ml Pen SUBQ 5 unit 0800,1200,1700,2100 SAMI Administration Protocol Levothyroxine Sodium 150 mcg 07/15/23 07:00 07/20/23 06:59 Levothyroxine 75 Mcg Tablet PO 150 mcg QDAC SAMI Administration Metoprolol Tartrate 5 mg 07/14/23 18:17 07/20/23 08:06 Metoprolol 5 Mg/5 Ml Vial IVP 5 mg Q6H PRN Administration Tachycardia Metoprolol Tartrate 50 mg 07/19/23 21:00 07/20/23 08:43 Metoprolol Tartrate 50 Mg Tablet PO 50 mg BID SAMI Administration Polyethylene Glycol 17 gm 07/15/23 09:00 07/20/23 08:34 Polyethylene Glycol 3350 17 Gm Packet PO 17 gm DAILY SAMI Administration Pravastatin Sodium 10 mg 07/14/23 21:00 07/19/23 20:17 Pravastatin 10 Mg Tablet PO 10 mg QPM SAMI Administration Senna 8.6 - 17.2 mg 07/20/23 09:00 07/20/23 08:36 Senna 8.6 Mg Tablet PO 17.2 mg DAILY SAMI Administration Sodium Chloride 10 ml 07/14/23 15:56 07/20/23 01:57 Sodium Chloride Flush 0.9% 10 Ml Syringe IVP 10 ml PRN PRN Administration NEEDED PER PROVIDER ORDERS Sodium Chloride 10 ml 07/14/23 17:00 07/20/23 08:36 Sodium Chloride Flush 0.9% 10 Ml Syringe IVP 10 ml 0100,0900,1700 SAMI Administration Tamsulosin HCl 0.8 mg 07/15/23 09:00 07/20/23 08:57 Tamsulosin 0.4 Mg Capsule PO 0.8 mg DAILY SAMI Administration - Lab Result Lab results reviewed: Yes Fish Bone Diagrams: 07/19/23 04:41 07/19/23 04:41 - EKG Results EKG Interpreted Independently: Yes - Additional Planning My Orders: My Active Orders 07/19/23 17:00 Insulin Lispro [Humalog Kwikpen U-100] 3 - 11 unit SUBQ 0800,1200,1700,2100 07/19/23 21:00 Metoprolol Tartrate [Lopressor] 50 mg PO BID 07/20/23 09:00 Senna [Senokot] 8.6 - 17.2 mg PO DAILY Subjective - Subjective Patient Reports: Feeling Better Objective Vital Signs: Vital Signs - 24 hr 07/19/23 07/19/23 07/19/23 15:22 20:08 20:18 Temperature 36.3 C L 36.6 C Heart Rate [ 84 118 H Brachial] Respiratory 16 16 Rate Blood Pressure 94/63 Blood Pressure 96/69 [Left Brachial artery] Blood Pressure 118/65 [Right Brachial artery] O2 Saturation 97 96 07/19/23 07/20/23 07/20/23 23:33 01:54 01:57 Temperature 36.4 C L Heart Rate [ 117 H 119 H Brachial] Respiratory 18 Rate Blood Pressure 111/84 H Blood Pressure [Left Brachial artery] Blood Pressure 120/82 H 111/84 H [Right Brachial artery] O2 Saturation 100 07/20/23 07/20/23 07/20/23 02:04 02:08 02:14 Temperature Heart Rate [ 119 H 88 90 Brachial] Respiratory Rate Blood Pressure Blood Pressure [Left Brachial artery] Blood Pressure 117/74 109/64 107/65 [Right Brachial artery] O2 Saturation 07/20/23 07/20/23 07/20/23 02:29 02:44 02:59 Temperature Heart Rate [ 117 H 115 H 58 L Brachial] Respiratory Rate Blood Pressure Blood Pressure [Left Brachial artery] Blood Pressure 101/63 98/63 115/63 [Right Brachial artery] O2 Saturation 07/20/23 07/20/23 07/20/23 03:00 04:44 07:25 Temperature 36.4 C L 36.4 C L Heart Rate [ 120 H 119 H Brachial] Respiratory 16 18 Rate Blood Pressure 115/63 Blood Pressure [Left Brachial artery] Blood Pressure 132/88 H 123/89 H [Right Brachial artery] O2 Saturation 96 96 07/20/23 07/20/23 07/20/23 08:06 08:36 08:43 Temperature Heart Rate [ Brachial] Respiratory Rate Blood Pressure 130/80 96/57 L 96/57 L Blood Pressure [Left Brachial artery] Blood Pressure [Right Brachial artery] O2 Saturation 07/20/23 11:20 Temperature 36.3 C L Heart Rate [ 119 H Brachial] Respiratory 18 Rate Blood Pressure Blood Pressure [Left Brachial artery] Blood Pressure 112/74 [Right Brachial artery] O2 Saturation 97 Oxygen O2 Source [With Activity] Room air O2 Source Room air I&O (Last 24 Hrs): Intake and Output Totals x24h 07/18/23 07/19/23 07/20/23 23:59 23:59 23:59 Intake Total 1170 1370 960 Output Total 1200 1250 1225 Balance -30 120 -265 General: No acute distress Cardiovascular: Regular rate Respiratory: No respiratory distress Extremities: No clubbing, No cyanosis, No edema - Results Results: Laboratory Results WBC 9.5 x10^3/uL (4.8-10.8) 07/19/23 04:41 RBC 2.60 10^6/uL (4.70-6.10) L 07/19/23 04:41 Hgb 9.3 g/dL (14.0-18.0) L 07/19/23 04:41 Hct 29.2 % (42.0-52.0) L 07/19/23 04:41 MCV 112.3 fL (80.0-94.0) H 07/19/23 04:41 MCH 35.8 pg (27.0-31.0) H 07/19/23 04:41 MCHC 31.8 g/dL (32.0-36.0) L 07/19/23 04:41 RDW 20.9 % (12.0-15.0) H 07/19/23 04:41 Plt Count 237 10^3/uL (130-450) 07/19/23 04:41 MPV 11.0 fL (7.4-11.4) 07/19/23 04:41 Neut # (Auto) 5.7 10^3/uL (1.5-6.6) 07/19/23 04:41 Lymph # (Auto) 2.8 10^3/uL (1.5-3.5) 07/19/23 04:41 Mcdonald # (Auto) 0.7 10^3/uL (0.0-1.0) 07/19/23 04:41 Eos # (Auto) 0.2 10^3/uL (0.0-0.7) 07/19/23 04:41 Baso # (Auto) 0.1 10^3/uL (0.0-0.1) 07/19/23 04:41 Absolute Nucleated RBC 0.00 x10^3/uL 07/19/23 04:41 Nucleated RBC % 0.0 /100WBC 07/19/23 04:41 Manual Slide Review Indicated 07/19/23 04:41 WBC Morphology NORMAL APPEARANCE (NORMAL) 07/19/23 04:41 Platelet Estimate NORMAL (130-450,000) (NORMAL) 07/19/23 04:41 Platelet Morphology NORMAL APPEARANCE (NORMAL) 07/19/23 04:41 RBC Morph Micro Appear 2+ MACROCYTOSIS (NORMAL) 2+ ANISOCYTOSIS (NORMAL) 1+ STOMATOCYTES (NORMAL) 07/19/23 04:41 RBC Morph Micro Appear 2+ MACROCYTOSIS (NORMAL) 2+ ANISOCYTOSIS (NORMAL) 1+ STOMATOCYTES (NORMAL) 07/19/23 04:41 RBC Morph Micro Appear 2+ MACROCYTOSIS (NORMAL) 2+ ANISOCYTOSIS (NORMAL) 1+ STOMATOCYTES (NORMAL) 07/19/23 04:41 PT 12.6 secs (9.9-12.6) 07/16/23 05:04 INR 1.2 (0.8-1.2) 07/16/23 05:04 VBG pH 7.337 (7.31-7.41) 07/14/23 10:14 VBG pCO2 49.0 mmHg (41-51) 07/14/23 10:14 VBG pO2 22.9 mmHg (25-47) L 07/14/23 10:14 VBG HCO3 25.7 mmol/L (23-28) 07/14/23 10:14 VBG Total CO2 27.2 mmol/L (24-29) 07/14/23 10:14 VBG O2 Saturation 39.4 % (60-80) L 07/14/23 10:14 VBG Base Excess -0.4 mmol/L (-2 - +2) 07/14/23 10:14 Sodium 137 mmol/L (135-145) 07/19/23 04:41 Potassium 4.4 mmol/L (3.5-4.5) 07/19/23 04:41 Chloride 105 mmol/L (101-111) 07/19/23 04:41 Carbon Dioxide 27 mmol/L (21-32) 07/19/23 04:41 Anion Gap 5.0 (6-13) L 07/19/23 04:41 BUN 27 mg/dL (6-20) H 07/19/23 04:41 Creatinine 2.2 mg/dL (0.6-1.3) H 07/19/23 04:41 Estimated GFR (MDRD) 29 (>89) L 07/19/23 04:41 Glucose 135 mg/dL (74-104) H 07/19/23 04:41 POC Whole Bld Glucose 209 mg/dL (70 - 100) H 07/20/23 11:22 Estimat Average Glucose 258 mg/dL (70-100) H 07/14/23 10:05 Hemoglobin A1c % 10.6 % (4.27-6.07) H 07/14/23 10:05 Calcium 8.7 mg/dL (8.5-10.3) 07/19/23 04:41 Magnesium 1.6 mg/dL (1.7-2.3) L 07/14/23 10:08 Total Bilirubin 0.7 mg/dL (0.2-1.0) 07/14/23 10:08 AST 32 IU/L (10-42) 07/14/23 10:08 ALT 39 IU/L (10-60) 07/14/23 10:08 Alkaline Phosphatase 57 IU/L (42-121) 07/14/23 10:08 Total Protein 5.7 g/dL (6.4-8.9) L 07/14/23 10:08 Albumin 3.6 g/dL (3.2-5.5) 07/14/23 10:08 Globulin 2.1 g/dL (2.1-4.2) 07/14/23 10:08 Albumin/Globulin Ratio 1.7 (1.0-2.2) 07/14/23 10:08 Lipase 15 U/L (11-82) 07/14/23 10:08 TSH 96.38 uIU/mL (0.34-5.60) H 07/14/23 10:08 Free T4 Direct < 0.25 ng/dL (0.58-1.64) L 07/14/23 10:08 Urine Color YELLOW 07/14/23 12:15 Urine Clarity CLEAR (CLEAR) 07/14/23 12:15 Urine pH 5.5 PH (5.0-7.5) 08/22/23 12:15 Ur Specific Banner 1.025 (1.002-1.030) 07/14/23 12:15 Urine Protein 100 mg/dL (NEGATIVE) H 07/14/23 12:15 Urine Glucose (UA) 100 mg/dL (NEGATIVE) H 07/14/23 12:15 Urine Ketones NEGATIVE mg/dL (NEGATIVE) 07/14/23 12:15 Urine Occult Blood NEGATIVE (NEGATIVE) 07/14/23 12:15 Urine Nitrite NEGATIVE (NEGATIVE) 07/14/23 12:15 Urine Bilirubin NEGATIVE (NEGATIVE) 07/14/23 12:15 Urine Urobilinogen 0.2 (NORMAL) E.U./dL (NORMAL) 07/14/23 12:15 Ur Leukocyte Esterase NEGATIVE (NEGATIVE) 07/14/23 12:15 Urine RBC None Seen /HPF (0-5) 07/14/23 12:15 Urine WBC 0-3 /HPF (0-3) 07/14/23 12:15 Ur Squamous Epith Cells NONE SEEN (<= Few) 07/14/23 12:15 Urine Bacteria None Seen /HPF (None Seen) 07/14/23 12:15 Ur Microscopic Review INDICATED 07/14/23 12:15 Urine Culture Comments NOT INDICATED 07/14/23 12:15 Serum Ketones NEGATIVE (NEGATIVE) 07/14/23 10:08 - Procedures Procedures: Procedures TRANSFUSE NONAUT RED BLOOD CELLS IN PERIPH VEIN, PERC (02/21/21) ABX Reporting Has patient been on IV antibiotics over the past 48 hours?: No Current Medications - Current Medications Current Medications: Current Medications Generic Name Dose Route Start Last Admin Trade Name Joseq PRN Reason Stop Dose Admin Acetaminophen 650 mg 07/14/23 15:56 07/20/23 08:57 Acetaminophen 325 Mg Tablet PO 650 mg Q4HR PRN Administration Pain 1 to 4, or Fever Hydrocodone Bitart/Acetaminophen 1 tab 07/14/23 15:56 07/19/23 23:11 Hydrocod/Acetam 5/325 Mg Tablet PO 1 tab Q4HR PRN Administration Pain 5 to 7 Aspirin 81 mg 07/15/23 09:00 07/20/23 08:36 Aspirin Ec 81 Mg Tablet PO 81 mg DAILY SAMI Administration Heparin Sodium (Porcine) 5,000 unit 07/14/23 21:00 07/20/23 08:42 Heparin 5,000 Unit/Ml Vial SUBQ 5,000 unit BID SAMI Administration Insulin Glargine-yfgn 12 unit 07/18/23 09:00 07/20/23 08:35 Insulin Glargine-Yfgn 300 Unit/3 Ml Pen SUBQ 12 unit DAILY SAMI Administration Insulin Human Lispro 3 - 11 unit 07/19/23 17:00 07/20/23 12:11 Insulin Lispro 300 Unit/3 Ml Pen SUBQ 5 unit 0800,1200,1700,2100 SAMI Administration Protocol Levothyroxine Sodium 150 mcg 07/15/23 07:00 07/20/23 06:59 Levothyroxine 75 Mcg Tablet PO 150 mcg QDAC SAMI Administration Metoprolol Tartrate 5 mg 07/14/23 18:17 07/20/23 16:16 Metoprolol 5 Mg/5 Ml Vial IVP 5 mg Q6H PRN Administration Tachycardia Metoprolol Tartrate 50 mg 07/19/23 21:00 07/20/23 08:43 Metoprolol Tartrate 50 Mg Tablet PO 50 mg BID SAMI Administration Polyethylene Glycol 17 gm 07/15/23 09:00 07/20/23 08:34 Polyethylene Glycol 3350 17 Gm Packet PO 17 gm DAILY SAMI Administration Pravastatin Sodium 10 mg 07/14/23 21:00 07/19/23 20:17 Pravastatin 10 Mg Tablet PO 10 mg QPM SAMI Administration Senna 8.6 - 17.2 mg 07/20/23 09:00 07/20/23 08:36 Senna 8.6 Mg Tablet PO 17.2 mg DAILY SAMI Administration Sodium Chloride 10 ml 07/14/23 15:56 07/20/23 01:57 Sodium Chloride Flush 0.9% 10 Ml Syringe IVP 10 ml PRN PRN Administration NEEDED PER PROVIDER ORDERS Sodium Chloride 10 ml 07/14/23 17:00 07/20/23 16:16 Sodium Chloride Flush 0.9% 10 Ml Syringe IVP 10 ml 0100,0900,1700 SAMI Administration Tamsulosin HCl 0.8 mg 07/15/23 09:00 07/20/23 08:57 Tamsulosin 0.4 Mg Capsule PO 0.8 mg DAILY SAMI Administration
[2023-07-20] MEDS: PRAVASTATIN 10 MG TABLET PO SCH (20:44)
[2023-07-20] MEDS: HYDROcod/ACETAM 5/325 MG TABLET PO PRN (23:29)
[2023-07-21] MEDS: LEVOTHYROXINE 75 MCG TABLET PO SCH (06:38)
[2023-07-21] MEDS: INSULIN GLARGINE-YFGN 300 UNIT/3 ML PEN SUBQ SCH (08:36)
[2023-07-21] MEDS: INSULIN LISPRO 300 UNIT/3 ML PEN SUBQ SCH ×4 (08:36→20:51)
[2023-07-21] MEDS: TAMSULOSIN 0.4 MG CAPSULE PO SCH (08:37)
[2023-07-21] MEDS: METOPROLOL TARTRATE 50 MG TABLET PO SCH ×2 (08:37→20:51)
[2023-07-21] MEDS: SENNA 8.6 MG TABLET PO SCH (08:37)
[2023-07-21] MEDS: ASPIRIN EC 81 MG TABLET PO SCH (08:37)
[2023-07-21] MEDS: polyethylene glycoL 3350 17 GM PACKET PO SCH (08:39)
[2023-07-21] MEDS: SODIUM CHLORIDE FLUSH 0.9% 10 ML SYRINGE IVP SCH ×2 (08:39→16:53)
[2023-07-21] MEDS: HEPARIN 5,000 UNIT/ML VIAL SUBQ SCH ×2 (08:45→20:51)
[2023-07-21] MEDS ORDERED: methylPREDNISolone ACETATE 40 MG/ML VIAL IU ONE (10:06)
[2023-07-21] MEDS ORDERED: BUPIVACAINE 0.75% MPF 10 ML VIAL EP ONE (10:06)
[2023-07-21] MEDS ORDERED: LIDOCAINE-PF 2% 10 ML AMP SUBQ ONE ×2 (10:08→11:00)
--- NOTE | 2023-07-21 12:32 | XRAY Report ---
PROCEDURE: Shoulder 3 View LT INDICATIONS: pull on bed trapeze and pain for 4 days TECHNIQUE: 3 views of the shoulder were acquired. COMPARISON: None. FINDINGS: Bones: No fractures or dislocations. 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 No cotto spicious bony lesions. Visualized ribs appear intact. Soft tissues: Small calcifications are noted adjacent to lateral and posterior aspect of humeral hea d concerning for calcific tendinitis. IMPRESSION: No acute bony abnormality. Moderate acromioclavicular joint osseous arthritis. Suggestion of calcific tendinitis. If indicated, MRI of shoulder can be done for further evaluation of internal derangement . Reviewed by: Gary Walker MD on 07/21/2023 12:31 PM PDT Approved by: Gary Walker MD on 07/21/2023 12:31 PM PDT Station ID: [id number]
--- NOTE | 2023-07-21 13:23 | PROVIDER PROGRESS NOTE ---
Subjective - Prog Note Date Prog Note Date: 07/21/23 Prog Note Time: 13:21 - Subjective Subjective: He is sitting up in a chair. Comfortable. Gets tachypneic immediately when he starts talking to me. But then when I stop talking to him his tachypnea res olves. So he recovers quickly. Over the last few days he has had increasing left shoulder pain. Nursing reports that he was using the trapeze to lift himself. 1 day he felt sharp pain in his left shoulder with pulling on the trapezius. Since then is getting harder and harder to abduct his arm. He uses his right arm to lift his left arm. Pain is more in the shoulder than anything else. 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 There has been no fall while here. Hospice is aware that we are awaiting placement. Current Medications - Current Medications Current Medications: Active Medications Acetaminophen (Acetaminophen 325 Mg Tablet) 650 mg PO Q4HR PRN PRN Reason: Pain 1 to 4, or Fever Last Admin: 07/20/23 08:57 Dose: 650 mg Hydrocodone Bitart/Acetaminophen (Hydrocod/Acetam 5/325 Mg Tablet) 1 tab PO Q4HR PRN PRN Reason: Pain 5 to 7 Last Admin: 07/20/23 23:29 Dose: 1 tab Aspirin (Aspirin Ec 81 Mg Tablet) 81 mg PO DAILY [facility] Last Admin: 07/21/23 08:37 Dose: 81 mg Heparin Sodium (Porcine) (Heparin 5,000 Unit/Ml Vial) 5,000 unit SUBQ BID [facility] Last Admin: 07/21/23 08:45 Dose: 5,000 unit Insulin Glargine-yfgn (Insulin Glargine-Yfgn 300 Unit/3 Ml Pen) 12 unit SUBQ DAILY [facility] Last Admin: 07/21/23 08:36 Dose: 12 unit Insulin Human Lispro (Insulin Lispro 300 Unit/3 Ml Pen) 3 - 11 unit SUBQ 0800,1200,1700,2100 [facility]; Protocol Last Admin: 07/21/23 12:29 Dose: 5 unit Levothyroxine Sodium (Levothyroxine 75 Mcg Tablet) 150 mcg PO QDAC [facility] Last Admin: 07/21/23 06:38 Dose: 150 mcg Metoprolol Tartrate (Metoprolol 5 Mg/5 Ml Vial) 5 mg IVP Q6H PRN PRN Reason: Tachycardia Last Admin: 07/20/23 16:16 Dose: 5 mg Metoprolol Tartrate (Metoprolol Tartrate 50 Mg Tablet) 50 mg PO BID [facility] Last Admin: 07/21/23 08:37 Dose: 50 mg Ondansetron HCl (Ondansetron Odt 4 Mg Tablet) 4 mg TL Q6HR PRN PRN Reason: Nausea / Vomiting Ondansetron HCl (Ondansetron 4 Mg/2 Ml Vial) 4 mg IVP Q6HR PRN PRN Reason: Nausea / Vomiting Polyethylene Glycol (Polyethylene Glycol 3350 17 Gm Packet) 17 gm PO DAILY [facility] Last Admin: 07/21/23 08:39 Dose: Not Given Pravastatin Sodium (Pravastatin 10 Mg Tablet) 10 mg PO QPM [facility] Last Admin: 07/20/23 20:44 Dose: 10 mg Senna (Senna 8.6 Mg Tablet) 8.6 - 17.2 mg PO DAILY [facility] Last Admin: 07/21/23 08:37 Dose: 8.6 mg Sodium Chloride (Sodium Chloride Flush 0.9% 10 Ml Syringe) 10 ml IVP PRN PRN PRN Reason: NEEDED PER PROVIDER ORDERS Last Admin: 07/20/23 01:57 Dose: 10 ml Sodium Chloride (Sodium Chloride Flush 0.9% 10 Ml Syringe) 10 ml IVP 0100,0900,1700 [facility] Last Admin: 07/21/23 08:39 Dose: 10 ml Tamsulosin HCl (Tamsulosin 0.4 Mg Capsule) 0.8 mg PO DAILY [facility] Last Admin: 07/21/23 08:37 Dose: 0.8 mg Aspirin [Aspir 81] 81 mg PO DAILY 08/13/15 Multivitamin [Multivitamins] 1 cap PO DAILY 08/13/15 Simvastatin 5 mg PO HS 08/13/15 metFORMIN [Glucophage] 500 mg PO BID 08/13/15 Insulin NPH Human Isophane [Humulin N Kwikpen] 20 units SQ TID 07/20/17 Tamsulosin [Flomax] 2 cap PO DAILY 03/07/19 Levothyroxine Sodium [Synthroid] 175 mcg PO DAILY 01/24/21 Losartan [Cozaar] 100 mg PO DAILY 05/02/22 amLODIPine [Norvasc] 5 mg PO DAILY 05/02/22 Blood-Glucose Meter [Accu-Chek Mckenzie Plus] 1 each MC QID 07/15/23 Insulin Regular Human [Humulin R] 20 unit SUBQ . SEE INSTRUCTIONS 07/15/23 Torsemide 10 mg PO DAILY 07/15/23 tiZANidine [Zanaflex] 2 - 4 mg PO Q8H PRN 07/15/23 Objective - Vital Signs/Intake & Output Reviewed Vital Signs: Yes Vital Signs: Vital Signs x48h Temp Pulse Resp BP BP BP Pulse Ox 07/21/23 11:59 115 H 16 115/77 97 07/21/23 08:37 131/74 H 07/21/23 08:27 36.6 C 119 H 18 131/74 H 96 Intake & Output: Intake & Output 07/18/23 07/19/23 07/20/23 07/21/23 23:59 23:59 23:59 23:59 Intake Total 1170 1370 1310 360 Output Total 1200 1250 1725 625 Balance -30 120 -114 -265 - Objective General Appearance: positive: Alert, Mild distress, Other (Elderly, very pale gentleman with a full kim sitting up in chair. Blankets around his shoulders. Easily tachypneic. Looks like he has a little bit of anasarca) Eyes Bilateral: positive: PERRL, EOMI ENT: positive: Pharynx nml, No signs of dehydration Neck: positive: No JVD. negative: Stiff neck Respiratory: positive: Rales, Other (Tachypnea with speaking.). negative: Wheezes, Rhonchi Cardiovascular: positive: Regular rate & rhythm, Systolic murmur, Diastolic murmur Abdomen: positive: Non-tender, No organomegaly, Nml bowel sounds, No distention, Other (Protuberant. Skin edema around lower abdominal wall) Skin: positive: Warm, Dry, Pallor (Very pale gentleman) Extremities: positive: Full ROM, Pedal edema (1+), Other (Posterior left shoulder with pinpoint pain. Right underneath the capsule. He cannot Abduct. Pain is too limiting. No warmth, effusion felt. No redness or joing edema.) Neurologic/Psychiatric: positive: Oriented x3, CN's nml (2-12), Other (Moderate generalized weakness. He does get up out of bed to eat. He needs help to go from supine to sitting and from sitting to standing. He really is impulsive and does not respond to cueing.). negative: Motor nml - Lab Results Fish Bones: 07/19/23 04:41 07/19/23 04:41 Other Labs: Lab Results x24hrs 07/21/23 07/21/23 07/20/23 Range/Units 11:58 07:52 20:35 POC Whole Bld Glucose 189 H 144 H 228 H (70 - 100) mg/dL 07/20/23 Range/Units 16:22 POC Whole Bld Glucose 204 H (70 - 100) mg/dL Assessment/Plan - Problem List (1) Severe systolic congestive heart failure Impression: New Dx (Not present in a 2020 echocardiogram where he was evaluated for an NSTEMI after which he had no cardiology f/u. The patient states he "did not see any point") * Now presenting with likely ischemic cardiomyopathy and he may also have cardiomyopathy from thyroid disease (Patient admits to medication noncompliance and TSH was markedly elevated on admission) * Developed new onset atrial fibrillation, with echocardiogram showing global hypokinesis with ejection fraction is less than 20%. * He's had a marked rate of deterioration noted in the last few months for him from a functional perspective. Prognosis is poor overall. * Started on losartan 25 mg, but BP soft 07/20/23, and in light of the plans for the patient to discharge to hospice, to avoid any lightheadedness or other increased risk of falls will DC losartan. Have also decreased metoprolol from 75 mg twice daily to 50 mg twice daily. * Advance care planning conversation held. Patient wants to make sure he is DNR. Plan is for hospice admission (community relations representative was kind enough to see patient in the evening of 07/17/2023 and has arranged for intake) * Given patient's inability to care for self at home with ADLs, he will likely be discharged to halfway facility on respite at which point he will then transition to hospice and return home which is the patient's priority. We are awaiting acceptance from a local SNF. (2) Atrial flutter with rapid ventricular response Assessment/Plan: * New diagnosis during this admission. * Rate is not controlled. New Dx (Not present in a 2020 echocardiogram where he was evaluated for an NSTEMI after which he had no cardiology f/u. The patient states he "did not see any point") * Now presenting with likely ischemic cardiomyopathy and he may also have cardiomyopathy from thyroid disease (Patient admits to medication noncompliance and TSH was markedly elevated on admission) * Developed new onset atrial fibrillation, with echocardiogram showing global hypokinesis with ejection fraction is less than 20%. * He's had a marked rate of deterioration noted in the last few months for him from a functional perspective. Prognosis is poor overall. * Started on losartan 25 mg, but BP soft today, and in light of the plans for the patient to discharge to hospice, to avoid any lightheadedness or other increased risk of falls will DC losartan. Have also decrease metoprolol from 75 mg twice daily to 50 mg twice daily. * Advance care planning conversation held. Patient wants to make sure he is DNR. Plan is for hospice admission (community relations representative was kind enough to see patient in the evening of 07/17/2023 and has arranged for intake) * Given patient's inability to care for self at home with ADLs, he will likely be discharged to halfway facility on respite at which point he will then transition to hospice and return home which is the patient's priority. (2) Atrial flutter with rapid ventricular response Assessment/Plan: * New diagnosis during this admission. * Currently not rate controlled. Yesterday the lowest heart rate was 54. For the rest the day he has been 120, 119, 121. Today his heart rate is varying between 108 and as high as up to 119. * Metoprolol was decreased to 50 mg from 75 mg due to soft BP's * I will add digoxin po for rate control. hoping to avoid the hypotensive complication of rate controlling meds. (3) Hypothyroidism Qualifiers: Hypothyroidism type: unspecified Qualified Code(s): E03.9 - Hypothyroidism, unspecified Assessment/Plan: * He admits not taking his medications at home and this is evident by his TSH being 96.38 and free T4 last 0.25. * Have increased Synthroid to 175 mcg daily from 150 mcg q/d. (4) Chronic kidney disease, stage 3 Qualifiers: Chronic kidney disease stage 3 subtype: unspecified whether 3a or 3b Qual ified Code(s): N18.30 - Chronic kidney disease, stage 3 unspecified Assessment/Plan: * He has CKD stage III likely due to underlying diabetes mellitus, Prerenal azotemia from reduced ejection fraction, and poor p.o. intake and his baseline creatinine is around 2.0. * Cr has been stable near 2 * Monitor renal function and urine output. (5) Hypertension Qualifiers: Hypertension type: essential hypertension Assessment/Plan: BP has been soft for several days, with some ARB started during admit due to CHF, w/ low EF, however BP has not been tolerating it well. Plan: Have stopped losartan. Decreased Metoprolol from 75 mg BID to 50 mg BID. Currently BP soft to normal (6) Myelodysplastic syndrome Assessment/Plan: Followed by heme-onc, but now that patient is transitioning to hospice, it is unclear as to whether the patient will continue Procrit infusions (7) Left shoulder pain Qualifiers: Chronicity: acute Qualified Code(s): M25.512 - Pain in left shoulder Assessment/Plan: * Patient complained of left shoulder pain that started during this admit. He thinks he slept in a awkward position * He requested x-rays, but on exam he has no bony tenderness and passive range of motion is relatively at baseline. Xr is not indicated but since I have offered to inject it for pain relief, I will check a film before injecting * Patient likely has rotator cuff tendinopathy, versus subacromial bursitis versus calcific tendinopathy. The film was ordered and it does so calcific tendinitis. * Discussed with PT to aid with increasing range of motion and decreasing pain, appreciate help * I offered injection and he accepted it as pain relief therapy. See separate procedure note.
[2023-07-21] MEDS ORDERED: DIGOXIN 125 MCG TABLET PO STA (13:59)
--- NOTE | 2023-07-21 14:25 | PROCEDURE REPORT ---
Hospitalist Procedure Note - Procedure Note Procedure Note: July 21, 2023 1:45 PM Patient has been complaining of increasing left shoulder pain. Shoulder films checked and I do agree with the previous hospitalist that it is most likely tendinitis. X-ray confirms calcific tendinitis. He mostly has chronic bursitis or tendinitis and then in reaching up to pull himself using the trapezius, broke up some calcium and gave himself even worse tendinitis. He says that he is just miserable with the pain. He cannot use his left arm because his left shoulder hurts too much. He said he would love for me to figure out a way to reduce the pain. I offered him a steroid injection and explained to him that it is a potent anti- inflammatory that will reduce the inflammation over the next day or 2. With that I would also inject lidocaine and bupivacaine to immediately numb the shoulder joint. He said he would like that. Risk of infection being introduced through the tip of the needle, bleeding discussed with the patient. He said he still would like me to inject. As such I reviewed the film. I located my anatomy beneath the capsule and the posterior shoulder. Clean the skin with Povidine and alcohol. I angella 3 cc of bupivacaine, 2 cc of lidocaine, and 1 cc of Depo-Medrol 40 mg into a 10 cc syringe. Using a 22-gauge needle I relocated my anatomy underneath the capsule and the posterior shoulder joint. And injected 6 cc. There was no pain. Patient's that he tolerated it well. I told him I check back with him in about another hour to see if he had some pain relief.
[2023-07-21] MEDS: METOPROLOL 5 MG/5 ML VIAL IVP PRN (18:18)
[2023-07-21] MEDS ORDERED: DIPHENOX/ATROPINE 2.5/0.025 MG TABLET PO PRN (18:53)
[2023-07-21] MEDS: PRAVASTATIN 10 MG TABLET PO SCH (20:51)
[2023-07-22] MEDS: LEVOTHYROXINE 75 MCG TABLET PO SCH (06:21)
[2023-07-22] MEDS: INSULIN GLARGINE-YFGN 300 UNIT/3 ML PEN SUBQ SCH (08:06)
[2023-07-22] MEDS: HEPARIN 5,000 UNIT/ML VIAL SUBQ SCH ×2 (08:07→20:36)
[2023-07-22] MEDS: INSULIN LISPRO 300 UNIT/3 ML PEN SUBQ SCH ×4 (08:07→20:56)
[2023-07-22] MEDS: ASPIRIN EC 81 MG TABLET PO SCH (08:10)
[2023-07-22] MEDS: METOPROLOL TARTRATE 50 MG TABLET PO SCH ×2 (08:10→20:42)
[2023-07-22] MEDS: SENNA 8.6 MG TABLET PO SCH (08:10)
[2023-07-22] MEDS: SODIUM CHLORIDE FLUSH 0.9% 10 ML SYRINGE IVP SCH ×3 (08:10→16:24)
[2023-07-22] MEDS: DIGOXIN 125 MCG TABLET PO SCH (08:10)
[2023-07-22] MEDS: TAMSULOSIN 0.4 MG CAPSULE PO SCH (08:10)
[2023-07-22] MEDS: polyethylene glycoL 3350 17 GM PACKET PO SCH (08:10)
--- NOTE | 2023-07-22 10:04 | PROVIDER PROGRESS NOTE ---
Subjective - Prog Note Date Prog Note Date: 07/22/23 - Subjective Subjective: Chart reviewed d/t request for hospice admission. Pt is an 83 yo male w/uncontrolled hypothyroidism and new dx of biventricular cardiomyopathy w/LVEF reduction from 50-55% in 2020 to now 20-25% (no discrete wall motion abnormality, but rather global dysfunction likely d/t nonadherence to goal directed therapy, arrhythmia w/poor rate control, and uncontrolled hypothyroidism w/TSH of 96). Pt has had CXR this admission w/no evidence of volume overload/CHF. He is not receiving diuretics. He walked w/therapy 300 ft yesterday w/o need for O2 and no documentation of dyspnea. He did require rests d/t "fatigue". direct marketing manager and RO[employer]OWER met w/pt this am and he has expressed goals of receiving therapy for his shoulder and perhaps pursuing hip replacement in the future (see note from Hospice Mgr). Based on documentation in the medical record, patient does not meet clinical criteria for hospice for CHF. He does have multiple uncontrolled medical conditions that likely would improve if he is receptive to taking appropriate medication. Additionally, his goals of care are not consistent w/comfort directed care. Thank you for consulting our team for this gentleman. If his clinical picture changes, please contact our team for reassessment. Objective - Vital Signs/Intake & Output Vital Signs: Vital Signs x48h Temp Pulse Resp BP BP Pulse Ox 07/22/23 08:10 111/68 07/22/23 08:08 36.4 C L 120 H 18 111/68 97 07/22/23 04:00 36.3 C L 118 H 20 105/74 97 Intake & Output: Intake & Output 07/19/23 07/20/23 07/21/23 07/22/23 23:59 23:59 23:59 23:59 Intake Total 1370 1310 1460 240 Output Total 1250 1725 1725 950 Balance 247 -715 -322 -347 - Lab Results Fish Bones: 07/19/23 04:41 07/19/23 04:41 Other Labs: Lab Results x24hrs 07/22/23 07/21/23 07/21/23 Range/Units 07:30 20:44 19:44 POC Whole Bld Glucose 132 H 222 H 231 H (70 - 100) mg/dL 07/21/23 07/21/23 Range/Units 16:21 11:58 POC Whole Bld Glucose 185 H 189 H (70 - 100) mg/dL
[2023-07-22] MEDS: METOPROLOL 5 MG/5 ML VIAL IVP PRN (17:46)
--- NOTE | 2023-07-22 18:29 | PROVIDER PROGRESS NOTE ---
Assessment/Plan - Problem List (1) Atrial flutter with rapid ventricular response Assessment/Plan: HR controlled, high risk for acute cardiac event, hospice candidate (2) Hypoglycemia Assessment/Plan: stable, hypoglycemia precaution (3) Left shoulder pain Qualifiers: Chronicity: acute Qualified Code(s): M25.512 - Pain in left shoulder Assessment/Plan: improved after the should injection performed yesterday (4) Severe systolic congestive heart failure Assessment/Plan: EF 20% high risk for cardiac (5) Hypothyroidism Qualifiers: Hypothyroidism type: unspecified Qualified Code(s): E03.9 - Hypothyroidism, unspecified Assessment/Plan: continue home dose sythroid (6) Sinus pause Assessment/Plan: 3.48sec pause noted on tele, decrease metoprolol dose, hospice candidate, no aggressive intervention indicated - Current Meds Current Meds: Current Medications Generic Name Dose Route Start Last Admin Trade Name Freq PRN Reason Stop Dose Admin Acetaminophen 650 mg 07/14/23 15:56 07/20/23 08:57 Acetaminophen 325 Mg Tablet PO 650 mg Q4HR PRN Administration Pain 1 to 4, or Fever Hydrocodone Bitart/Acetaminophen 1 tab 07/14/23 15:56 07/20/23 23:29 Hydrocod/Acetam 5/325 Mg Tablet PO 1 tab Q4HR PRN Administration Pain 5 to 7 Aspirin 81 mg 07/15/23 09:00 07/22/23 08:10 Aspirin Ec 81 Mg Tablet PO 81 mg DAILY SAMI Administration Digoxin 125 mcg 07/22/23 09:00 07/22/23 08:10 Digoxin 125 Mcg Tablet PO 125 mcg DAILY SAMI Administration Diphenoxylate HCl/Atropine 1 tab 07/21/23 18:53 07/21/23 20:51 Diphenox/Atropine 2.5/0.025 Mg Tablet PO 1 tab QID PRN Administration Diarrhea Heparin Sodium (Porcine) 5,000 unit 07/14/23 21:00 07/22/23 08:07 Heparin 5,000 Unit/Ml Vial SUBQ 5,000 unit BID SAMI Administration Insulin Glargine-yfgn 18 unit 07/22/23 09:00 07/22/23 08:06 Insulin Glargine-Yfgn 300 Unit/3 Ml Pen SUBQ 18 unit DAILY SAMI Administration Insulin Human Lispro 3 - 11 unit 07/19/23 17:00 07/22/23 17:02 Insulin Lispro 300 Unit/3 Ml Pen SUBQ 5 unit 0800,1200,1700,2100 SAMI Administration Protocol Levothyroxine Sodium 150 mcg 07/15/23 07:00 07/22/23 06:21 Levothyroxine 75 Mcg Tablet PO 150 mcg QDAC SAMI Administration Metoprolol Tartrate 5 mg 07/14/23 18:17 07/22/23 17:46 Metoprolol 5 Mg/5 Ml Vial IVP 5 mg Q6H PRN Administration Tachycardia Metoprolol Tartrate 50 mg 07/19/23 21:00 07/22/23 08:10 Metoprolol Tartrate 50 Mg Tablet PO 50 mg BID SAMI Administration Polyethylene Glycol 17 gm 07/15/23 09:00 07/22/23 08:10 Polyethylene Glycol 3350 17 Gm Packet PO 17 gm DAILY SAMI Administration Pravastatin Sodium 10 mg 07/14/23 21:00 07/21/23 20:51 Pravastatin 10 Mg Tablet PO 10 mg QPM SAMI Administration Senna 8.6 - 17.2 mg 07/20/23 09:00 07/22/23 08:10 Senna 8.6 Mg Tablet PO 8.6 mg DAILY SAMI Administration Sodium Chloride 10 ml 07/14/23 15:56 07/20/23 01:57 Sodium Chloride Flush 0.9% 10 Ml Syringe IVP 10 ml PRN PRN Administration NEEDED PER PROVIDER ORDERS Sodium Chloride 10 ml 07/14/23 17:00 07/22/23 16:24 Sodium Chloride Flush 0.9% 10 Ml Syringe IVP 10 ml 0100,0900,1700 SAMI Administration Tamsulosin HCl 0.8 mg 07/15/23 09:00 07/22/23 08:10 Tamsulosin 0.4 Mg Capsule PO 0.8 mg DAILY SAMI Administration - Lab Result Fish Bone Diagrams: 07/19/23 04:41 07/19/23 04:41 Subjective - Subjective Patient Reports: Feeling Better (shoulder pain is improved, can lift above head) Nursing Reports: Other (3.48sec pause noted) Objective Vital Signs: Vital Signs - 24 hr 07/21/23 07/21/23 07/21/23 20:51 20:55 23:50 Temperature 36.7 C 36.6 C Heart Rate [ 51 L 119 H Brachial] Respiratory 18 18 Rate Blood Pressure 99/65 Blood Pressure [Left Brachial artery] Blood Pressure 99/65 122/76 [Right Brachial artery] O2 Saturation 93 96 07/22/23 07/22/23 07/22/23 04:00 08:08 08:10 Temperature 36.3 C L 36.4 C L Heart Rate [ 118 H 120 H Brachial] Respiratory 20 18 Rate Blood Pressure 111/68 Blood Pressure [Left Brachial artery] Blood Pressure 105/74 111/68 [Right Brachial artery] O2 Saturation 97 97 07/22/23 07/22/23 07/22/23 09:40 12:42 16:16 Temperature 36.8 C 36.4 C L Heart Rate [ 120 H 87 61 Brachial] Respiratory 18 18 Rate Blood Pressure Blood Pressure [Left Brachial artery] Blood Pressure 102/62 112/83 H 107/56 L [Right Brachial artery] O2 Saturation 97 99 07/22/23 07/22/23 07/22/23 17:46 17:51 17:56 Temperature Heart Rate [ 123 H 120 H 62 Brachial] Respiratory Rate Blood Pressure 115/71 Blood Pressure 95/56 L 92/54 L [Left Brachial artery] Blood Pressure [Right Brachial artery] O2 Saturation 07/22/23 07/22/23 18:02 18:16 Temperature Heart Rate [ 59 L Brachial] Respiratory Rate Blood Pressure 99/65 Blood Pressure 107/79 [Left Brachial artery] Blood Pressure [Right Brachial artery] O2 Saturation Oxygen O2 Source [With Activity] Room air O2 Source Room air I&O (Last 24 Hrs): Intake and Output Totals x24h 07/20/23 07/21/23 07/22/23 23:59 23:59 23:59 Intake Total 1310 1460 480 Output Total 1725 1725 1450 Balance -415 -265 -970 General: Alert, Oriented x3 HEENT: EOMI Neuro: Alert, Non Focal Respiratory: Chest non-tender, No respiratory distress, Breath sounds nml Abdomen: Normal bowel sounds, No tenderness Extremities: No tenderness/swelling - Results Results: Laboratory Results WBC 9.5 x10^3/uL (4.8-10.8) 07/19/23 04:41 RBC 2.60 10^6/uL (4.70-6.10) L 07/19/23 04:41 Hgb 9.3 g/dL (14.0-18.0) L 07/19/23 04:41 Hct 29.2 % (42.0-52.0) L 07/19/23 04:41 MCV 112.3 fL (80.0-94.0) H 07/19/23 04:41 MCH 35.8 pg (27.0-31.0) H 07/19/23 04:41 MCHC 31.8 g/dL (32.0-36.0) L 07/19/23 04:41 RDW 20.9 % (12.0-15.0) H 07/19/23 04:41 Plt Count 237 10^3/uL (130-450) 07/19/23 04:41 MPV 11.0 fL (7.4-11.4) 07/19/23 04:41 Neut # (Auto) 5.7 10^3/uL (1.5-6.6) 07/19/23 04:41 Lymph # (Auto) 2.8 10^3/uL (1.5-3.5) 07/19/23 04:41 [place] # (Auto) 0.7 10^3/uL (0.0-1.0) 07/19/23 04:41 Eos # (Auto) 0.2 10^3/uL (0.0-0.7) 07/19/23 04:41 Baso # (Auto) 0.1 10^3/uL (0.0-0.1) 07/19/23 04:41 Absolute Nucleated RBC 0.00 x10^3/uL 07/19/23 04:41 Nucleated RBC % 0.0 /100WBC 07/19/23 04:41 Manual Slide Review Indicated 07/19/23 04:41 WBC Morphology NORMAL APPEARANCE (NORMAL) 07/19/23 04:41 Platelet Estimate NORMAL (130-450,000) (NORMAL) 07/19/23 04:41 Platelet Morphology NORMAL APPEARANCE (NORMAL) 07/19/23 04:41 RBC Morph Micro Appear 2+ MACROCYTOSIS (NORMAL) 2+ ANISOCYTOSIS (NORMAL) 1+ STOMATOCYTES (NORMAL) 07/19/23 04:41 RBC Morph Micro Appear 2+ MACROCYTOSIS (NORMAL) 2+ ANISOCYTOSIS (NORMAL) 1+ STOMATOCYTES (NORMAL) 07/19/23 04:41 RBC Morph Micro Appear 2+ MACROCYTOSIS (NORMAL) 2+ ANISOCYTOSIS (NORMAL) 1+ STOMATOCYTES (NORMAL) 07/19/23 04:41 PT 12.6 secs (9.9-12.6) 07/16/23 05:04 INR 1.2 (0.8-1.2) 07/16/23 05:04 VBG pH 7.337 (7.31-7.41) 07/14/23 10:14 VBG pCO2 49.0 mmHg (41-51) 07/14/23 10:14 VBG pO2 22.9 mmHg (25-47) L 07/14/23 10:14 VBG HCO3 25.7 mmol/L (23-28) 07/14/23 10:14 VBG Total CO2 27.2 mmol/L (24-29) 07/14/23 10:14 VBG O2 Saturation 39.4 % (60-80) L 07/14/23 10:14 VBG Base Excess -0.4 mmol/L (-2 - +2) 07/14/23 10:14 Sodium 137 mmol/L (135-145) 07/19/23 04:41 Potassium 4.4 mmol/L (3.5-4.5) 07/19/23 04:41 Chloride 105 mmol/L (101-111) 07/19/23 04:41 Carbon Dioxide 27 mmol/L (21-32) 07/19/23 04:41 Anion Gap 5.0 (6-13) L 07/19/23 04:41 BUN 27 mg/dL (6-20) H 07/19/23 04:41 Creatinine 2.2 mg/dL (0.6-1.3) H 07/19/23 04:41 Estimated GFR (MDRD) 29 (>89) L 07/19/23 04:41 Glucose 135 mg/dL (74-104) H 07/19/23 04:41 POC Whole Bld Glucose 188 mg/dL (70 - 100) H 07/22/23 16:35 Estimat Average Glucose 258 mg/dL (70-100) H 07/14/23 10:05 Hemoglobin A1c % 10.6 % (4.27-6.07) H 07/14/23 10:05 Calcium 8.7 mg/dL (8.5-10.3) 07/19/23 04:41 Magnesium 1.6 mg/dL (1.7-2.3) L 07/14/23 10:08 Total Bilirubin 0.7 mg/dL (0.2-1.0) 07/14/23 10:08 AST 32 IU/L (10-42) 07/14/23 10:08 ALT 39 IU/L (10-60) 07/14/23 10:08 Alkaline Phosphatase 57 IU/L (42-121) 07/14/23 10:08 Total Protein 5.7 g/dL (6.4-8.9) L 07/14/23 10:08 Albumin 3.6 g/dL (3.2-5.5) 07/14/23 10:08 Globulin 2.1 g/dL (2.1-4.2) 07/14/23 10:08 Albumin/Globulin Ratio 1.7 (1.0-2.2) 07/14/23 10:08 Lipase 15 U/L (11-82) 07/14/23 10:08 TSH 96.38 uIU/mL (0.34-5.60) H 07/14/23 10:08 Free T4 Direct < 0.25 ng/dL (0.58-1.64) L 07/14/23 10:08 Urine Color YELLOW 07/14/23 12:15 Urine Clarity CLEAR (CLEAR) 07/14/23 12:15 Urine pH 5.5 PH (5.0-7.5) 07/14/23 12:15 Ur Specific [place] 1.025 (1.002-1.030) 07/14/23 12:15 Urine Protein 100 mg/dL (NEGATIVE) H 07/14/23 12:15 Urine Glucose (UA) 100 mg/dL (NEGATIVE) H 07/14/23 12:15 Urine Ketones NEGATIVE mg/dL (NEGATIVE) 07/14/23 12:15 Urine Occult Blood NEGATIVE (NEGATIVE) 07/14/23 12:15 Urine Nitrite NEGATIVE (NEGATIVE) 07/14/23 12:15 Urine Bilirubin NEGATIVE (NEGATIVE) 07/14/23 12:15 Urine Urobilinogen 0.2 (NORMAL) E.U./dL (NORMAL) 07/14/23 12:15 Ur Leukocyte Esterase NEGATIVE (NEGATIVE) 07/14/23 12:15 Urine RBC None Seen /HPF (0-5) 07/14/23 12:15 Urine WBC 0-3 /HPF (0-3) 07/14/23 12:15 Ur Squamous Epith Cells NONE SEEN (<= Few) 07/14/23 12:15 Urine Bacteria None Seen /HPF (None Seen) 07/14/23 12:15 Ur Microscopic Review INDICATED 07/14/23 12:15 Urine Culture Comments NOT INDICATED 07/14/23 12:15 Serum Ketones NEGATIVE (NEGATIVE) 07/14/23 10:08 - Procedures Procedures: Procedures TRANSFUSE NONAUT RED BLOOD CELLS IN PERIPH VEIN, PERC (02/21/21) ABX Reporting Has patient been on IV antibiotics over the past 48 hours?: No Current Medications - Current Medications Current Medications: Active Medications Generic Name Dose Route Start Last Admin Trade Name Freq PRN Reason Stop Dose Admin Acetaminophen 650 mg 07/14/23 15:56 07/20/23 08:57 Acetaminophen 325 Mg Tablet PO 650 mg Q4HR PRN Administration Pain 1 to 4, or Fever Hydrocodone Bitart/Acetaminophen 1 tab 07/14/23 15:56 07/20/23 23:29 Hydrocod/Acetam 5/325 Mg Tablet PO 1 tab Q4HR PRN Administration Pain 5 to 7 Aspirin 81 mg 07/15/23 09:00 07/22/23 08:10 Aspirin Ec 81 Mg Tablet PO 81 mg DAILY SAMI Administration Digoxin 125 mcg 07/22/23 09:00 07/22/23 08:10 Digoxin 125 Mcg Tablet PO 125 mcg DAILY SAMI Administration Diphenoxylate HCl/Atropine 1 tab 07/21/23 18:53 07/21/23 20:51 Diphenox/Atropine 2.5/0.025 Mg Tablet PO 1 tab QID PRN Administration Diarrhea Heparin Sodium (Porcine) 5,000 unit 07/14/23 21:00 07/22/23 08:07 Heparin 5,000 Unit/Ml Vial SUBQ 5,000 unit BID SAMI Administration Insulin Glargine-yfgn 18 unit 07/22/23 09:00 07/22/23 08:06 Insulin Glargine-Yfgn 300 Unit/3 Ml Pen SUBQ 18 unit DAILY SAMI Administration Insulin Human Lispro 3 - 11 unit 07/19/23 17:00 07/22/23 17:02 Insulin Lispro 300 Unit/3 Ml Pen SUBQ 5 unit 0800,1200,1700,2100 SAMI Administration Protocol Levothyroxine Sodium 150 mcg 07/15/23 07:00 07/22/23 06:21 Levothyroxine 75 Mcg Tablet PO 150 mcg QDAC SAMI Administration Metoprolol Tartrate 5 mg 07/14/23 18:17 07/22/23 17:46 Metoprolol 5 Mg/5 Ml Vial IVP 5 mg Q6H PRN Administration Tachycardia Metoprolol Tartrate 25 mg 07/22/23 21:00 Metoprolol Tartrate 50 Mg Tablet PO BID [facility] Ondansetron HCl 4 mg 07/14/23 15:56 Ondansetron Odt 4 Mg Tablet TL Q6HR PRN Nausea / Vomiting Ondansetron HCl 4 mg 07/14/23 15:56 Ondansetron 4 Mg/2 Ml Vial IVP Q6HR PRN Nausea / Vomiting Polyethylene Glycol 17 gm 07/15/23 09:00 07/22/23 08:10 Polyethylene Glycol 3350 17 Gm Packet PO 17 gm DAILY SAMI Administration Pravastatin Sodium 10 mg 07/14/23 21:00 07/21/23 20:51 Pravastatin 10 Mg Tablet PO 10 mg QPM SAMI Administration Senna 8.6 - 17.2 mg 07/20/23 09:00 07/22/23 08:10 Senna 8.6 Mg Tablet PO 8.6 mg DAILY SAMI Administration Sodium Chloride 10 ml 07/14/23 15:56 07/20/23 01:57 Sodium Chloride Flush 0.9% 10 Ml Syringe IVP 10 ml PRN PRN Administration NEEDED PER PROVIDER ORDERS Sodium Chloride 10 ml 07/14/23 17:00 07/22/23 16:24 Sodium Chloride Flush 0.9% 10 Ml Syringe IVP 10 ml 0100,0900,1700 SAMI Administration Tamsulosin HCl 0.8 mg 07/15/23 09:00 07/22/23 08:10 Tamsulosin 0.4 Mg Capsule PO 0.8 mg DAILY SAMI Administration Aspirin [Aspir 81] 81 mg PO DAILY 08/13/15 Multivitamin [Multivitamins] 1 cap PO DAILY 08/13/15 Simvastatin 5 mg PO HS 08/13/15 metFORMIN [Glucophage] 500 mg PO BID 08/13/15 Insulin NPH Human Isophane [Humulin N Kwikpen] 20 units SQ TID 07/20/17 Tamsulosin [Flomax] 2 cap PO DAILY 03/07/19 Levothyroxine Sodium [Synthroid] 175 mcg PO DAILY 01/24/21 Losartan [Cozaar] 100 mg PO DAILY 05/02/22 amLODIPine [Norvasc] 5 mg PO DAILY 05/02/22 Blood-Glucose Meter [Accu-Chek [place] Plus] 1 each MC QID 07/15/23 Insulin Regular Human [Humulin R] 20 unit SUBQ . SEE INSTRUCTIONS 07/15/23 Torsemide 10 mg PO DAILY 07/15/23 tiZANidine [Zanaflex] 2 - 4 mg PO Q8H PRN 07/15/23
[2023-07-22] MEDS: PRAVASTATIN 10 MG TABLET PO SCH (20:35)
[2023-07-23] MEDS: SODIUM CHLORIDE FLUSH 0.9% 10 ML SYRINGE IVP SCH ×4 (02:18→23:59)
[2023-07-23] MEDS: HYDROcod/ACETAM 5/325 MG TABLET PO PRN (02:18)
[2023-07-23] MEDS: LEVOTHYROXINE 75 MCG TABLET PO SCH (06:30)
[2023-07-23] MEDS: ACETAMINOPHEN 325 MG TABLET PO PRN ×2 (06:30→22:04)
--- NOTE | 2023-07-23 07:44 | PROVIDER PROGRESS NOTE ---
Assessment/Plan - Problem List (1) Atrial flutter with rapid ventricular response Assessment/Plan: Rate controlled, heart rate between 70s to 100. Continue with current treatment with metoprolol and digoxin. [id number] score over 3, anticoagulant is indicated. However patient has been considering comfort care, is reluctant to take extra pills that can have risk of bleeding (2) Hypoglycemia Assessment/Plan: Hypoglycemia precaution, adjust insulin dose. Nutrition healthcare educator provided teaching. Patient is recommended to cut down to his insulin use to once a day instead of 3 times a day. Which can be safer for him at time of discharge (3) Left shoulder pain Qualifiers: Chronicity: acute Qualified Code(s): M25.512 - Pain in left shoulder (4) Severe systolic congestive heart failure Assessment/Plan: Echocardiogram shows global hypokinesia with ejection fraction less than 20%. Patient also has exertional dyspnea. Initially patient was considering comfort care only, however with improvement of symptoms, patient would like to continue with treatment, and also goes home if all possible (5) Hypothyroidism Qualifiers: Hypothyroidism type: unspecified Qualified Code(s): E03.9 - Hypothyroidism, unspecified Assessment/Plan: Stable, continue with home dose levothyroxine (6) Sinus pause Assessment/Plan: No recurrent sinus polyps in the past 24 hours. Patient is aware of his weak heart. Would like to continue with current treatment, would like to go home with home health. If further readmission occurs, he may consider comfort care. - Current Meds Current Meds: Current Medications Generic Name Dose Route Start Last Admin Trade Name Freq PRN Reason Stop Dose Admin Acetaminophen 650 mg 07/14/23 15:56 07/23/23 06:30 Acetaminophen 325 Mg Tablet PO 650 mg Q4HR PRN Administration Pain 1 to 4, or Fever Hydrocodone Bitart/Acetaminophen 1 tab 07/14/23 15:56 07/23/23 02:18 Hydrocod/Acetam 5/325 Mg Tablet PO 1 tab Q4HR PRN Administration Pain 5 to 7 Aspirin 81 mg 07/15/23 09:00 07/22/23 08:10 Aspirin Ec 81 Mg Tablet PO 81 mg DAILY SAMI Administration Digoxin 125 mcg 07/22/23 09:00 07/22/23 08:10 Digoxin 125 Mcg Tablet PO 125 mcg DAILY SAMI Administration Diphenoxylate HCl/Atropine 1 tab 07/21/23 18:53 07/21/23 20:51 Diphenox/Atropine 2.5/0.025 Mg Tablet PO 1 tab QID PRN Administration Diarrhea Heparin Sodium (Porcine) 5,000 unit 07/14/23 21:00 07/22/23 20:36 Heparin 5,000 Unit/Ml Vial SUBQ 5,000 unit BID SAMI Administration Insulin Glargine-yfgn 18 unit 07/22/23 09:00 07/22/23 08:06 Insulin Glargine-Yfgn 300 Unit/3 Ml Pen SUBQ 18 unit DAILY SAMI Administration Insulin Human Lispro 3 - 11 unit 07/19/23 17:00 07/22/23 20:56 Insulin Lispro 300 Unit/3 Ml Pen SUBQ 5 unit 0800,1200,1700,2100 SAMI Administration Protocol Levothyroxine Sodium 150 mcg 07/15/23 07:00 07/23/23 06:30 Levothyroxine 75 Mcg Tablet PO 150 mcg QDAC SAMI Administration Metoprolol Tartrate 5 mg 07/14/23 18:17 07/22/23 17:46 Metoprolol 5 Mg/5 Ml Vial IVP 5 mg Q6H PRN Administration Tachycardia Metoprolol Tartrate 25 mg 07/22/23 21:00 07/22/23 20:42 Metoprolol Tartrate 50 Mg Tablet PO Not Given BID [facility] Polyethylene Glycol 17 gm 07/15/23 09:00 07/22/23 08:10 Polyethylene Glycol 3350 17 Gm Packet PO 17 gm DAILY SAMI Administration Pravastatin Sodium 10 mg 07/14/23 21:00 07/22/23 20:35 Pravastatin 10 Mg Tablet PO 10 mg QPM SAMI Administration Senna 8.6 - 17.2 mg 07/20/23 09:00 07/22/23 08:10 Senna 8.6 Mg Tablet PO 8.6 mg DAILY SAMI Administration Sodium Chloride 10 ml 07/14/23 15:56 07/20/23 01:57 Sodium Chloride Flush 0.9% 10 Ml Syringe IVP 10 ml PRN PRN Administration NEEDED PER PROVIDER ORDERS Sodium Chloride 10 ml 07/14/23 17:00 07/23/23 02:18 Sodium Chloride Flush 0.9% 10 Ml Syringe IVP 10 ml 0100,0900,1700 SAMI Administration Tamsulosin HCl 0.8 mg 07/15/23 09:00 07/22/23 08:10 Tamsulosin 0.4 Mg Capsule PO 0.8 mg DAILY SAMI Administration - Lab Result Fish Bone Diagrams: 07/23/23 12:43 07/23/23 12:43 - Additional Planning My Orders: My Active Orders 07/22/23 21:00 Metoprolol Tartrate [Lopressor] 25 mg PO BID Subjective - Subjective Patient Reports: Feeling Better (Patient is awake alert oriented, appears comfortable sitting in chair. He reports that he feels normal and I would like to go home if all possible. He also is looking for fpc, would like to have a list of places that he can talk to, in order to get involved. He reports his shoulder pain is) Nursing Reports: No Complaints Objective Vital Signs: Vital Signs - 24 hr 07/22/23 07/22/23 07/22/23 08:08 08:10 09:40 Temperature 36.4 C L Heart Rate [ 120 H 120 H Brachial] Respiratory 18 Rate Blood Pressure 111/68 Blood Pressure [Left Brachial artery] Blood Pressure 111/68 102/62 [Right Brachial artery] O2 Saturation 97 07/22/23 07/22/23 07/22/23 12:42 16:16 17:46 Temperature 36.8 C 36.4 C L Heart Rate [ 87 61 123 H Brachial] Respiratory 18 18 Rate Blood Pressure 115/71 Blood Pressure [Left Brachial artery] Blood Pressure 112/83 H 107/56 L [Right Brachial artery] O2 Saturation 97 99 07/22/23 07/22/23 07/22/23 17:51 17:56 18:02 Temperature Heart Rate [ 120 H 62 59 L Brachial] Respiratory Rate Blood Pressure Blood Pressure 95/56 L 92/54 L 107/79 [Left Brachial artery] Blood Pressure [Right Brachial artery] O2 Saturation 07/22/23 07/22/23 07/22/23 18:16 18:32 18:47 Temperature Heart Rate [ 60 76 Brachial] Respiratory Rate Blood Pressure 99/65 Blood Pressure 101/72 100/76 [Left Brachial artery] Blood Pressure [Right Brachial artery] O2 Saturation 07/22/23 07/22/23 07/22/23 20:42 21:00 23:40 Temperature 36.2 C L 36.5 C Heart Rate [ 70 82 Brachial] Respiratory 18 16 Rate Blood Pressure 89/56 L Blood Pressure 122/67 103/61 [Left Brachial artery] Blood Pressure [Right Brachial artery] O2 Saturation 99 98 07/23/23 03:23 Temperature 36.2 C L Heart Rate [ 119 H Brachial] Respiratory 17 Rate Blood Pressure Blood Pressure 98/66 [Left Brachial artery] Blood Pressure [Right Brachial artery] O2 Saturation 94 Oxygen O2 Source [With Activity] Room air O2 Source Room air I&O (Last 24 Hrs): Intake and Output Totals x24h 07/21/23 07/22/23 07/23/23 23:59 23:59 23:59 Intake Total 1460 980 Output Total 1725 1900 450 Balance -265 -920 -450 General: Oriented x3, No acute distress HEENT: PERRLA, EOMI Neck: Supple, No JVD Neuro: Alert, Non Focal, CN 2-12 Grossly Intact Cardiovascular: Regular rate Respiratory: No respiratory distress, Breath sounds nml Abdomen: Normal bowel sounds Extremities: No clubbing - Results Results: Laboratory Results WBC 9.5 x10^3/uL (4.8-10.8) 07/19/23 04:41 RBC 2.60 10^6/uL (4.70-6.10) L 07/19/23 04:41 Hgb 9.3 g/dL (14.0-18.0) L 07/19/23 04:41 Hct 29.2 % (42.0-52.0) L 07/19/23 04:41 MCV 112.3 fL (80.0-94.0) H 07/19/23 04:41 MCH 35.8 pg (27.0-31.0) H 07/19/23 04:41 MCHC 31.8 g/dL (32.0-36.0) L 07/19/23 04:41 RDW 20.9 % (12.0-15.0) H 07/19/23 04:41 Plt Count 237 10^3/uL (130-450) 07/19/23 04:41 MPV 11.0 fL (7.4-11.4) 07/19/23 04:41 Neut # (Auto) 5.7 10^3/uL (1.5-6.6) 07/19/23 04:41 Lymph # (Auto) 2.8 10^3/uL (1.5-3.5) 07/19/23 04:41 [place] # (Auto) 0.7 10^3/uL (0.0-1.0) 07/19/23 04:41 Eos # (Auto) 0.2 10^3/uL (0.0-0.7) 07/19/23 04:41 Baso # (Auto) 0.1 10^3/uL (0.0-0.1) 07/19/23 04:41 Absolute Nucleated RBC 0.00 x10^3/uL 07/19/23 04:41 Nucleated RBC % 0.0 /100WBC 07/19/23 04:41 Manual Slide Review Indicated 07/19/23 04:41 WBC Morphology NORMAL APPEARANCE (NORMAL) 07/19/23 04:41 Platelet Estimate NORMAL (130-450,000) (NORMAL) 07/19/23 04:41 Platelet Morphology NORMAL APPEARANCE (NORMAL) 07/19/23 04:41 RBC Morph Micro Appear 2+ MACROCYTOSIS (NORMAL) 2+ ANISOCYTOSIS (NORMAL) 1+ STOMATOCYTES (NORMAL) 07/19/23 04:41 RBC Morph Micro Appear 2+ MACROCYTOSIS (NORMAL) 2+ ANISOCYTOSIS (NORMAL) 1+ STOMATOCYTES (NORMAL) 07/19/23 04:41 RBC Morph Micro Appear 2+ MACROCYTOSIS (NORMAL) 2+ ANISOCYTOSIS (NORMAL) 1+ STOMATOCYTES (NORMAL) 07/19/23 04:41 PT 12.6 secs (9.9-12.6) 07/16/23 05:04 INR 1.2 (0.8-1.2) 07/16/23 05:04 VBG pH 7.337 (7.31-7.41) 07/14/23 10:14 VBG pCO2 49.0 mmHg (41-51) 07/14/23 10:14 VBG pO2 22.9 mmHg (25-47) L 07/14/23 10:14 VBG HCO3 25.7 mmol/L (23-28) 07/14/23 10:14 VBG Total CO2 27.2 mmol/L (24-29) 07/14/23 10:14 VBG O2 Saturation 39.4 % (60-80) L 07/14/23 10:14 VBG Base Excess -0.4 mmol/L (-2 - +2) 07/14/23 10:14 Sodium 137 mmol/L (135-145) 07/19/23 04:41 Potassium 4.4 mmol/L (3.5-4.5) 07/19/23 04:41 Chloride 105 mmol/L (101-111) 07/19/23 04:41 Carbon Dioxide 27 mmol/L (21-32) 07/19/23 04:41 Anion Gap 5.0 (6-13) L 07/19/23 04:41 BUN 27 mg/dL (6-20) H 07/19/23 04:41 Creatinine 2.2 mg/dL (0.6-1.3) H 07/19/23 04:41 Estimated GFR (MDRD) 29 (>89) L 07/19/23 04:41 Glucose 135 mg/dL (74-104) H 07/19/23 04:41 POC Whole Bld Glucose 134 mg/dL (70 - 100) H 07/23/23 07:21 Estimat Average Glucose 258 mg/dL (70-100) H 07/14/23 10:05 Hemoglobin A1c % 10.6 % (4.27-6.07) H 07/14/23 10:05 Calcium 8.7 mg/dL (8.5-10.3) 07/19/23 04:41 Magnesium 1.6 mg/dL (1.7-2.3) L 07/14/23 10:08 Total Bilirubin 0.7 mg/dL (0.2-1.0) 07/14/23 10:08 AST 32 IU/L (10-42) 07/14/23 10:08 ALT 39 IU/L (10-60) 07/14/23 10:08 Alkaline Phosphatase 57 IU/L (42-121) 07/14/23 10:08 Total Protein 5.7 g/dL (6.4-8.9) L 07/14/23 10:08 Albumin 3.6 g/dL (3.2-5.5) 07/14/23 10:08 Globulin 2.1 g/dL (2.1-4.2) 07/14/23 10:08 Albumin/Globulin Ratio 1.7 (1.0-2.2) 07/14/23 10:08 Lipase 15 U/L (11-82) 07/14/23 10:08 TSH 96.38 uIU/mL (0.34-5.60) H 07/14/23 10:08 Free T4 Direct < 0.25 ng/dL (0.58-1.64) L 07/14/23 10:08 Urine Color YELLOW 07/14/23 12:15 Urine Clarity CLEAR (CLEAR) 07/14/23 12:15 Urine pH 5.5 PH (5.0-7.5) 07/14/23 12:15 Ur Specific Zebulon 1.025 (1.002-1.030) 07/14/23 12:15 Urine Protein 100 mg/dL (NEGATIVE) H 07/14/23 12:15 Urine Glucose (UA) 100 mg/dL (NEGATIVE) H 07/14/23 12:15 Urine Ketones NEGATIVE mg/dL (NEGATIVE) 07/14/23 12:15 Urine Occult Blood NEGATIVE (NEGATIVE) 07/14/23 12:15 Urine Nitrite NEGATIVE (NEGATIVE) 07/14/23 12:15 Urine Bilirubin NEGATIVE (NEGATIVE) 07/14/23 12:15 Urine Urobilinogen 0.2 (NORMAL) E.U./dL (NORMAL) 07/14/23 12:15 Ur Leukocyte Esterase NEGATIVE (NEGATIVE) 07/14/23 12:15 Urine RBC None Seen /HPF (0-5) 07/14/23 12:15 Urine WBC 0-3 /HPF (0-3) 07/14/23 12:15 Ur Squamous Epith Cells NONE SEEN (<= Few) 07/14/23 12:15 Urine Bacteria None Seen /HPF (None Seen) 07/14/23 12:15 Ur Microscopic Review INDICATED 07/14/23 12:15 Urine Culture Comments NOT INDICATED 07/14/23 12:15 Serum Ketones NEGATIVE (NEGATIVE) 07/14/23 10:08 - Procedures Procedures: Procedures TRANSFUSE NONAUT RED BLOOD CELLS IN PERIPH VEIN, PERC (02/21/21) ABX Reporting Has patient been on IV antibiotics over the past 48 hours?: No
[2023-07-23] MEDS: SENNA 8.6 MG TABLET PO SCH (08:41)
[2023-07-23] MEDS: TAMSULOSIN 0.4 MG CAPSULE PO SCH (08:41)
[2023-07-23] MEDS: ASPIRIN EC 81 MG TABLET PO SCH (08:41)
[2023-07-23] MEDS: INSULIN LISPRO 300 UNIT/3 ML PEN SUBQ SCH ×4 (08:41→20:34)
[2023-07-23] MEDS: METOPROLOL TARTRATE 50 MG TABLET PO SCH ×2 (08:42→20:33)
[2023-07-23] MEDS: DIGOXIN 125 MCG TABLET PO SCH (08:42)
[2023-07-23] MEDS: INSULIN GLARGINE-YFGN 300 UNIT/3 ML PEN SUBQ SCH (08:43)
[2023-07-23] MEDS: polyethylene glycoL 3350 17 GM PACKET PO SCH (08:47)
[2023-07-23] MEDS: HEPARIN 5,000 UNIT/ML VIAL SUBQ SCH ×2 (08:47→20:33)
[2023-07-23 13:09] LABS: BASOPHILS # (AUTO) 0.1 10^3/uL (0.0-0.1); BASOPHILS % (AUTO) 1.1 %; EOSINOPHILS # (AUTO) 0.1 10^3/uL (0.0-0.7); EOSINOPHILS % (AUTO) 1.4 %; HCT - HEMATOCRIT 28.5 % (42.0-52.0); LYMPHOCYTES # (AUTO) 1.7 10^3/uL (1.5-3.5); LYMPHOCYTES % (AUTO) 20.9 %; MEAN CORPUSCULAR HEMOGLOBIN 35.6 pg (27.0-31.0); MEAN CORPUSCULAR HGB CONC 31.6 g/dL (32.0-36.0); MEAN CORPUSCULAR VOLUME 112.6 fL (80.0-94.0); MEAN PLATELET VOLUME 11.6 fL (7.4-11.4); MONOCYTES # (AUTO) 0.5 10^3/uL (0.0-1.0); MONOCYTES % (AUTO) 5.8 %; NEUTROPHILS # (AUTO) 5.6 10^3/uL (1.5-6.6); NEUTROPHILS % (AUTO) 70.4 %; PLT - PLATELET COUNT 208 10^3/uL (130-450); RED BLOOD COUNT 2.53 10^6/uL (4.70-6.10); RED CELL DISTRIBUTION WIDTH 21.2 % (12.0-15.0)
[2023-07-23 13:17] LABS: CREATININE 1.9 mg/dL (0.6-1.3); POTASSIUM 4.2 mmol/L (3.5-4.5)
[2023-07-23] MEDS: METOPROLOL 5 MG/5 ML VIAL IVP PRN ×2 (13:30→21:15)
[2023-07-23] MEDS: PRAVASTATIN 10 MG TABLET PO SCH (20:34)
[2023-07-24] MEDS: LEVOTHYROXINE 75 MCG TABLET PO SCH (07:11)
[2023-07-24] MEDS: INSULIN GLARGINE-YFGN 300 UNIT/3 ML PEN SUBQ SCH (08:20)
[2023-07-24] MEDS: polyethylene glycoL 3350 17 GM PACKET PO SCH (08:21)
[2023-07-24] MEDS: INSULIN LISPRO 300 UNIT/3 ML PEN SUBQ SCH ×4 (08:21→20:37)
[2023-07-24] MEDS: DIGOXIN 125 MCG TABLET PO SCH (08:21)
[2023-07-24] MEDS: TAMSULOSIN 0.4 MG CAPSULE PO SCH (08:21)
[2023-07-24] MEDS: METOPROLOL TARTRATE 50 MG TABLET PO SCH (08:21)
[2023-07-24] MEDS: ASPIRIN EC 81 MG TABLET PO SCH (08:22)
[2023-07-24] MEDS: SENNA 8.6 MG TABLET PO SCH (08:22)
[2023-07-24] MEDS: SODIUM CHLORIDE FLUSH 0.9% 10 ML SYRINGE IVP SCH ×2 (08:22→15:35)
[2023-07-24] MEDS: HEPARIN 5,000 UNIT/ML VIAL SUBQ SCH ×2 (08:23→20:33)
--- NOTE | 2023-07-24 09:10 | PROVIDER PROGRESS NOTE ---
Assessment/Plan - Problem List (1) Atrial flutter with rapid ventricular response Assessment/Plan: HR is again rapid at 121 today (VS were all reviewed). He is on metoprolol tartrate 25 BID and on daily po digoxin 125 mcg [id number] score over 3, anticoagulant is indicated. However patient is reluctant to take extra pills that can have risk of bleeding Plan: Stop short acting metoprolol Start Toprol XL and increase the B-deb dose from 25 twice daily to 37.5 twice daily Continue with Digoxin orally daily, check Dig level with a.m. labs I will stop the order for as needed IV metoprolol since his blood pressure is soft (2) Severe systolic congestive heart failure Assessment/Plan: Echocardiogram shows global hypokinesia with ejection fraction less than 20%. Patient also has exertional dyspnea. Initially patient was considering comfort care only, however with improvement of symptoms, patient would like to continue with treatment, and also goes home if all possible Plan: Due to "soft" BP, he is not on Spironolactone or on DIDI/ARB. Continue his Toprol and adjust the dose to achieve rate control for his rapid a flutter Continue Dig I will try adding Lasix po for his 3+ leg edema Will order leg elevation when OOB (3) Hypothyroidism Qualifiers: Hypothyroidism type: unspecified Qualified Code(s): E03.9 - Hypothyroidism, unspecified Assessment/Plan: TSH was melinda high at 96. A T4 came back showing nearly no T4 measurable. He was on Synthroid 175 mcg daily at home. For some reason here he was put on Synthroid 150 mg daily Plan: I will increase his daily Synthroid dose to 200 mcg daily, since he was and is being under dosed (4) DM Type 2 Assessment/Plan: Plan: Continue sliding-scale insulin coverage We will increase his a.m. Lantus from 18 U to 22 U, since he is still running high sugars (5) Hypoglycemia Assessment/Plan: RESOLVED Hypoglycemia precaution, adjust insulin dose. Nutrition hospice educator provided teaching. Patient is recommended to cut down to his insulin use to once a day instead of 3 times a day. 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 All labs were reviewed) Hemoglobin yesterday was 9.0, which is close to his baseline. Plan: Monitor CBC intermittently (8) Benign prostate hyperplasia Conclusion/Plan: Plan: We will continue his home Flomax (9) Chronic kidney disease, stage 3 Conclusion/Plan: He has CKD stage III and his baseline creatinine is around 2.0. Yesterday it was 1.9. His CKD is likely due to underlying diabetes mellitus. Plan: Monitor renal function BMP intermittently and monitor urine output. - Current Meds Current Meds: Current Medications Generic Name Dose Route Start Last Admin Trade Name Freq PRN Reason Stop Dose Admin Acetaminophen 650 mg 07/14/23 15:56 07/23/23 22:04 Acetaminophen 325 Mg Tablet PO 650 mg Q4HR PRN Administration Pain 1 to 4, or Fever Hydrocodone Bitart/Acetaminophen 1 tab 07/14/23 15:56 07/23/23 02:18 Hydrocod/Acetam 5/325 Mg Tablet PO 1 tab Q4HR PRN Administration Pain 5 to 7 Aspirin 81 mg 07/15/23 09:00 07/24/23 08:22 Aspirin Ec 81 Mg Tablet PO 81 mg DAILY SAMI Administration Digoxin 125 mcg 07/22/23 09:00 07/24/23 08:21 Digoxin 125 Mcg Tablet PO 125 mcg DAILY SAMI Administration Diphenoxylate HCl/Atropine 1 tab 07/21/23 18:53 07/21/23 20:51 Diphenox/Atropine 2.5/0.025 Mg Tablet PO 1 tab QID PRN Administration Diarrhea Heparin Sodium (Porcine) 5,000 unit 07/14/23 21:00 07/24/23 08:23 Heparin 5,000 Unit/Ml Vial SUBQ 5,000 unit BID SAMI Administration Insulin Glargine-yfgn 18 unit 07/22/23 09:00 07/24/23 08:20 Insulin Glargine-Yfgn 300 Unit/3 Ml Pen SUBQ 18 unit DAILY SAMI Administration Insulin Human Lispro 3 - 11 unit 07/19/23 17:00 07/24/23 08:21 Insulin Lispro 300 Unit/3 Ml Pen SUBQ 3 unit 0800,1200,1700,2100 SAMI Administration Protocol Levothyroxine Sodium 150 mcg 07/15/23 07:00 07/24/23 07:11 Levothyroxine 75 Mcg Tablet PO 150 mcg QDAC SAMI Administration Polyethylene Glycol 17 gm 07/15/23 09:00 07/24/23 08:21 Polyethylene Glycol 3350 17 Gm Packet PO 17 gm DAILY SAMI Administration Pravastatin Sodium 10 mg 07/14/23 21:00 07/23/23 20:34 Pravastatin 10 Mg Tablet PO 10 mg QPM SAMI Administration Senna 8.6 - 17.2 mg 07/20/23 09:00 07/24/23 08:22 Senna 8.6 Mg Tablet PO 8.6 mg DAILY SAMI Administration Sodium Chloride 10 ml 07/14/23 15:56 07/20/23 01:57 Sodium Chloride Flush 0.9% 10 Ml Syringe IVP 10 ml PRN PRN Administration NEEDED PER PROVIDER ORDERS Sodium Chloride 10 ml 07/14/23 17:00 07/24/23 08:22 Sodium Chloride Flush 0.9% 10 Ml Syringe IVP 10 ml 0100,0900,1700 SAMI Administration Tamsulosin HCl 0.8 mg 07/15/23 09:00 07/24/23 08:21 Tamsulosin 0.4 Mg Capsule PO 0.8 mg DAILY SAMI Administration - Lab Result Fish Bone Diagrams: 07/23/23 12:43 07/23/23 12:43 - Additional Planning My Orders: My Active Orders 07/24/23 21:00 Metoprolol Succinate [Toprol Xl] 3,877.5 mg PO BID 07/25/23 05:00 DIGOXIN [CHEM] DAILYLAB Subjective - Subjective Patient Reports: Resting Comfortably, No Complaints (Wants to go home) Objective Vital Signs: Vital Signs - 24 hr 07/23/23 07/23/23 07/23/23 12:18 13:30 14:00 Temperature 36.6 C Heart Rate [ 119 H 120 H Brachial] Heart Rate [ Monitoring electrodes] Respiratory 18 Rate Blood Pressure 124/69 109/83 H Blood Pressure 131/89 H 109/83 H [Left Brachial artery] Blood Pressure [Right Brachial artery] O2 Saturation 99 07/23/23 07/23/23 07/23/23 14:45 15:48 16:05 Temperature 36.6 C Heart Rate [ 85 119 H 85 Brachial] Heart Rate [ Monitoring electrodes] Respiratory 16 Rate Blood Pressure Blood Pressure 116/79 122/83 H [Left Brachial artery] Blood Pressure [Right Brachial artery] O2 Saturation 97 07/23/23 07/23/23 07/23/23 17:12 20:33 20:42 Temperature 36.6 C Heart Rate [ 124 H 121 H Brachial] Heart Rate [ Monitoring electrodes] Respiratory 16 Rate Blood Pressure 136/86 H Blood Pressure 120/78 136/86 H [Left Brachial artery] Blood Pressure [Right Brachial artery] O2 Saturation 96 07/23/23 07/23/23 07/23/23 21:15 21:20 21:25 Temperature Heart Rate [ 119 H 80 Brachial] Heart Rate [ Monitoring electrodes] Respiratory Rate Blood Pressure 131/85 H Blood Pressure 137/89 H 116/75 [Left Brachial artery] Blood Pressure [Right Brachial artery] O2 Saturation 07/23/23 07/23/23 07/23/23 21:30 21:45 22:44 Temperature Heart Rate [ 119 H 111 H Brachial] Heart Rate [ Monitoring electrodes] Respiratory Rate Blood Pressure 123/80 Blood Pressure 117/77 127/74 [Left Brachial artery] Blood Pressure [Right Brachial artery] O2 Saturation 07/24/23 07/24/23 07/24/23 00:03 05:00 07:25 Temperature 36.2 C L 36.4 C L 36.7 C Heart Rate [ 121 H Brachial] Heart Rate [ 105 H 112 H Monitoring electrodes] Respiratory 16 20 18 Rate Blood Pressure Blood Pressure 94/58 L 108/74 [Left Brachial artery] Blood Pressure 109/73 [Right Brachial artery] O2 Saturation 95 96 99 Oxygen O2 Source [With Activity] Room air O2 Source Room air I&O (Last 24 Hrs): Intake and Output Totals x24h 07/22/23 07/23/23 07/24/23 23:59 23:59 23:59 Intake Total 980 1550 240 Output Total 1900 1150 Balance -920 400 240 General: Alert, Oriented x3 HEENT: Atraumatic, Mucous membr. moist/pink Neck: Supple, No JVD Neuro: Alert, Non Focal Cardiovascular: Regular rate, No murmurs Respiratory: No respiratory distress Abdomen: Soft, No tenderness Extremities: No clubbing, Other (3+ edema to above knees) - Results Results: Laboratory Results WBC 8.0 x10^3/uL (4.8-10.8) 07/23/23 12:43 RBC 2.53 10^6/uL (4.70-6.10) L 07/23/23 12:43 Hgb 9.0 g/dL (14.0-18.0) L 07/23/23 12:43 Hct 28.5 % (42.0-52.0) L 07/23/23 12:43 MCV 112.6 fL (80.0-94.0) H 07/23/23 12:43 MCH 35.6 pg (27.0-31.0) H 07/23/23 12:43 MCHC 31.6 g/dL (32.0-36.0) L 07/23/23 12:43 RDW 21.2 % (12.0-15.0) H 07/23/23 12:43 Plt Count 208 10^3/uL (130-450) 07/23/23 12:43 MPV 11.6 fL (7.4-11.4) H 07/23/23 12:43 Neut # (Auto) 5.6 10^3/uL (1.5-6.6) 07/23/23 12:43 Lymph # (Auto) 1.7 10^3/uL (1.5-3.5) 07/23/23 12:43 [place] # (Auto) 0.5 10^3/uL (0.0-1.0) 07/23/23 12:43 Eos # (Auto) 0.1 10^3/uL (0.0-0.7) 07/23/23 12:43 Baso # (Auto) 0.1 10^3/uL (0.0-0.1) 07/23/23 12:43 Absolute Nucleated RBC 0.00 x10^3/uL 07/23/23 12:43 Nucleated RBC % 0.0 /100WBC 07/23/23 12:43 Manual Slide Review Indicated 07/19/23 04:41 WBC Morphology NORMAL APPEARANCE (NORMAL) 07/19/23 04:41 Platelet Estimate NORMAL (130-450,000) (NORMAL) 07/19/23 04:41 Platelet Morphology NORMAL APPEARANCE (NORMAL) 07/19/23 04:41 RBC Morph Micro Appear 2+ MACROCYTOSIS (NORMAL) 2+ ANISOCYTOSIS (NORMAL) 1+ STOMATOCYTES (NORMAL) 07/19/23 04:41 RBC Morph Micro Appear 2+ MACROCYTOSIS (NORMAL) 2+ ANISOCYTOSIS (NORMAL) 1+ STOMATOCYTES (NORMAL) 07/19/23 04:41 RBC Morph Micro Appear 2+ MACROCYTOSIS (NORMAL) 2+ ANISOCYTOSIS (NORMAL) 1+ STOMATOCYTES (NORMAL) 07/19/23 04:41 PT 12.6 secs (9.9-12.6) 07/16/23 05:04 INR 1.2 (0.8-1.2) 07/16/23 05:04 VBG pH 7.337 (7.31-7.41) 07/14/23 10:14 VBG pCO2 49.0 mmHg (41-51) 07/14/23 10:14 VBG pO2 22.9 mmHg (25-47) L 07/14/23 10:14 VBG HCO3 25.7 mmol/L (23-28) 07/14/23 10:14 VBG Total CO2 27.2 mmol/L (24-29) 07/14/23 10:14 VBG O2 Saturation 39.4 % (60-80) L 07/14/23 10:14 VBG Base Excess -0.4 mmol/L (-2 - +2) 07/14/23 10:14 Sodium 138 mmol/L (135-145) 07/23/23 12:43 Potassium 4.2 mmol/L (3.5-4.5) 07/23/23 12:43 Chloride 105 mmol/L (101-111) 07/23/23 12:43 Carbon Dioxide 28 mmol/L (21-32) 07/23/23 12:43 Anion Gap 5.0 (6-13) L 07/23/23 12:43 BUN 28 mg/dL (6-20) H 07/23/23 12:43 Creatinine 1.9 mg/dL (0.6-1.3) H 07/23/23 12:43 Estimated GFR (MDRD) 34 (>89) L 07/23/23 12:43 Glucose 221 mg/dL (74-104) H 07/23/23 12:43 POC Whole Bld Glucose 160 mg/dL (70 - 100) H 07/24/23 07:28 Estimat Average Glucose 258 mg/dL (70-100) H 07/14/23 10:05 Hemoglobin A1c % 10.6 % (4.27-6.07) H 07/14/23 10:05 Calcium 9.0 mg/dL (8.5-10.3) 07/23/23 12:43 Magnesium 1.6 mg/dL (1.7-2.3) L 07/14/23 10:08 Total Bilirubin 0.7 mg/dL (0.2-1.0) 07/14/23 10:08 AST 32 IU/L (10-42) 07/14/23 10:08 ALT 39 IU/L (10-60) 07/14/23 10:08 Alkaline Phosphatase 57 IU/L (42-121) 07/14/23 10:08 Total Protein 5.7 g/dL (6.4-8.9) L 07/14/23 10:08 Albumin 3.6 g/dL (3.2-5.5) 07/14/23 10:08 Globulin 2.1 g/dL (2.1-4.2) 07/14/23 10:08 Albumin/Globulin Ratio 1.7 (1.0-2.2) 07/14/23 10:08 Lipase 15 U/L (11-82) 07/14/23 10:08 TSH 96.38 uIU/mL (0.34-5.60) H 07/14/23 10:08 Free T4 Direct < 0.25 ng/dL (0.58-1.64) L 07/14/23 10:08 Urine Color YELLOW 07/14/23 12:15 Urine Clarity CLEAR (CLEAR) 07/14/23 12:15 Urine pH 5.5 PH (5.0-7.5) 07/14/23 12:15 Ur Specific [place] 1.025 (1.002-1.030) 07/14/23 12:15 Urine Protein 100 mg/dL (NEGATIVE) H 07/14/23 12:15 Urine Glucose (UA) 100 mg/dL (NEGATIVE) H 07/14/23 12:15 Urine Ketones NEGATIVE mg/dL (NEGATIVE) 07/14/23 12:15 Urine Occult Blood NEGATIVE (NEGATIVE) 07/14/23 12:15 Urine Nitrite NEGATIVE (NEGATIVE) 07/14/23 12:15 Urine Bilirubin NEGATIVE (NEGATIVE) 07/14/23 12:15 Urine Urobilinogen 0.2 (NORMAL) E.U./dL (NORMAL) 07/14/23 12:15 Ur Leukocyte Esterase NEGATIVE (NEGATIVE) 07/14/23 12:15 Urine RBC None Seen /HPF (0-5) 07/14/23 12:15 Urine WBC 0-3 /HPF (0-3) 07/14/23 12:15 Ur Squamous Epith Cells NONE SEEN (<= Few) 07/14/23 12:15 Urine Bacteria None Seen /HPF (None Seen) 07/14/23 12:15 Ur Microscopic Review INDICATED 07/14/23 12:15 Urine Culture Comments NOT INDICATED 07/14/23 12:15 Serum Ketones NEGATIVE (NEGATIVE) 07/14/23 10:08 - Procedures Procedures: Procedures TRANSFUSE NONAUT RED BLOOD CELLS IN PERIPH VEIN, PERC (02/21/21)
[2023-07-24] MEDS ORDERED: METOPROLOL SUCCINATE 25 MG TABLET PO ONE (10:00)
[2023-07-24] MEDS: ACETAMINOPHEN 325 MG TABLET PO PRN (17:46)
[2023-07-24] MEDS: METOPROLOL SUCCINATE 25 MG TABLET PO SCH (20:32)
[2023-07-24] MEDS: PRAVASTATIN 10 MG TABLET PO SCH (20:33)
[2023-07-24] MEDS ORDERED: METOPROLOL SUCCINATE 25 MG TABLET PO SCH (21:00)
[2023-07-25] MEDS: SODIUM CHLORIDE FLUSH 0.9% 10 ML SYRINGE IVP SCH ×4 (00:13→23:44)
[2023-07-25 06:05] LABS: BUN - BLOOD UREA NITROGEN 33 mg/dL (6-20); CALCIUM 8.1 mg/dL (8.5-10.3); CARBON DIOXIDE - CO2 25 mmol/L (21-32); CHLORIDE 109 mmol/L (101-111); CREATININE 1.9 mg/dL (0.6-1.2); DIGOXIN 0.4 ng/mL; GFR - MDRD 34 (>89); GLUCOSE 140 mg/dL (70-100); MAGNESIUM 1.8 mg/dL (1.7-2.8); SODIUM 140 mmol/L (135-145)
[2023-07-25] MEDS: LEVOTHYROXINE 100 MCG TABLET PO SCH (06:06)
[2023-07-25] MEDS: HEPARIN 5,000 UNIT/ML VIAL SUBQ SCH ×2 (08:09→21:54)
[2023-07-25] MEDS: INSULIN LISPRO 300 UNIT/3 ML PEN SUBQ SCH ×4 (08:12→21:54)
[2023-07-25] MEDS: TAMSULOSIN 0.4 MG CAPSULE PO SCH (08:13)
[2023-07-25] MEDS: FUROSEMIDE 40 MG TABLET PO SCH (08:13)
[2023-07-25] MEDS: SENNA 8.6 MG TABLET PO SCH (08:13)
[2023-07-25] MEDS: ASPIRIN EC 81 MG TABLET PO SCH (08:13)
[2023-07-25] MEDS: DIGOXIN 125 MCG TABLET PO SCH (08:13)
[2023-07-25] MEDS: METOPROLOL SUCCINATE 25 MG TABLET PO SCH ×2 (08:13→21:59)
[2023-07-25] MEDS: polyethylene glycoL 3350 17 GM PACKET PO SCH (08:14)
[2023-07-25] MEDS: INSULIN GLARGINE-YFGN 300 UNIT/3 ML PEN SUBQ SCH (08:14)
[2023-07-25] MEDS ORDERED: DIGOXIN 500 MCG/2 ML AMP IVP STA (08:17)
--- NOTE | 2023-07-25 08:27 | PROVIDER PROGRESS NOTE ---
Assessment/Plan - Problem List (1) Atrial flutter with rapid ventricular response Assessment/Plan: HR is still rapid at 120 today (VS were all reviewed). Telemetry strips were reviewed and he is in Aflutter with variable block Yesterday I changed his metoprolol tartrate 25 BID to Toprol XL 37.5 twice daily I kept him on his daily po Digoxin 125 mcg, and today the Dig level is 0.4, so there is room to incrase the Dig dose [id number] score over 3, anticoagulant is indicated. However patient is reluctant to take extra pills that can have risk of bleeding Plan: Due to "soft" blood pressure, will continue the Toprol-XL 37.5 twice a day Give extra Digoxin 250 mcg IV push today Cont daily po Dig, at present dose Again check Dig level with a.m. labs, since the BUN/creat are rising (all labs were reviewed) (2) Severe systolic congestive heart failure Assessment/Plan: Echocardiogram shows global hypokinesia with ejection fraction less than 20%. Patient still has exertional dyspnea and leg edema. Initially patient was considering comfort care only, however with improvement of symptoms, patient would like to continue with treatment, and also goes home if all possible. No daily weight was ordered I's and O's show that he is approximately 1.5 L negative in fluid balance since admission as of today Plan: Due to "soft" BP, he is not on DIDI/ARB. Continue his Toprol Continue Dig, with extra Dig today (as in #1) I will start Spironolactone 25 mg daily, stagger it and dose it at noon Cont the order for leg elevation when OOB Cont PT and OT (3) Hypothyroidism Qualifiers: Hypothyroidism type: unspecified Qualified Code(s): E03.9 - Hypothyroidism, unspecified Assessment/Plan: He was on Synthroid 175 mcg daily at home. TSH came back very high at 96. A lalita e T4 came back showing nearly no T4 measurable. For some reason here he was put on Synthroid 150 mg daily since admission yesterday, I increased his daily Synthroid dose to 200 mcg daily, since he was and is being under dosed Plan: Cont higher dose (4) DM Type 2 Assessment/Plan: I increased his a.m. Lantus from 18 U to 22 U, since he was still running high s ugars in 200's yesterday. 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 All labs were reviewed) Hemoglobin on 07/23 was 9.0, which is close to his baseline. Plan: Monitor CBC intermittently (6) Benign prostate hyperplasia Conclusion/Plan: Plan: We will continue his home Flomax (7) Chronic kidney disease, stage 3 Conclusion/Plan: He has CKD stage III and his baseline creatinine is around 2.0. Yesterday it was 1.9. His CKD is likely due to underlying diabetes mellitus. Plan: Monitor renal function BMP daily, now that po Lasix daily is starting, and monitor urine output. (8) Left shoulder pain Qualifiers: Chronicity: acute Qualified Code(s): M25.512 - Pain in left shoulder IMPROVED He had a steroid injection several days ago (9) Hypoglycemia Assessment/Plan: RESOLVED Hypoglycemia precaution, adjust insulin dose. Nutrition adaptive physical educator provided teaching. Patient is recommended to cut down to his insulin use to once a day instead of 3 times a day. Which will be safer for him at time of discharge - Current Meds Current Meds: Current Medications Generic Name Dose Route Start Last Admin Trade Name Freq PRN Reason Stop Dose Admin Acetaminophen 650 mg 07/14/23 15:56 07/24/23 17:46 Acetaminophen 325 Mg Tablet PO 650 mg Q4HR PRN Administration Pain 1 to 4, or Fever Hydrocodone Bitart/Acetaminophen 1 tab 07/14/23 15:56 07/23/23 02:18 Hydrocod/Acetam 5/325 Mg Tablet PO 1 tab Q4HR PRN Administration Pain 5 to 7 Aspirin 81 mg 07/15/23 09:00 07/25/23 08:13 Aspirin Ec 81 Mg Tablet PO 81 mg DAILY SAMI Administration Digoxin 125 mcg 07/22/23 09:00 07/25/23 08:13 Digoxin 125 Mcg Tablet PO 125 mcg DAILY SAMI Administration Diphenoxylate HCl/Atropine 1 tab 07/21/23 18:53 07/21/23 20:51 Diphenox/Atropine 2.5/0.025 Mg Tablet PO 1 tab QID PRN Administration Diarrhea Furosemide 40 mg 07/25/23 09:00 07/25/23 08:13 Furosemide 40 Mg Tablet PO 40 mg DAILY SAMI Administration Heparin Sodium (Porcine) 5,000 unit 07/14/23 21:00 07/25/23 08:09 Heparin 5,000 Unit/Ml Vial SUBQ 5,000 unit BID SAMI Administration Insulin Glargine-yfgn 22 unit 07/25/23 09:00 07/25/23 08:14 Insulin Glargine-Yfgn 300 Unit/3 Ml Pen SUBQ 22 unit DAILY SAMI Administration Insulin Human Lispro 3 - 11 unit 07/19/23 17:00 07/25/23 08:12 Insulin Lispro 300 Unit/3 Ml Pen SUBQ 3 unit 0800,1200,1700,2100 SAMI Administration Protocol Levothyroxine Sodium 200 mcg 07/25/23 07:00 07/25/23 06:06 Levothyroxine 100 Mcg Tablet PO 200 mcg QDAC SAMI Administration Metoprolol Succinate 37.5 mg 07/24/23 21:00 07/25/23 08:13 Metoprolol Succinate 25 Mg Tablet PO 37.5 mg BID SAMI Administration Polyethylene Glycol 17 gm 07/15/23 09:00 07/25/23 08:14 Polyethylene Glycol 3350 17 Gm Packet PO 17 gm DAILY SAMI Administration Pravastatin Sodium 10 mg 07/14/23 21:00 07/24/23 20:33 Pravastatin 10 Mg Tablet PO 10 mg QPM SAMI Administration Senna 8.6 - 17.2 mg 07/20/23 09:00 07/25/23 08:13 Senna 8.6 Mg Tablet PO 8.6 mg DAILY SAMI Administration Sodium Chloride 10 ml 07/14/23 15:56 07/20/23 01:57 Sodium Chloride Flush 0.9% 10 Ml Syringe IVP 10 ml PRN PRN Administration NEEDED PER PROVIDER ORDERS Sodium Chloride 10 ml 07/14/23 17:00 07/25/23 08:15 Sodium Chloride Flush 0.9% 10 Ml Syringe IVP 10 ml 0100,0900,1700 SAMI Administration Tamsulosin HCl 0.8 mg 07/15/23 09:00 07/25/23 08:13 Tamsulosin 0.4 Mg Capsule PO 0.8 mg DAILY SAMI Administration - Lab Result Fish Bone Diagrams: 07/23/23 12:43 07/25/23 05:36 - Additional Planning My Orders: My Active Orders 07/24/23 14:21 Miscellaenous Nursing Order [RC] QSHIFT 07/24/23 21:00 Metoprolol Succinate [Toprol Xl] 37.5 mg PO BID 07/25/23 07:00 Levothyroxine [Synthroid] 200 mcg PO QDAC 07/25/23 08:17 Digoxin Inj [Lanoxin Inj] 250 mcg IVP ONCE STA 07/25/23 09:00 Furosemide [Lasix] 40 mg PO DAILY Insulin Glargine-Yfgn [Semglee] 22 unit SUBQ DAILY Subjective - Subjective Patient Reports: Shortness of Breath (Short of breath when he awoke which resolved after few minutes. Saturation was 97% on room air at the time, per his RN) Objective Vital Signs: Vital Signs - 24 hr 07/24/23 07/24/23 07/24/23 11:42 16:05 21:00 Temperature 36.7 C 36.2 C L 36.5 C Heart Rate [ 121 H Brachial] Heart Rate [ 61 124 H Monitoring electrodes] Respiratory 16 18 18 Rate Blood Pressure 112/75 [Left Brachial artery] Blood Pressure 125/53 L 137/80 H [Right Brachial artery] O2 Saturation 98 95 96 07/25/23 07/25/23 00:06 02:45 Temperature 36.2 C L 36.4 C L Heart Rate [ Brachial] Heart Rate [ 121 H 122 H Monitoring electrodes] Respiratory 18 18 Rate Blood Pressure [Left Brachial artery] Blood Pressure 120/70 116/76 [Right Brachial artery] O2 Saturation 92 98 Oxygen O2 Source [With Activity] Room air O2 Source Room air I&O (Last 24 Hrs): Intake and Output Totals x24h 07/23/23 07/24/23 07/25/23 23:59 23:59 23:59 Intake Total 1550 1160 200 Output Total 1150 900 875 Balance 400 260 -675 General: Alert, Oriented x3 HEENT: Mucous membr. moist/pink, Other (Had a shave of his long kim, appears less disheveled) Neck: Supple Neuro: Alert, Non Focal Cardiovascular: Regular rate Respiratory: No respiratory distress, Breath sounds nml Abdomen: Soft, Other (Mildly distended, tense, possible) Extremities: No clubbing, No tenderness/swelling, Other (3+ edema to the knees) - Results Results: Laboratory Results WBC 8.0 x10^3/uL (4.8-10.8) 07/23/23 12:43 RBC 2.53 10^6/uL (4.70-6.10) L 07/23/23 12:43 Hgb 9.0 g/dL (14.0-18.0) L 07/23/23 12:43 Hct 28.5 % (42.0-52.0) L 07/23/23 12:43 MCV 112.6 fL (80.0-94.0) H 07/23/23 12:43 MCH 35.6 pg (27.0-31.0) H 07/23/23 12:43 MCHC 31.6 g/dL (32.0-36.0) L 07/23/23 12:43 RDW 21.2 % (12.0-15.0) H 07/23/23 12:43 Plt Count 208 10^3/uL (130-450) 07/23/23 12:43 MPV 11.6 fL (7.4-11.4) H 07/23/23 12:43 Neut # (Auto) 5.6 10^3/uL (1.5-6.6) 07/23/23 12:43 Lymph # (Auto) 1.7 10^3/uL (1.5-3.5) 07/23/23 12:43 [place] # (Auto) 0.5 10^3/uL (0.0-1.0) 07/23/23 12:43 Eos # (Auto) 0.1 10^3/uL (0.0-0.7) 07/23/23 12:43 Baso # (Auto) 0.1 10^3/uL (0.0-0.1) 07/23/23 12:43 Absolute Nucleated RBC 0.00 x10^3/uL 07/23/23 12:43 Nucleated RBC % 0.0 /100WBC 07/23/23 12:43 Manual Slide Review Indicated 07/19/23 04:41 WBC Morphology NORMAL APPEARANCE (NORMAL) 07/19/23 04:41 Platelet Estimate NORMAL (130-450,000) (NORMAL) 07/19/23 04:41 Platelet Morphology NORMAL APPEARANCE (NORMAL) 07/19/23 04:41 RBC Morph Micro Appear 2+ MACROCYTOSIS (NORMAL) 2+ ANISOCYTOSIS (NORMAL) 1+ STOMATOCYTES (NORMAL) 07/19/23 04:41 RBC Morph Micro Appear 2+ MACROCYTOSIS (NORMAL) 2+ ANISOCYTOSIS (NORMAL) 1+ STOMATOCYTES (NORMAL) 07/19/23 04:41 RBC Morph Micro Appear 2+ MACROCYTOSIS (NORMAL) 2+ ANISOCYTOSIS (NORMAL) 1+ STOMATOCYTES (NORMAL) 07/19/23 04:41 PT 12.6 secs (9.9-12.6) 07/16/23 05:04 INR 1.2 (0.8-1.2) 07/16/23 05:04 VBG pH 7.337 (7.31-7.41) 07/14/23 10:14 VBG pCO2 49.0 mmHg (41-51) 07/14/23 10:14 VBG pO2 22.9 mmHg (25-47) L 07/14/23 10:14 VBG HCO3 25.7 mmol/L (23-28) 07/14/23 10:14 VBG Total CO2 27.2 mmol/L (24-29) 07/14/23 10:14 VBG O2 Saturation 39.4 % (60-80) L 07/14/23 10:14 VBG Base Excess -0.4 mmol/L (-2 - +2) 07/14/23 10:14 Sodium 140 mmol/L (135-145) 07/25/23 05:36 Potassium 4.0 mmol/L (3.5-5.0) 07/25/23 05:36 Chloride 109 mmol/L (101-111) 07/25/23 05:36 Carbon Dioxide 25 mmol/L (21-32) 07/25/23 05:36 Anion Gap 6.0 (6-13) 07/25/23 05:36 BUN 33 mg/dL (6-20) H 07/25/23 05:36 Creatinine 1.9 mg/dL (0.6-1.2) H 07/25/23 05:36 Estimated GFR (MDRD) 34 (>89) L 07/25/23 05:36 Glucose 140 mg/dL (70-100) H 07/25/23 05:36 POC Whole Bld Glucose 157 mg/dL (70 - 100) H 07/25/23 07:37 Estimat Average Glucose 258 mg/dL (70-100) H 07/14/23 10:05 Hemoglobin A1c % 10.6 % (4.27-6.07) H 07/14/23 10:05 Calcium 8.1 mg/dL (8.5-10.3) L 07/25/23 05:36 Magnesium 1.8 mg/dL (1.7-2.8) 07/25/23 05:36 Total Bilirubin 0.7 mg/dL (0.2-1.0) 07/14/23 10:08 AST 32 IU/L (10-42) 07/14/23 10:08 ALT 39 IU/L (10-60) 07/14/23 10:08 Alkaline Phosphatase 57 IU/L (42-121) 07/14/23 10:08 Total Protein 5.7 g/dL (6.4-8.9) L 07/14/23 10:08 Albumin 3.6 g/dL (3.2-5.5) 07/14/23 10:08 Globulin 2.1 g/dL (2.1-4.2) 07/14/23 10:08 Albumin/Globulin Ratio 1.7 (1.0-2.2) 07/14/23 10:08 Lipase 15 U/L (11-82) 07/14/23 10:08 TSH 96.38 uIU/mL (0.34-5.60) H 07/14/23 10:08 Free T4 Direct < 0.25 ng/dL (0.58-1.64) L 07/14/23 10:08 Urine Color YELLOW 07/14/23 12:15 Urine Clarity CLEAR (CLEAR) 07/14/23 12:15 Urine pH 5.5 PH (5.0-7.5) 07/14/23 12:15 Ur Specific [place] 1.025 (1.002-1.030) 07/14/23 12:15 Urine Protein 100 mg/dL (NEGATIVE) H 07/14/23 12:15 Urine Glucose (UA) 100 mg/dL (NEGATIVE) H 07/14/23 12:15 Urine Ketones NEGATIVE mg/dL (NEGATIVE) 07/14/23 12:15 Urine Occult Blood NEGATIVE (NEGATIVE) 07/14/23 12:15 Urine Nitrite NEGATIVE (NEGATIVE) 07/14/23 12:15 Urine Bilirubin NEGATIVE (NEGATIVE) 07/14/23 12:15 Urine Urobilinogen 0.2 (NORMAL) E.U./dL (NORMAL) 07/14/23 12:15 Ur Leukocyte Esterase NEGATIVE (NEGATIVE) 07/14/23 12:15 Urine RBC None Seen /HPF (0-5) 07/14/23 12:15 Urine WBC 0-3 /HPF (0-3) 07/14/23 12:15 Ur Squamous Epith Cells NONE SEEN (<= Few) 07/14/23 12:15 Urine Bacteria None Seen /HPF (None Seen) 07/14/23 12:15 Ur Microscopic Review INDICATED 07/14/23 12:15 Urine Culture Comments NOT INDICATED 07/14/23 12:15 Last Dose Date UNKNOWN 07/25/23 05:36 Last Dose Time UNKNOWN 07/25/23 05:36 Digoxin 0.4 ng/mL 07/25/23 05:36 Serum Ketones NEGATIVE (NEGATIVE) 07/14/23 10:08 - Procedures Procedures: Procedures TRANSFUSE NONAUT RED BLOOD CELLS IN PERIPH VEIN, PERC (02/21/21)
[2023-07-25] MEDS: SPIRONOLACTONE 25 MG TABLET PO SCH (11:54)
[2023-07-25] MEDS ORDERED: METOPROLOL 5 MG/5 ML VIAL IVP STA (18:51)
[2023-07-25] MEDS: SODIUM CHLORIDE FLUSH 0.9% 10 ML SYRINGE IVP PRN (19:21)
[2023-07-25] MEDS: PRAVASTATIN 10 MG TABLET PO SCH (21:58)
[2023-07-26] MEDS: ACETAMINOPHEN 325 MG TABLET PO PRN ×2 (03:59→20:55)
[2023-07-26] MEDS: LEVOTHYROXINE 100 MCG TABLET PO SCH (05:33)
[2023-07-26] MEDS: INSULIN LISPRO 300 UNIT/3 ML PEN SUBQ SCH ×4 (08:09→20:06)
[2023-07-26] MEDS: INSULIN GLARGINE-YFGN 300 UNIT/3 ML PEN SUBQ SCH (08:09)
[2023-07-26] MEDS: HEPARIN 5,000 UNIT/ML VIAL SUBQ SCH ×2 (08:10→20:06)
[2023-07-26] MEDS: SENNA 8.6 MG TABLET PO SCH (08:12)
[2023-07-26] MEDS: FUROSEMIDE 40 MG TABLET PO SCH (08:12)
[2023-07-26] MEDS: SODIUM CHLORIDE FLUSH 0.9% 10 ML SYRINGE IVP SCH ×2 (08:12→16:59)
[2023-07-26] MEDS: ASPIRIN EC 81 MG TABLET PO SCH (08:12)
[2023-07-26] MEDS: polyethylene glycoL 3350 17 GM PACKET PO SCH (08:12)
[2023-07-26] MEDS: TAMSULOSIN 0.4 MG CAPSULE PO SCH (08:12)
[2023-07-26] MEDS: DIGOXIN 125 MCG TABLET PO SCH (08:12)
[2023-07-26 08:30] LABS: CALCIUM 9.1 mg/dL (8.5-10.3); CREATININE 1.9 mg/dL (0.6-1.3); POTASSIUM 4.4 mmol/L (3.5-4.5)
[2023-07-26] MEDS ORDERED: METOPROLOL SUCCINATE 50 MG TABLET PO SCH (09:00)
[2023-07-26] MEDS ORDERED: oxyCODONE 5 MG TABLET PO PRN ×2 (09:04→09:26)
[2023-07-26] MEDS ORDERED: tiZANidine 4 MG TABLET PO PRN (09:04)
[2023-07-26] MEDS: SPIRONOLACTONE 25 MG TABLET PO SCH (11:42)
--- NOTE | 2023-07-26 14:08 | PROVIDER PROGRESS NOTE ---
Assessment/Plan - Problem List (1) Atrial flutter with rapid ventricular response Assessment/Plan: HR was still rapid at 120 all of yesterday and I gave a one time iv Dig dose, on top of Dig po 125 mcg daily and Toprol-XL 37.5 twice a day. That brought his HR down to 88. (VS were all reviewed). This morning HR again 120 before any po meds were given Telemetry strips were reviewed and he is in Aflutter with variable block (Labs were allreviewed) Today the Dig level is 1.0 [id number] score over 3, anticoagulant is indicated. However patient is reluctant to take extra pills that can have risk of bleeding Plan: Will increase the Toprol-XL 37.5 mg BID to 50 mg BID Cont Digoxin 125 mcg po daily Cont telemetry and check HR during PT today Again check Dig level with tomorrow a.m. labs, since the BUN/creat are elevated Anticipate discharge tomorrow, if he continues to have good rate control and a stable BP today (2) Severe systolic congestive heart failure Assessment/Plan: Echocardiogram shows global hypokinesia with ejection fraction < 20%. Initially patient was considering comfort care only, however with improvement of symptoms, patient would like to continue with treatment, and also goes home if all possible. Patient has less exertional dyspnea and improved leg edema. No daily weight was ordered I's and O's show that he is approximately L negative in fluid balance since admission as of today Plan: Due to "soft" BP, he is not on DIDI/ARB. Continue his Toprol Continue Dig Cont Spironolactone 25 mg daily, staggered to give at noon due to "soft" BPs Cont the order for leg elevation when OOB Cont PT and OT (3) Hypothyroidism Qualifiers: Hypothyroidism type: unspecified Qualified Code(s): E03.9 - Hypothyroidism, unspecified Assessment/Plan: He was on Synthroid 175 mcg daily at home. TSH came back very high at 96. A free T4 came back showing nearly no T4 measurable. For some reason here he was put on Synthroid 150 mg daily since admission I increased his daily Synthroid dose to 200 mcg daily, since he was being under dosed Plan: Cont higher dose (4) DM Type 2 Assessment/Plan: I increased his a.m. Lantus from 18 U to 22 U, since he was still running high sugars in 200's yesterday. 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 All labs were reviewed) Hemoglobin on 07/23 was 9.0, which is close to his baseline. Plan: Monitor CBC intermittently (6) Benign prostate hyperplasia Conclusion/Plan: Plan: He needs his home Flomax but it adds to lower BP (7) Chronic kidney disease, stage 3 Conclusion/Plan: He has CKD stage III and his baseline creatinine is around 2.0. Today icreatwas 1.9. His CKD is likely due to underlying diabetes mellitus. Plan: Monitor renal function BMP daily, on po Lasix and Spironolactone daily (8) Left shoulder pain Qualifiers: Chronicity: acute Qualified Code(s): M25.512 - Pain in left shoulder IMPROVED He had a steroid injection several days ago (9) Hypoglycemia Assessment/Plan: RESOLVED Hypoglycemia precaution, adjust insulin dose. Nutrition certified adaptive physical educator provided teaching. Patient is recommended to cut down to his insulin use to once a day instead of 3 times a day. Which will be safer for him at time of discharge - Current Meds Current Meds: Current Medications Generic Name Dose Route Start Last Admin Trade Name Freq PRN Reason Stop Dose Admin Acetaminophen 650 mg 07/14/23 15:56 07/26/23 03:59 Acetaminophen 325 Mg Tablet PO 650 mg Q4HR PRN Administration Pain 1 to 4, or Fever Hydrocodone Bitart/Acetaminophen 1 tab 07/14/23 15:56 07/23/23 02:18 Hydrocod/Acetam 5/325 Mg Tablet PO 1 tab Q4HR PRN Administration Pain 5 to 7 Aspirin 81 mg 07/15/23 09:00 07/26/23 08:12 Aspirin Ec 81 Mg Tablet PO 81 mg DAILY SAMI Administration Digoxin 125 mcg 07/22/23 09:00 07/26/23 08:12 Digoxin 125 Mcg Tablet PO 125 mcg DAILY SAMI Administration Diphenoxylate HCl/Atropine 1 tab 07/21/23 18:53 07/21/23 20:51 Diphenox/Atropine 2.5/0.025 Mg Tablet PO 1 tab QID PRN Administration Diarrhea Furosemide 40 mg 07/25/23 09:00 07/26/23 08:12 Furosemide 40 Mg Tablet PO 40 mg DAILY SAMI Administration Heparin Sodium (Porcine) 5,000 unit 07/14/23 21:00 07/26/23 08:10 Heparin 5,000 Unit/Ml Vial SUBQ 5,000 unit BID SAMI Administration Insulin Glargine-yfgn 22 unit 07/25/23 09:00 07/26/23 08:09 Insulin Glargine-Yfgn 300 Unit/3 Ml Pen SUBQ 22 unit DAILY SAMI Administration Insulin Human Lispro 3 - 11 unit 07/19/23 17:00 07/26/23 11:42 Insulin Lispro 300 Unit/3 Ml Pen SUBQ 5 unit 0800,1200,1700,2100 SAMI Administration Protocol Levothyroxine Sodium 200 mcg 07/25/23 07:00 07/26/23 05:33 Levothyroxine 100 Mcg Tablet PO 200 mcg QDAC SAMI Administration Metoprolol Succinate 50 mg 07/26/23 09:00 07/26/23 08:12 Metoprolol Succinate 50 Mg Tablet PO 50 mg BID SAMI Administration Polyethylene Glycol 17 gm 07/15/23 09:00 07/26/23 08:12 Polyethylene Glycol 3350 17 Gm Packet PO 17 gm DAILY SAMI Administration Pravastatin Sodium 10 mg 07/14/23 21:00 07/25/23 21:58 Pravastatin 10 Mg Tablet PO 10 mg QPM SAMI Administration Senna 8.6 - 17.2 mg 07/20/23 09:00 07/26/23 08:12 Senna 8.6 Mg Tablet PO 8.6 mg DAILY SAMI Administration Sodium Chloride 10 ml 07/14/23 15:56 07/25/23 19:21 Sodium Chloride Flush 0.9% 10 Ml Syringe IVP 10 ml PRN PRN Administration NEEDED PER PROVIDER ORDERS Sodium Chloride 10 ml 07/14/23 17:00 07/26/23 08:12 Sodium Chloride Flush 0.9% 10 Ml Syringe IVP 10 ml 0100,0900,1700 SAMI Administration Spironolactone 25 mg 07/25/23 12:00 07/26/23 11:42 Spironolactone 25 Mg Tablet PO 25 mg 1200 SAMI Administration Tamsulosin HCl 0.8 mg 07/15/23 09:00 07/26/23 08:12 Tamsulosin 0.4 Mg Capsule PO 0.8 mg DAILY SAMI Administration - Lab Result Fish Bone Diagrams: 07/23/23 12:43 07/26/23 08:09 - Additional Planning My Orders: My Active Orders 07/26/23 09:00 Metoprolol Succinate [Toprol Xl] 50 mg PO BID 07/26/23 09:04 tiZANidine [Zanaflex] 2 - 4 mg PO Q8H PRN 07/26/23 09:26 oxyCODONE [Roxicodone] 2.5 mg PO Q6H PRN 07/27/23 05:00 BMP - BASIC METABOLIC PANEL [CHEM] DAILYLAB DIGOXIN [CHEM] DAILYLAB Subjective - Subjective Patient Reports: Feeling Better (Had energy to walk in the hallway with PT today) Objective Vital Signs: Vital Signs - 24 hr 07/25/23 07/25/23 07/25/23 15:50 19:20 19:25 Temperature 36.3 C L Heart Rate [ 110 H Brachial] Heart Rate [ 125 H Monitoring electrodes] Respiratory 20 Rate Blood Pressure 130/76 Blood Pressure 126/83 H 130/94 H [Right Brachial artery] O2 Saturation 98 07/25/23 07/25/23 07/25/23 19:30 19:34 19:37 Temperature Heart Rate [ 110 H 117 H Brachial] Heart Rate [ 76 Monitoring electrodes] Respiratory Rate Blood Pressure Blood Pressure 128/61 129/65 115/75 [Right Brachial artery] O2 Saturation 07/25/23 07/25/23 07/25/23 19:52 20:07 20:20 Temperature 36.7 C Heart Rate [ Brachial] Heart Rate [ 71 78 83 Monitoring electrodes] Respiratory 16 Rate Blood Pressure Blood Pressure 115/66 121/64 122/80 [Right Brachial artery] O2 Saturation 07/25/23 07/26/23 07/26/23 22:00 00:30 03:59 Temperature 36.4 C L 36.7 C Heart Rate [ Brachial] Heart Rate [ 121 H 92 94 Monitoring electrodes] Respiratory 20 12 Rate Blood Pressure Blood Pressure 135/105 H 121/61 119/66 [Right Brachial artery] O2 Saturation 94 92 07/26/23 07/26/23 08:21 12:11 Temperature 36.5 C 36.6 C Heart Rate [ Brachial] Heart Rate [ 123 H 83 Monitoring electrodes] Respiratory 18 20 Rate Blood Pressure Blood Pressure 108/66 112/57 L [Right Brachial artery] O2 Saturation 91 L 97 Oxygen O2 Source [With Activity] Room air O2 Source Room air I&O (Last 24 Hrs): Intake and Output Totals x24h 07/24/23 07/25/23 07/26/23 23:59 23:59 23:59 Intake Total 1160 940 480 Output Total 900 1500 575 Balance 260 -560 -95 General: Alert, Oriented x3 HEENT: Mucous membr. moist/pink, Other (Has Hearing Aids) Neck: Supple, No JVD Neuro: Alert, Non Focal Cardiovascular: Regular rate, No murmurs Respiratory: No respiratory distress, Breath sounds nml Abdomen: Normal bowel sounds, Soft, No tenderness Extremities: No clubbing, Other (Trace pedal edema) - Results Results: Laboratory Results WBC 8.0 x10^3/uL (4.8-10.8) 07/23/23 12:43 RBC 2.53 10^6/uL (4.70-6.10) L 07/23/23 12:43 Hgb 9.0 g/dL (14.0-18.0) L 07/23/23 12:43 Hct 28.5 % (42.0-52.0) L 07/23/23 12:43 MCV 112.6 fL (80.0-94.0) H 07/23/23 12:43 MCH 35.6 pg (27.0-31.0) H 07/23/23 12:43 MCHC 31.6 g/dL (32.0-36.0) L 07/23/23 12:43 RDW 21.2 % (12.0-15.0) H 07/23/23 12:43 Plt Count 208 10^3/uL (130-450) 07/23/23 12:43 MPV 11.6 fL (7.4-11.4) H 07/23/23 12:43 Neut # (Auto) 5.6 10^3/uL (1.5-6.6) 07/23/23 12:43 Lymph # (Auto) 1.7 10^3/uL (1.5-3.5) 07/23/23 12:43 Rankin # (Auto) 0.5 10^3/uL (0.0-1.0) 07/23/23 12:43 Eos # (Auto) 0.1 10^3/uL (0.0-0.7) 07/23/23 12:43 Baso # (Auto) 0.1 10^3/uL (0.0-0.1) 07/23/23 12:43 Absolute Nucleated RBC 0.00 x10^3/uL 07/23/23 12:43 Nucleated RBC % 0.0 /100WBC 07/23/23 12:43 Manual Slide Review Indicated 07/19/23 04:41 WBC Morphology NORMAL APPEARANCE (NORMAL) 07/19/23 04:41 Platelet Estimate NORMAL (130-450,000) (NORMAL) 07/19/23 04:41 Platelet Morphology NORMAL APPEARANCE (NORMAL) 07/19/23 04:41 RBC Morph Micro Appear 2+ MACROCYTOSIS (NORMAL) 2+ ANISOCYTOSIS (NORMAL) 1+ STOMATOCYTES (NORMAL) 07/19/23 04:41 RBC Morph Micro Appear 2+ MACROCYTOSIS (NORMAL) 2+ ANISOCYTOSIS (NORMAL) 1+ STOMATOCYTES (NORMAL) 07/19/23 04:41 RBC Morph Micro Appear 2+ MACROCYTOSIS (NORMAL) 2+ ANISOCYTOSIS (NORMAL) 1+ STOMATOCYTES (NORMAL) 07/19/23 04:41 PT 12.6 secs (9.9-12.6) 07/16/23 05:04 INR 1.2 (0.8-1.2) 07/16/23 05:04 VBG pH 7.337 (7.31-7.41) 07/14/23 10:14 VBG pCO2 49.0 mmHg (41-51) 07/14/23 10:14 VBG pO2 22.9 mmHg (25-47) L 07/14/23 10:14 VBG HCO3 25.7 mmol/L (23-28) 07/14/23 10:14 VBG Total CO2 27.2 mmol/L (24-29) 07/14/23 10:14 VBG O2 Saturation 39.4 % (60-80) L 07/14/23 10:14 VBG Base Excess -0.4 mmol/L (-2 - +2) 07/14/23 10:14 Sodium 139 mmol/L (135-145) 07/26/23 08:09 Potassium 4.4 mmol/L (3.5-4.5) 07/26/23 08:09 Chloride 106 mmol/L (101-111) 07/26/23 08:09 Carbon Dioxide 28 mmol/L (21-32) 07/26/23 08:09 Anion Gap 5.0 (6-13) L 07/26/23 08:09 BUN 31 mg/dL (6-20) H 07/26/23 08:09 Creatinine 1.9 mg/dL (0.6-1.3) H 07/26/23 08:09 Estimated GFR (MDRD) 34 (>89) L 07/26/23 08:09 Glucose 184 mg/dL (74-104) H 07/26/23 08:09 POC Whole Bld Glucose 213 mg/dL (70 - 100) H 07/26/23 11:36 Estimat Average Glucose 258 mg/dL (70-100) H 07/14/23 10:05 Hemoglobin A1c % 10.6 % (4.27-6.07) H 07/14/23 10:05 Calcium 9.1 mg/dL (8.5-10.3) 07/26/23 08:09 Magnesium 1.8 mg/dL (1.7-2.8) 07/25/23 05:36 Total Bilirubin 0.7 mg/dL (0.2-1.0) 07/14/23 10:08 AST 32 IU/L (10-42) 07/14/23 10:08 ALT 39 IU/L (10-60) 07/14/23 10:08 Alkaline Phosphatase 57 IU/L (42-121) 07/14/23 10:08 Total Protein 5.7 g/dL (6.4-8.9) L 07/14/23 10:08 Albumin 3.6 g/dL (3.2-5.5) 07/14/23 10:08 Globulin 2.1 g/dL (2.1-4.2) 07/14/23 10:08 Albumin/Globulin Ratio 1.7 (1.0-2.2) 07/14/23 10:08 Lipase 15 U/L (11-82) 07/14/23 10:08 TSH 96.38 uIU/mL (0.34-5.60) H 07/14/23 10:08 Free T4 Direct < 0.25 ng/dL (0.58-1.64) L 07/14/23 10:08 Urine Color YELLOW 07/14/23 12:15 Urine Clarity CLEAR (CLEAR) 07/14/23 12:15 Urine pH 5.5 PH (5.0-7.5) 07/14/23 12:15 Ur Specific [place] 1.025 (1.002-1.030) 07/14/23 12:15 Urine Protein 100 mg/dL (NEGATIVE) H 07/14/23 12:15 Urine Glucose (UA) 100 mg/dL (NEGATIVE) H 07/14/23 12:15 Urine Ketones NEGATIVE mg/dL (NEGATIVE) 07/14/23 12:15 Urine Occult Blood NEGATIVE (NEGATIVE) 07/14/23 12:15 Urine Nitrite NEGATIVE (NEGATIVE) 07/14/23 12:15 Urine Bilirubin NEGATIVE (NEGATIVE) 07/14/23 12:15 Urine Urobilinogen 0.2 (NORMAL) E.U./dL (NORMAL) 07/14/23 12:15 Ur Leukocyte Esterase NEGATIVE (NEGATIVE) 07/14/23 12:15 Urine RBC None Seen /HPF (0-5) 07/14/23 12:15 Urine WBC 0-3 /HPF (0-3) 07/14/23 12:15 Ur Squamous Epith Cells NONE SEEN (<= Few) 07/14/23 12:15 Urine Bacteria None Seen /HPF (None Seen) 07/14/23 12:15 Ur Microscopic Review INDICATED 07/14/23 12:15 Urine Culture Comments NOT INDICATED 07/14/23 12:15 Last Dose Date UNKNOWN 07/26/23 08:09 Last Dose Time UNKNOWN 07/26/23 08:09 Digoxin 1.0 ng/mL 07/26/23 08:09 Serum Ketones NEGATIVE (NEGATIVE) 07/14/23 10:08 - Procedures Procedures: Procedures TRANSFUSE NONAUT RED BLOOD CELLS IN PERIPH VEIN, PERC (02/21/21)
[2023-07-26] MEDS ORDERED: metFORMIN 500 MG TABLET PO SCH (17:00)
[2023-07-26] MEDS: METOPROLOL SUCCINATE 50 MG TABLET PO SCH (17:40)
[2023-07-26] MEDS: PRAVASTATIN 10 MG TABLET PO SCH (20:09)
[2023-07-27 06:19] LABS: BUN - BLOOD UREA NITROGEN 41 mg/dL (6-20); CALCIUM 8.6 mg/dL (8.5-10.3); CARBON DIOXIDE - CO2 25 mmol/L (21-32); CHLORIDE 105 mmol/L (101-111); CREATININE 2.2 mg/dL (0.6-1.2); DIGOXIN 0.8 ng/mL; GFR - MDRD 29 (>89); GLUCOSE 155 mg/dL (70-100); POTASSIUM 4.3 mmol/L (3.5-5.0); SODIUM 139 mmol/L (135-145)
[2023-07-27] MEDS: LEVOTHYROXINE 100 MCG TABLET PO SCH (07:05)
[2023-07-27] MEDS: SODIUM CHLORIDE FLUSH 0.9% 10 ML SYRINGE IVP SCH ×2 (07:05→08:20)
[2023-07-27] MEDS: INSULIN GLARGINE-YFGN 300 UNIT/3 ML PEN SUBQ SCH (08:18)
[2023-07-27] MEDS: INSULIN LISPRO 300 UNIT/3 ML PEN SUBQ SCH ×2 (08:18→11:36)
[2023-07-27] MEDS: DIGOXIN 125 MCG TABLET PO SCH (08:19)
[2023-07-27] MEDS: TAMSULOSIN 0.4 MG CAPSULE PO SCH (08:19)
[2023-07-27] MEDS: SENNA 8.6 MG TABLET PO SCH (08:19)
[2023-07-27] MEDS: FUROSEMIDE 40 MG TABLET PO SCH (08:19)
[2023-07-27] MEDS: METOPROLOL SUCCINATE 50 MG TABLET PO SCH (08:19)
[2023-07-27] MEDS: polyethylene glycoL 3350 17 GM PACKET PO SCH (08:19)
[2023-07-27] MEDS: ASPIRIN EC 81 MG TABLET PO SCH (08:19)
[2023-07-27] MEDS: HEPARIN 5,000 UNIT/ML VIAL SUBQ SCH (09:50)
--- NOTE | 2023-07-27 11:33 | Discharge Plan ---
Discharge Plan Problem Reviewed?: Yes Disposition: 06 Home Health Service Condition: Fair Prescriptions: Spironolactone [Aldactone] 25 mg PO 1200 #30 tab Digoxin [Lanoxin] 125 mcg PO DAILY #30 tab Insulin Glargine-Yfgn [Semglee] 22 unit SUBQ DAILY #1 ea Levothyroxine [Synthroid] 200 mcg PO QDAC #60 tab Metoprolol Succinate [Toprol Xl] 50 mg PO 0800,1730 #60 tab Diet: Diabetic (Low salt and diabetic diet and limit your fluid intake to 1500 ml/day) Activity Restrictions: Activity as Tolerated Shower Restrictions: No Driving Restrictions: Yes Assistance Devices: Walker Weight Bearing: Full Weight Instruction Topics: Heart Failure Warning Signs, Heart Failure Tracking Weight, Heart Failure Diet Changes Health Concerns: You were hospitalized to manage water retention in your legs and also in your lungs, which caused shortness of breath and weakness. We found that you have a very weak heart muscle, which is the cause of the water retention. Many of your medications have been changed to treat the weak heart and water retention now. The prescriptions for the new medicines were electronically sent to your pharmacy. Please follow the current list of medications. The list is provided for you as a reminder. A Home Health agency will be working with you in your home, to help keep everything stable and improving going forward. You also should see your primary care provider for a hospital follow-up visit in the next 1 to 2 weeks. Plan of Treatment: As above. Care Goals: Improvement in symptoms and stabilization are the goals. Assessment: The patient understands and is agreeable with the plan. Additional Instructions or Follow Up instructions: If you have new or worsening symptoms, call your primary care provider for advice, or come to the ER. No Smoking: If you smoke, Please STOP! Call for help. Follow-up with: Francisco Bernard MD [Provider Admit Priv/Credential] -
[2023-07-27] MEDS: SPIRONOLACTONE 25 MG TABLET PO SCH (11:37)
--- NOTE | 2023-07-27 11:41 | DISCHARGE SUMMARY ---
Discharge Summary Admit Date: 07/14/23 Discharge Date: 07/27/23 Discharging Provider: Dr Bree Uribe Primary Care Provider: Dr Francisco Bernard Condition at Discharge: Fair Discharge Disposition: [facility] - [facility] History of Present Illness: This is a 83-year-old male with a past medical history significant for insulin- dependent diabetes mellitus, chronic kidney disease, BPH, hypertension, MDS, chronic anemia, hypothyroidism who presents today due to concerns for a low blood sugar. He states that he has been having lower back pain for quite some time and yesterday he took a muscle relaxant and oxycodone. He was finally able to get some sleep and this morning when he woke up he checked his blood sugar and it was reportedly around 500. He told the ER physician That he took his Humulin N and his lispro. He was unable to tell me how much insulin he actually took but that about an hour later he felt like his blood sugar was crashing and that he had something to drink and immediately called EMS. Reportedly on EMS arrival, his blood glucose was in the 50s and he was given dextrose. The patient tells me that his blood glucose normally varies from the 50s to 150s. He has not been taking his other medications consistently as he states he got mixed up with them over the past few weeks and now does not know what to take and when to take it so he stopped taking all of them altogether. He still has been taking his insulin. He states he has been trying to get some help at home that he had an interview with a caregiver in 2 days as he needs assistance. He has been ambulating with a walker due to his lower back pain. He denies feeling confused. He knows he is at [facility] and knows that it is June and knows the year is 2022. He thought the day of the week was Thursday. He follows with Dr. Bernard and he is able to tell me that that is his primary care physician.The patient denies any cardiac history. Reports no chest pain, shortness of breath, palpitations. He states he currently feels fine. Denies any dizziness or lightheadedness. Reports no abdominal pain, nausea, vomiting, diarrhea. I did discuss goals of care with the patient and he would like to be DNR. This is consistent with his prior wishes when he was hospitalized here 2 years ago. - HOSPITAL COURSE Hospital Course: (1) Atrial flutter with rapid ventricular response His rapid rate was difficult to control. His medications were slowly increased because of low blood pressure. [id number] score over 3, and anticoagulant was indicated. However patient was reluctant to take pills that could have risk of bleeding. He was discharged home on long list of new medicines. A Home Health referral was sent for a visiting nurse, PT and OT. (2) Severe systolic congestive heart failure Echocardiogram showed global hypokinesia with ejection fraction 10- 20%. Initially patient was considering comfort care, however with improvement of symptoms, he decided to continue with treatment. He was declined from being an appropriate Hospce candidate. His medications were all adjusted and he was discharged home on these. (3) Hypothyroidism He was on Synthroid 175 mcg daily at home. TSH came back very high at 96. A free T4 came back showing nearly no T4 measurable. His daily Synthroid dose was increased to 200 mcg daily, since he was being under dosed. He needs follow-up of his thyroid blood tests. (4) DM Type 2 We had him on diabetic diet, sliding-scale insulin coverage, and Lantus just once daily (he was taking Lantus TID at home). We did not resume his Metformin due to CKD. A Home Health referral was sent and this needs to be monitored by the visiting nurse. 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 Hemoglobin here was 9.0, which is close to his baseline. (6) Benign prostate hyperplasia He needed his home Flomax but it adds to his low BP (7) Chronic kidney disease, stage 3 He has CKD stage III likely due to underlying diabetes mellitus, and his baseline creatinine is 2.0. His creat at discharge was 1.9. (8) Left shoulder pain He had a steroid injection done by Dr Brunson, which helped his pain. (9) Hypoglycemia Nutrition development educator provided teaching. Patient was prescribed and reminded to cut down his Long-acting insulin use to once a day, instead of 3 times a day. - ALLERGIES Allergies/Adverse Reactions: Allergies Allergy/AdvReac Type Severity Reaction Status Date / Time glyburide Allergy Unknown Verified 07/14/23 09:32 lisinopril Allergy Unknown Verified 07/14/23 09:32 tramadol Allergy Unknown Verified 07/14/23 09:32 - MEDICATIONS Home Medications: Ambulatory Orders Medication Instructions Recorded Confirmed Aspirin [Aspir 81] 81 mg PO DAILY 08/13/15 07/15/23 Multivitamin [Multivitamins] 1 cap PO DAILY 08/13/15 07/15/23 Simvastatin 5 mg PO HS 08/13/15 07/15/23 metFORMIN [Glucophage] 500 mg PO BID 08/13/15 07/15/23 Tamsulosin [Flomax] 2 cap PO DAILY 03/07/19 07/15/23 oxyCODONE [Roxicodone] 2.5 - 5 mg PO Q6H PRN #10 tablet 05/02/23 07/15/23 MDD 6 Blood-Glucose Meter [Accu-Chek 1 each MC QID 07/15/23 07/15/23 Mckenzie Plus] Torsemide 10 mg PO DAILY 07/15/23 07/15/23 tiZANidine [Zanaflex] 2 - 4 mg PO Q8H PRN 07/15/23 07/15/23 Acetaminophen [Tylenol] 650 mg PO Q4HR PRN tab 07/27/23 Digoxin [Lanoxin] 125 mcg PO DAILY #30 tab 07/27/23 Insulin Glargine-Yfgn [Semglee] 22 unit SUBQ DAILY #1 ea 07/27/23 Levothyroxine [Synthroid] 200 mcg PO QDAC #60 tab 07/27/23 Metoprolol Succinate [Toprol Xl] 50 mg PO 0800,1730 #60 tab 07/27/23 Spironolactone [Aldactone] 25 mg PO 1200 #30 tab 07/27/23 - PHYSICAL EXAM AT DISCHARGE Eyes Bilateral: positive: Normal inspection, EOMI ENT: positive: ENT inspection nml, No signs of dehydration Neck: positive: Nml inspection, No JVD Respiratory: positive: No respiratory distress, Breath sounds nml Cardiovascular: positive: No murmur, Irregularly irregular Abdomen: positive: Non-tender, Nml bowel sounds, No distention Skin: positive: Warm, Dry Extremities: positive: Non-tender, Other (1-2+ edema to mid-shins.) Neurologic/Psychiatric: positive: Oriented x3, Motor nml, Other ([place], uses hearing aid) - LABS Result Diagrams: 07/23/23 12:43 07/27/23 05:39 - DIAGNOSTIC IMAGING Diagnostic Imaging Results: Final report reviewed - FOLLOW UP Follow Up: See PCP in 1 to 2 weeks for a hospital follow-up visit - TIME SPENT Time Spent in Discharge (Minutes): 40
[2023-07-27 15:05] VITALS: BP 115/62; O2SAT 98
== END 2023-07-27 15:00 | disposition home health service (06) | DRG 309 ==
LOC: EDUNIT# → ED 09:11 → MS2 15:58 → OBSVTOIN 07-24 12:20
PROVIDERS: ADMIT Internal Medicine; ATTEND Internal Medicine
DX: I48.92 Unspecified atrial flutter (principal); I13.0 Hypertensive heart and chronic kidney disease with heart failure and stage 1 through stage 4 chronic kidney disease, or unspecified chronic kidney disease; I50.20 Unspecified systolic (congestive) heart failure; E03.9 Hypothyroidism, unspecified; E11.22 Type 2 diabetes mellitus with diabetic chronic kidney disease; I48.91 Unspecified atrial fibrillation; I42.8 Other cardiomyopathies; M19.012 Primary osteoarthritis, left shoulder; M54.17 Radiculopathy, lumbosacral region; I08.1 Rheumatic disorders of both mitral and tricuspid valves; D46.9 Myelodysplastic syndrome, unspecified; D63.8 Anemia in other chronic diseases classified elsewhere; N18.30 Chronic kidney disease, stage 3 unspecified; M25.512 Pain in left shoulder; E11.649 Type 2 diabetes mellitus with hypoglycemia without coma; G40.909 Epilepsy, unspecified, not intractable, without status epilepticus; H91.90 Unspecified hearing loss, unspecified ear; R00.0 Tachycardia, unspecified; G89.29 Other chronic pain; M54.9 Dorsalgia, unspecified; M19.90 Unspecified osteoarthritis, unspecified site; L30.9 Dermatitis, unspecified; N40.1 Benign prostatic hyperplasia with lower urinary tract symptoms; R35.0 Frequency of micturition; Z66 Do not resuscitate; Z79.4 Long term (current) use of insulin; Z79.82 Long term (current) use of aspirin; Z79.84 Long term (current) use of oral hypoglycemic drugs; Z79.890 Hormone replacement therapy; Z79.899 Other long term (current) drug therapy; Z87.891 Personal history of nicotine dependence; Z88.5 Allergy status to narcotic agent; Z88.8 Allergy status to other drugs, medicaments and biological substances; Z91.148 Patient's other noncompliance with medication regimen for other reason
CPT/HCPCS: 36415; 71045; 73030; 80048; 80053; 80162; 81001; 82009; 82803; 83036; 83690; 83735; 84439; 84443; 85025; 85610; 93005; 93306; 96361; 96365; 96375; 96376; 97110; 97116; 97161; 97164; 97165; 97530; 97535; 99284; 99285; A9270; J0153; J1030; 81003; 87086

== ENCOUNTER 2023-08-05 09:28 | Outpatient (CLI) | payer MEDICARE, MEDICAID | END 2023-08-05 09:29 | disposition critical access hospital (66) | LOC: EMS 09:28 | DX: R06.02 Shortness of breath (principal); R53.1 Weakness; R00.0 Tachycardia, unspecified; R07.89 Other chest pain | CPT/HCPCS: A0425; A0429 ==

== ENCOUNTER 2023-08-05 09:47 | Emergency (ER) | payer MEDICARE, MEDICAID ==
[2023-08-05] MEDS ORDERED: NITROGLYCERIN SL 0.4 MG TABLET SL STA (09:51)
[2023-08-05] MEDS ORDERED: SODIUM CHLORIDE 0.9% 1,000 ML IV STA (09:51)
[2023-08-05 10:10] LABS: BASOPHILS # (AUTO) 0.1 10^3/uL (0.0-0.1); BASOPHILS % (AUTO) 1.1 %; EOSINOPHILS # (AUTO) 0.2 10^3/uL (0.0-0.7); EOSINOPHILS % (AUTO) 2.1 %; HCT - HEMATOCRIT 27.3 % (42.0-52.0); HGB - HEMOGLOBIN 8.7 g/dL (14.0-18.0); LYMPHOCYTES # (AUTO) 1.6 10^3/uL (1.5-3.5); LYMPHOCYTES % (AUTO) 17.3 %; MEAN CORPUSCULAR HEMOGLOBIN 36.3 pg (27.0-31.0); MEAN CORPUSCULAR HGB CONC 31.9 g/dL (32.0-36.0); MEAN CORPUSCULAR VOLUME 113.8 fL (80.0-94.0); MEAN PLATELET VOLUME 10.6 fL (7.4-11.4); MONOCYTES # (AUTO) 0.6 10^3/uL (0.0-1.0); MONOCYTES % (AUTO) 6.6 %; NEUTROPHILS # (AUTO) 6.6 10^3/uL (1.5-6.6); NEUTROPHILS % (AUTO) 72.2 %; PLT - PLATELET COUNT 360 10^3/uL (130-450); RED CELL DISTRIBUTION WIDTH 21.5 % (12.0-15.0); WHITE BLOOD COUNT 9.1 x10^3/uL (4.8-10.8)
[2023-08-05 10:24] LABS: ALBUMIN 4.2 g/dL (3.2-5.5); BILIRUBIN,TOTAL 1.6 mg/dL (0.2-1.0); CALCIUM 9.3 mg/dL (8.5-10.3); CREATININE 2.2 mg/dL (0.6-1.3); POTASSIUM 4.1 mmol/L (3.5-4.5); TOTAL PROTEIN 6.3 g/dL (6.4-8.9)
--- NOTE | 2023-08-05 10:54 | XRAY Report ---
PROCEDURE: Chest 1 View X-Ray INDICATIONS: chest pain TECHNIQUE: One view of the chest was acquired. COMPARISON: Chest x-ray 07/14/2023 FINDINGS: Surgical changes and devices: None. Lungs and pleura: Diffuse hazy opacities within bilateral lungs, may represent pulmonary edema versu s infectious process. Blunting of the costophrenic angles. Mediastinum: Mediastinal contours appear normal. Heart size is normal. Bones and chest wall: No suspicious bony lesions. Overlying soft tissues appear unremarkable. IMPRESSION: Hazy opacities throughout the bilateral lung dawson, may represent pulmonary edema versus infectious process. Blunting of the costophrenic angles may represent small effusions versus consolidation or at electasis. Reviewed by: Manolo Pitt MD on 08/05/2023 10:53 AM PDT Approved by: Manolo Pitt MD on 08/05/2023 10:53 AM PDT Station ID: [id number]
[2023-08-05] MEDS ORDERED: diltiaZEM INJ 5 MG/ML VIAL IVP STA (12:49)
--- NOTE | 2023-08-05 13:56 | ED Physician Documentation ---
PD HPI DYSPNEA - Stated complaint Stated Complaint: SOA - Chief complaint Chief Complaint: Cardiac - History obtained from History obtained from: Patient - Additional information Additional information: The patient comes to the emergency department with chief complaint of a sense of chest tightness/dyspnea that occurred a few hours ago when he woke up. The patient states that this seems to be quite a bit better now, though he still has a very slight sense of chest tightness. He states that he has not been having any distinct dyspnea on exertion recently and otherwise, has felt like his normal self. He denies chest pain. No nausea or vomiting. No diaphoresis. He denies any history of A-fib. He has had occasional congestive heart failure flares. He has not been ill with anything else recently. No other complaints at this time. PD PAST MEDICAL HISTORY - Past Medical History Cardiovascular: Hypertension Respiratory: None Neuro: Seizure disorder Endocrine/Autoimmune: Type 2 diabetes, HyPOthyroidism GI: Other : Benign prostate hypertrophy, Renal insuffiency HEENT: Chronic sinusitis, Chronic hearing loss Psych: None Musculoskeletal: Osteoarthritis, Chronic back pain Derm: Eczema - Past Surgical History Past Surgical History: No - Present Medications Home Medications: Ambulatory Orders Medication Instructions Recorded Confirmed Aspirin [Aspir 81] 81 mg PO DAILY 08/13/15 08/12/23 Multivitamin [Multivitamins] 1 cap PO DAILY 08/13/15 08/12/23 Simvastatin 5 mg PO HS 08/13/15 08/12/23 metFORMIN [Glucophage] 500 mg PO BID 08/13/15 08/12/23 Tamsulosin [Flomax] 2 cap PO DAILY 03/07/19 08/12/23 oxyCODONE [Roxicodone] 2.5 - 5 mg PO Q6H PRN #10 tablet 05/02/23 08/12/23 MDD 6 Blood-Glucose Meter [Accu-Chek 1 each MC QID 07/15/23 08/12/23 Mckenzie Plus] Torsemide 10 mg PO DAILY 07/15/23 08/12/23 tiZANidine [Zanaflex] 2 - 4 mg PO Q8H PRN 07/15/23 08/12/23 Acetaminophen [Tylenol] 650 mg PO Q4HR PRN tab 07/27/23 08/12/23 Digoxin [Lanoxin] 125 mcg PO DAILY #30 tab 07/27/23 08/12/23 Insulin Glargine-Yfgn [Semglee] 22 unit SUBQ DAILY #1 ea 07/27/23 08/12/23 Levothyroxine [Synthroid] 200 mcg PO QDAC #60 tab 07/27/23 08/12/23 Metoprolol Succinate [Toprol Xl] 50 mg PO 0800,1730 #60 tab 07/27/23 08/12/23 Spironolactone [Aldactone] 25 mg PO 1200 #30 tab 07/27/23 08/12/23 Furosemide [Lasix] 20 mg PO DAILY #30 tablet 08/05/23 08/12/23 - Allergies Allergies/Adverse Reactions: Allergies Allergy/AdvReac Type Severity Reaction Status Date / Time glyburide Allergy Unknown Verified 07/14/23 09:32 lisinopril Allergy Unknown Verified 07/14/23 09:32 tramadol Allergy Unknown Verified 07/14/23 09:32 - Social History Does the pt smoke?: No Smoking Status: Never smoker Does the pt drink ETOH?: No Does the pt have substance abuse?: No - Immunizations Immunizations are current?: Yes - POLST Patient has POLST: No PD ED PE NORMAL - Vitals Vital signs reviewed: Yes - General General: Alert and oriented X 3, No acute distress, Well developed/nourished - HEENT HEENT: Atraumatic, PERRL, EOMI, Moist mucous membranes - Neck Neck: Supple, no meningeal sign - Cardiac Cardiac: RRR, No murmur - Respiratory Respiratory: No respiratory distress, Clear bilaterally - Abdomen Abdomen: Soft, Non tender, Non distended - Derm Derm: Normal color, Warm and dry, No rash - Extremities Extremities: No deformity, Other (1+ pitting edema bilateral lower extremities.) - Neuro Neuro: Alert and oriented X 3, Other (Grossly intact) - Psych Psych: Normal mood, Normal affect Results - Vitals Vitals: Oxygen O2 Source [With Activity] Room air O2 Source Nasal cannula - EKG (time done) 0988 EKG releavant findings:: EKG personally interpreted by author of this note. Relevant findings are: Rate: Rate (enter#) (123) Rhythm: Sinus tachycardia [place]: Normal Intervals: Normal IN, Prolonged QT QRS: Poor R wave progression (Borderline), Low voltage Ischemia: Normal ST segments Compare to prior EKG: Old EKG unavailable Computer interpretation: Agree with computer - Labs Labs: Laboratory Tests 08/05/23 08/05/23 08/05/23 10:03 10:03 10:03 WBC 9.1 RBC 2.40 L Hgb 8.7 L Hct 27.3 L MCV 113.8 H MCH 36.3 H MCHC 31.9 L RDW 21.5 H Plt Count 360 MPV 10.6 Neut # (Auto) 6.6 Lymph # (Auto) 1.6 Steele # (Auto) 0.6 Eos # (Auto) 0.2 Baso # (Auto) 0.1 Absolute Nucleated RBC 0.00 Nucleated RBC % 0.0 D-Dimer Sodium 137 Potassium 4.1 Chloride 104 Carbon Dioxide 25 Anion Gap 8.0 BUN 26 H Creatinine 2.2 H Estimated GFR (MDRD) 29 L Glucose 330 H Calcium 9.3 Total Bilirubin 1.6 H AST 17 ALT 21 Alkaline Phosphatase 68 Troponin I High Sens 30.6 H* B-Natriuretic Peptide Total Protein 6.3 L Albumin 4.2 Globulin 2.1 Albumin/Globulin Ratio 2.0 Lipase 20 08/05/23 08/05/23 08/05/23 10:03 10:03 13:06 WBC RBC Hgb Hct MCV MCH MCHC RDW Plt Count MPV Neut # (Auto) Lymph # (Auto) Steele # (Auto) Eos # (Auto) Baso # (Auto) Absolute Nucleated RBC Nucleated RBC % D-Dimer 248.0 Sodium Potassium Chloride Carbon Dioxide Anion Gap BUN Creatinine Estimated GFR (MDRD) Glucose Calcium Total Bilirubin AST ALT Alkaline Phosphatase Troponin I High Sens 30.0 H* B-Natriuretic Peptide 613 H Total Protein Albumin Globulin Albumin/Globulin Ratio Lipase - Rads (name of study) Chest x-ray Relevant Findings:: Final report received, See rad report (Hazy opacities bilateral lung dawson may represent pulmonary edema versus infectious process blunting of costophrenic angles may represent small effusions versus consolidation or atelectasis.) PD Medical Decision Making - ED course Complexity details: reviewed old records, reviewed results, re-evaluated patient, considered differential, d/w patient ED course: The patient overall was well-appearing in the emergency department and had had vague symptoms of a sense of dyspnea and chest tightness this morning which has improved. He had been afebrile and otherwise was not feeling ill. He was worked up with EKG, chest x-ray, serial troponins, and D-dimer. EKG showed sinus tachycardia but otherwise unremarkable for acute findings. Chest x-ray showed some patchiness diffusely, which radiologist attributed to edema versus infection. Given that the patient has been afebrile and had a normal white blood cell count, and was without cough or other symptoms of illness, and additionally, had a history of CHF, I suspected that the findings most likely represented edema. Additionally, the patient's BNP was elevated above 600. His serial troponins were unchanged significantly from one another and his D-dimer was normal. He responded well to Cardizem for his tachycardia and reported feeling better. The patient was stable for discharge home. I will place him on Lasix for a temporary course after which she is to follow-up with his primary doctor. We have discussed home management of the symptoms as well as usual indications for return. Departure - Departure Disposition: 01 Home, Self Care Clinical Impression: Dyspnea Qualifiers: Dyspnea type: unspecified Qualified Code(s): R06.00 - Dyspnea, unspecified Condition: Stable Instructions: ED Dyspnea Shortness of Breath Prescriptions: Furosemide [Lasix] 20 mg PO DAILY #30 tablet Comments: Your labs today look good. There is no evidence of a heart attack. You have a little bit of congestive heart failure which may be causing you to feel a bit short of breath at times. A prescription for a diuretic has been electronically transmitted to the pharmacy of your choice. Your heart rate was also up a little bit in the emergency department, but responded well to medication. Please schedule follow-up appointment with your primary doctor for further evaluation. Forms: PCP List Discharge Date/Time: 08/05/23 14:40
[2023-08-05 15:17] VITALS: BP 122/79; O2SAT 99
== END 2023-08-05 14:40 | disposition home or self-care (01) ==
LOC: EDUNIT# → ED 09:47
DX: R06.00 Dyspnea, unspecified (principal); E11.9 Type 2 diabetes mellitus without complications; Z79.84 Long term (current) use of oral hypoglycemic drugs
CPT/HCPCS: 36415; 80053; 83690; 83880; 84484; 85025; 85379; 93005; 96374; 99284

== ENCOUNTER 2023-11-11 08:21 | Outpatient (CLI) | payer MEDICARE, MEDICAID ==
[2023-11-11 12:26] LABS: ALBUMIN 4.2 g/dL (3.2-5.5); ALBUMIN/GLOBULIN RATIO 1.7 (1.0-2.2); ALKALINE PHOSPHATASE 56 IU/L (42-121); ALT ALANINE AMINOTRANSFERASE 18 IU/L (10-60); AST ASPARTATE AMINOTRANSFERASE 15 IU/L (10-42); BILIRUBIN,TOTAL 0.8 mg/dL (0.2-1.0); BUN - BLOOD UREA NITROGEN 39 mg/dL (6-20); CALCIUM 9.6 mg/dL (8.5-10.3); CARBON DIOXIDE - CO2 26 mmol/L (21-32); CHLORIDE 106 mmol/L (101-111); CHOL/HDL RATIO 4.8 (<5.0); CHOLESTEROL 119 mg/dL; GFR - MDRD 32 (>89); GLUCOSE 220 mg/dL (74-104); HDL CHOLESTEROL 25 mg/dL; LDL CHOLESTEROL,CALCULATED 68 mg/dL; LDL/HDL RATIO 2.7 (<3.6); POTASSIUM 4.5 mmol/L (3.5-4.5); SODIUM 139 mmol/L (135-145); TOTAL PROTEIN 6.7 g/dL (6.4-8.9); TRIGLYCERIDES 129 mg/dL (48-352); VLDL CHOLESTEROL 26 mg/dL
[2023-11-11 13:04] LABS: THYROID STIMULATING HORMONE 17.03 uIU/mL (0.34-5.60)
[2023-11-11 13:06] LABS: MICROALBUM/CREATININE RATIO,UR 703.3 ug/mg (<30.0); MICROALBUMIN,URINE 42.9 mg/dL
[2023-11-11 13:14] LABS: ESTIMATED AVERAGE GLUCOSE 183 mg/dL (70-100)
== END 2023-11-11 08:22 | disposition home or self-care (01) ==
LOC: LAB.N 08:21
PROVIDERS: ATTEND Internal Medicine
DX: E78.5 Hyperlipidemia, unspecified (principal); I48.92 Unspecified atrial flutter; E11.29 Type 2 diabetes mellitus with other diabetic kidney complication
CPT/HCPCS: 36415; 80053; 80061; 82043; 82570; 83036; 83721; 84439; 84443

== ENCOUNTER 2024-01-25 07:48 | Outpatient (CLI) | payer MEDICARE, MEDICAID ==
[2024-01-25 12:32] LABS: BUN - BLOOD UREA NITROGEN 91 mg/dL (6-20); CALCIUM 9.2 mg/dL (8.5-10.3); CARBON DIOXIDE - CO2 22 mmol/L (21-32); CHLORIDE 104 mmol/L (101-111); CREATININE 3.4 mg/dL (0.6-1.3); GFR - MDRD 17 (>89); GLUCOSE 207 mg/dL (74-104); POTASSIUM 4.7 mmol/L (3.5-4.5); SODIUM 136 mmol/L (135-145)
[2024-01-25 12:54] LABS: ESTIMATED AVERAGE GLUCOSE 171 mg/dL (70-100); HEMOGLOBIN A1c% 7.6 % (4.27-6.07)
== END 2024-01-25 07:49 | disposition home or self-care (01) ==
LOC: LAB.N 07:48
PROVIDERS: ATTEND Internal Medicine
DX: E11.22 Type 2 diabetes mellitus with diabetic chronic kidney disease (principal); E03.9 Hypothyroidism, unspecified; I48.92 Unspecified atrial flutter
CPT/HCPCS: 36415; 80048; 80162; 83036; 84439; 84443

== ENCOUNTER → 2024-03-30 | Outpatient (CLI) | payer MEDICARE, MEDICAID | LOC: PC 08:00 | PROVIDERS: ATTEND Nurse Practitioner Adult Health | DX: Z51.5 Encounter for palliative care (principal); D46.0 Refractory anemia without ring sideroblasts, so stated; R41.3 Other amnesia; E11.22 Type 2 diabetes mellitus with diabetic chronic kidney disease; N18.4 Chronic kidney disease, stage 4 (severe); Z79.4 Long term (current) use of insulin | CPT/HCPCS: 99205 ==

== ENCOUNTER 2024-04-20 07:11 | Outpatient (CLI) | payer MEDICARE, MEDICAID ==
[2024-04-20 12:09] LABS: HCT - HEMATOCRIT 33.3 % (42.0-52.0); HGB - HEMOGLOBIN 10.8 g/dL (14.0-18.0); MEAN CORPUSCULAR HEMOGLOBIN 35.4 pg (27.0-31.0); MEAN CORPUSCULAR HGB CONC 32.4 g/dL (32.0-36.0); MEAN CORPUSCULAR VOLUME 109.2 fL (80.0-94.0); MEAN PLATELET VOLUME 10.5 fL (7.4-11.4); RED BLOOD COUNT 3.05 10^6/uL (4.70-6.10); RED CELL DISTRIBUTION WIDTH 23.6 % (12.0-15.0)
[2024-04-20 12:47] LABS: ESTIMATED AVERAGE GLUCOSE 134 mg/dL (70-100); HEMOGLOBIN A1c% 6.3 % (4.27-6.07)
[2024-04-20 12:48] LABS: ALBUMIN 4.5 g/dL (3.2-5.5); ALBUMIN/GLOBULIN RATIO 1.7 (1.0-2.2); BILIRUBIN,TOTAL 1.3 mg/dL (0.2-1.0); CALCIUM 10.4 mg/dL (8.5-10.3); CREATININE 2.4 mg/dL (0.6-1.3); PHOSPHORUS 5.9 mg/dL (2.5-5.0); POTASSIUM 4.9 mmol/L (3.5-4.5); TOTAL PROTEIN 7.2 g/dL (6.4-8.9)
[2024-04-20 13:00] LABS: THYROID STIMULATING HORMONE 2.79 uIU/mL (0.34-5.60)
== END 2024-04-20 07:12 | disposition home or self-care (01) ==
LOC: LAB.N 07:11
PROVIDERS: ATTEND Internal Medicine
DX: I12.9 Hypertensive chronic kidney disease with stage 1 through stage 4 chronic kidney disease, or unspecified chronic kidney disease (principal); E11.22 Type 2 diabetes mellitus with diabetic chronic kidney disease; N18.32 Chronic kidney disease, stage 3b; E03.9 Hypothyroidism, unspecified; D46.0 Refractory anemia without ring sideroblasts, so stated
CPT/HCPCS: 36415; 80053; 82306; 83036; 83970; 84100; 84443; 85027

== ENCOUNTER 2024-04-22 08:00 | Outpatient (CLI) | payer MEDICARE, MEDICAID | END 2024-04-22 23:59 | disposition home or self-care (01) | LOC: PC 08:00 | PROVIDERS: ATTEND Nurse Practitioner Adult Health | DX: Z51.5 Encounter for palliative care (principal); D46.9 Myelodysplastic syndrome, unspecified | CPT/HCPCS: 99426; 99427 ==

== ENCOUNTER 2024-04-26 12:30 | Outpatient (CLI) | payer MEDICARE, MEDICAID | END 2024-04-26 23:59 | disposition home or self-care (01) | LOC: PC 12:30 | PROVIDERS: ATTEND Nurse Practitioner Adult Health | DX: Z51.5 Encounter for palliative care (principal); F03.A0 Unspecified dementia, mild, without behavioral disturbance, psychotic disturbance, mood disturbance, and anxiety; E11.22 Type 2 diabetes mellitus with diabetic chronic kidney disease; D46.0 Refractory anemia without ring sideroblasts, so stated; M51.16 Intervertebral disc disorders with radiculopathy, lumbar region; N18.4 Chronic kidney disease, stage 4 (severe); Z60.8 Other problems related to social environment; Z71.89 Other specified counseling; Z79.4 Long term (current) use of insulin | CPT/HCPCS: 99350 ==

== ENCOUNTER 2024-05-22 08:00 | Outpatient (CLI) | payer MEDICARE, MEDICAID | END 2024-05-22 23:59 | disposition home or self-care (01) | LOC: PC 08:00 | PROVIDERS: ATTEND Nurse Practitioner Adult Health | DX: Z51.5 Encounter for palliative care (principal); D46.9 Myelodysplastic syndrome, unspecified | CPT/HCPCS: 99426 ==

== ENCOUNTER 2024-07-05 08:00 | Outpatient (CLI) | payer MEDICARE, MEDICAID | END 2024-07-05 23:59 | disposition home or self-care (01) | LOC: PC 08:00 | PROVIDERS: ATTEND Nurse Practitioner Adult Health | DX: Z51.5 Encounter for palliative care (principal); F02.A0 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seases classified elsewhere, mild, without behavioral disturbance, psychotic disturbance, mood disturbance, and anxiety; D46.0 Refractory anemia without ring sideroblasts, so stated; E11.22 Type 2 diabetes mellitus with diabetic chronic kidney disease; N18.32 Chronic kidney disease, stage 3b; I12.9 Hypertensive chronic kidney disease with stage 1 through stage 4 chronic kidney disease, or unspecified chronic kidney disease; Z71.89 Other specified counseling; Z79.4 Long term (current) use of insulin; Z79.82 Long term (current) use of aspirin | CPT/HCPCS: 99214 ==

== ENCOUNTER 2025-08-26 13:17 | Observation (INO) ==
--- NOTE | 2025-08-26 13:33 | ED Physician Documentation ---
History of Present Illness Stated complaint Stated Complaint: SOA/WEAKNESS Chief complaint Chief Complaint: Resp History obtained from History obtained from: Patient and EMS History of Present Illness Pain level max: 0 Pain level now: 0 Additonal information Additional information: Patient is a 85-year-old male who presents to the emergency department stating that he has felt generally weak for the past 1 week. No fevers. No chills. No abdominal pain. No chest pain. No shortness of breath. He has a history of myelodysplastic syndrome. Reportedly elevated blood sugars at home. The triage note states that he has had increasing dyspnea, but patient tells me he does not have any trouble breathing he just feels tired. No urinary symptoms. No nausea, vomiting, diarrhea. Has not noticed any dark or tarry stools. Has not noticed any bleeding elsewhere. Patient states that he does have a history of intermittent atrial fibrillation. Meds/Allgy Home Medications Ambulatory Orders Medication Instructions Recorded Confirmed multivitamin 1 cap PO DAILY 08/13/1503/17 blood-glucose meter (Accu-Chek 07/15/23 08/24/25 Mckenzie Plus Meter) acetaminophen 325 mg tablet 650 mg (2 x 325 mg) PO Q4H R PRN 07/27/23 08/26/25 Pain 1 to 4, or Fever Wheel Chair #1 ea 11/04/24 08/24/25 digoxin 125 mcg (0.125 mg) tablet 125 mcg PO DAILY #90 tabs 11/07/24 08/26/25 pen needle, diabetic 29 gauge x #100 ea 11/07/2408/24 1/2" (BD Ultra-Fine Original Pen Needle) metoprolol succinate 25 mg 25 mg PO QDAY #90 tabs 10/2308/26/25 tablet,extended release 24 hr simvastatin 5 mg tablet 5 mg PO QPM #90 tabs 4 08/26/25 spironolactone 25 mg tablet 12.5 mg (1/2 x 25 mg) PO D AILY #90 11/14/24 08/26/25 tabs levothyroxine 175 mcg tablet 175 mcg PO QDAY #90 tabs 12/01/24 08/26/25 torsemide 5 mg tablet 5 mg PO QDAY #90 tabs 08/26/25 insulin glargine 100 unit/mL (3 30 unit subcut QAM 07/1708/26/25 mL) subcutaneous pen (Lantus Solostar U-100 Insulin) insulin lispro 100 unit/mL See Rx Instructions subcut TID 02/28/25 08/26/25 subcutaneous pen (Humalog KwikPen (U-100) Insulin) A 150 mcg-fenugreek 70 cap PO 03/30/25 08/24/25 [id number] capsule (Blood Sugar Support) diphenhydramine HCl 25 mg tablet 25 mg PO TID PRN lazaro rgic reaction 03/30/25 08/26/25 blood-glucose sensor (FreeStyle #6 ea 07/04/25 5 Bhargavi 2 Plus Sensor device) tamsulosin 0.4 mg capsule 0.4 mg PO QDAY 07/04/2503/17 triamcinolone acetonide 0.1 % 1 applic topical QDAY 08/26/25 topical cream ipratropium bromide 42 mcg (0.06 2 spray intranasal TI D 30 days #30 07/17/25 08/26/25 %) nasal spray mL folic acid 1 mg tablet 1 mg PO QDAY #30 tabs 08/26/25 finasteride 5 mg tablet 5 mg PO 08/24/25 08/24/25 Allergies Allergies Allergy/AdvReac Type Severity Reaction Status Date / Time glyburide AdvReac Severe Hypoglycemi Verified 08/24/25 16:52 a tramadol AdvReac Severe Hallucinati Verified 08/24/25 16:52 ons lisinopril AdvReac Intermediate Cough + Verified 08/24/25 16:52 Decline in GFR PFSH Active Problems All Active Problems (Updated 08/26/25 @ 15:39 by Tres Dillon MD) Chronic hyperglycemia (Acute) Heart failure with reduced ejection fraction (Acute) Atrial fibrillation (Chronic) Acute kidney injury superimposed on chronic kidney disease (Acute) Symptomatic anemia (Acute) Healthcare maintenance (Chronic) Essential (primary) hypertension (Acute) Balance problems (Acute) Gait disturbance (Acute) Preventative health care (Acute) Rash (Acute) Pain, dental (Acute) Do not resuscitate status (Acute 09/07/23) 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seases classified elsewhere, mild, without behavioral disturbance, psychotic disturbance, mood disturbance, and anxiety (Acute 0 04/26/24) Noncompliance w/medication treatment due to intermit use of medication (Acute) Myelodysplastic syndrome (Chronic) 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) Heart failure, left, with LVEF <=30% (Acute 08/10/23) Atrial flutter (Acute 08/10/23) Anticoagulant medication declined by patient (Acute) Type 2 diabetes mellitus with hyperglycemia (Acute) 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 (Acute) Diabetic peripheral neuropathy (Acute) Hyperlipidemia associated with type 2 diabetes mellitus (Acute) Hypothyroidism (Acute 11/23/1959) Nonalcoholic fatty liver disease (Acute 12/11/16) Osseous stenosis of neural canal of lumbar region (Acute 05/29/23) BPH with lower urinary tract symptoms without urinary obstruction (Acute ) Chronic sinusitis (Chronic) Medical History Medical History (Updated 08/26/25 @ 15:39 by Tres Dillon MD) Allergic rhinitis Counseling regarding advanced care planning and goals of care Developmental delay, mild Hx of acute pyelonephritis hospitalized w/ 2 prior psuedomonas infections Lumbar disc herniation with radiculopathy (05/29/23) Refractory anemia Surgical History Surgical History H/O cystoscopy 05/2021, 05/2021 History of bone marrow biopsy 08/2015 Family History Family History Mother Tuberculosis Father Family history unknown Maternal grandfather CAD (coronary artery disease) Son Seizure disorder Social History Social History (Updated 08/26/25 @ 13:47 by Christopher Huang, RN, BSN) Smoking Status: Former smoker If you are a former smoker, when did you quit? (Date/Year): 1969 Number of Years Smoked: 10 How many cigarettes a day do you smoke? 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 HENMT oropharynx normal moist mucous membranes Eyes PERRL Neck/C-Spine visual inspection normal Respiratory breath sounds equal bilaterally, normal respiratory effort and clear to auscultation bilaterally Cardiovascular normal heart rate noted and regular rhythm noted Gastrointestinal abdomen normal to inspection, abdomen soft to palpation, nontender to palpation and nondistended Genitourinary no CVA tenderness Extremities no edema Neurology speech normal Psychiatry mental status grossly normal and oriented x3 Skin skin color normal Results Vitals Vitals: Vital Signs - 24 hr 08/26/25 13:17 08/26/25 13:47 Temperature 36.1 C L Temperature Source Temporal Artery Scan Pulse Rate 102 H 97 Respiratory Rate 14 16 Blood Pressure 107/67 107/67 O2 Saturation 99 98 O2 Source Room air Room air Pain Intensity 0 0 Oxygen O2 Source [With Activity] Room air O2 Source Room air EKG (time done) 1335: EKG releavant findings:: EKG personally interpreted by author of this note. Relevant findings are: Rate: Other (98 bpm. Atrial fibrillation. Narrow QRS. No ST elevation. Normal axis. No ischemic change) Labs Labs: Laboratory Tests 08/26/25 08/26/25 13:39 14:16 WBC 27.8 H RBC 1.29 L Hgb 5.1 L* Hct 16.1 L* MCV 124.8 H MCH 39.5 H MCHC 31.7 L RDW 24.5 H Plt Count 333 MPV 10.1 Neut # (Auto) 21.1 H Lymph # (Auto) 1.6 Yell # (Auto) 0.7 Eos # (Auto) 0.2 Baso # (Auto) 0.1 Absolute Nucleated RBC 0.12 Band Neuts % (Manual) Not Reportable Abnorm Lymph % (Manual) Not Reportable Nucleated RBC % 0.4 Neutrophils # (Manual) Not Reportable Lymphocytes # (Manual) Not Reportable Monocytes # (Manual) Not Reportable Eosinophils # (Manual) Not Reportable Basophils # (Manual) Not Reportable Differential Comment MANUAL=AUTO DIFF Platelet Estimate NORMAL (130-450,000) Platelet Morphology NORMAL KIERAN RBC Morph Micro Appear 3+ HYPOCHROMASIA Sodium 135 Potassium 4.7 H Chloride 104 Carbon Dioxide 22 Anion Gap 9.0 BUN 47 H Creatinine 2.1 H Estimated GFR (MDRD) 30 L Glucose 423 H Calcium 9.5 Total Bilirubin 1.1 H AST 11 ALT 16 Alkaline Phosphatase 46 Troponin I High Sens 13.0 Total Protein 6.1 L Albumin 3.9 Globulin 2.2 Albumin/Globulin Ratio 1.8 Lipase < 10 L Blood Type A POSITIVE Antibody Screen NEGATIVE PD Medical Decision Making ED course Complexity details: reviewed results, re-evaluated patient, considered differential and d/w patient ED course: 85-year-old male with baseline leukemia, myelodysplastic syndrome. Has elevated blood sugar here, and usual is around 200, he is around 400 here. Hemoglobin is also dropped from his usual 8-9 down to 5. Type and screen ordered. Will place the patient in observation for blood transfusion and blood sugar control. Discussed with the hospitalist who accepts. This document was made in part using voice recognition software. While efforts are made to proofread this document, sound alike and grammatical errors may occur. Discharge Plan Discharge Patient Disposition: ED Place in Observation Condition: Stable Clinical Impression: Symptomatic anemia, Myelodysplastic syndrome, Do not resuscitate status, Chronic hyperglycemia
[2025-08-26 13:51] LABS: MEAN PLATELET VOLUME 10.1 fL (7.4-11.4); NRBC ABSOLUTE COUNT (AUTO) 0.12 x10^3/uL; NUCLEATED RED BLOOD CELLS AUTO 0.4 /100WBC; PLT - PLATELET COUNT 333 10^3/uL (130-450); RED CELL DISTRIBUTION WIDTH 24.5 % (12.0-15.0)
[2025-08-26] MEDS: SODIUM CHLORIDE 0.9% 1,000 ML IV STA (13:55)
[2025-08-26 14:04] LABS: ALT ALANINE AMINOTRANSFERASE 16 IU/L (10-60); AST ASPARTATE AMINOTRANSFERASE 11 IU/L (10-42); BUN - BLOOD UREA NITROGEN 47 mg/dL (6-20); CARBON DIOXIDE - CO2 22 mmol/L (21-32); CREATININE 2.1 mg/dL (0.6-1.3); GFR - MDRD 30 (>89)
[2025-08-26 14:07] LABS: HCT - HEMATOCRIT 16.1 % (42.0-52.0); HGB - HEMOGLOBIN 5.1 g/dL (14.0-18.0); TROPONIN I HIGH SENSITIVITY 13.0 ng/L (2.3-19.7)
[2025-08-26 14:42] LABS: PLATELET ESTIMATE, MANUAL NORMAL (130-450,000) (NORMAL)
[2025-08-26 14:43] LABS: PLATELET MORPHOLOGY NORMAL APP (NORMAL); RBC MORPHOLOGY (MULTIPLE) 3+ HYPOCHROMASIA (NORMAL)
--- NOTE | 2025-08-26 14:46 | HISTORY & PHYSICAL EXAMINATION ---
Chief Complaint Chief Complaint Chief Complaint: weak History of Present Illness History Obtained From Records Reviewed: oncology, primary care, palliative care History obtained from: Patient History of Present Illness HPI Comment/Other: 85-year-old male who presents to the emergency department via EMS today having been feeling weak and dizzy for about 10 days. He has a past medical history of diabetes mellitus(Most recent hemoglobin A1c 6.5% on 08/12/2025) , hypertension, atrial fibrillation, not on anticoagulation. He is pretty sure that his anemia is causing his problem. He had physical therapy scheduled for 3 days from now but told his caregiver to cancel it because he does not think he is strong enough to have a physical therapy evaluation. He has a long history of myelodysplastic syndrome is actively undergoing treatment. He is also a patient of palliative care. He has needed blood before and consents to blood transfusion today. He does have a POLST that says no blood products but when I reviewed this with him he stated that he did not know he would ever need blood products 2 years ago when he filled out the POLST. He has not had any trips and falls. He has not had any melena or bright red blood per rectum. He has been passing his urine normally. He has been feeling rather cold. He has not been having any extremity swelling but he has been having shortness of breath on exertion. Socially he does not have any relatives and has very few friends. There are careful advance care planning discussions noted in his palliative care notes. His caregiver Soo is his surrogate decision maker. He has a DPOA with her designated. I have not seen a copy of this DOA but mention is made of it in the records. He does have a POLST which lists DNR/comfort measures only. We will update this POLST in the course of this admission to note that he does except blood products. Meds/Allgy Home Medications Ambulatory Orders Medication Instructions Recorded Confirmed multivitamin 1 cap PO DAILY 08/13/1503/17 blood-glucose meter (Accu-Chek 07/15/23 08/24/25 Mckenzie Plus Meter) acetaminophen 325 mg tablet 650 mg (2 x 325 mg) PO Q4H R PRN 07/27/23 08/26/25 Pain 1 to 4, or Fever Wheel Chair #1 ea 11/04/24 08/24/25 digoxin 125 mcg (0.125 mg) tablet 125 mcg PO DAILY #90 tabs 11/07/24 08/26/25 pen needle, diabetic 29 gauge x #100 ea 11/07/2408/24" (BD Ultra-Fine Original Pen Needle) metoprolol succinate 25 mg 25 mg PO QDAY #90 tabs 10/2308/26/25 tablet,extended release 24 hr simvastatin 5 mg tablet 5 mg PO QPM #90 tabs 4 08/26/25 spironolactone 25 mg tablet 12.5 mg (11/24 x 25 mg) PO D AILY #90 11/14/24 08/26/25 tabs levothyroxine 175 mcg tablet 175 mcg PO QDAY #90 tabs 12/01/24 08/26/25 torsemide 5 mg tablet 5 mg PO QDAY #90 tabs 08/26/25 insulin glargine 100 unit/mL (3 30 unit subcut QAM 07/1708/26/25 mL) subcutaneous pen (Lantus Solostar U-100 Insulin) insulin lispro 100 unit/mL See Rx Instructions subcut TID 02/28/25 08/26/25 subcutaneous pen (Humalog KwikPen (U-100) Insulin) A 150 mcg-fenugreek 70 cap PO 03/30/25 08/24/25 iy-jhhy-ojrwsqq-b.qshey-huthacbi-cvgclp capsule (Blood Sugar Support) diphenhydramine HCl 25 mg tablet 25 mg PO TID PRN lazaro rgic reaction 03/30/25 08/26/25 blood-glucose sensor (FreeStyle #6 ea 07/04/25 5 Bhargavi 2 Plus Sensor device) tamsulosin 0.4 mg capsule 0.4 mg PO QDAY 07/04/2503/17 triamcinolone acetonide 0.1 % 1 applic topical QDAY 08/26/25 topical cream ipratropium bromide 42 mcg (0.06 2 spray intranasal TI D 30 days #30 07/17/25 08/26/25 %) nasal spray mL folic acid 1 mg tablet 1 mg PO QDAY #30 tabs 08/26/25 finasteride 5 mg tablet 5 mg PO 08/24/25 08/24/25 Allergies Allergies Allergy/AdvReac Type Severity Reaction Status Date / Time glyburide AdvReac Severe Hypoglycemi Verified 08/24/25 16:52 a tramadol AdvReac Severe Hallucinati Verified 08/24/25 16:52 ons lisinopril AdvReac Intermediate Cough + Verified 08/24/25 16:52 Decline in GFR PFSH Active Problems All Active Problems (Updated 08/26/25 @ 15:39 by Tres Dillon MD) Chronic hyperglycemia (Acute) Heart failure with reduced ejection fraction (Acute) Atrial fibrillation (Chronic) Acute kidney injury superimposed on chronic kidney disease (Acute) Symptomatic anemia (Acute) Healthcare maintenance (Chronic) Essential (primary) hypertension (Acute) Balance problems (Acute) Gait disturbance (Acute) Preventative health care (Acute) Rash (Acute) Pain, dental (Acute) Do not resuscitate status (Acute 09/07/23) 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seases classified elsewhere, mild, without behavioral disturbance, psychotic disturbance, mood disturbance, and anxiety (Acute 04/26/24) Noncompliance w/medication treatment due to intermit use of medication (Acute) Myelodysplastic syndrome (Chronic) 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) Heart failure, left, with LVEF <=30% (Acute 08/10/23) Atrial flutter (Acute 08/10/23) Anticoagulant medication declined by patient (Acute) Type 2 diabetes mellitus with hyperglycemia (Acute) 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 (Acute) Diabetic peripheral neuropathy (Acute) Hyperlipidemia associated with type 2 diabetes mellitus (Acute) Hypothyroidism (Acute 11/23/1959) Nonalcoholic fatty liver disease (Acute 12/11/16) Osseous stenosis of neural canal of lumbar region (Acute 05/29/23) BPH with lower urinary tract symptoms without urinary obstruction (Acute 02/28/21) Chronic sinusitis (Chronic) Medical History Medical History (Updated 08/26/25 @ 15:39 by Tres Dillon MD) Allergic rhinitis Counseling regarding advanced care planning and goals of care Developmental delay, mild Hx of acute pyelonephritis hospitalized w/ 2 prior psuedomonas infections Lumbar disc herniation with radiculopathy (05/29/23) Refractory anemia Surgical History Surgical History H/O cystoscopy 05/2021, 05/2021 History of bone marrow biopsy 08/2015 Family History Family History Mother Tuberculosis Father Family history unknown Maternal grandfather CAD (coronary artery disease) Son Seizure disorder Social History Social History (Updated 08/26/25 @ 13:47 by Christopher Huang, RN, BSN) Smoking Status: Former smoker If you are a former smoker, when did you quit? (Date/Year): 1969 Number of Years Smoked: 10 How many cigarettes a day do you smoke? 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 Does not drive. Takes care of himself every Thursday and Thursday but has caregiver assistance the remaining days of the week. Lives alone. Exam Exam Vital Signs: Vital Signs x48h Temp Pulse Pulse Resp BP BP Pulse Ox 08/26/25 19:47 36.5 C 90 16 127/54 L 99 08/26/25 18:32 36.5 C 103 H 18 114/62 98 08/26/25 18:18 36.5 C 121 H 18 103/61 99 08/26/25 17:02 36.8 C 97 18 123/67 98 08/26/25 15:25 89 18 110/68 98 08/26/25 13:47 97 16 107/67 98 08/26/25 13:17 36.1 C L 102 H 14 107/67 99 Constitutional normal general appearance and no apparent distress [facility] normocephalic Eyes conjunctivae normal Neck/C-Spine visual inspection normal and trachea midline Lymph no lymphadenopathy noted Chest palpation of chest normal Respiratory breath sounds equal bilaterally, normal respiratory effort and clear to auscultation bilaterally Cardiovascular Mildly tachycardic into the low 100s. Shows occasional atrial fibrillation on the monitor. Gastrointestinal abdomen normal to inspection, abdomen soft to palpation and nontender to palpation Several small ecchymotic lesions on the abdominal wall. Back/Pelvis spine normal to inspection Extremities normal to inspection Neurology gluer and slicer hand II-XII intact, no movement abnormality noted and GCS 15 Psychiatry mental status grossly normal, oriented x3, thought process normal, cooperative, affect normal and memory normal Skin no rash and nails normal pale Conclusion/Plan Problem List (1) Symptomatic anemia: Plan: History of myelodysplastic syndrome actively being treated. Presents to the emergency department feeling weak for about 10 days. He actually went to urgent care several days ago thinking he possibly had a urinary tract infection. His urine was clean and he went home again without further investigation. He does have a history of Pseudomonas urinary tract infections and BPH. His hemoglobin when labs were drawn on 07/2425 was 8.5. Today when he presents to the emergency department it is 5.1. And he is definitely symptomatic. I have discussed this patient with Dr. Marie in the emergency department. I will admit this patient to observation status for transfusion and follow-up hemoglobin. He is definitely experiencing decline in his functional status, I have physical therapy available tomorrow and will request that he be seen by PT in the morning after transfusion. (2) Myelodysplastic syndrome: Plan: He is followed by our oncology team here at [facility]. He is on chronic medication for symptomatic anemia. Currently taking Luspatercept. last dose on 08/16/25. (3) Acute kidney injury superimposed on chronic kidney disease: Plan: Laboratory Tests 06/29/25 07/20/25 08/16/25 12:00 10: 09:38 Creatinine 1.7 H 1.8 H 1.8 H 08/26/25 13:39 Creatinine 2.1 H Creatinine of 2.1 today, baseline is more in the 1.7-1.8 range. This could be due to hypoperfusion related to his symptomatic anemia. Patient will receive transfusion today and I will recheck his hemoglobin in the morning. His potassium is slightly elevated, but i think with blood, his LIS will resolve and K will improve. (4) Atrial fibrillation: Plan: He is not on anticoagulants. has had this dx since Jul 2024, at that time, declined blood thinning medication. he is on metoprolol currently. (5) Essential (primary) hypertension: Plan: At home he is on metoprolol, spironolactone and torsemide. Patient does not give me any history of heart failure. Reviewing the chart, I see an echocardiogram approximately 2 years ago. At that time the echocardiogram is read as severe global hypokinesis of the left ventricle with an ejection fraction of 20 to 25%. This patient is not on goal-directed medical therapy. His RVSP is within normal limits. He denies a history of underlying lung disease. I have resumed his home spironolactone and furosemide, iwth his heart failure, I do not want to overload him. I am also continuing his home metoprolol as I do not want him to have reflex tachycardia. I see a heart rate in the low 100s on the monitor in the emergency department. (6) Type 2 diabetes mellitus with hyperglycemia: Plan: Laboratory Tests 08/16/25 09:38 Hemoglobin A1c % 6.5 H I am starting him on long acting insulin. At home he takes 30u of glargine daily, as well as lispro TID. I am covering him with low dose sliding scale insulin. 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 It was at that hospitalization that he was started on treatment for his atrial fibrillation. He is not on goal-directed medical therapy. He is not on an DIDI or an ARB he is on a beta-deb he is not on a SGLT2 inhibitor. Patient's approach to his health care overall is 1 of palliation and comfort. I am not sure that these medications are appropriate for him at this time. (8) Do not resuscitate status: Plan: This patient firmly commits to DNR status. He accepts blood products. His POLST needs to be updated this admission. There are palliative care notes in the chart which firmly designate a surrogate medical decision maker as his caregiver Soo. Plan I have spent 85 minutes in the care of this patient today. This includes time [id number], review and ordering of diagnostic imaging and laboratory studies and consultation with other providers. Monitoring the patient's signs symptoms, evaluation of medication effectiveness and patient's response to treatment. Lab Results Lab results reviewed: Yes 08/26/25 13:39 08/26/25 13:39 EKG Results EKG Interpreted Independently: Yes EKG Findings: Atrial fibrillation rate is 98 Core Measures Anticipated LOS I expect patient to be DC'd or transferred within 96 hours.: Yes DVT/VTE - Prophylaxis VTE/DVT Device ordered at admit?: Yes VTE/DVT Prophylaxis med ordered at admit?: Yes
--- NOTE | 2025-08-26 14:59 | XRAY Report ---
PROCEDURE: XR Chest 1V INDICATIONS: Chest Pain TECHNIQUE: One view of the chest was acquired. COMPARISON: None. FINDINGS: Surgical changes and devices: None. Lungs and pleura: No pleural effusions or pneumothorax. No consolidation. Mediastinum: Mediastinal contours appear normal. Heart size is normal. Bones and chest wall: No suspicious bony lesions. Overlying soft tissues appear unremarkable. IMPRESSION: No acute cardiopulmonary process. Reviewed by: Francisco Cutler MD on 08/26/2025 1:56 PM AKDT Approved by: Francisco Cutler MD on 08/26/2025 1:56 PM AKDT Station ID: [id number]
[2025-08-26] MEDS ORDERED: ACETAMINOPHEN 325 MG TABLET PO PRN (16:47)
[2025-08-26] MEDS ORDERED: ONDANSETRON 4 MG/2 ML VIAL IVP PRN (16:47)
[2025-08-26] MEDS ORDERED: SODIUM CHLORIDE FLUSH 0.9% 10 ML SYRINGE IVP PRN (16:47)
[2025-08-26 17:48] LABS: GLUCOSE, URINE (UA) 100 mg/dL (NEGATIVE); KETONES,URINE (UA) NEGATIVE (NEGATIVE); OCCULT BLOOD,URINE NEGATIVE (NEGATIVE)
[2025-08-26] MEDS: SODIUM CHLORIDE FLUSH 0.9% 10 ML SYRINGE IVP SCH (18:19)
[2025-08-26] MEDS: INSULIN REGULAR, HUMAN 300 UNIT/3 ML PEN SUBQ SCH (18:38)
[2025-08-26] MEDS: INSULIN GLARGINE-YFGN 300 UNIT/3 ML PEN SUBQ SCH (22:12)
[2025-08-27 01:01] VITALS: TEMP 98.1
[2025-08-27 05:54] LABS: HCT - HEMATOCRIT 22.1 % (42.0-52.0); HGB - HEMOGLOBIN 7.3 g/dL (14.0-18.0); MEAN PLATELET VOLUME 9.9 fL (7.4-11.4); PLT - PLATELET COUNT 291 10^3/uL (130-450); RED CELL DISTRIBUTION WIDTH 28.0 % (12.0-15.0)
[2025-08-27 06:01] LABS: ABNORMAL LYMPHS % (MANUAL) 0 %; BASOPHILS # (MANUAL) 0.0 10^3/uL (0-0.1); EOSINOPHILS # (MANUAL) 0.0 10^3/uL (0-0.7); MONOCYTES # (MANUAL) 0.0 10^3/uL (0.0-1.0)
[2025-08-27 06:08] LABS: BUN - BLOOD UREA NITROGEN 44.0 mg/dL (6-20); CARBON DIOXIDE - CO2 22.0 mmol/L (21-32); CREATININE 1.8 mg/dL (0.6-1.3); GFR - MDRD 36.0 (>89)
[2025-08-27] MEDS: LEVOTHYROXINE 100 MCG TABLET PO SCH (06:19)
[2025-08-27] MEDS: LEVOTHYROXINE 75 MCG TABLET PO SCH (06:19)
[2025-08-27 06:34] LABS: BAND NEUTROPHILS % (MANUAL) 21 %; LYMPHOCYTES # (MANUAL) 3.3 10^3/uL (1.5-3.5); LYMPHOCYTES % (MANUAL) 12 %; METAMYELOCYTES % (MANUAL) 3 %; MYELOCYTES % (MANUAL) 4 %; NEUTROPHILS # (MANUAL) 21.8 10^3/uL (1.5-6.6); NUCLEATED RBC (MANUAL) 2 %; PROMYELOCYTES % (MANUAL) 1 %
[2025-08-27] MEDS: ENOXAPARIN 40 MG/0.4 ML SYRINGE SUBQ SCH (08:30)
[2025-08-27] MEDS: TAMSULOSIN 0.4 MG CAPSULE PO SCH (08:39)
[2025-08-27] MEDS: DIGOXIN 125 MCG TABLET PO SCH (08:53)
[2025-08-27] MEDS: INSULIN REGULAR, HUMAN 300 UNIT/3 ML PEN SUBQ SCH (08:55)
[2025-08-27] MEDS: METOPROLOL SUCCINATE 25 MG TABLET PO SCH (08:56)
[2025-08-27] MEDS: SPIRONOLACTONE 25 MG TABLET PO SCH (08:56)
[2025-08-27] MEDS: FOLIC ACID 1 MG TABLET PO SCH (08:56)
[2025-08-27] MEDS: FINASTERIDE 5 MG TABLET PO SCH (08:57)
[2025-08-27] MEDS: TORSEMIDE 20 MG TABLET PO SCH (09:50)
--- NOTE | 2025-08-27 11:13 | Discharge Summary ---
Discharge Summary Admit Date: 08/26/25 Discharge Date: 08/27/25 Discharging Provider: Fidelia Garcia PA-C Primary Care Provider: IRAIDA Madrigal Code Status: Do Not Attempt Resuscitation DIAGNOSES Discharge Diagnoses with Status of Each Condition: Symptomatic anemia, resolved Myelodysplastic syndrome, chronic and treated Acute kidney injury superimposed on chronic kidney disease, improving Atrial fibrillation, chronic and treated. Not anticoagulated. Hypertension, chronic and treated Type 2 diabetes mellitus, most recent A1c 6.5%. Continue home insulin therapy Heart failure with reduced ejection fraction, continue diuretic therapy. Recommend primary care follow-up to consider goal-directed medical therapy. DNR status, POLST updated to reflect current care wishes. HPI History of Present Illness: 85-year-old male who presents to the emergency department via EMS today having been feeling weak and dizzy for about 10 days. He has a past medical history of diabetes mellitus(Most recent hemoglobin A1c 6.5% on 08/12/2025) , hypertension, atrial fibrillation, not on anticoagulation. He is pretty sure that his anemia is causing his problem. He had physical therapy scheduled for 3 days from now but told his caregiver to cancel it because he does not think he is strong enough to have a physical therapy evaluation. He has a long history of myelodysplastic syndrome is actively undergoing treatment. He is also a patient of palliative care. He has needed blood before and consents to blood transfusion today. He does have a POLST that says no blood products but when I reviewed this with him he stated that he did not know he would ever need blood products 2 years ago when he filled out the POLST. He has not had any trips and falls. He has not had any melena or bright red blood per rectum. He has been passing his urine normally. He has been feeling rather cold. He has not been having any extremity swelling but he has been having shortness of breath on exertion. Socially he does not have any relatives and has very few friends. There are careful advance care planning discussions noted in his palliative care notes. His caregiver Soo is his surrogate decision maker. He has a DPOA with her designated. I have not seen a copy of this DOA but mention is made of it in the records. He does have a POLST which lists DNR/comfort measures only. We will update this POLST in the course of this admission to note that he does except blood products. HOSPITAL COURSE Hospital Course: 85-year-old male who presented with symptomatic anemia. He was transfused 2 units of packed red blood cells his hemoglobin improved to 7.3. He was feeling much better. He presented with a creatinine of 2.1 which improved to his baseline of 1.8 on the morning of discharge. POLST risk reviewed with the patient on admission. He had previously stated that he would not accept blood products on his POLST. We revised this as he does wish to receive blood products if he needs them medically. Additionally we updated his surrogate medical decision maker to his caregiver. This is discussed in previous palliative care notes. On the morning of discharge, patient was asking to go home stating he feels much better than when he presented to the emergency department. ALLERGIES Allergies Allergy/AdvReac Type Severity Reaction Status Date / Time glyburide AdvReac Severe Hypoglycemi Verified 08/24/25 16:52 a tramadol AdvReac Severe Hallucinati Verified 08/24/25 16:52 ons lisinopril AdvReac Intermediate Cough + Verified 08/24/25 16:52 Decline in GFR MEDICATIONS Ambulatory Orders Medication Instructions Recorded Confirmed multivitamin 1 cap PO DAILY 08/13/1503/17 blood-glucose meter (Accu-Chek 07/15/23 08/24/25 Mckenzie Plus Meter) acetaminophen 325 mg tablet 650 mg (2 x 325 mg) PO Q4H R PRN 07/27/23 08/26/25 Pain 1 to 4, or Fever Wheel Chair #1 ea 11/04/24 08/24/25 digoxin 125 mcg (0.125 mg) tablet 125 mcg PO DAILY #90 tabs 11/07/24 08/26/25 pen needle, diabetic 29 gauge x #100 ea 11/07/2408/24 1/2" (BD Ultra-Fine Original Pen Needle) metoprolol succinate 25 mg 25 mg PO QDAY #90 tabs 10/2308/26/25 tablet,extended release 24 hr simvastatin 5 mg tablet 5 mg PO QPM #90 tabs 4 08/26/25 spironolactone 25 mg tablet 12.5 mg (1/2 x 25 mg) PO D AILY #90 11/14/24 08/26/25 tabs levothyroxine 175 mcg tablet 175 mcg PO QDAY #90 tabs 12/01/24 08/26/25 torsemide 5 mg tablet 5 mg PO QDAY #90 tabs 08/26/25 insulin glargine 100 unit/mL (3 30 unit subcut QAM 07/1708/26/25 mL) subcutaneous pen (Lantus Solostar U-100 Insulin) insulin lispro 100 unit/mL See Rx Instructions subcut TID 02/28/25 08/26/25 subcutaneous pen (Humalog KwikPen (U-100) Insulin) A 150 mcg-fenugreek 70 cap PO 03/30/25 08/24/25 qr-lsja-xdfzamx-b.qadzn-hgjtkxhg-wjihws capsule (Blood Sugar Support) diphenhydramine HCl 25 mg tablet 25 mg PO TID PRN lazaro rgic reaction 03/30/25 08/26/25 blood-glucose sensor (FreeStyle #6 ea 07/04/25 5 Bhargavi 2 Plus Sensor device) tamsulosin 0.4 mg capsule 0.4 mg PO QDAY 07/04/2503/17 triamcinolone acetonide 0.1 % 1 applic topical QDAY 08/26/25 topical cream ipratropium bromide 42 mcg (0.06 2 spray intranasal TI D 30 days #30 07/17/25 08/26/25 %) nasal spray mL folic acid 1 mg tablet 1 mg PO QDAY #30 tabs 08/26/25 finasteride 5 mg tablet 5 mg PO 08/24/25 08/24/25 PHYSICAL EXAM AT DISCHARGE Vital Signs: Vital Signs x48h Temp Pulse Resp BP Pulse Ox 08/27/25 09:00 36.7 C 95 17 141/69 H 97 General Appearance: positive No acute distress and Alert Eyes Bilateral: positive Normal inspection ENT: positive ENT inspection nml Neck: positive Nml inspection Respiratory: positive Breath sounds nml Cardiovascular: positive Regular rate & rhythm Abdomen: positive No distention Skin: positive Color nml (Less pale) Extremities: positive Non-tender and Pedal edema (Minimal) Neurologic/Psychiatric: positive Oriented x3 LABS 08/27/25 05:26 08/27/25 05:26 FOLLOW UP Follow Up: PCP 7 to 10 days. Oncology as scheduled TIME SPENT Time Spent in Discharge (Minutes): 35 Discharge Plan Discharge Patient Disposition: 01 Home, Self Care Condition: Stable Prescriptions: Continued digoxin 125 mcg (0.125 mg) tablet 125 mcg PO DAILY Qty: 90 3RF (DME) pen needle, diabetic [BD Ultra-Fine Orig Pen Needle] 29 gauge x 1/2" needle See Rx Instructions .Route Qty: 100 3RF Rx Instructions: Use with INSULIN three times a day spironolactone 25 mg tablet 12.5 mg PO DAILY Qty: 90 3RF Rx Instructions: Take once a day levothyroxine 175 mcg tablet 175 mcg PO QDAY Qty: 90 1RF torsemide 5 mg tablet 5 mg PO QDAY Qty: 90 0RF Rx Instructions: needs appointment ipratropium bromide 42 mcg (0.06 %) spray,non-aerosol 2 spray intranasal TID 30 Days Qty: 30 3RF Rx Instructions: administer 2 sprays into each nostril multivitamin 1 EACH capsule 1 cap PO DAILY tamsulosin 0.4 mg capsule 0.4 mg PO QDAY (DME) blood-glucose meter [Accu-Chek Mckenzie Plus Meter] 1 EACH misc 1 ea miscellaneous QID Patient Comments: use 1 TEST STRIP to TEST BLOOD SUGAR four times a day acetaminophen 325 MG tablet 650 mg PO Q4HR PRN (Reason: Pain 1 to 4, or Fever) 0RF insulin glargine [Lantus Solostar U-100 Insulin] 100 unit/mL (3 mL) insulin pen 30 unit subcut QAM insulin lispro [Humalog KwikPen Insulin] 100 unit/mL insulin pen See Rx Instructions subcut TID Rx Instructions: Inject 15iu subcutaneously in the morning and afternoon & inject 14iu and 15iu in the evening; subcutaneously three times a day; finasteride 5 mg tablet 5 mg PO (DME) Wheel Chair Misc See Rx Instructions .MEDSUPPLY Qty: 1 0RF Rx Instructions: portable-folding electric wheel chair, use as needed for ambulation. metoprolol succinate 25 mg tablet extended release 24 hr 25 mg PO QDAY Qty: 90 3RF simvastatin 5 mg tablet 5 mg PO QPM Qty: 90 3RF Blood Sugar Support 150 mcg- 70 mg capsule PO diphenhydramine HCl 25 mg tablet 25 mg PO TID PRN (Reason: allergic reaction) triamcinolone acetonide 0.1 % cream 1 applic topical QDAY Patient Comments: per Dermatology (DME) FreeStyle Bhargavi 2 Plus Sensor Device See Rx Instructions .Route Qty: 6 3RF Rx Instructions: As directed folic acid 1 mg tablet 1 mg PO QDAY Qty: 30 6RF Diet: Diabetic Health Concerns: You came into the hospital because you were feeling weak and tired. This is because your red blood cell count was very low. The reason your red blood cell count is low is because you do not make enough red blood cells. This is due to your myelodysplastic syndrome. While you are on medications to help you make red blood cells sometimes the medications just do not quite work well enough. We are discharging you home today with absolutely no changes to your medications. I want you to follow-up with your primary care, ASHLEY Zhao in the next 7 to 10 days. Continue on your normal high blood pressure and diabetic medications. Return to the hospital if you start to feel weak and dizzy again. Print Language: Maltese Patient Instructions: Anemia Follow-up Care: Jerson Villagran, SHYANN, DIRECTOR OF DONOR RELATIONS, BAGGAGE SMASHER [Primary Care Provider, Family Practice] Vitals documented within 30 minutes of discharge?: Yes
--- NOTE | 2025-08-27 11:14 | ADVANCE CARE PLANNING NOTE ---
Advance Care Planning Planning Encounter Date: 08/27/25 Parties in Attendance: Fidelia Garcai PA-C, patient Decisional Capacity of the Patient: alert and oriented with insight Diagnosis for Encounter (1) Symptomatic anemia: (2) Myelodysplastic syndrome: (3) Acute kidney injury superimposed on chronic kidney disease: (4) Atrial fibrillation: (5) Essential (primary) hypertension: (6) Type 2 diabetes mellitus with hyperglycemia: Qualifiers: Diabetes mellitus ad terminal makeup operator insulin use: with chcf use Qualified Code(s): E11.65 - Type 2 diabetes mellitus with hyperglycemia; Z79.4 - ferry terminal agent (current) use of insulin (7) Heart failure with reduced ejection fraction: (8) Do not resuscitate status: Encounter Subjective/Patient's Story: Expresses frustration with a few people that he can depend on for assistance with his health and health care. It has been difficult for him he is all alone in the world. Objective/Medical Story: This admission precipitated by symptomatic anemia. Patient is feeling much better after 2 units of packed red cells Goals of Care: and can discharge to home where he lives alone with caregiver assistance. He has had a POLST on the chart for quite some time stating no blood products or dialysis. When I questioned him about this last evening he stated that of course he wanted blood products. Additionally his caregiver Soo who he wants to be his DPOA is not listed on his POLST. Plan: New POLST completed by myself and the patient. It is DNR, comfort measures only and his caregiver Soo is listed as his surrogate medical decision maker. Code Status: Do Not Attempt Resuscitation Time spent on advance care plannin minutes
[2025-08-27] MEDS ORDERED: [UNRECOGNIZED DRUG - REMARK] NAS SCH (14:00)
[2025-08-27 14:07] VITALS: BP 126/67; O2SAT 98
--- NOTE | 2025-08-27 14:07 | PT Plan of Care ---
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 MEDICAL/SURGICAL HISTORY Medical History (Updated 08/26/25 @ 15:39 by Tres Dillon MD) Allergic rhinitis Counseling regarding advanced care planning and goals of care Developmental delay, mild Hx of acute pyelonephritis hospitalized w/ 2 prior psuedomonas infections Lumbar disc herniation with radiculopathy (05/29/23) Refractory anemia Surgical History H/O cystoscopy 05/2021, 05/2021 History of bone marrow biopsy 08/2015 BALANCE/FUNCTIONAL RESULTS Sitting Balance: Good Standing Balance: Good ASSESSMENT Assessment: The pt is an 85 y/o M who arrived to the ED on 08/26/25 due to 10 days of progressive weakness and dizziness, he was hospitalized with symptomatic anemia. PMH includes myelodysplastic syndrome which is currently being treated, please see chart for complete medical hx. The pt was received resting comfortably sitting EOB while eating his lunch and presented today with good B UE and LE MMT, good sitting and standing balance, and decreased activity tolerance. At this time the pt does not appear to require continued skilled PT intervention while in the acute setting and it is recommended that he DC home without further therapy needs once medically stable. This plan was discussed with the pt, he was in agreement with this. At the end of the session the pt was supine in bed with call light in reach, bed alarm on, and all needs met. RN and PA updated on pt's status and DC rec, no goals will be set as this is an eval only. PATIENT/FAMILY GOALS Patient/Family Goals: To remain strong and return home PLAN Frequency: Evaluation only, no further P.T. Duration: Until goals are met DISCHARGE RECOMMENDATIONS Discharge Location: Previous Living Situation Support/Services Needed: No needs Transport Needs at Discharge: Personal vehicle
--- OUTSIDE RECORDS SUMMARY | 2025-08-29 19:05 | EXTERNAL MEDICAL SUMMARY RPT | Continuity of Care Document ---
Author Organization [place] Address [address] [place] [id number] Phone Problems date description facility 2025-06-08 08:26 Myelodysplastic syndrome, unspe cified [facility] 2025-06-08 09:34 Refractory anemia wi thout ring sideroblasts, so stated [facility] 2025-06-08 09:34 Refractory anemia, unspecified [facility] 2025-06-08 09:34 Myelodysplastic syndrome, unspe cified [facility] 2025-06-08 09:34 Chronic kidney disease, stage 3 unspecified [facility] 2025-06-08 10:32 Refractory anemia wi thout ring sideroblasts, so stated [facility] 2025-06-08 10:32 Refractory anemia, unspecified [facility] 2025-06-08 10:32 Myelodysplastic syndrome, unspe cified [facility] 2025-06-08 10:32 Chronic kidney disease, stage 3 unspecified [facility] 2025-06-08 10:34 Refractory anemia wi thout ring sideroblasts, so stated [facility] 2025-06-08 10:34 Refractory anemia, unspecified [facility] 2025-06-08 10:34 Myelodysplastic syndrome, unspe cified [facility] 2025-06-08 10:34 Chronic kidney disease, stage 3 unspecified [facility] 2025-06-08 10:38 Refractory anemia wi thout ring sideroblasts, so stated [facility] 2025-06-08 10:38 Refractory anemia, unspecified [facility] 2025-06-08 10:38 Myelodysplastic syndrome, unspe cified [facility] 2025-06-08 10:38 Chronic kidney disease, stage 3 unspecified [facility] 2025-06-08 11:00 Refractory anemia wi thout ring sideroblasts, so stated [facility] 2025-06-08 11:00 Refractory anemia, [facility] 11:00 Myelodysplastic syndrome, unspe [facility] 2025-[facility] 11:00 Chronic kidney disease, stage 3 unspecified [facility] 2025-06-08 11:02 Myelodysplastic syndrome, unspe c[facility] 2025-06-08 12:14 Refractory anemia wi thout ring sideroblasts, so stated [facility] 2025-06-08 12:14 Refractory anemia, unspecified [facility] 2025-06-08 12:14 Myelodysplastic syndrome, unspe cified [facility] 2025-06-08 12:14 Chronic kidney disease, stage 3 unspecified [facility] 2025-06-08 12:31 Refractory anemia wi thout ring sideroblasts, so stated [facility] 2025-06-08 12:31 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 seases classified elsewhere, mild, without behavioral disturbance, psychotic disturbance, mood disturbance, and anxiety [facility] 2025-06-08 12:31 Unspecified abnormalities of ga it and mobility [facility] 2025-06-08 12:31 Other specified counseling [facility] 2025-06-08 12:42 Refractory anemia wi thout ring sideroblasts, so stated [facility] 2025-06-08 12:42 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 seases classified elsewhere, mild, without behavioral disturbance, psychotic disturbance, mood disturbance, and anxiety [facility] 2025-06-08 12:42 Unspecified abnormalities of ga it and mobility [facility] 2025-06[facility]08 12:42 Other specified counseling [facility] 2025-06-09 00:03 Myelodysplastic syndrome, unspe cified [facility] 2025-06-14 10:00 Refractory anemia wi thout ring sideroblasts, so stated [facility] 2025-06-14 10:00 Myelodysplastic syndrome, unspe cified [facility] 2025-06-14 10:00 Chronic kidney disease, stage 3 unspecified [facility] 2025-06-14 14:07 Myelodysplastic syndrome, unspe cified [facility] 2025-06-14 14:07 [facility], [facility] 14:07 Encounter for genera l adult medical examination without abnormal findings [facility] 2025-06-23 13:50 Refractory anemia wi thout ring sideroblasts, so stated [facility] 2025-06-23 13:50 [facility]elodysplastic syndrome, [facility] 13:50 Chronic kidney disease, stage 3 unspecified [facility] 2025-06-29 11:52 [facility]elodysplastic syndrome, [facility] 2025-06-29 12:02 Refractory anemia wi thout ring sideroblasts, so stated [facility] 2025-06-29 12:02 [facility]ysplastic syndrome, [facility] 12:02 Chronic kidney disease, stage 3 unspecified [facility] 2025-06-29 13:15 Refractory anemia wi thout ring sideroblasts, so stated [facility] 2025-06-29 13:15 [facility]el[facility]ysplastic syndrome, [facility]25[facility] 13:15 Chronic kidney disease, stage 3 unspecified [facility] 2025-06-29 13:30 Refractory anemia wi thout ring sideroblasts, so stated [facility] 2025-06-29 13:30 Myelodysplastic syndrome, unspe [facility] 13:30 Chronic kidney disease, stage 3 unspecified [facility] 2025-06-30 00:04 Myelodysplastic syndrome, unspe [facility]04 14:57 Type 2 diabetes mellitus with h yperglycemia [facility] 2025-07-04 14:57 Other abnormalities of gait and mobility [facility] 2025-07-04 14:57 MCFP (current) use of insu snow [facility] 2025-07-05 12:25 Type 2 diabetes kartik itus with hypoglycemia without coma [facility] 2025-07-05 12:25 Type 2 diabetes mellitus with h yperglycemia [facility] 2025-07-05 12:25 Low back pain, unspecified [facility] 2025-07-05 12:25 Other specified soft tissue dis orders [facility] 2025-07-05 12:25 Shortness of breath [facility] 12:25 Other forms of dyspnea [facility] 2025-07-05 12:25 Other chest pain [facility] 2025-07-05 12:25 Chest pain, unspecified [facility] 2025-07-05 12:25 Other abnormalities of gait and mobility [facility] 2025-07-05 12:25 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 [facility] 2025-07-20 10:20 Myelodysplastic syndrome, unspe cified [facility] 2025-07-20 10:27 Refractory anemia wi thout ring sideroblasts, so stated [facility] 2025-07-20 10:27 Myelodysplastic syndrome, unspe cified [facility] 2025-07-20 10:27 Chronic kidney disease, stage 3 unspecified [facility] 2025-07-20 10:28 Refractory anemia wi thout ring sideroblasts, so stated [facility] 2025-07-20 10:28 Myelodysplastic syndrome, unspe cified [facility] 2025-07-20 10:28 Chronic kidney disease, stage 3 unspecified [facility] 2025-07-20 11:03 Refractory anemia wi thout ring sideroblasts, so stated [facility] 2025-07-20 11:03 Myelodysplastic syndrome, unspe cified [facility] 2025-07-20 11:03 Chronic kidney disease, stage 3 unspecified [facility] 2025-07-20 11:51 Refractory anemia wi thout ring sideroblasts, so stated [facility] 2025-07-20 11:51 Myelodysplastic syndrome, unspe cified [facility] 2025-07-20 11:51 Chronic kidney disease, stage 3 unspecified [facility] 2025-07-20 14:11 Refractory anemia wi thout ring sideroblasts, so stated [facility] 2025-07-20 14:11 Myelodysplastic syndrome, unspe cified [facility] 2025-07-20 14:11 Chronic kidney disease, stage 3 unspecified [facility] 2025-07-20 14:13 Refractory anemia wi thout ring sideroblasts, so stated [facility] 2025-07-20 14:13 Myelodysplastic syndrome, unspe cified [facility] 2025-07-20 14:13 Chronic kidney disease, stage 3 unspecified [facility] 2025-07-20 14:16 Refractory anemia wi thout ring sideroblasts, so stated [facility] 2025-07-20 14:16 Myelodysplastic syndrome, unspe cified [facility] 2025-07-20 14:16 Chronic kidney disease, stage 3 unspecified [facility] 2025-07-21 00:04 Myelodysplastic syndrome, unspe cified [facility] 2025-07-28 10:13 Refractory anemia, unspecified [facility] 2025-07-28 10:13 Myelodysplastic syndrome, unspe cified [facility] 2025-07-28 10:13 Chronic kidney disease, stage 3 unspecified [facility] 2025-08-14 09:27 Refractory anemia, unspecified [facility] 2025-08-14 09:27 Myelodysplastic syndrome, unspe cified [facility] 2025-08-14 09:27 Chronic kidney disease, stage 3 unspecified [facility] 2025-08-16 09:28 Refractory anemia, unspecified [facility] 2025-08-16 09:28 Myelodysplastic syndrome, unspe cified [facility] 2025-08-16 09:28 Chronic kidney disease, stage 3 unspecified [facility] 2025-08-16 09:30 Type 2 diabetes mellitus with h yperglycemia [facility] 2025-08-16 09:30 MCFP (current) use of insu snow [facility] 2025-08-16 09:40 Refractory anemia, unspecified [facility] 2025-[facility]-16 09:40 Myelodysplastic syndrome, unspe cified [facility] 2025-08-16 09:40 Chronic kidney disease, stage 3 unspecified [facility] 2025-08-16 10:06 Type 2 diabetes mellitus with h yperglycemia [facility] 2025-08-16 10:06 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 2025-08-16 10:14 Chronic kidney disease, stage 3 unspecified [facility] 2025-08-16 12:43 Myelodysplastic syndrome, unspe cified 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 [employer] [facility] 2025-08-18 09:03 Other abnormalities of gait and mobility [facility] 2025-08-18 09:05 Other abnormalities of gait and mobility [facility] 2025-08-18 09:12 Other abnormalities of gait and mobility [facility] 2025-08-23 11:41 Other abnormalities of gait and mobility [facility] 2025-08-23 13:37 Myelodysplastic syndrome, unspe [facility] 16:22 Other abnormalities of gait and mobility [facility] 2025-08-24 16:52 Other abnormalities of gait and mobility [facility] 2025-08-24 17:11 [facility] dribbling [facility] 2025-08-24 17:11 Benign prostatic hyp erplasia with lower urinary tract symptoms [facility] 2025-08-24 17:11 Shortness of breath [facility] 2025-08-24 17:11 Other fatigue [facility] 2025-08-24 18:09 Post-void dribbling [facility] 2025-08-24 18:09 Benign prostatic hyp erplasia with lower urinary tract symptoms [facility] 2025-08-24 18:09 Shortness of breath [facility] 2025-08-24 18:09 Other fatigue [facility] 2025-08-25 00:05 Post-void dribbling [facility] 2025-08-25 00:05 Benign prostatic hyp erplasia with lower urinary tract symptoms [facility] 2025-08-25 00:05 Shortness of breath [facility] 2025-08-25 00:05 Other fatigue [facility] 2025-08-26 13:32 Tachycardia, unspecified [facility] 2025-08-26 13:33 Tachycardia, unspecified [facility] 2025-08-26 14:09 Tachycardia, unspecified [employer] [facility] 2025-08-26 14:38 Anemia, unspecified [facility]on [facility] 2025-08-26 14:38 Tachycardia, unspecified [facility] 2025-08-27 11:13 Myelodysplastic syndrome, [facility]pe [facility] 2025-08-27 11:13 Anemia, unspecified [facility] 2025-08-27 11:13 Type 2 diabetes mellitus with h yperglycemia [facility] 2025-08-27 11:13 Essential (primary) hypertensio n [facility] 2025-08-27 11:13 Unspecified atrial fibrillation [facility] 2025-08-27 11:13 Unspecified systolic (congestiv e) heart failure [facility] 2025-08-27 11:13 Acute kidney failure, unspecifi ed [facility] 2025-08-27 11:13 Chronic kidney disease, unspeci fied [facility] 2025-08-27 11:13 Tachycardia, unspecified [facility] 2025-08-27 11:13 Do not resuscitate status (Z66) [facility] 2025-08-27 11:13 MCFP (current) use of insu snow [facility] 2025-08-27 11:19 Myelodysplastic syndrome, unspe [facility] 2025-08-27 11:19 Anemia, unspecified kameron [facility] 2025-08-27 11:19 Type 2 diabetes mellitus with h yperglycemia [facility] 2025-08-27 11:19 Essential (primary) hypertensio n [facility] 2025-08-27 11:19 Unspecified atrial fibrillation [facility] 2025-08-27 11:19 Unspecified systolic (congestiv e) heart failure [facility] 2025-08-27 11:19 Acute kidney failure, unspecifi ed [facility] 2025-08-27 11:19 Chronic kidney disease, unspeci fied [facility] 2025-08-27 11:19 Tachycardia, unspecified [facility] 2025-08-27 11:19 Do not resuscitate status (Z66) [facility] 2025-08-27 11:19 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 insu [place] [employer] [facility] [employer] 2025-08-27 11:23 Myelodysplastic syndrome, unspe cified [facility] 2025-08-27 11:23 Anemia, unspecified [facility] 2025-08-27 11:23 Type 2 diabetes mellitus with h yperglycemia [facility] 2025-08-27 11:23 Essential (primary) hypertensio n [facility] 2025-08-27 11:23 Unspecified atrial fibrillation [facility] 2025-08-27 11:23 Unspecified systolic (congestiv e) heart failure [facility] 2025-08-27 11:23 Acute kidney failure, unspecifi ed [facility] 2025-08-27 11:23 Chronic kidney disease, unspeci fied [facility] 2025-08-27 11:23 Tachycardia, unspecified [facility] 2025-08-27 11:23 Do not resuscitate status (Z66) [facility] 2025-08-27 11:23 MCFP (current) use of insu [place] [employer] [facility] [employer] 2025-08-27 11:31 Myelodysplastic syndrome, unspe cified [facility] 2025-08-27 11:31 Anemia, unspecified [facility] 2025-08-27 11:31 Type 2 diabetes mellitus with h yperglycemia [facility] 2025-08-27 11:31 Essential (primary) hypertensio n [facility] [employer] 2025-08-27 11:31 Unspecified atrial fibrillation [facility] 2025-08-27 11:31 Unspecified systolic (congestiv e) heart failure [facility] [employer] 2025-08-27 11:31 Acute kidney failure, unspecifi ed [facility] 2025-08-27 11:31 Chronic kidney disease, unspeci fied [facility] 2025-08-27 11:31 Tachycardia, unspecified [facility] 2025-08-27 11:31 Do not resuscitate status (Z66) [facility] [employer] 2025-08-27 11:31 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 insu [place] [employer] [facility] [employer] 2025-08-27 14:13 Myelodysplastic syndrome, unspe cified [employer] 2025-08-27 14:13 Anemia, unspecified [facility] 2025-08-27 14:13 Type 2 diabetes mellitus with h yperglycemia [facility] [employer] 2025-08-27 14:13 Essential (primary) hypertensio n [facility] [employer] 2025-08-27 14:13 Unspecified atrial fibrillation [facility] [employer] 2025-08-27 14:13 Unspecified systolic (congestiv e) heart failure [facility] [employer] 2025-08-27 14:13 Acute kidney failure, unspecifi ed [facility] 2025-08-27 14:13 Chronic kidney disease, unspeci [facility] 2025-08-27 14:13 Tachycardia, unspecified [facility] 2025-08-27 14:13 Do not resuscitate status (Z66) [facility] [employer] 2025-08-27 14:13 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 [employer] [facility] 2025-08-28 10:52 Myelodysplastic syndrome, [facility]pe [facility] 2025-08-28 10:52 Anemia, unspecified [employer] [facility] 2025-08-28 10:52 Type 2 diabetes mellitus with h yperglycemia [facility] 2025-08-28 10:52 Essential (primary) hypertensio n [facility] 2025-08-28 10:52 Unspecified atrial fibrillation [facility] 2025-08-28 10:52 Unspecified systolic (congestiv e) heart failure [facility] 2025-08-28 10:52 Acute kidney failure, unspecifi ed [facility] 2025-08-28 10:52 Chronic kidney disease, unspeci fied [facility] 2025-08-28 10:52 Tachycardia, unspecified [employer] 2025-08-28 10:52 Do not resuscitate status (Z66) [facility] 2025-08-28 10:52 MCFP (current) use of insu [employer] 2025-08-28 10:59 Other abnormalities of gait and mobility [facility] 2025-08-29 08:13 Myelodysplastic syndrome, unspe cified [facility] 2025-08-29 08:13 Anemia, unspecified [employer] [facility] 2025-08-29 08:13 Type 2 diabetes mellitus with h yperglycemia [facility] 2025-08-29 08:13 Essential (primary) hypertensio n [facility] 2025-08-29 08:13 Unspecified atrial fibrillation [facility] 2025-08-29 08:13 Unspecified systolic (congestiv e) heart failure [facility] 2025-08-29 08:13 Acute kidney failure, unspecifi ed [facility] 2025-08-29 08:13 Chronic kidney disease, unspeci fied [place] [employer] 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 [facility] 2025-08-29 09:13 Low back pain, unspecified [facility] 2025-08-29 09:13 Other specified soft tissue dis orders [facility] 2025-08-29 09:13 Shortness of breath [facility] 2025-08-29 09:13 Other forms of dyspnea [facility] 2025-08-29 09:13 Other chest pain [facility] 2025-08-29 09:13 Chest pain, unspecified [facility] Results/Labs test date facility value unit notes Result panel 1 ABNORMAL LYMPHS % (MANUAL) 2025-06-08 08:32 [facility] 0 % (missing) BASOPHILS # (MANUAL) 2025-06-08 08:32 [facility] 0.2 10 3/ul (missing) EOSINOPHILS # (MANUAL) 2025-06-08 08[facility] 0.2 10 3/ul (missing) MONOCYTES # (MANUAL) 2025-06-08 08:32 [facility] 0.4 10 3/ul (missing) METAMYELOCYTES % (MANUAL) 2025-06-08 08:32 [facility] 1 % (missing) MYELOCYTES % (MANUAL) 2025-06-08 08:32 [facility] 1 % (missing) RBC MORPHOLOGY (MULTIPLE) 2025-06-08 08:32 [facility] 1+ ANISOCYTOSIS (alek ng) (missing) BILIRUBIN,TOTAL 2025-06-08 08:32 [facility] 1.0 mg/dl As of May 2023 testing method has changed, this may include reference ranges. CREATININE 2025-06-08 08:[address] [place], [place] [id number] 1.9 mg/dl As of May 2023 testing method has changed, this may include reference ranges. BAND NEUTROPHILS % (MANUAL) 2025-06-08 08:32 [facility] 10 % (missing) TOTAL CELLS COUNTED 2025-06-08 08:[address] [place], [place] [id number] 100 (alek ng) (missing) CHLORIDE 2025-06-08 08:32 [facility] 104 mmol/l As of May 2023 testing method has changed, this may include reference ranges. MEAN CORPUSCULAR VOLUME 2025-06-08 08:32 [facility] 120.2 fl (missing) SODIUM 2025-06-08 08:32 [facility] 137 mmol/l (missing) NEUTROPHILS # (MANUAL) 2025-06-08 08:[address] [place], [place] [id number] 15.3 10 3/ul (missing) WHITE BLOOD COUNT 2025-06-08 08:[address] [place], [place] [id number] 18.7 x10 3/ul (missing) AST ASPARTATE AMINOTRANSFERASE 2025-06-08 08:[address] [place], [place] [id number] 19 iu/l As of May 2023 testing method has changed, this may include reference ranges. RBC MORPHOLOGY (MULTIPLE) 2025-06-08 08:32 [employer] [facility] 2+ MACROCYTOSIS ([facility]) (missing) ALBUMIN/GLOBULIN RATIO 2025-06-08 08:32 [facility] [employer] 2.0 ([facility]) (missing) LYMPHOCYTES # (MANUAL) 2025-06-08 08:[facility] [employer] 2.2 10 3/ul (missing) GLOBULIN 2025-06-08 08:32 [facility] [employer] 2.2 g/dl (missing) RED BLOOD COUNT 2025-06-08 08:[facility] [employer] 2.28 10 6/ul (missing) RED CELL DISTRIBUTION WIDTH 2025-06-08 08:32 [facility] [employer] [facility] 21.6 % (missing) CARBON DIOXIDE - CO2 2025-06-08 08: [facility] 25 mmol/l As of May 2023 testing method has changed, this may include reference ranges. BUN - BLOOD UREA NITROGEN 2025-06-08 08: [facility] 27 mg/dl As of May 2023 testing method has changed, this may include reference ranges. HCT - HEMATOCRIT 2025-06-08 08:32 [facility] 27.4 % (missing) ALT ALANINE AMINOTRANSFERASE 2025-06-08 08:32 [facility] [employer] 30 iu/l As of May 2023 testing method has changed, this may include reference ranges. MEAN CORPUSCULAR HGB CONC 2025-06-08 08:32 [facility] 32.5 g/dl (missing) GLUCOSE 2025-06-08 08: [facility] [employer] [facility] 322 mg/dl As of May 2023 testing method has changed, this may include reference ranges. PLT - PLATELET COUNT 2025-06-08 08:32 [facility] [employer] 335 10 3/ul (missing) GFR - MDRD 2025-06-08 08:32 [facility] [employer] 34 ([facility]) The IDNH-traceable MDRD Study Equation has been validated extensively in and populations between the ages of 18 and 70 with impaired kidney function (eGFR < 60 mL/min/1.73m2) and has shown good performance for patients with all common causes of kidney disease. Although this equation has not been validated for patients older than 70, an MDRD-derived eGFR may still be a useful tool for providers caring for patients older than 70. References: http://www.nkde p.nih.gov/lab-e valuation/gfr/c jhonny-salvatore ardization, last updated January 2012. MEAN CORPUSCULAR HEMOGLOBIN 2025-06-08 08:32 [facility] 39.0 pg (missing) POTASSIUM 2025-06-08 08:32 [facility] 4.1 mmol/l As of May 2023 testing method has changed, this may include reference ranges. ALBUMIN 2025-06-08 08:32 [facility] 4.4 g/dl As of May 2023 testing method has changed, this may include reference ranges. TOTAL PROTEIN 2025-06-08 08:32 [facility] 6.6 g/dl As of May 2023 testing method has changed, this may include reference ranges. ALKALINE PHOSPHATASE 2025-06-08 08:32 [facility] 62 iu/l As of May 2023 testing method has changed, this may include reference ranges. ANION GAP 2025-06-08 08:32 [facility] 8.0 (alek ng) (missing) HGB - HEMOGLOBIN 2025-06-08 08:32 [facility] 8.9 g/dl (missing) CALCIUM 2025-06-08 08:32 [facility] 9.5 mg/dl As of May 2023 testing method has changed, this may include reference ranges. MEAN PLATELET VOLUME 2025-06-08 08:32 [facility] 9.9 fl (missing) DIFFERENTIAL COMMENT 2025-06-08 08:32 [facility] MANUAL DIFFERENTIAL (alek ng) (missing) PLATELET ESTIMATE, MANUAL 2025-06-08 08:32 [facility] NORMAL (130-450,000) (alek ng) (missing) PLATELET MORPHOLOGY 2025-06-08 08:32 [facility] NORMAL APPEARANCE (alek ng) (missing) WBC MORPHOLOGY (MULTIPLE) 2025-06-08 08:32 [facility] NORMAL APPEARANCE (alek ng) (missing) Result panel 2 ABNORMAL LYMPHS % (MANUAL) 2025-06-29 12:00 [facility] 0 % (missing) BASOPHILS # (MANUAL) 2025-06-29 12:00 [facility] 0.0 10 3/ul (missing) MONOCYTES # (MANUAL) 2025-06-29 12:00 [facility] 0.2 10 3/ul (missing) EOSINOPHILS # (MANUAL) 2025-06-29 12:00 [facility] 0.4 10 3/ul (missing) BILIRUBIN,TOTAL 2025-06-29 12:00 [facility] 0.6 mg/dl As of May 2023 testing method has changed, this may include reference ranges. RBC MORPHOLOGY (MULTIPLE) 2025-06-29 12:00 [facility] 1+ MACROCYTOSIS ([facility] ng) (missing) CREATININE 2025-06-29 12:00 [facility] 1.7 mg/dl As of May 2023 testing method has changed, this may include reference ranges. TOTAL CELLS COUNTED 2025-06-29 12:00 [facility] 100 ([facility] ng) (missing) CHLORIDE 2025-06-29 12:00 [facility] 110 mmol/l As of May 2023 testing method has changed, this may include reference ranges. MEAN CORPUSCULAR VOLUME 2025-06-29 12:00 [facility] 123.7 fl (missing) SODIUM 2025-06-29 12:00 [facility] 137 mmol/l (missing) BUN - BLOOD UREA NITROGEN 2025-06-29 12:00 [facility] 17 mg/dl As of May 2023 testing method has changed, this may include reference ranges. NEUTROPHILS # (MANUAL) 2025-06-29 12:00 [facility] 17.0 10 3/ul (missing) AST ASPARTATE AMINOTRANSFERASE 2025-06-29 12:00 [facility] 18 iu/l As of May 2023 testing method has changed, this may include reference ranges. RBC MORPHOLOGY (MULTIPLE) 2025-06-29 12:00 [facility] 2+ POIKILOCYTOSIS (alek ng) (missing) ALBUMIN/GLOBULIN RATIO 2025-06-29 12:00 [facility] 2.0 (alek ng) (missing) GLOBULIN 2025-06-29 12:00 [facility] 2.1 g/dl (missing) RED BLOOD COUNT 2025-06-29 12:00 [facility] 2.11 10 6/ul (missing) LYMPHOCYTES # (MANUAL) 2025-06-29 12:00 [facility] 2.2 10 3/ul (missing) CARBON DIOXIDE - CO2 2025-06-29 12: [facility] 21 mmol/l As of May 2023 testing method has changed, this may include reference ranges. RED CELL DISTRIBUTION WIDTH 2025-06-29 12: [facility] 21.9 % (missing) GLUCOSE 2025-06-29 12:00 [facility] 218 mg/dl As of May 2023 testing method has changed, this may include reference ranges. WHITE BLOOD COUNT 2025-06-29 12: [facility] 22.1 x10 3/ul (missing) HCT - HEMATOCRIT 2025-06-29 12: [facility] 26.1 % (missing) ALT ALANINE AMINOTRANSFERASE 2025-06-29 12: [facility] 29 iu/l As of May 2023 testing method has changed, this may include reference ranges. PLT - PLATELET COUNT 2025-06-29 12:00 [facility] 297 10 3/ul (missing) MYELOCYTES % (MANUAL) 2025-06-29 12:00 [facility] 3 % (missing) RBC MORPHOLOGY (MULTIPLE) 2025-06-29 12:00 [facility] 3+ ANISOCYTOSIS (alek ng) (missing) MEAN CORPUSCULAR HGB CONC 2025-06-29 12:00 [facility] 31.4 g/dl (missing) GFR - MDRD 2025-06-29 12:00 [facility] 38 (alek ng) The IDMS-traceable MDRD Study Equation has been validated extensively in and populations between the ages of 18 and 70 with impaired kidney function (eGFR < 60 mL/min/1.73m2) and has shown good performance for patients with all common causes of kidney disease. Although this equation has not been validated for patients older than 70, an MDRD-derived eGFR may still be a useful tool for providers caring for patients older than 70. References: http://www.nkde p.nih.gov/lab-e valuation/gfr/c reatinine-stand ardization, last updated January 2012. MEAN CORPUSCULAR HEMOGLOBIN 2025-06-29 12:00 [facility] 38.9 pg (missing) ALBUMIN 2025-06-29 12:00 [facility] 4.3 g/dl As of May 2023 testing method has changed, this may include reference ranges. POTASSIUM 2025-06-29 12:00 [facility] 4.3 mmol/l As of May 2023 testing method has changed, this may include reference ranges. BAND NEUTROPHILS % (MANUAL) 2025-06-29 12:00 [facility] 6 % (missing) ANION GAP 2025-06-29 12:00 [facility] 6.0 (alek ng) (missing) TOTAL PROTEIN 2025-06-29 12:00 [facility] 6.4 g/dl As of May 2023 testing method has changed, this may include reference ranges. ALKALINE PHOSPHATASE 2025-06-29 12: [facility] 60 iu/l As of May 2023 testing method has changed, this may include reference ranges. METAMYELOCYTES % (MANUAL) 2025-06-29 12:00 [facility] 7 % (missing) HGB - HEMOGLOBIN 2025-06-29 12:00 [facility] 8.2 g/dl (missing) CALCIUM 2025-06-29 12: [facility] 8.9 mg/dl As of May 2023 testing method has changed, this may include reference ranges. MEAN PLATELET VOLUME 2025-06-29 12: [facility] 9.7 fl (missing) SLIDE REVIEW? 2025-06-29 12:00 [facility] Indicated (alek ng) (missing) DIFFERENTIAL COMMENT 2025-06-29 12:00 [facility] MANUAL DIFFERENTIAL (alek ng) (missing) PLATELET ESTIMATE, MANUAL 2025-06-29 12:00 [facility] NORMAL (130-450,000) (alek ng) (missing) PLATELET MORPHOLOGY 2025-06-29 12:00 [facility] NORMAL APPEARANCE (alek ng) (missing) Result panel 3 ABNORMAL LYMPHS % (MANUAL) 2025-07-20 10:25 [facility] 0 % (missing) BASOPHILS # (MANUAL) 2025-07-20 10:25 [facility] 0.0 10 3/ul (missing) MONOCYTES # (MANUAL) 2025-07-20 10:25 [facility] 0.2 10 3/ul (missing) EOSINOPHILS # (MANUAL) 2025-07-20 10:25 [facility] 0.4 10 3/ul (missing) METAMYELOCYTES % (MANUAL) 2025-07-20 10:25 [facility] 1 % (missing) RBC MORPHOLOGY (MULTIPLE) 2025-07-20 10:25 [facility] 1+ MICROCYTOSIS ([facility] ng) (missing) BILIRUBIN,TOTAL 2025-07-20 10: [facility] 1.0 mg/dl As of May 2023 testing method has changed, this may include reference ranges. LYMPHOCYTES # (MANUAL) 2025-07-20 10: [facility] 1.7 10 3/ul (missing) ALBUMIN/GLOBULIN RATIO 2025-07-20 10: [facility] 1.8 ([facility]) (missing) CREATININE 2025-07-20 10: [facility] 1.8 mg/dl As of May 2023 testing method has changed, this may include reference ranges. TOTAL CELLS COUNTED 2025-07-20 10: [facility] 100 ([facility]) (missing) CHLORIDE 2025-07-20 10: [facility] 109 mmol/l As of May 2023 testing method has changed, this may include reference ranges. MEAN CORPUSCULAR VOLUME 2025-07-20 10: [facility] 121.4 fl (missing) SODIUM 2025-07-20 10:25 [facility] 139 mmol/l (missing) NEUTROPHILS # (MANUAL) 2025-07-20 10: [facility] 15.6 10 3/ul (missing) WHITE BLOOD COUNT 2025-07-20 10: [facility] 19.2 x10 3/ul (missing) RBC MORPHOLOGY (MULTIPLE) 2025-07-20 10: [facility] 2+ MACROCYTOSIS (alek ng) (missing) RED BLOOD COUNT 2025-07-20 10:25 [facility] 2.29 10 6/ul (missing) GLOBULIN 2025-07-20 10:25 [facility] 2.5 g/dl (missing) GLUCOSE 2025-07-20 10:25 [facility] 200 mg/dl As of May 2023 testing method has changed, this may include reference ranges. AST ASPARTATE AMINOTRANSFERASE 2025-07-20 10:25 [facility] 21 iu/l As of May 2023 testing method has changed, this may include reference ranges. RED CELL DISTRIBUTION WIDTH 2025-07-20 10:25 [facility] 21.4 % (missing) CARBON DIOXIDE - CO2 2025-07-20 10:25 [facility] 22 mmol/l As of May 2023 testing method has changed, this may include reference ranges. BUN - BLOOD UREA NITROGEN 2025-07-20 10:25 [facility] 23 mg/dl As of May 2023 testing method has changed, this may include reference ranges. HCT - HEMATOCRIT 2025-07-20 10:25 [facility] 27.8 % (missing) BAND NEUTROPHILS % (MANUAL) 2025-07-20 10:25 [facility] 3 % (missing) MEAN CORPUSCULAR HGB CONC 2025-07-20 10:25 [facility] 31.3 g/dl (missing) PLT - PLATELET COUNT 2025-07-20 10:25 [facility] 321 10 3/ul (missing) ALT ALANINE AMINOTRANSFERASE 2025-07-20 10:25 [facility] 35 iu/l As of May 2023 testing method has changed, this may include reference ranges. GFR - MDRD 2025-07-20 10:25 [facility] 36 ([facility]) The IDMS-traceable MDRD Study Equation has been validated extensively in and populations between the ages of 18 and 70 with impaired kidney function (eGFR < 60 mL/min/1.73m2) and has shown good performance for patients with all common causes of kidney disease. Although this equation has not been validated for patients older than 70, an MDRD-derived eGFR may still be a useful tool for providers caring for patients older than 70. References: http://www.nkde p.nih.gov/lab-e valuation/gfr/c reatinine-stand ardization, last updated January 2012. MEAN CORPUSCULAR HEMOGLOBIN 2025-07-20 10:25 [facility] 38.0 pg (missing) RBC MORPHOLOGY (MULTIPLE) 2025-07-20 10:25 [facility] 4+ ANISOCYTOSIS ([facility]) (missing) POTASSIUM 2025-07-20 10:25 [facility] 4.3 mmol/l As of May 2023 testing method has changed, this may include reference ranges. ALBUMIN 2025-07-20 10: [facility] 4.5 g/dl As of May 2023 testing method has changed, this may include reference ranges. MYELOCYTES % (MANUAL) 2025-07-20 10:25 [facility] 6 % (missing) ALKALINE PHOSPHATASE 2025-07-20 10: [facility] 65 iu/l As of May 2023 testing method has changed, this may include reference ranges. TOTAL PROTEIN 2025-07-20 10: [facility] 7.0 g/dl As of May 2023 testing method has changed, this may include reference ranges. ANION GAP 2025-07-20 10:25 [facility] 8.0 ([facility]) (missing) HGB - HEMOGLOBIN 2025-07-20 10: [facility] 8.7 g/dl (missing) CALCIUM 2025-07-20 10: [facility] 9.0 mg/dl As of May 2023 testing method has changed, this may include reference ranges. MEAN PLATELET VOLUME 2025-07-20 10: [facility] 9.9 fl (missing) DIFFERENTIAL COMMENT 2025-07-20 10:25 [facility] MANUAL DIFFERENTIAL ([facility]) (missing) PLATELET ESTIMATE, MANUAL 2025-07-20 10:25 [facility] NORMAL (130-450,000) ([facility]) (missing) Result panel 4 ABNORMAL LYMPHS % (MANUAL) 2025-08-16 09:38 [facility] 0 % (missing) BASOPHILS # (MANUAL) 2025-08-16 09:38 [facility] 0.0 10 3/ul (missing) MONOCYTES # (MANUAL) 2025-08-16 09:38 [facility] 0.2 10 3/ul (missing) BILIRUBIN,TOTAL 2025-08-16 09:38 [facility] 0.9 mg/dl As of May 2023 testing method has changed, this may include reference ranges. PROMYELOCYTES % (MANUAL) 2025-08-16 09:38 [facility] 1 % (missing) RBC MORPHOLOGY (MULTIPLE) 2025-08-16 09:38 [facility] 1+ ANISOCYTOSIS (alek [facility]) (missing) RBC MORPHOLOGY (MULTIPLE) 2025-08-16 09:38 [facility] 1+ TEARDROP CELLS (alek ng) (missing) EOSINOPHILS # (MANUAL) 2025-08-16 09:38 [facility] 1.1 10 3/ul (missing) LYMPHOCYTES # (MANUAL) 2025-08-16 09:38 [facility] 1.3 10 3/ul (missing) CREATININE 2025-08-16 09:38 [facility] 1.8 mg/dl As of May 2023 testing method has changed, this may include reference ranges. MEAN PLATELET VOLUME 2025-08-16 09:38 [facility] 10.1 fl (missing) TOTAL CELLS COUNTED 2025-08-16 09:38 [facility] 100 ([facility]) (missing) CHLORIDE 2025-08-16 09:38 [facility] 105 mmol/l As of May 2023 testing method has changed, this may include reference ranges. MEAN CORPUSCULAR VOLUME 2025-08-16 09:38 [facility] 121.6 fl (missing) BAND NEUTROPHILS % (MANUAL) 2025-08-16 09:38 [facility] 13 % (missing) SODIUM 2025-08-16 09:38 [facility] 136 mmol/l No NEUTROPHILS # (MANUAL) 2025-08-16 09:38 [facility] 14.7 10 3/ul (missing) ESTIMATED AVERAGE GLUCOSE 2025-08-16 09:38 [facility] 140 mg/dl (missing) WHITE BLOOD COUNT 2025-08-16 09:38 [facility] 19.1 x10 3/ul (missing) RBC MORPHOLOGY (MULTIPLE) 2025-08-16 09:38 [facility] 2+ MACROCYTOSIS ([facility]) (missing) GLOBULIN 2025-08-16 09:38 [facility] 2.1 g/dl (missing) ALBUMIN/GLOBULIN RATIO 2025-08-16 09:38 [facility] 2.2 ([facility]) (missing) RED BLOOD COUNT 2025-08-16 09:38 [facility] 2.22 10 6/ul (missing) RED CELL DISTRIBUTION WIDTH 2025-08-16 09:38 [facility] 22.3 % (missing) BUN - BLOOD UREA NITROGEN 2025-08-16 09:38 [facility] 23 mg/dl As of May 2023 testing method has changed, this may include reference ranges. CARBON DIOXIDE - CO2 2025-08-16 09:38 [facility] 23 mmol/l As of May 2023 testing method has changed, this may include reference ranges. AST ASPARTATE AMINOTRANSFERASE 2025-08-16 09:38 [facility] 25 iu/l As of May 2023 testing method has changed, this may include reference ranges. HCT - HEMATOCRIT 2025-08-16 09:38 [facility] 27.0 % (missing) GLUCOSE 2025-08-16 09:38 [facility] 274 mg/dl As of May 2023 testing method has changed, this may include reference ranges. PLT - PLATELET COUNT 2025-08-16 09:38 [facility] 275 10 3/ul (missing) MYELOCYTES % (MANUAL) 2025-08-16 09:38 [facility] 3 % (missing) MEAN CORPUSCULAR HGB CONC 2025-08-16 09:38 [facility] 31.5 g/dl (missing) GFR - MDRD 2025-08-16 09:38 [facility] 36 ([facility]) The IDMS-traceable MDRD Study Equation has been validated extensively in and populations between the ages of 18 and 70 with impaired kidney function (eGFR < 60 mL/min/1.73m2) and has shown good performance for patients with all common causes of kidney disease. Although this equation has not been validated for patients older than 70, an MDRD-derived eGFR may still be a useful tool for providers caring for patients older than 70. References: http://www.nkde p.nih.gov/lab-e valuation/gfr/c reatinine-stand ardization, last updated January 2012. MEAN CORPUSCULAR HEMOGLOBIN 2025-08-16 09:38 [email or web address] 38.3 pg (missing) POTASSIUM 2025-08-16 09:38 [facility] 4.2 mmol/l As of May 2023 testing method has changed, this may include reference ranges. ALBUMIN 2025-08-16 09:38 [facility] 4.6 g/dl As of May 2023 testing method has changed, this may include reference ranges. ALT ALANINE AMINOTRANSFERASE 2025-08-16 09:38 [facility] 44 iu/l As of May 2023 testing method has changed, this may include reference ranges. METAMYELOCYTES % (MANUAL) 2025-08-16 09:38 [facility] 5 % (missing) HEMOGLOBIN A1c% 2025-08-16 09:38 [facility] 6.5 % The [place] [employer] (ADA) has made the following recommendations : Monitoring HbA1c in Diabetic Patients: A1c (NGSP%) Goal <8 Less Stringent Goal <7 General Goal <6.5 More Stringent Goal Diagnosis of Diabetes: A1c (NGSP%) Goal >6.5 Diabetic 5.7-6.4 Pre-Diabetic <5.7 Non-Diabetic TOTAL PROTEIN 2025-08-16 09:38 [facility] 6.7 g/dl As of May 2023 testing method has changed, this may include reference ranges. ALKALINE PHOSPHATASE 2025-08-16 09:38 [facility] 72 iu/l As of May 2023 testing method has changed, this may include reference ranges. ANION GAP 2025-08-16 09:38 [facility] 8.0 (alek ng) (missing) HGB - HEMOGLOBIN 2025-08-16 09:38 [facility] 8.5 g/dl (missing) CALCIUM 2025-08-16 09:38 [facility] 9.4 mg/dl As of May 2023 testing method has changed, this may include reference ranges. DIFFERENTIAL COMMENT 2025-08-16 09:38 [facility] MANUAL DIFFERENTIAL (alek ng) (missing) PLATELET ESTIMATE, MANUAL 2025-08-16 09:38 [facility] NORMAL (130-450,000) (alek ng) (missing) PLATELET MORPHOLOGY 2025-08-16 09:38 [facility] NORMAL APPEARANCE (alek ng) (missing) WBC MORPHOLOGY (MULTIPLE) 2025-08-16 09:38 [facility] NORMAL APPEARANCE (alek ng) (missing) Result panel 5 CUL, URINE 2025-08-24 16:35 [facility] CXPCULTUR E IN PROGRESS. RESULTS TO FOLLOW. (missing) (missing) CUL, URINE 2025-08-24 16:35 [facility] NGNo growth (miss ing) (missing) Result panel 6 LIPASE 2025-08-26 13:39 [facility] < 10 u/l As of May 2023 testing method has changed, this may include reference ranges. BASOPHILS # (AUTO) 2025-08-26 13:39 [facility] 0.1 10 3/ul (missing) NRBC ABSOLUTE COUNT (AUTO) 2025-08-26 13:39 [facility] 0.12 x10 3/ul (missing) EOSINOPHILS # (AUTO) 2025-08-26 13:39 [facility] 0.2 10 3/ul (missing) NUCLEATED RED BLOOD CELLS AUTO 2025-08-26 13:39 [facility] 0.4 /100wbc (missing) MONOCYTES # (AUTO) 2025-08-26 13:39 [facility] 0.7 10 3/ul (missing) BILIRUBIN,TOTAL 2025-08-26 13:39 [facility] 1.1 mg/dl As of May 2023 testing method has changed, this may include reference ranges. RED BLOOD COUNT 2025-08-26 13:39 [facility] 1.29 10 6/ul (missing) LYMPHOCYTES # (AUTO) 2025-08-26 13:39 [facility] 1.6 10 3/ul (missing) ALBUMIN/GLOBULIN RATIO 2025-08-26 13:39 [facility] 1.8 (missin g) (missing) MEAN PLATELET VOLUME 2025-08-26 13:39 [facility] 10.1 fl (missing) CHLORIDE 2025-08-26 13:39 [facility] 104 mmol/l As of May 2023 testing method has changed, this may include reference ranges. AST ASPARTATE AMINOTRANSFERASE 2025-08-26 13:39 [facility] 11 iu/l As of May 2023 testing method has changed, this may include reference ranges. MEAN CORPUSCULAR VOLUME 2025-08-26 13:39 [employer] [facility] 124.8 fl (missing) TROPONIN I HIGH SENSITIVITY 2025-08-26 13:39 [facility] 13.0 ng/l A HIGH SENSITIVITY TROPONIN result of >= 14.9 ng/L for females is considered POSITIVE. A HIGH SENSITIVITY TROPONIN result of >= 19.8 ng/L for males is considered POSITIVE. A HIGH SENSITIVITY TROPONIN result of >= 17.9 ng/L for unspecified is considered POSITIVE. SODIUM 2025-08-26 13:39 [employer] [facility] 135 mmol/l (missing) ALT ALANINE AMINOTRANSFERASE 2025-08-26 13:39 [facility] 16 iu/l As of May 2023 testing method has changed, this may include reference ranges. HCT - HEMATOCRIT 2025-08-26 13:39 [facility] 16.1 % Called to DR. SNYDER IN ED by Nyasia Goss M.T.([facility]) at 1406 08/26/25. Read back(Y/N)? YES CREATININE 2025-08-26 13:39 [employer] [facility] 2.1 mg/dl As of May 2023 testing method has changed, this may include reference ranges. GLOBULIN 2025-08-26 13:39 [employer] [facility] 2.2 g/dl (missing) NEUTROPHILS # (AUTO) 2025-08-26 13:39 [facility] 21.1 10 3/ul (missing) CARBON DIOXIDE - CO2 2025-08-26 13:39 [facility] 22 mmol/l As of May 2023 testing method has changed, this may include reference ranges. RED CELL DISTRIBUTION WIDTH 2025-08-26 13:39 [facility] 24.5 % (missing) WHITE BLOOD COUNT 2025-08-26 13:39 [facility] 27.8 x10 3/ul (missing) RBC MORPHOLOGY (MULTIPLE) 2025-08-26 13:39 [employer] [facility] 3+ HYPOCHROMASIA (missin g) (missing) ALBUMIN 2025-08-26 13:39 [facility] 3.9 g/dl As of May 2023 testing method has changed, this may include reference ranges. GFR - MDRD 2025-08-26 13:39 [facility] 30 ([facility]) The IDMS-traceable MDRD Study Equation has been validated extensively in and populations between the ages of 18 and 70 with impaired kidney function (eGFR < 60 mL/min/1.73m2) and has shown good performance for patients with all common causes of kidney disease. Although this equation has not been validated for patients older than 70, an MDRD-derived eGFR may still be a useful tool for providers caring for patients older than 70. References: http://www.nkdep .nih.gov/lab-satya luation/gfr/crea tinine-stand ardization, last updated January 2012. MEAN CORPUSCULAR HGB CONC 2025-08-26 13:39 [facility] 31.7 g/dl (missing) PLT - PLATELET COUNT 2025-08-26 13:39 [facility] 333 10 3/ul (missing) MEAN CORPUSCULAR HEMOGLOBIN 2025-08-26 13:39 [facility] 39.5 pg (missing) POTASSIUM 2025-08-26 13:39 [facility] 4.7 mmol/l As of May 2023 testing method has changed, this may include reference ranges. GLUCOSE 2025-08-26 13:39 [facility] 423 mg/dl As of May 2023 testing method has changed, this may include reference ranges. ALKALINE PHOSPHATASE 2025-08-26 13:39 [facility] 46 iu/l As of May 2023 testing method has changed, this may include reference ranges. BUN - BLOOD UREA NITROGEN 2025-08-26 13:39 [facility] 47 mg/dl As of May 2023 testing method has changed, this may include reference ranges. HGB - HEMOGLOBIN 2025-08-26 13:39 [facility] 5.1 g/dl Called to DR. SNYDER IN ED by Nyasia Goss M.T.([facility]) at 1406 08/26/25. Read back(Y/N)? YES TOTAL PROTEIN 2025-08-26 13:39 [facility] 6.1 g/dl As of May 2023 testing method has changed, this may include reference ranges. ANION GAP 2025-08-26 13:39 [facility] 9.0 (missin g) (missing) CALCIUM 2025-08-26 13:39 [facility] 9.5 mg/dl As of May 2023 testing method has changed, this may include reference ranges. DIFFERENTIAL COMMENT 2025-08-26 13:39 [email or web address] MANUAL=AUTO DIFF (missin g) MANUAL DIFFERENTIAL AGREES WITH AUTO DIFFERENTIAL PLATELET ESTIMATE, MANUAL 2025-08-26 13:39 [facility] NORMAL (130-450,000) (missin g) (missing) PLATELET MORPHOLOGY 2025-08-26 13:39 [facility] NORMAL KIERAN (missin g) (missing) Result panel 7 UROBILINOGEN,URINE 2025-08-26 17:30 [facility] .2 e.u./dl (missing) SPECIFIC GRAVITY,URINE 2025-08-26 17:30 [facility] 1.015 (missing) (missing) GLUCOSE, URINE (UA) 2025-08-26 17:30 [facility] 100 mg/dl (missing) PH,URINE 2025-08-26 17:30 [facility] 6.0 ph (missing) CLARITY,URINE 2025-08-26 17:30 [facility] CLEAR (missing) (missing) COLOR,URINE 2025-08-26 17:30 [facility] LIGHT YELLOW (missing) URINE RANDOM LEUKOCYTE ESTERASE, URINE 2025-08-26 17:30 [facility] NEGATIVE (missing) (missing) NITRITE,URINE 2025-08-26 17:30 [facility] NEGATIVE (missing) (missing) OCCULT BLOOD,URINE 2025-08-26 17:30 [facility] NEGATIVE (missing) (missing) BILIRUBIN,URINE 2025-08-26 17:30 [facility] NEGATIVE (missing) Bilirubin can be influenced by color interference. Please correlate positive results with clinical presentation KETONES,URINE (UA) 2025-08-26 17:30 [facility] NEGATIVE mg/dl (missing) PROTEIN,URINE 2025-08-26 17:30 [facility] NEGATIVE mg/dl (missing) UR CULTURE IF IND 2025-08-26 17:30 [facility] NOT INDICATED (missing) (missing) URINE MICROSCOPIC INDICATED? 2025-08-26 17:30 [facility] NOT INDICATED (missing) (missing) Result panel 8 GLUCOSE, WHOLE BLOOD 2025-08-26 20:35 [facility] 368 (missing) RN notified. Result panel 9 GLUCOSE, WHOLE BLOOD 2025-08-27 00:23 [facility] 256 (missing) (missing) Result panel 10 ABNORMAL LYMPHS % (MANUAL) 2025-08-27 05:26 [facility] 0 % (missing) BASOPHILS # (MANUAL) 2025-08-27 05:26 [facility] 0.0 10 3/ul (missing) EOSINOPHILS # (MANUAL) 2025-08-27 05:26 [facility] 0.0 10 3/ul (missing) MONOCYTES # (MANUAL) 2025-08-27 05:26 [facility] 0.0 10 3/ul (missing) PROMYELOCYTES % (MANUAL) 2025-08-27 05:26 [facility] 1 % (missing) RBC MORPHOLOGY (MULTIPLE) 2025-08-27 05:26 [facility] 1+ POLYCHROMASIA (alek ng) (missing) CREATININE 2025-08-27 05:26 [facility] 1.8 mg/dl As of May 2023 testing method has changed, this may include reference ranges. TOTAL CELLS COUNTED 2025-08-27 05:26 [facility] 100 (alek ng) (missing) MEAN CORPUSCULAR VOLUME 2025-08-27 05:26 [facility] 102.3 fl (missing) CHLORIDE 2025-08-27 05:26 [facility] 109 mmol/l As of May 2023 testing method has changed, this may include reference ranges. SODIUM 2025-08-27 05:26 [facility] 137 mmol/l (missing) GLUCOSE 2025-08-27 05:26 [facility] 140 mg/dl As of May 2023 testing method has changed, this may include reference ranges. NUCLEATED RBC (MANUAL) 2025-08-27 05:26 [facility] 2 % (missing) RBC MORPHOLOGY (MULTIPLE) 2025-08-27 05:26 [facility] 2+ HYPOCHROMASIA (alek ng) (missing) RED BLOOD COUNT 2025-08-27 05:26 [facility] 2.16 10 6/ul (missing) BAND NEUTROPHILS % (MANUAL) 2025-08-27 05:26 [facility] 21 % (missing) NEUTROPHILS # (MANUAL) 2025-08-27 05:26 [facility] 21.8 10 3/ul (missing) CARBON DIOXIDE - CO2 2025-08-27 05:26 [facility] 22 mmol/l As of May 2023 testing method has changed, this may include reference ranges. HCT - HEMATOCRIT 2025-08-27 05: [facility] 22.1 % (missing) WHITE BLOOD COUNT 2025-08-27 05: [facility] 27.2 x10 3/ul (missing) RED CELL DISTRIBUTION WIDTH 2025-08-27 05: [facility] 28.0 % (missing) PLT - PLATELET COUNT 2025-08-27 05: [facility] 291 10 3/ul (missing) METAMYELOCYTES % (MANUAL) 2025-08-27 05:26 [facility] 3 % (missing) RBC MORPHOLOGY (MULTIPLE) 2025-08-27 05: [facility] 3+ ANISOCYTOSIS ([facility]) (missing) LYMPHOCYTES # (MANUAL) 2025-08-27 05:26 [facility] 3.3 10 3/ul (missing) MEAN CORPUSCULAR HGB CONC 2025-08-27 05:26 [facility] 33.0 g/dl (missing) MEAN CORPUSCULAR HEMOGLOBIN 2025-08-27 05: [facility] 33.8 pg (missing) GFR - MDRD 2025-08-27 05:26 [facility] 36 (alek ng) The IDMS-traceable MDRD Study Equation has been validated extensively in and populations between the ages of 18 and 70 with impaired kidney function (eGFR < 60 mL/min/1.73m2) and has shown good performance for patients with all common causes of kidney disease. Although this equation has not been validated for patients older than 70, an MDRD-derived eGFR may still be a useful tool for providers caring for patients older than 70. References: http://www.nkde p.nih.gov/lab-e valuation/gfr/c reatinine-stand ardization, last updated January 2012. MYELOCYTES % (MANUAL) 2025-08-27 05:26 [facility] 4 % (missing) POTASSIUM 2025-08-27 05: [email or web address] 4.1 mmol/l As of May 2023 testing method has changed, this may include reference ranges. BUN - BLOOD UREA NITROGEN 2025-08-27 05: [email or web address] 44 mg/dl As of May 2023 testing method has changed, this may include reference ranges. ANION GAP 2025-08-27 05: [facility] 6.0 ([facility]) (missing) HGB - HEMOGLOBIN 2025-08-27 05: [facility] 7.3 g/dl (missing) CALCIUM 2025-08-27: [email or web address] Some Style 8.8 mg/dl As of May 2023 testing method has changed, this may include reference ranges. MEAN PLATELET VOLUME 2025-08-27 05: [facility] 9.9 fl (missing) DIFFERENTIAL COMMENT 2025-08-27 05:26 [email or web address] MANUAL DIFFERENTIAL ([facility] ng) (missing) Result panel 11 GLUCOSE, WHOLE BLOOD 2025-08-27 07:51 [facility] 160 (missing) RN notified. Result panel 12 GLUCOSE, WHOLE BLOOD 2025-08-27 11:39 [facility] 279 (missing) (missing) Social History date description facility
== END 2025-08-27 14:00 | disposition home or self-care (01) ==
LOC: MS3 13:17 → ED 13:17 → MS3 17:04
PROVIDERS: ADMIT Physician Assistant Medical; ATTEND Physician Assistant Medical